=== PATIENT | male | born 1965 | race Caucasian/White ===

== ENCOUNTER → 2016-11-02 | Outpatient (CLI) | payer OTHER ==
[~2016-11-02] MED LIST: ATORVASTATIN PO; PRLSR20 PO; ZNTT/150 PO
--- NOTE | 2016-11-02 12:53 | DIAGNOSTIC IMAGING REPORT ---
(BARIUM SWALLOW) ESOPHAGUS CLINICAL HISTORY: Laryngopharyngeal reflux. History of dysphagia. COMPARISON STUDY: None. FLUOROSCOPY TIME: 1.3 minutes. FINDINGS: 15 fluoroscopic images were obtained. No esophageal mass or stricture was identified. 13 mm barium passed into the stomach. There was mild to moderate esophageal dysmotility. No reflux was elicited. No hiatal hernia was identified. IMPRESSION: 1. No esophageal mass or stricture identified. 2. Mild to moderate esophageal dysmotility. Electronically signed by: Alfredito Cruz M.D. 11/02/2016 12:51 PM Dictated Date/Time: 11/02/2016 12:50 PM
--- NOTE | 2016-11-02 13:04 | DIAGNOSTIC IMAGING REPORT ---
CT OF THE SINUSES WITHOUT CONTRAST FUSION PROTOCOL CLINICAL HISTORY: Acute sinusitis. Post treatment. Persistent postnasal drip. COMPARISON STUDY: No previous studies for comparison. TECHNIQUE: Axial images of the sinuses were obtained without IV contrast according to Fusion protocol. Coronal reformats were viewed. FINDINGS: Mastoid air cells are clear. There is no fluid within the middle ears. Ossicles are intact. Visualized portions of the intracranial contents are unremarkable on this unenhanced exam. A defect within the anterior aspect of the nasal septum measures 2.4 cm in AP extent. This may be postsurgical. There is a yong bullosa of the left middle turbinate. A 7 mm polypoid density within left maxillary sinus likely reflects a mucous retention cyst. The major drainage pathways, including the ostiomeatal complexes are patent. There is minimal mucosal thickening of the sinuses. No air-fluid levels are present. IMPRESSION: 1. Minimal mucosal thickening of the sinuses. Sinuses essentially clear. Patent major drainage pathways. No evidence for acute sinusitis. 2. Defect within the anterior aspect of the nasal septum which may be postsurgical. Electronically signed by: Alfredito Cruz M.D. 11/02/2016 1:02 PM Dictated Date/Time: 11/02/2016 12:56 PM
== END | disposition home or self-care (01) ==
LOC: C.CTS 10:24
PROVIDERS: ATTEND Physician Assistant
DX: J01.90 Acute sinusitis, unspecified (principal); K21.9 Gastro-esophageal reflux disease without esophagitis

== ENCOUNTER → 2016-12-08 | Day surgery (SDC) | payer OTHER ==
[2016-12-02 15:19] VITALS: BMI 49.0
[~2016-12-08] VITALS: Ht 198.1 cm; Wt 193.2 kg
[~2016-12-08] MED LIST changes: +SODIUM CHLORIDE 0.9% 500ML 500 ML IV ONE
[2016-12-08 13:49] VITALS: Ht 198.1 cm; Wt 193.2 kg
--- NOTE | 2016-12-08 14:11 | Endo History and Physical ---
History & Physical Date of Service: Dec 08, 2016. Chief Complaint: DYSPHAGIA Referring Physician: Dr. Luciano History of Present Illness 51 yo CM who presents for EGD secondary to dysphagia. Past Surgical History Hx Cardiac Surgery: No Hx Internal Defibrillator: No Hx Pacemaker: No Hx Abdominal Surgery: No Hx of Implantable Prosthesis: No Hx Post-Op Nausea and Vomiting: No Hx Cancer Surgery: No Hx Thoracic Surgery: No Hx Orthopedic: Yes (LT/RT KNEE SCOPE) Hx Urinary Tract Surgery: No Family History None Social History Smoking Status: Never Smoker Hx Substance Use: No Hx Alcohol Use: Yes (OCCASIONAL) Allergies Coded Allergies: No Known Allergies (Verified , 12/08/16) Current Medications Reported Home Medications Medications Dose Route/Sig Max Daily Dose Days Date Category [Atorvastatin] Unknown Strength Unknown Dose PO QAM 12/02/16 Reported Zantac (Ranitidine HCl) 150 Mg Tab 150 Mg PO BID 12/02/16 Reported Prilosec (Omeprazole) 20 Mg Capcr 20 Mg PO BIDM 12/02/16 Reported Vital Signs Weight (Kilograms): 193.18 Height (Feet): 6 Height (Inches): 6 Date Time Temp Pulse Resp B/P (MAP) Pulse Ox O2 Delivery O2 Flow Rate FiO2 12/08/16 13:58 36.8 87 20 126/77 (93) 95 Room Air Physical Exam General Appearance: WD/WN, no apparent distress Respiratory/Chest: Auscultation: breath sounds normal Cardiovascular: Heart Auscultation: RRR Abdomen: Bowel Sounds: normal Inspection & Palpation: soft, non-distended, no tenderness, guarding & rebound Assessment and Plan Assessment: 51 yo CM who presents for EGD secondary to dysphagia. Plan: Proceed with EGD.
--- NOTE | 2016-12-08 14:50 | Discharge Instructions ---
Endoscopy Patient Instructions Date / Procedure(s) Performed Dec 08, 2016. EGD Allergy Information Coded Allergies: No Known Allergies (Verified , 12/08/16) Discharge Date / Findings Dec 08, 2016. Gastritis s/p biopsies Hiatal hernia Reflux esophagitis Medication Instructions 1) Increase Omeprazole to 40mg by mouth twice daily 1/2 hour prior to breakfast and dinner. 2) OK to resume all medications today as prescribed Reported Home Medications Medications Dose Route/Sig Max Daily Dose Days Date Category [Atorvastatin] Unknown Strength Unknown Dose PO QAM 12/02/16 Reported Zantac (Ranitidine HCl) 150 Mg Tab 150 Mg PO BID 12/02/16 Reported Prilosec (Omeprazole) 20 Mg Capcr 20 Mg PO BIDM 12/02/16 Reported Provider Instructions Activity Restrictions - No exercising or heavy lifting for 24 hours. - Do not drink alcohol the day of the procedure. - Do not drive a car or operate machinery until the day after the procedure. - Do not make any important decisions or sign important papers in 24 hours after the procedure. Following Day: - Return to full activity which may include returning to work/school. Diet Start your diet with liquids and light foods (jello, soup, juice, toast). Then eat your usual diet if not nauseated. Treatment For Common After Affects For mild abdominal pain, bloating, or excessive gas: - Rest - Eat lightly - Lie on right side Follow-Up Information Follow-up with NONE as scheduled Anesthesia Information What You Should Know You have had a procedure that required some medicine to reduce anxiety and discomfort. This treatment is called moderate sedation. After receiving the treatment, you may be sleepy, but you will be able to breathe on your own. The effects of the treatment may last for several hours. Follow these instructions along with Activity/Diet recommendations noted above: * Do NOT do anything where dizziness or clumsiness would be dangerous. * Rest quietly at home today, then you can be up and about tomorrow. * Have a responsible person stay with you the rest of today. * You may have had an I.V. today. If so, you may take the dressing off later today. Recommendations Call your doctor if: * Trouble breathing * Continuous vomiting for more than 24 hours * Temperature above 101 degrees * Severe abdominal pain or bloating * Pain not relieved by pain medicine ordered * There is increased drainage or redness from any incision * A large amount of rectal bleeding greater than 2-3 tablespoons. (If you had a polyp/s removed or have hemorrhoids, a small amount of blood - from the rectum is to be expected.) * You have any unanswered questions or concerns. IN THE EVENT OF A SERIOUS EMERGENCY, GO TO THE NEAREST EMERGENCY ROOM Your discharge instructions were prepared by provider [place]. Patient Instructions Signature Page Darian Murphy Patient (or Guardian) Signature/Date: I have read and understand the instructions given to me by my caregivers. Caregiver/RN/Doctor Signature/Date: The above-named patient and/or guardian has received patient instructions on this date. + Original Patient Signature Page (only) stays with chart. Please make copy for patient.
--- NOTE | 2016-12-08 15:01 | GI REPORT ---
Procedure Date: 12/08/2016 2:27 PM Procedure: Upper GI endoscopy Indications: Dysphagia Medicines: Monitored Anesthesia Care Complications: No immediate complications. Estimated Blood Loss: Estimated blood loss: none. Procedure: Pre-Anesthesia Assessment: - Prior to the procedure, a History and Physical was performed, and patient medications and allergies were reviewed. The patient's tolerance of previous anesthesia was also reviewed. The risks and benefits of the procedure and the sedation options and risks were discussed with the patient. All questions were answered, and informed consent was obtained. Prior Anticoagulants: The patient has taken no previous anticoagulant or antiplatelet agents. ASA Grade Assessment: III - A patient with severe systemic disease. After reviewing the risks and benefits, the patient was deemed in satisfactory condition to undergo the procedure. After obtaining informed consent, the endoscope was passed under direct vision. Throughout the procedure, the patient's blood pressure, pulse, and oxygen saturations were monitored continuously. The scope was introduced through the mouth, and advanced to the second part of duodenum. The upper GI endoscopy was accomplished without difficulty. The patient tolerated the procedure well. Findings: LA Grade B (one or more mucosal breaks greater than 5 mm, not extending between the tops of two mucosal folds) esophagitis with no bleeding was found. A small hiatus hernia was present. Localized moderate inflammation characterized by erythema was found in the gastric antrum. Biopsies were taken with a cold forceps for histology. The examined duodenum was normal. Impression: - LA Grade B reflux esophagitis. - Small hiatus hernia. - Gastritis. Biopsied. - Normal examined duodenum. Recommendation: - Resume previous diet. - Use Prilosec (omeprazole) 40 mg PO BID. - Await pathology results. - Return to primary care physician as previously scheduled. [place] DO 12/08/2016 3:01:29 PM This report has been signed electronically. Note Initiated On: 12/08/2016 2:27 PM I attest to the content of the Intraoperative Record and orders documented therein, exceptions below
--- NOTE | 2016-12-08 15:13 | Anesthesiology Progress Note ---
Anesthesia Post Op Note Date & Time Dec 08, 2016 at 15:13 Vital Signs Pain Intensity: 0 Vital Signs Past 12 Hours Date Time Temp Pulse Resp B/P (MAP) Pulse Ox O2 Delivery O2 Flow Rate FiO2 12/08/16 14:59 75 20 125/84 (98) 95 Room Air 12/08/16 14:44 81 20 120/85 (97) 95 Room Air 12/08/16 13:58 36.8 87 20 126/77 (93) 95 Room Air Notes Mental Status: alert / awake / arousable, participated in evaluation Pt Amnestic to Procedure: Yes Nausea / Vomiting: adequately controlled Pain: adequately controlled Airway Patency, RR, SpO2: stable & adequate BP & HR: stable & adequate Hydration State: stable & adequate Anesthetic Complications: no major complications apparent
[2016-12-08 15:14] VITALS: BP 135/82; PULSE 77; O2SAT 95
== END | disposition home or self-care (01) ==
LOC: C.GI 13:36
PROVIDERS: ATTEND Internal Medicine
DX: R13.10 Dysphagia, unspecified (principal); K29.50 Unspecified chronic gastritis without bleeding; K44.9 Diaphragmatic hernia without obstruction or gangrene; K21.0 Gastro-esophageal reflux disease with esophagitis

== ENCOUNTER 2023-01-10 13:20 | Inpatient (IN) ==
--- NOTE | 2023-01-10 13:30 | ED Triage Note ---
Date of Service January 10, 2023 History of Present Illness This patient was briefly evaluated while in triage. An abbreviated physical exam was performed. This patient is a 57-year-old Male who presents to the ED for evaluation of right lower leg pain, weakness, lightheadedness x a couple of weeks starts in the front of the knee, down into calf and lateral ankle-no hx of DVT, has started using a cane to ambulate feels L/D, SOB and weak Physical Exam GENERAL: NAD, in a wheelchair CARDIOVASCULAR: RRR RESPIRATORY: CTA EXT: RLE without pitting edema or erythema. Varicose veins noted without tender cords. Knee without large effusion. Initial orders for labs and / or imaging were placed and patient was placed in the waiting area until a bed is available. Please see further documentation for the full ED course.
--- NOTE | 2023-01-10 13:54 | Emergency Department Note ---
Impression & Plan CHRISTAL (acute kidney injury), Pulmonary hypertension, Acute pain of right lower extremity, Byrd cyst, Acute UTI (urinary tract infection) ED Provider Note NAME: TARAS STRINGER II AGE: 57 SEX: Male INFORMANT: Patient ED PROVIDER(S): Bhavya Lyle DO CHIEF COMPLAINT: Shortness of breath, right leg pain PLAN: Disposition: additional inpatient evalation Outpatient prescription management: none Referral: MEDICAL DECISION MAKING: This is a 49-year-old male presents emergency department due to concern for shortness of breath and right lower extremity pain. Labs drawn and sent, IV established, EKG and chest ray performed bedside interpreted by me and patient monitored on telemetry. Patient sent for a Doppler of the right lower extremity additionally and was found to be negative for DVT but did have a Byrd's cyst which likely explains his pain and mild increased swelling. Patient noted to have an elevated D-dimer and so CT angiography of the chest was also performed after discussion with the patient at bedside. This did not reveal any obvious PE, pulmonary edema, or pneumonia. There was mention of pulmonary hypertension and these results were also discussed with the patient at bedside I did reach out and discuss the patient's condition and findings with his outpatient PCP. Patient was uncomfortable going home given persistent symptoms as well as increased dyspnea with any exertion. During my bedside discussion with the patient, I had noted that his urine was very dark and almost appeared to show blood. I added a CPK and UA. UA did reveal infection and patient was started on IV Rocephin additionally. Case discussed with the hospitalist for additional evaluation and management and likely echo and cardiology evaluation. Care/management discussed with: Dr. Alvarado about findings and possible outpatient cardiology follow-up Level of care consideration(s): After review of the information above and other included data, I feel the patient should be monitored as an inpatient given renal dysfunction. Triage Nursing notes: reviewed and agree them. Vital Signs: reviewed and remarkable for no significant abnormalities Additional History obtained from: none Chronic Medical/Social Conditions affecting care: none Prior /Outside records reviewed: none Differential Diagnosis: pneumonia, bronchitis, COPD/Asthma exacerbation, pneumothorax, pulmonary emb olism, congestive heart failure, acute coronary syndrome, URI, DVT, pleural effusion, as well as others were considered Diagnostics, independently interpreted by me: ECG: Sinus tachycardia at 102, normal axis, normal intervals, nonspecific ST/T wave changes Cardiac Monitoring: An order was placed for continuous cardiac monitoring. The monitor shows a rate of _98__ with _normal sinus_ rhythm. Medical decision rules: none Imaging studies: X-ray Chest: A single view study of the chest was reviewed and was negative for cardiomegaly, focal infiltrate, effusion, pulmonary edema, or wide mediastinum. HPI: 57 year old Male arrives for evaluation of shortness of breath. Patient states he has been increasingly short of breath in the last 2 weeks. He states it is worse with standing, position changes, and exertion. Patient denies any history of tobacco abuse. He denies any recent cough, or other URI symptoms. Patient denies any leg swelling. He states he has pain in the right leg which is additionally made it hard for him to walk. He denies chest pain and states he does have intermittent palpitations. He states he is a prior history of paroxysmal atrial fibrillation but is not currently anticoagulated. He denies any coming chest pain, abdominal pain, but does admit to mild dizziness. PAST MEDICAL HISTORY: See Below, PAST SURGICAL HISTORY: See Below, SOCIAL HISTORY: See Below, HOME MEDICATIONS: See Below ALLERGIES: See Below VITALS: See Below PHYSICAL EXAMINATION: GENERAL: alert, well appearing, well nourished, no distress, non-toxic, BMI 42 EYE EXAM: normal conjunctiva, PERRL and EOM's grossly intact OROPHARYNX: no exudate, no erythema, lips, buccal mucosa, and tongue normal and mucous membranes are moist NECK: supple, no nuchal rigidity, no adenopathy, non-tender LUNGS: Clear to auscultation. Normal chest wall mechanics, no w/r/r HEART: no murmurs, S1 normal and S2 normal ABDOMEN: abdomen soft, non-tender, normo-active bowel sounds, no masses, no rebound or guarding. BACK: Back is symmetrical on inspection and there is no deformity, no midline tenderness, no CVA tenderness. SKIN: no rashes and no bruising UPPER EXTREMITIES: upper extremities are grossly normal. FROM, nml pulses b/l. LOWER EXTREMITIES: No pitting edema. FROM, nml pulses b/l. Pain with palpation of the distal right lower extremity, no obvious deformity, no joint effusions, compartments soft, no palpable mass posteriorly. NEURO EXAM: Normal sensorium, cranial nerves II-XII grossly intact, normal speech, no gross weakness of arms, no gross weakness of legs. Gross sensation intact. Past Med/Surg History Medical History (Updated 01/12/23 @ 01:13 by Bhavya Lyle DO) Abdominal pain reason for upcoming procedure Anxiety No known health problems Surgical History H/O colonoscopy Colonoscopy 12/01/22, repeat 5 years in 2027 History of ankle surgery History of lateral meniscus repair of right knee History of wisdom tooth extraction Family History Father Diabetes Myocardial infarction Mother Diabetes Myocardial infarction Ovarian cancer Denies family history of Prostate cancer Breast cancer Lung cancer Colorectal cancer Stroke Social History Smoking Status: Never smoker Second Hand Exposure: No; Do You Dip or Chew Tobacco: Yes; Hx Alcohol Use: Yes Alcohol type: beer and hard liquor Alcohol Intake Frequency: 4 or More x per/Week Hx Substance Use: No Preferred Language: Niuean Communication Ability: Effective Visual Impairment: Limited Hearing Ability: Normal Side Laster Tack Required: No Beliefs That Will Affect Care: None marital status: Current Living Situation: Significant Other current occupational status: employed current occupation: [employer] How many Children do You have: 3 Feels Safe at Home: Yes Childhood Exposure to Second-Hand Smoke: Yes caffeine: No Dental Care, Regularly: Yes Physical Activity Frequency: Does not Exercise Seatbelt Use: always Sunscreen Use: No Assistive Devices: None Allergies Allergies Allergy/AdvReac Type Severity Reaction Status Date / Time No Known Allergies Allergy Mild Verified 12/29/22 09:35 Home Meds Home Medications Medication Instructions Recorded Confirmed acetaminophen 500 mg tablet 500 mg PO QID PRN pain 11/23/22 01/10/23 (Tylenol Extra Strength) Previous Rx's Medication Instructions Recorded folic acid 1 mg tablet 1 mg PO DAILY #30 tabs 11/23/22 hydroxyzine HCl 10 mg tablet 10 mg PO TID PRN anxiety #30 tabs 11/23/22 pantoprazole 40 mg tablet,delayed 40 mg PO BID #60 tabs 12/01/22 release metoprolol tartrate 25 mg tablet 25 mg PO DAILY PRN heart 12/29/22 fluttering #30 tabs rosuvastatin 5 mg tablet 5 mg PO DAILY #30 tabs 12/29/22 Results & Data (ED) Vital Signs Vital Signs - 24 hr 01/10/23 13:29 01/10/23 13:45 01/10/23 13:58 Temperature 36.0 C L Temperature Source Temporal Artery Scan Pulse Rate 95 H 84 Respiratory Rate 18 Blood Pressure 129/87 Blood Pressure Mean 101 Pulse Oximetry 97 96 Oxygen Delivery Method Room Air Room Air Sepsis Recent Fever Within 48 Hours No Sepsis New/Unexplained Change in Mental Status N/A Sepsis Action Taken by Nursing No Action Required 01/10/23 14:00 01/10/23 18:02 01/10/23 15:06 Temperature Temperature Source Pulse Rate 82 85 81 Respiratory Rate 13 11 L Blood Pressure 113/85 119/79 Blood Pressure Mean 94 92 Pulse Oximetry 98 98 Oxygen Delivery Method Room Air Room Air Sepsis Recent Fever Within 48 Hours Sepsis New/Unexplained Change in Mental Status Sepsis Action Taken by Nursing 01/10/23 16:30 01/10/23 16:50 01/10/23 17:00 Temperature Temperature Source Pulse Rate 77 79 79 Respiratory Rate 17 16 16 Blood Pressure 133/77 119/83 111/81 Blood Pressure Mean 95 95 91 Pulse Oximetry 99 95 95 Oxygen Delivery Method Room Air Room Air Sepsis Recent Fever Within 48 Hours Sepsis New/Unexplained Change in Mental Status Sepsis Action Taken by Nursing 01/10/23 17:31 01/10/23 18:01 Temperature Temperature Source Pulse Rate 86 86 Respiratory Rate 18 19 Blood Pressure 106/84 123/77 Blood Pressure Mean 91 92 Pulse Oximetry 96 96 Oxygen Delivery Method Room Air Room Air Sepsis Recent Fever Within 48 Hours Sepsis New/Unexplained Change in Mental Status Sepsis Action Taken by Nursing Laboratory Data 01/10/23 14:00 01/10/23 14:00 Lab Results 01/10/23 01/10/23 01/10/23 Range/Units 14:00 14:00 14:00 WBC 8.56 (4.8-10.8) K/ul RBC 3.91 L (4.70-6.10) M/uL Hgb 13.7 L (14.0-18.0) g/dl Hct 40.1 L (42.0-52.0) % MCV 102.6 H (80.0-100.0) fL MCH 35.0 H (25.0-34.0) pg MCHC 34.2 (32.0-36.0) g/dL RDW Std Deviation 50.4 H (36.4-46.3) fL RDW Coeff of Santos 13.2 (11.5-14.5) % Plt Count 254 (130-400) K/uL MPV 9.2 L (9.4-12.4) fL Immature Gran % (Auto) 0.9 % Neut % (Auto) 69.8 % Lymph % (Auto) 15.4 % [place] % (Auto) 12.4 % Eos % (Auto) 0.9 % Baso % (Auto) 0.6 % Neut # (Auto) 5.97 (1.40-6.50) K/uL Lymph # (Auto) 1.32 (1.20-3.40) K/uL [place] # (Auto) 1.06 H (0.11-0.59) K/uL Eos # (Auto) 0.08 (0.00-0.50) K/uL Baso # (Auto) 0.05 (0.00-0.20) K/uL Immature Gran # (Auto) 0.08 (0.01-0.20) K/uL PT 11.6 (9.0-12.0) Seconds INR 1.1 (0.9-1.1) APTT 29.3 (21.0-31.0) Seconds PTT Ratio 1.0 D-Dimer 1410 H* (0-500) ug/L FEU Sodium 134 L (136-145) mmol/L Potassium 3.3 L (3.5-5.1) mmol/L Chloride 96 L (98-107) mmol/L Carbon Dioxide 27 (21-32) mmol/L Anion Gap 11 (3-11) BUN 20 (6-23) mg/dl Creatinine 1.89 H (0.6-1.4) mg/dl Est Cr Clr Drug Dosing 73.6 ml/min Est GFR ( Amer) 44.3 ml/min Est GFR (Non-Af Amer) 38.3 ml/min BUN/Creatinine Ratio 10.6 (10-20) Glucose 117 H (70-99(Fasting)) mg/dl Calcium 10.1 (8.6-10.3) mg/dl Magnesium 1.4 L (1.7-2.4) mg/dl Total Bilirubin 1.5 H (0.2-1.0) mg/dl AST 26 (13-39) U/L ALT 14 (7-52) U/L Alkaline Phosphatase 94 (34-104) U/L Total Creatine Kinase 42 (30-223) U/L Troponin I High Sens 7.1 (0-20) pg/ml Total Protein 8.4 H (6.0-8.3) gm/dl Albumin 3.9 (3.4-5.0) gm/dl Globulin 4.5 H (2.5-4.0) gm/dl Albumin/Globulin Ratio 0.9 (0.9-2) TSH 2.257 (0.300-4.500) uIu/ml Urine Color Urine Appearance (Clear) Urine pH (4.5-7.5) Ur Specific [place] (1.000-1.030) Urine Protein (Negative) Urine Glucose (UA) (Negative) Urine Ketones (Negative) Urine Blood (Negative) Urine Nitrite (Negative) Urine Bilirubin (Negative) Urine Urobilinogen (Negative) Ur Leukocyte Esterase (Negative) Urine WBC (Auto) (0-5) /hpf Urine RBC (Auto) (0-4) /hpf U Hyaline Cast (Auto) (0-5) /lpf U Epithel Cells (Auto) (0-5) /lpf Urine Bacteria (Auto) (Negative) Urine Yeast (None Prsent) 01/10/23 Range/Units 19:15 WBC (4.8-10.8) K/ul RBC (4.70-6.10) M/uL Hgb (14.0-18.0) g/dl Hct (42.0-52.0) % MCV (80.0-100.0) fL MCH (25.0-34.0) pg MCHC (32.0-36.0) g/dL RDW Std Deviation (36.4-46.3) fL RDW Coeff of Santos (11.5-14.5) % Plt Count (130-400) K/uL MPV (9.4-12.4) fL Immature Gran % (Auto) % Neut % (Auto) % Lymph % (Auto) % [place] % (Auto) % Eos % (Auto) % Baso % (Auto) % Neut # (Auto) (1.40-6.50) K/uL Lymph # (Auto) (1.20-3.40) K/uL [place] # (Auto) (0.11-0.59) K/uL Eos # (Auto) (0.00-0.50) K/uL Baso # (Auto) (0.00-0.20) K/uL Immature Gran # (Auto) (0.01-0.20) K/uL PT (9.0-12.0) Seconds INR (0.9-1.1) APTT (21.0-31.0) Seconds PTT Ratio D-Dimer (0-500) ug/L FEU Sodium (136-145) mmol/L Potassium (3.5-5.1) mmol/L Chloride (98-107) mmol/L Carbon Dioxide (21-32) mmol/L Anion Gap (3-11) BUN (6-23) mg/dl Creatinine (0.6-1.4) mg/dl Est Cr Clr Drug Dosing ml/min Est GFR ( Amer) ml/min Est GFR (Non-Af Amer) ml/min BUN/Creatinine Ratio (10-20) Glucose (70-99(Fasting)) mg/dl Calcium (8.6-10.3) mg/dl Magnesium (1.7-2.4) mg/dl Total Bilirubin (0.2-1.0) mg/dl AST (13-39) U/L ALT (7-52) U/L Alkaline Phosphatase (34-104) U/L Total Creatine Kinase (30-223) U/L Troponin I High Sens (0-20) pg/ml Total Protein (6.0-8.3) gm/dl Albumin (3.4-5.0) gm/dl Globulin (2.5-4.0) gm/dl Albumin/Globulin Ratio (0.9-2) TSH (0.300-4.500) uIu/ml Urine Color [place] Urine Appearance Turbid A (Clear) Urine pH 5.0 (4.5-7.5) Ur Specific [place] > 1.045 H (1.000-1.030) Urine Protein 2+ H (Negative) Urine Glucose (UA) Negative (Negative) Urine Ketones Negative (Negative) Urine Blood 3+ H (Negative) Urine Nitrite Positive A (Negative) Urine Bilirubin 1+ H (Negative) Urine Urobilinogen Negative (Negative) Ur Leukocyte Esterase 2+ H (Negative) Urine WBC (Auto) >30 H (0-5) /hpf Urine RBC (Auto) 10-30 H (0-4) /hpf U Hyaline Cast (Auto) 1-5 (0-5) /lpf U Epithel Cells (Auto) 5-10 H (0-5) /lpf Urine Bacteria (Auto) 1+ H (Negative) Urine Yeast Budding A (None Prsent) Administered Medications Acetaminophen (Acetaminophen 500 Mg Tab) 500 mg PO QID PRN PRN Reason: pain Stop: 02/09/23 23:20 Last Admin: 01/11/23 06:45 Dose: 500 mg Documented By: STEFFI Folic Acid (Folic Acid 1 Mg Tab) 1 mg PO DAILY REPLACED BY [facility] Stop: 02/10/23 08:59 Last Admin: 01/11/23 08:09 Dose: 1 mg Documented By: WAYNE Heparin Sodium (Porcine) (Heparin Sod 5,000 Unit/0.5 Ml Vial) 5,000 units SQ Q8 LISANDRO Stop: 02/09/23 23:20 Last Admin: 01/11/23 20:44 Dose: 5,000 units Documented By: Admin: 01/11/23 16:08 Dose: 5,000 units Documented By: Admin: 01/11/23 06:18 Dose: 5,000 units Documented By: Admin: 01/11/23 00:48 Dose: 5,000 units Documented By: STEFFI Hydroxyzine HCl (Hydroxyzine Hcl 10 Mg Tab) 10 mg PO TID PRN PRN Reason: anxiety Stop: 02/09/23 23:20 Last Admin: 01/11/23 18:22 Dose: 10 mg Documented By: Admin: 01/11/23 08:11 Dose: 10 mg Documented By: WAYNE Sodium Chloride (Nss) 1,000 mls @ 80 mls/hr IV .[id number] REPLACED BY [facility] Stop: 02/09/23 15:14 Last Infusion: 01/11/23 16:22 Dose: 80 mls/hr Documented By: Admin: 01/11/23 16:21 Dose: 125 mls/hr Documented By: Infusion: 01/11/23 14:18 Dose: 80 mls/hr Documented By: Admin: 01/11/23 06:18 Dose: 125 mls/hr Documented By: Infusion: 01/11/23 06:18 Dose: 125 mls/hr Documented By: Admin: 01/10/23 22:28 Dose: 125 mls/hr Documented By: Infusion: 01/10/23 22:28 Dose: 125 mls/hr Documented By: Admin: 01/10/23 15:10 Dose: 125 mls/hr Documented By: TAWANA Ceftriaxone Sodium 2,000 mg/ (Dextrose) 50 mls @ 100 mls/hr IV Q24H LISANDRO; Protocol Stop: 01/21/23 20:59 Last Infusion: 01/11/23 21:16 Dose: 0 mls/hr Documented By: Admin: 01/11/23 20:44 Dose: 100 mls/hr Documented By: MANE Methylprednisolone 60 mg/ (Syringe) 0.96 mls @ 1.5 mls/min IV Q6H LISANDRO Stop: 02/10/23 15:29 Last Admin: 01/11/23 20:44 Dose: 1.5 mls/min Documented By: Admin: 01/11/23 16:45 Dose: 1.5 mls/min Documented By: MAURICOI Metoprolol Tartrate (Metoprolol Tartrate 25 Mg Tab) 12.5 mg PO BID LISANDRO Stop: 02/09/23 20:59 Last Admin: 01/11/23 20:43 Dose: 12.5 mg Documented By: Admin: 01/11/23 08:08 Dose: 12.5 mg Documented By: Admin: 01/10/23 21:52 Dose: 12.5 mg Documented By: STEFFI Morphine Sulfate (Morphine Sulfate 4 Mg/Ml 1 Ml Carp\Vial) 4 mg IV Q3H PRN PRN Reason: Pain (6,7,8,9,10) Stop: 01/24/23 22:14 Last Admin: 01/11/23 19:48 Dose: 4 mg Documented By: Admin: 01/11/23 11:48 Dose: 4 mg Documented By: Admin: 01/11/23 06:45 Dose: 4 mg Documented By: Admin: 01/10/23 22:27 Dose: 4 mg Documented By: STEFFI Morphine Sulfate (Morphine Sulfate 2 Mg/Ml Carp) 2 mg IV Q3H PRN PRN Reason: Pain (1,2,3,4,5) & Pre PT Stop: 01/24/23 22:14 Last Admin: 01/11/23 16:21 Dose: 2 mg Documented By: MAURICIO Pantoprazole Sodium (Pantoprazole 40 Mg Tab) 40 mg PO BID LISANDRO Stop: 02/09/23 23:20 Last Admin: 01/11/23 20:44 Dose: 40 mg Documented By: Admin: 01/11/23 08:10 Dose: 40 mg Documented By: Admin: 01/11/23 00:48 Dose: 40 mg Documented By: STEFFI Rosuvastatin Calcium (Rosuvastatin Calcium 5 Mg Tab) 5 mg PO DAILY LISANDRO Stop: 02/10/23 08:59 Last Admin: 01/11/23 08:10 Dose: 5 mg Documented By: WAYNE Discontinued Medications Diclofenac Sodium (Diclofenac Sod 1% Gel 100 Gm Tube) 1 gm EXT NOW STA; Protocol Stop: 01/10/23 16:13 Last Admin: 01/10/23 16:29 Dose: 1 gm Documented By: TAWANA Acetaminophen (Ofirmev) 1,000 mg in 100 mls @ 400 mls/hr IV NOW STA Stop: 01/10/23 16:26 Last Infusion: 01/10/23 17:00 Dose: 0 mls/hr Documented By: Admin: 01/10/23 16:29 Dose: 400 mls/hr Documented By: TAWANA Ceftriaxone Sodium (Rocephin) 2,000 mg in 50 mls @ 100 mls/hr IV NOW STA Stop: 01/10/23 21:00 Last Infusion: 01/10/23 22:27 Dose: 0 mls/hr Documented By: Admin: 01/10/23 21:56 Dose: 100 mls/hr Documented By: STEFFI Thiamine HCl 100 mg/ Syringe 10 mls @ 2 mls/min IV NOW STA Stop: 01/10/23 20:48 Last Admin: 01/10/23 21:54 Dose: 2 mls/min Documented By: STEFFI Folic Acid 1 mg/ Syringe 10 mls @ 5 mls/min IV NOW STA Stop: 01/10/23 20:45 Last Admin: 01/10/23 21:54 Dose: 5 mls/min Documented By: STEFFI Magnesium Sulfate/Dextrose (Magnesium Sulfate / D5w) 1 gm in 100 mls @ 100 mls/hr IV Q1H LISANDRO Stop: 01/10/23 23:08 Last Infusion: 01/11/23 01:49 Dose: 0 mls/hr Documented By: Admin: 01/11/23 00:48 Dose: 100 mls/hr Documented By: Infusion: 01/11/23 00:13 Dose: 0 mls/hr Documented By: Admin: 01/10/23 23:10 Dose: 100 mls/hr Documented By: STEFFI Ioversol (Optiray 320 500ml) 109 ml IV ONCE ONE Stop: 01/10/23 15:38 Last Admin: 01/10/23 15:37 Dose: 109 ml Documented By: CATARINO Potassium Chloride (Potassium Chloride Crtab 20 Meq Tabcr) 40 meq PO NOW STA Stop: 01/10/23 21:12 Last Admin: 01/10/23 21:53 Dose: 40 meq Documented By: STEFFI Potassium Chloride (Potassium Chloride Crtab 20 Meq Tabcr) 20 meq PO NOW STA Stop: 01/10/23 23:22 Last Admin: 01/11/23 00:36 Dose: Not Given Documented By: STEFFI Potassium Chloride (Potassium Chloride Crtab 20 Meq Tabcr) 40 meq PO NOW STA Stop: 01/11/23 08:13 Last Admin: 01/11/23 09:54 Dose: 40 meq Documented By: BLW Imaging Data Radiologist's Impression: Chest X-Ray 01/10/23 13:30 XR chest 2V PA/lateral CLINICAL HISTORY: SOB TECHNIQUE: 2 views of the chest were obtained. Comparison: None available at the time of this dictation. FINDINGS: No lines and tubes are seen. The cardiomediastinal silhouette is normal. The lungs are clear. No evidence of pleural effusion or pneumothorax. IMPRESSION: No acute abnormalities and in particular no radiographic evidence of pneumonia. ACT 112: Negative or not required by law. Electronically signed by: Nilesh Herrmann M.D. 01/10/2023 2:38 PM Venous Doppler Study 01/10/23 13:30 US venous doppler LE RT CLINICAL HISTORY: RIGHT LEG PAIN TECHNIQUE: Right lower extremity real-time compression venous ultrasound with Color Doppler imaging. Utilizing real-time ultrasonic imaging multiple real time high-resolution ultrasonic images with compression and noncompression maneuvers of the deep venous system in addition to color doppler imaging were performed from the common femoral vein through the proximal calf veins. COMPARISON: None available at the time of this dictation. FINDINGS/IMPRESSION: Currently there is normal compressibility of the deep venous system from the common femoral vein through the proximal calf veins. Fluid collection in the popliteal fossa measures 7.7 x 3.0 x 5.6 cm, likely representing popliteal cyst. ACT 112: Negative or not required by law. Electronically signed by: Nilesh Herrmann M.D. 01/10/2023 4:17 PM Chest CTA 01/10/23 15:05 CT angio chest PE protocol CLINICAL HISTORY: PE TECHNIQUE: Multidetector row helical CT of the chest was performed with angiographic protocol. Coronal and sagittal reformations were obtained. Coronal and sagittal MIPS were obtained from the axial data set and were submitted for review. Automated dose lowering techniques and/or adjustment according to patient size were utilized for this exam. CT DOSE: 932.78 mGy.cm Comparison: None available at the time of this dictation. FINDINGS: Lungs and pleura: Normal. Heart and pericardium: Heart size is normal. No pericardial effusion. Vessels: No evidence of pulmonary embolism. Pulmonary trunk measures 36 mm in diameter. Mediastinum and nilsa: Unremarkable. Chest wall and lower neck: Unremarkable. Abdomen: Hepatic steatosis is noted. Calcification of the bilateral adrenal glands noted. Bones: Degenerative changes in the thoracic spine. IMPRESSION: 1. No acute abnormality and in particular no evidence of pulmonary embolus. 2. Pulmonary hypertension. ACT 112: Negative or not required by law. Electronically signed by: Nilesh Herrmann M.D. 01/10/2023 4:01 PM Discharge Plan Visit Data Chief Complaint: Shortness of Breath/Dyspnea Stated Complaint: SOB, WEAK, LIGHTHEADED ED Provider: Bhavya Lyle Discharge Problem: CHRISTAL (acute kidney injury), Pulmonary hypertension, Acute pain of right lower extremity, Byrd cyst, Acute UTI (urinary tract infection) Patient Disposition: Admitted As Inpatient Discharge Instructions Interventions: ED Discharge Assessment Last Done: 01/11/23 00:16
[2023-01-10 14:25] LABS: Basophils # (auto) 0.05 K/uL (0.00-0.20); Basophils % (auto) 0.6 %; Eosinophils # (auto) 0.08 K/uL (0.00-0.50); Eosinophils % (auto) 0.9 %; Hematocrit (blood only) 40.1 % (42.0-52.0); Hemoglobin 13.7 g/dl (14.0-18.0); Immature Granulocytes # (auto) 0.08 K/uL (0.01-0.20); Immature Granulocytes % (auto) 0.9 %; Lymphocytes # (auto) 1.32 K/uL (1.20-3.40); Lymphocytes % (auto) 15.4 %; Mean Corpuscular Hgb Conc 34.2 g/dL (32.0-36.0); Mean Corpuscular Volume 102.6 fL (80.0-100.0); Mean Platelet Volume 9.2 fL (9.4-12.4); Monocytes # (auto) 1.06 K/uL (0.11-0.59); Monocytes % (auto) 12.4 %; Neutrophils # (auto) 5.97 K/uL (1.40-6.50); Neutrophils % (auto) 69.8 %; Platelet Count 254 K/uL (130-400); RDW Coefficient of Variation 13.2 % (11.5-14.5); RDW Standard Deviation 50.4 fL (36.4-46.3); Red Blood Count 3.91 M/uL (4.70-6.10); White Blood Count 8.56 K/ul (4.8-10.8)
[2023-01-10 14:35] LABS: Albumin Globulin Ratio 0.9 (0.9-2); Albumin Level 3.9 gm/dl (3.4-5.0); BUN Creatinine Ratio 10.6 (10-20); Bilirubin,Total 1.5 mg/dl (0.2-1.0); Calcium 10.1 mg/dl (8.6-10.3); Creatinine Clr Calc Pharmacy 73.6 ml/min; Est GFR (African American) 44.3 ml/min; Est GFR (Non-African American) 38.3 ml/min; Globulin 4.5 gm/dl (2.5-4.0); Potassium 3.3 mmol/L (3.5-5.1); Total Protein 8.4 gm/dl (6.0-8.3)
--- NOTE | 2023-01-10 14:39 | XRay Report ---
XR chest 2V PA/lateral CLINICAL HISTORY: SOB TECHNIQUE: 2 views of the chest were obtained. Comparison: None available at the time of this dictation. FINDINGS: No lines and tubes are seen. The cardiomediastinal silhouette is normal. The lungs are clear. No evid ence of pleural effusion or pneumothorax. IMPRESSION: No acute abnormalities and in particular no radiographic evidence of pneumonia. ACT 112: Negative or not required by law. Electronically signed by: Nilesh Herrmann M.D. 01/10/2023 2:38 PM
[2023-01-10 14:40] LABS: Troponin I High Sensitivity 7.1 pg/ml (0-20)
[2023-01-10 14:45] LABS: INR 1.1 (0.9-1.1); Partial Thromboplastin Time 29.3 Seconds (21.0-31.0); Prothrombin Time 11.6 Seconds (9.0-12.0)
[2023-01-10 14:48] LABS: D Dimer 1410 ug/L FEU (0-500)
[2023-01-10] MEDS: SODIUM CHLORIDE 0.9% 1,000 ML IV SCH ×2 (15:10→22:28)
[2023-01-10] MEDS ORDERED: OPTIRAY 320 500ml IV ONE (15:37)
--- NOTE | 2023-01-10 16:02 | CT Scan Report ---
CT angio chest PE protocol CLINICAL HISTORY: PE TECHNIQUE: Multidetector row helical CT of the chest was performed with angiographic protocol. Fitzpatrick l and sagittal reformations were obtained. Coronal and sagittal MIPS were obtained from the axial luis antonio a set and were submitted for review. Automated dose lowering techniques and/or adjustment according to patient size were utilized for this exam. CT DOSE: 932.78 mGy.cm Comparison: None available at the time of this dictation. FINDINGS: Lungs and pleura: Normal. Heart and pericardium: Heart size is normal. No pericardial effusion. Vessels: No evidence of pulmonary embolism. Pulmonary trunk measures 36 mm in diameter. Mediastinum and nilsa: Unremarkable. Chest wall and lower neck: Unremarkable. Abdomen: Hepatic steatosis is noted. Calcification of the bilateral adrenal glands noted. Bones: Degenerative changes in the thoracic spine. IMPRESSION: 1. No acute abnormality and in particular no evidence of pulmonary embolus. 2. Pulmonary hypertension. ACT 112: Negative or not required by law. Electronically signed by: Nilesh Herrmann M.D. 01/10/2023 4:01 PM
[2023-01-10] MEDS ORDERED: ACETAMINOPHEN 1,000 MG/100 ML VIAL IV STA (16:12)
[2023-01-10] MEDS ORDERED: DICLOFENAC SOD 1% GEL 100 GM TUBE EXT STA (16:12)
--- NOTE | 2023-01-10 16:18 | Ultrasound Report ---
US venous doppler LE RT CLINICAL HISTORY: RIGHT LEG PAIN TECHNIQUE: Right lower extremity real-time compression venous ultrasound with Color Doppler imaging. Utilizing real-time ultrasonic imaging multiple real time high-resolution ultrasonic images with comp ression and noncompression maneuvers of the deep venous system in addition to color doppler imaging w ere performed from the common femoral vein through the proximal calf veins. COMPARISON: None available at the time of this dictation. FINDINGS/IMPRESSION: Currently there is normal compressibility of the deep venous system from the common femoral vein thro ugh the proximal calf veins. Fluid collection in the popliteal fossa measures 7.7 x 3.0 x 5.6 cm, li hilaria representing popliteal cyst. ACT 112: Negative or not required by law. Electronically signed by: Nilesh Herrmann M.D. 01/10/2023 4:17 PM
--- NOTE | 2023-01-10 18:14 | History & Physical Report ---
Date of Service January 10, 2023 History of Present Illness Primary Care Provider: Morro Alvarado DO Allergies Allergy/AdvReac Type Severity Reaction Status Date / Time No Known Allergies Allergy Mild Verified 12/29/22 09:35 Home Medications Medication Instructions Recorded Confirmed Type acetaminophen 500 mg tablet 500 mg PO QID PRN pain 11/23/22 01/10/23 History (Tylenol Extra Strength) folic acid 1 mg tablet 1 mg PO DAILY #30 tabs 11/23/22 01/10/23 Rx hydroxyzine HCl 10 mg tablet 10 mg PO TID PRN anxiety #30 tabs 11/23/22 01/10/23 Rx pantoprazole 40 mg tablet,delayed 40 mg PO BID #60 tabs 12/01/22 01/10/23 Rx release metoprolol tartrate 25 mg tablet 25 mg PO DAILY PRN heart 12/29/22 01/10/23 Rx fluttering #30 tabs rosuvastatin 5 mg tablet 5 mg PO DAILY #30 tabs 12/29/22 01/10/23 Rx Past Med/Surg History Medical History Abdominal pain reason for upcoming procedure No known health problems Surgical History H/O colonoscopy Colonoscopy 12/01/22, repeat 5 years in 2027 History of ankle surgery History of lateral meniscus repair of right knee History of wisdom tooth extraction Family History Father Diabetes Myocardial infarction Mother Diabetes Myocardial infarction Ovarian cancer Denies family history of Prostate cancer Breast cancer Lung cancer Colorectal cancer Stroke Social History Smoking Status: Never smoker Second Hand Exposure: No; Do You Dip or Chew Tobacco: Yes (advised); Hx Alcohol Use: Yes Alcohol type: beer, wine and hard liquor Alcohol Intake Frequency: 4 or More x per/Week Hx Substance Use: No Preferred Language: Slovenian Communication Ability: Effective Visual Impairment: Limited Hearing Ability: Normal Visual Basic Programmer Required: No Beliefs That Will Affect Care: None marital status: Current Living Situation: Significant Other current occupational status: employed current occupation: [employer] How many Children do You have: 3 Feels Safe at Home: Yes Childhood Exposure to Second-Hand Smoke: Yes caffeine: No Dental Care, Regularly: Yes Physical Activity Frequency: Does not Exercise Seatbelt Use: always Sunscreen Use: No Assistive Devices: None Results & Data Results & Data Vital Signs (Past 12 Hours) Vital Signs Temp Pulse Resp BP Pulse Ox O2 Del Method 01/10/23 18:02 85 01/10/23 14:00 82 13 113/85 98 Room Air 01/10/23 13:58 84 01/10/23 13:45 96 Room Air 01/10/23 13:29 36.0 C L 95 H 18 129/87 97 Room Air PG Care Time/CCT Total # of Minutes Spent Total Time Spent with Patient: Total time spent is greater than 50% in coordination of care (as documented) at patient's floor/unit and/or counseling patient: Coding Diagnoses
--- NOTE | 2023-01-10 19:00 | History & Physical Report ---
Date of Service January 10, 2023 Assessment & Plan (1) CHRISTAL (acute kidney injury): Plan: On admission, BUN 20 and creatinine 1.89 (baseline 1.11); eGFR down to 38.3 with most recent being 72.8 Clinically, patient is asymptomatic, but dark urine on UA Recent NSAID use for right knee pain; patient reports 2 tabs Advil daily CK WNL at 42 Avoid nephrotoxic agents Strict I&O monitoring Continue fluid resus with NSS A.m. CBC, BMP (2) Pulmonary hypertension: Plan: Clinically, patient endorses SOB both with exertion and at rest; non-positional Elevated D-dimer at 1410 on admission CTA chest showed no acute abnormalities or evidence of PE CXR does not show evidence of PNA Echo ordered Recommend nocturnal pulse ox once patient is out of the ED Recommend full sleep study outpatient upon discharge (3) Paroxysmal atrial fibrillation: Plan: In the setting of significant alcohol use and family history of A-fib Clinically, patient endorses intermittent chest palpitations and SOB at rest Troponin WNL Patient deferred anticoag on 12/29 in PCP office; should be discussed on discharge Per patient, he was started on metoprolol tartrate 25 mg daily PRN for chest palpitations in his PCP office on 12/29; has only taken 3 tabs since Start on metoprolol 12.5 mg twice daily while inpatient Continuous telemetry monitoring TSH ordered (4) Acute pain of right lower extremity: Plan: Clinically, patient endorses 01/04 "burning, stabbing" pain at the right inferior knee; radiates to the back of the knee and down the right leg into the foot Venous Doppler revealed popliteal cyst, which is likely the cause of his pain Acetaminophen as needed for pain management; caution NSAID use in the setting of gastritis and CHRISTAL (5) UTI (urinary tract infection): Plan: Clinically, patient does not complain of dysuria or burning on urination UA positive Rocephin 2g daily (6) Alcohol use disorder: Plan: Patient reports that he previously drank 1 handle every 4 days; prior PCP note on 12/29 reported he was down to 3 drinks daily Patient reports that he cut his alcohol intake in half recently, and has not had hard alcohol in the past 10 days; last drink: one beer on Monday 01/08 Last vit B12 at 1011 on 11/23/2022 Last folate at 3.04 on 11/23/2022 Mild macrocytic anemia on CBC today Peripheral blood smear ordered Thiamine and folic acid given in the ED AWSS protocols in place Continue to monitor electrolytes; keep K>4, Mag>2 A.m. folate, vitamin B12, and LFTs (7) Hyperlipidemia: Plan: CK okay at 42 Continue rosuvastatin (8) Abnormal weight loss: Plan: Per pt, he has unintentionally lost 80 pounds in the last 9 months May be secondary to poor caloric intake / excessive alcohol use Recent EGD and colonoscopy on 12/01/2022 negative for CA (9) Hypomagnesemia: Plan: Mag 1.4 on arrival Patient received 2 bags mag sulfate in the ED Recheck a.m. mag level (10) Hypokalemia: Plan: Mild hypokalemia at 3.3 on arrival Patient received potassium chloride 40 mEq p.o. in the ED Recheck with morning BMP (11) Anxiety: Plan: Continue hydroxyzine as needed Plan [facility] PPx: Heparin 5000 units every 8 hours Heart healthy diet Full code History of Present Illness Chief Complaint: Weakness, R knee pain, worsening SOB x 2 weeks Primary Care Provider: DO Darian Mares is a 57-year-old male with PMH of HLD, anxiety, and paroxysmal A-fib. He presents for worsening SOB at rest, weakness, lightheadedness, and right leg pain x2 weeks. Pain is located at the inferior right knee and radiates down to his right foot. He describes the pain as "sharp, stabbing" pain that is constant; rated 10/10. At home, he has been taking Tylenol 2 tabs in the morning and Advil 2 tabs at night with minimal relief. Pain is exacerbated with bending. He denies numbness/tingling, history of DVT, or recent trauma to the leg. He endorses minimal sensation in feet b/l (no hx of diabetes, but family hx). Additionally, the patient endorses SOB at rest and with exertion x2 weeks. He describes it as intermittent and non-positional. No known triggers or similar prior experiences. He does endorse intermittent chest palpitations, for which he has been taking metoprolol 25 mg prn prescribed by his PCP on 12/29. Recently diagnosed with paroxysmal A-fib, but deferred anticoag per PCP note on 12/29. Patient with history of alcohol abuse; reports that he used to drink 1 handle every 4 days, but has been cutting back; per patient, last hard alcohol was 10 days ago; he had 1 beer on Monday 01/08. He denies smoking, tobacco use, and recreational drug use. Patient endorses unintentional weight loss of 80 pounds over 9 months, which he attributes to loss of appetite and gastritis (as seen on endoscopy on 12/01/22). Patient further endorses chills, dizziness, abdominal cramping, nausea, vomiting (last vomited this morning), intermittent diarrhea (alternates between loose and hard stool), and dark urine. Patient denies recent fever, sweating, changes in vision/taste/smell/hearing, cough, back pain, dysuria, or burning with urination. ED Course: Rocephin 2g IV, NSS 1000mL IV, acetaminophen 1000mg IV, and Voltaren 1% topical gel to right knee Please refer to Dr. Milton's attestation for adjustments in treatment plan. Allergies Allergy/AdvReac Type Severity Reaction Status Date / Time No Known Allergies Allergy Mild Verified 12/29/22 09:35 Home Medications Medication Instructions Recorded Confirmed Type acetaminophen 500 mg tablet 500 mg PO QID PRN pain 11/23/22 01/10/23 History (Tylenol Extra Strength) folic acid 1 mg tablet 1 mg PO DAILY #30 tabs 11/23/22 01/10/23 Rx hydroxyzine HCl 10 mg tablet 10 mg PO TID PRN anxiety #30 tabs 11/23/22 01/10/23 Rx pantoprazole 40 mg tablet,delayed 40 mg PO BID #60 tabs 12/01/22 01/10/23 Rx release metoprolol tartrate 25 mg tablet 25 mg PO DAILY PRN heart 12/29/22 01/10/23 Rx fluttering #30 tabs rosuvastatin 5 mg tablet 5 mg PO DAILY #30 tabs 12/29/22 01/10/23 Rx Past Med/Surg History Medical History (Updated 01/10/23 @ 21:28 by Yovani Saenz PA-C) Abdominal pain reason for upcoming procedure Anxiety No known health problems Surgical History H/O colonoscopy Colonoscopy 12/01/22, repeat 5 years in 2027 History of ankle surgery History of lateral meniscus repair of right knee History of wisdom tooth extraction Family History Father Diabetes Myocardial infarction Mother Diabetes Myocardial infarction Ovarian cancer Denies family history of Prostate cancer Breast cancer Lung cancer Colorectal cancer Stroke Social History Smoking Status: Never smoker Second Hand Exposure: No; Do You Dip or Chew Tobacco: Yes (advised); Hx Alcohol Use: Yes Alcohol type: beer, wine and hard liquor Alcohol Intake Frequency: 4 or More x per/Week Hx Substance Use: No Preferred Language: Maltese Communication Ability: Effective Visual Impairment: Limited Hearing Ability: Normal Behavioral Health Worker Required: No Beliefs That Will Affect Care: None marital status: Current Living Situation: Significant Other current occupational status: employed current occupation: [employer] How many Children do You have: 3 Feels Safe at Home: Yes Childhood Exposure to Second-Hand Smoke: Yes caffeine: No Dental Care, Regularly: Yes Physical Activity Frequency: Does not Exercise Seatbelt Use: always Sunscreen Use: No Assistive Devices: None Review of Systems Review of Systems: See HPI above Physical Exam Physical Exam: General: patient appears in no acute distress; appears stated age; well- nourished; cooperative HEENT: normocephalic, atraumatic; no scleral icterus; PERRLA w/ EOMs intact; moist mucus membrane; trachea midline; vision and hearing grossly intact Skin: warm, dry without signs of tenting; no cyanosis; no rashes or lesions noted Cardiac: RRR; no new murmurs noted Pulm: no acute respiratory distress; symmetrical chest expansion; clear breath sounds across all lung l[place] without adventitious sounds Abdominal: Soft, nontender to palpation; BS present; no ascites; no distention MSK: no tics or fasciculations; no LE edema b/l; pulses intact and symmetrical at radial, DP, and PT Right knee: Mild swelling along the medial knee; non-erythematous; tender to palpation; patient is able to fully bend and extend, but this causes pain Neuro: A&Ox3; no tremors; no focal defects Results & Data Results & Data Vital Signs (Past 12 Hours) Vital Signs Temp Pulse Resp BP Pulse Ox O2 Del Method O2 Flow Rate 01/10/23 18:01 86 19 123/77 96 Room Air 01/10/23 17:31 86 18 106/84 96 Room Air 01/10/23 17:00 79 16 111/81 95 01/10/23 16:50 79 16 119/83 95 Room Air 01/10/23 16:30 77 17 133/77 99 Room Air 01/10/23 15:06 81 11 L 119/79 98 Room Air 01/10/23 18:40 98 Room Air 0 01/10/23 18:02 85 01/10/23 14:00 82 13 113/85 98 Room Air 01/10/23 13:58 84 01/10/23 13:45 96 Room Air 01/10/23 13:29 36.0 C L 95 H 18 129/87 97 Room Air Laboratory Results Abnormal lab results 01/10/23 01/10/23 01/10/23 Range/Units 14:00 14:00 14:00 RBC 3.91 L (4.70-6.10) M/uL Hgb 13.7 L (14.0-18.0) g/dl Hct 40.1 L (42.0-52.0) % MCV 102.6 H (80.0-100.0) fL MCH 35.0 H (25.0-34.0) pg RDW Std Deviation 50.4 H (36.4-46.3) fL MPV 9.2 L (9.4-12.4) fL [place] # (Auto) 1.06 H (0.11-0.59) K/uL D-Dimer 1410 H* (0-500) ug/L FEU Sodium 134 L (136-145) mmol/L Potassium 3.3 L (3.5-5.1) mmol/L Chloride 96 L (98-107) mmol/L Creatinine 1.89 H (0.6-1.4) mg/dl Glucose 117 H (70-99(Fasting)) mg/dl Magnesium 1.4 L (1.7-2.4) mg/dl Total Bilirubin 1.5 H (0.2-1.0) mg/dl Total Protein 8.4 H (6.0-8.3) gm/dl Globulin 4.5 H (2.5-4.0) gm/dl Urine Appearance (Clear) Ur Specific [place] (1.000-1.030) Urine Protein (Negative) Urine Blood (Negative) Urine Nitrite (Negative) Urine Bilirubin (Negative) Ur Leukocyte Esterase (Negative) Urine WBC (Auto) (0-5) /hpf Urine RBC (Auto) (0-4) /hpf U Epithel Cells (Auto) (0-5) /lpf Urine Bacteria (Auto) (Negative) Urine Yeast (None Prsent) 01/10/23 Range/Units 19:15 RBC (4.70-6.10) M/uL Hgb (14.0-18.0) g/dl Hct (42.0-52.0) % MCV (80.0-100.0) fL MCH (25.0-34.0) pg RDW Std Deviation (36.4-46.3) fL MPV (9.4-12.4) fL [place] # (Auto) (0.11-0.59) K/uL D-Dimer (0-500) ug/L FEU Sodium (136-145) mmol/L Potassium (3.5-5.1) mmol/L Chloride (98-107) mmol/L Creatinine (0.6-1.4) mg/dl Glucose (70-99(Fasting)) mg/dl Magnesium (1.7-2.4) mg/dl Total Bilirubin (0.2-1.0) mg/dl Total Protein (6.0-8.3) gm/dl Globulin (2.5-4.0) gm/dl Urine Appearance Turbid A (Clear) Ur Specific [place] > 1.045 H (1.000-1.030) Urine Protein 2+ H (Negative) Urine Blood 3+ H (Negative) Urine Nitrite Positive A (Negative) Urine Bilirubin 1+ H (Negative) Ur Leukocyte Esterase 2+ H (Negative) Urine WBC (Auto) >30 H (0-5) /hpf Urine RBC (Auto) 10-30 H (0-4) /hpf U Epithel Cells (Auto) 5-10 H (0-5) /lpf Urine Bacteria (Auto) 1+ H (Negative) Urine Yeast Budding A (None Prsent) Diagnostic Findings Chest X-Ray 01/10/23 13:30 XR chest 2V PA/lateral CLINICAL HISTORY: SOB TECHNIQUE: 2 views of the chest were obtained. Comparison: None available at the time of this dictation. FINDINGS: No lines and tubes are seen. The cardiomediastinal silhouette is normal. The lungs are clear. No evidence of pleural effusion or pneumothorax. IMPRESSION: No acute abnormalities and in particular no radiographic evidence of pneumonia. ACT 112: Negative or not required by law. Electronically signed by: Nilesh Herrmann M.D. 01/10/2023 2:38 PM Venous Doppler Study 01/10/23 13:30 US venous doppler LE RT CLINICAL HISTORY: RIGHT LEG PAIN TECHNIQUE: Right lower extremity real-time compression venous ultrasound with Color Doppler imaging. Utilizing real-time ultrasonic imaging multiple real time high-resolution ultrasonic images with compression and noncompression maneuvers of the deep venous system in addition to color doppler imaging were performed from the common femoral vein through the proximal calf veins. COMPARISON: None available at the time of this dictation. FINDINGS/IMPRESSION: Currently there is normal compressibility of the deep venous system from the common femoral vein through the proximal calf veins. Fluid collection in the popliteal fossa measures 7.7 x 3.0 x 5.6 cm, likely representing popliteal cyst. ACT 112: Negative or not required by law. Electronically signed by: Nilesh Herrmann M.D. 01/10/2023 4:17 PM Chest CTA 01/10/23 15:05 CT angio chest PE protocol CLINICAL HISTORY: PE TECHNIQUE: Multidetector row helical CT of the chest was performed with angiographic protocol. Coronal and sagittal reformations were obtained. Coronal and sagittal MIPS were obtained from the axial data set and were submitted for review. Automated dose lowering techniques and/or adjustment according to patient size were utilized for this exam. CT DOSE: 932.78 mGy.cm Comparison: None available at the time of this dictation. FINDINGS: Lungs and pleura: Normal. Heart and pericardium: Heart size is normal. No pericardial effusion. Vessels: No evidence of pulmonary embolism. Pulmonary trunk measures 36 mm in diameter. Mediastinum and nilsa: Unremarkable. Chest wall and lower neck: Unremarkable. Abdomen: Hepatic steatosis is noted. Calcification of the bilateral adrenal glands noted. Bones: Degenerative changes in the thoracic spine. IMPRESSION: 1. No acute abnormality and in particular no evidence of pulmonary embolus. 2. Pulmonary hypertension. ACT 112: Negative or not required by law. Electronically signed by: Nilesh Herrmann M.D. 01/10/2023 4:01 PM Code Status & VTE Plan Code Status Full code VTE Prophylaxis Plan VTE Prophylaxis will be ordered: Yes PG Care Time/CCT Total # of Minutes Spent Total Time Spent with Patient: Total time spent is greater than 50% in coordination of care (as documented) at patient's floor/unit and/or counseling patient: Coding [place] [address] INT INP/OBS CARE 3/75MIN Patient Type Established Medical Decision Making High Complexity Diagnoses CHRISTAL (acute kidney injury) N17.9 Pulmonary hypertension I27.20 Paroxysmal atrial fibrillation I48.0 Acute pain of right lower extremity M79.604 UTI (urinary tract infection) N39.0 Alcohol use disorder F10.90 Hyperlipidemia E78.5 Abnormal weight loss R63.4 Hypomagnesemia E83.42 Hypokalemia E87.6 Anxiety F41.9
[2023-01-10 19:45] LABS: Appearance Urine Turbid (Clear); Blood Urine 3+ (Negative); Color Urine Orange; Glucose Urine UA Negative (Negative); Ketones Urine Negative (Negative); Leukocyte Esterase Urine 2+ (Negative); Nitrite Urine Positive (Negative); Protein Urine 2+ (Negative); Specific Gravity Urine > 1.045 (1.000-1.030); Urobilinogen Urine Negative (Negative); WBC Urine Automated >30 /hpf (0-5)
[2023-01-10 19:48] LABS: Bilirubin Urine 1+ (Negative)
[2023-01-10 19:58] LABS: Bacteria Urine Automated 1+ (Negative)
[2023-01-10] MEDS ORDERED: cefTRIAXone SODIUM 2,000 MG/50 ML BAG IV STA ×2 (20:31→23:21)
[2023-01-10] MEDS ORDERED: LORazepam 2 MG/1 ML VIAL IV PRN (20:36)
[2023-01-10] MEDS ORDERED: THIAMINE HCL 100 MG in SYRINGE 9 ML IV STA (20:44)
[2023-01-10] MEDS ORDERED: FOLIC ACID 1 MG in SYRINGE 9.8 ML IV STA (20:44)
[2023-01-10 21:05] LABS: Magnesium 1.4 mg/dl (1.7-2.4)
[2023-01-10] MEDS ORDERED: POTASSIUM CHLORIDE CRTAB 20 MEQ TABCR PO STA ×2 (21:11→23:21)
[2023-01-10 21:31] LABS: Thyroid Stimulating Hormone 2.257 uIu/ml (0.300-4.500)
[2023-01-10] MEDS: METOPROLOL TARTRATE 25 MG TAB PO SCH (21:52)
[2023-01-10] MEDS ORDERED: MoRPHine SULFATE 2 MG/ML CARP IV PRN ×2 (22:15→23:21)
[2023-01-10] MEDS: MoRPHine SULFATE 4 MG/ML 1 ML CARP\\VIAL IV PRN (22:27)
[2023-01-10] MEDS: MAGNESIUM SULFATE / D5W 1 GM/100 ML BAG IV SCH (23:10)
[2023-01-10] MEDS ORDERED: ACETAMINOPHEN 500 MG TAB PO PRN (23:21)
[2023-01-10] MEDS ORDERED: MoRPHine SULFATE 4 MG/ML 1 ML CARP\\VIAL IV PRN (23:21)
[2023-01-11] MEDS: PANTOprazole 40 MG TAB PO SCH ×3 (00:48→20:44)
[2023-01-11] MEDS: HEPARIN SOD 5,000 UNIT/0.5 ML VIAL SQ SCH ×4 (00:48→20:44)
[2023-01-11] MEDS: MAGNESIUM SULFATE / D5W 1 GM/100 ML BAG IV SCH (00:48)
[2023-01-11 05:09] LABS: Hematocrit (blood only) 34.3 % (42.0-52.0); Hemoglobin 11.7 g/dl (14.0-18.0); Mean Corpuscular Hgb Conc 34.1 g/dL (32.0-36.0); Mean Corpuscular Volume 102.7 fL (80.0-100.0); Mean Platelet Volume 9.1 fL (9.4-12.4); Platelet Count 216 K/uL (130-400); RDW Coefficient of Variation 13.2 % (11.5-14.5); RDW Standard Deviation 49.7 fL (36.4-46.3); Red Blood Count 3.34 M/uL (4.70-6.10); White Blood Count 8.67 K/ul (4.8-10.8)
[2023-01-11 05:21] LABS: Albumin Level 3.2 gm/dl (3.4-5.0); BUN Creatinine Ratio 11.5 (10-20); Bilirubin Direct 0.8 mg/dl (0-0.2); Bilirubin,Total 1.3 mg/dl (0.2-1.0); Calcium 8.8 mg/dl (8.6-10.3); Creatinine Clr Calc Pharmacy 84.3 ml/min; Est GFR (African American) 52.3 ml/min; Est GFR (Non-African American) 45.1 ml/min; Magnesium 1.7 mg/dl (1.7-2.4); Potassium 3.4 mmol/L (3.5-5.1); Total Protein 6.9 gm/dl (6.0-8.3)
[2023-01-11] MEDS: SODIUM CHLORIDE 0.9% 1,000 ML IV SCH ×2 (06:18→16:21)
[2023-01-11] MEDS: MoRPHine SULFATE 4 MG/ML 1 ML CARP\\VIAL IV PRN ×3 (06:45→19:48)
--- NOTE | 2023-01-11 07:36 | Electrocardiogram Report ---
Test Reason : Blood Pressure : / mmHG Vent. Rate : 102 BPM Atrial Rate : 102 BPM P-R Int : 152 ms QRS Dur : 074 ms QT Int : 362 ms P-R-T Axes : 010 000 048 degrees QTc Int : 471 ms Poor data quality, interpretation may be adversely affected Sinus tachycardia Otherwise normal ECG When compared with ECG of 17-MAY-1997 16:35, Vent. rate has increased BY [address] no longer elevated in Lateral leads Nonspecific T wave abnormality now evident in Lateral leads Confirmed by Joe Chairez ([id number]) on 01/11/2023 7:36:28 AM Referred By: Confirmed By:Joe Chairez
[2023-01-11] MEDS: METOPROLOL TARTRATE 25 MG TAB PO SCH ×2 (08:08→20:43)
[2023-01-11] MEDS: FOLIC ACID 1 MG TAB PO SCH (08:09)
[2023-01-11] MEDS: ROSUVASTATIN CALCIUM 5 MG TAB PO SCH (08:10)
[2023-01-11] MEDS: hydrOXYzine HCl 10 MG TAB PO PRN ×2 (08:11→18:22)
[2023-01-11] MEDS ORDERED: POTASSIUM CHLORIDE CRTAB 20 MEQ TABCR PO STA (08:12)
[2023-01-11 08:23] LABS: Estimated Average Glucose 94 mg/dl; Hemoglobin A1C 4.9 % (4.5-5.6)
--- NOTE | 2023-01-11 10:18 | XCELERA ---
[id number]
--- NOTE | 2023-01-11 15:33 | Hospitalist Progress Note ---
Date of Service January 11, 2023 Assessment & Plan (1) CHRISTAL (acute kidney injury): Plan: Improving with IV fluids. Monitor intake and output. Serial labs (2) Pulmonary hypertension: Plan: By history. No intervention necessary at this time (3) Paroxysmal atrial fibrillation: Plan: Currently normal sinus rhythm. He does not take systemic anticoagulation (4) Acute pain of right lower extremity: Plan: Right knee x-ray pending. Parenteral steroids ordered. Orthopedic consultation pending (5) UTI (urinary tract infection): Plan: Continue Rocephin, day 2. Urine culture results are pending (6) Alcohol use disorder: Plan: By history. No evidence of withdrawal or DTs (7) Hyperlipidemia: Plan: Stable. Continue current medical manage (8) Hypomagnesemia: Plan: Mild on admission. Corrected to 1.7 (9) Hypokalemia: Plan: Mild. Continue oral replacement therapy. Serial lab (10) Anxiety: Plan: Stable. Continue current medical management Plan Hopeful discharge to home soon. Possibly tomorrow, January 12 Admission and Anticipated Discharge Date Admission Date: January 10, 2023 Subjective Alert and oriented. Complaining of right knee pain which is slightly swollen and tender to touch. I doubt if the right knee pain is due to a popliteal cyst. No previous history of gout. X-ray ordered. Orthopedic consultation ordered. We will start parenteral steroid therapy. Creatinine has improved to 1.6 with IV fluids. We will continue IV fluids at a lower rate and monitor intake and output. Serial labs. Chest CTA negative for PE. He complained of shortness of breath at rest but oxygen saturation is acceptable. Urine cultures pending. He remains on Rocephin, day 2. Mild hypomagnesemia has been corrected to 1.7. Cardiac echo was normal Review of Systems Review of Systems: Constitutional-no fever or chills ENT-no blurred vision, no double vision, no epistaxis, no sore throat Respiratory-no cough, no wheezing. Shortness of breath has resolved Cardiac-no palpitations, no chest pain, no syncope GI-no nausea, vomiting, diarrhea, melena, hematochezia -no urinary retention, no urinary incontinence, no dysuria, no hematuria Musculoskeletal-right knee discomfort/tenderness/swelling, no muscle tenderness Skin-no bruising, no rashes, no pruritus Neuro-no isolated weakness, no paresthesia, no weakness Psych-no depression, no anxiety Physical Exam Physical Exam: General-alert and oriented x3, no fevers, no chills HEENT-head atraumatic and normocephalic, pupils equal and reactive to light, extraocular muscles intact Neck-no lymphadenopathy or thyromegaly, trachea midline Chest-clear to auscultation percussion. No rales wheezing or rhonchi Cardiac-regular rate and rhythm, normal S1 and S2 Abdomen-normal bowel sounds, nontender, no hepatosplenomegaly Extremities-right knee is slightly swollen and tender to touch. Limited range of motion right knee as a result. Neuro-cranial nerves II through XII intact, motor and sensory function within normal limits, strength symmetrical , no focal deficits Psych-normal affect, normal mood Results & Data Results & Data Vital Signs (Past 12 Hours) Vital Signs Temp Pulse Pulse Resp BP BP Pulse Ox 01/11/23 11:41 71 19 150/93 H 95 01/11/23 12:18 36.9 C 01/11/23 09:56 81 18 123/62 96 01/11/23 08:10 88 18 118/83 93 01/11/23 04:50 37.4 C 89 16 117/80 95 O2 Del Method 01/11/23 11:41 Room Air 01/11/23 12:18 01/11/23 09:56 Room Air 01/11/23 08:10 Room Air 01/11/23 04:50 Room Air Laboratory Results 01/11/23 04:32 01/11/23 04:32 PG Care Time/CCT Total # of Minutes Spent Total Time Spent with Patient: Total time spent is greater than 50% in coordination of care (as documented) at patient's floor/unit and/or counseling patient: Coding Level of Care Code 86661 SUB INP/OBS CARE 3/50MIN Diagnoses CHRISTAL (acute kidney injury) N17.9 Pulmonary hypertension I27.20 Paroxysmal atrial fibrillation I48.0 Acute pain of right lower extremity M79.604 UTI (urinary tract infection) N39.0 Alcohol use disorder F10.90 Hyperlipidemia E78.5 Hypomagnesemia E83.42 Hypokalemia E87.6 Anxiety F41.9
--- NOTE | 2023-01-11 16:28 | XRay Report ---
XR knee RT 3V CLINICAL HISTORY: Right knee pain. COMPARISON: None FINDINGS: There is a large right knee joint effusion without lipohemarthrosis. No acute fracture is identified. There are no osseous lesions. Moderate to severe tricompartmental right knee osteoarthrit is is most advanced within the medial and patellofemoral compartments. IMPRESSION: 1. No acute fractures within the right knee. 2. Large right knee joint effusion. 3. Moderate to severe tricompartmental osteoarthritis of the right knee. ACT 112: Negative or not required by law. Electronically signed by: Alfredito Cruz M.D. 01/11/2023 4:27 PM
[2023-01-11] MEDS: methylPREDNISolone 60 MG in SYRINGE 0 ML IV SCH ×2 (16:45→20:44)
[2023-01-11] MEDS ORDERED: cefTRIAXone SODIUM 2,000 MG in DEXTROSE 5 % MINI-B 50 ML IV SCH (21:00)
[2023-01-12] MEDS: methylPREDNISolone 60 MG in SYRINGE 0 ML IV SCH ×2 (03:18→09:10)
[2023-01-12] MEDS: SODIUM CHLORIDE 0.9% 1,000 ML IV SCH (05:22)
[2023-01-12] MEDS: HEPARIN SOD 5,000 UNIT/0.5 ML VIAL SQ SCH (05:37)
[2023-01-12] MEDS: hydrOXYzine HCl 10 MG TAB PO PRN (05:39)
[2023-01-12] MEDS: MoRPHine SULFATE 4 MG/ML 1 ML CARP\\VIAL IV PRN (09:08)
[2023-01-12] MEDS: PANTOprazole 40 MG TAB PO SCH (09:09)
[2023-01-12] MEDS: FOLIC ACID 1 MG TAB PO SCH (09:09)
[2023-01-12] MEDS: ROSUVASTATIN CALCIUM 5 MG TAB PO SCH (09:09)
--- NOTE | 2023-01-12 11:33 | Orthopedic Consultation ---
Date of Service January 12, 2023 Assessment & Plan (1) Effusion, right knee: He does have fairly advanced knee DJD. Differential for this large knee effusion included gout/pseudogout, infection or lyme disease. I recommended aspirating his knee today and he agreed to proceed. He is being discharged home today and can follow up as an outpatient. We will notify him with his lab results. Right knee aspirated today for 85ml of cloudy yellow inflammatory appearing fluid. Sent for stat gram stain, cultures, lyme dna pcr, cell count with diff, and crystal analysis. Patient able to do a straight leg raise better after the aspiration. Procedure note: Right knee was sterilely prepped with alcohol. Using aseptic technique I aspirated 85ml of cloudy inflammatory appearing yellow synovial fluid. He tolerated the procedure well. No complications. Fluid sent for the above labs. History of Present Illness Reason for Consultation: .Right knee pain Requesting Physician: . Attending Physician: Norman Heck MD .Darian, is a 57 year old patient with right knee pain. He has a history of multiple knee operation including meniscal surgery and ACL reconstruction. He has some chronic knee pain that he usually manages with ibuprofen or tylenol. However, over the past 2 weeks he has increased knee pain and swelling. He was admitted yesterday to the hospitalist service. Denies fever, tick bites, or h/o gout/pseudogout. No recent injury to the knee. Allergies Allergy/AdvReac Type Severity Reaction Status Date / Time No Known Allergies Allergy Mild Verified 12/29/22 09:35 Home Medications Medication Instructions Recorded Confirmed Type acetaminophen 500 mg tablet 500 mg PO QID PRN pain 11/23/22 01/10/23 History (Tylenol Extra Strength) folic acid 1 mg tablet 1 mg PO DAILY #30 tabs 11/23/22 01/10/23 Rx hydroxyzine HCl 10 mg tablet 10 mg PO TID PRN anxiety #30 tabs 11/23/22 01/10/23 Rx pantoprazole 40 mg tablet,delayed 40 mg PO BID #60 tabs 12/01/22 01/10/23 Rx release metoprolol tartrate 25 mg tablet 25 mg PO DAILY PRN heart 12/29/22 01/10/23 Rx fluttering #30 tabs rosuvastatin 5 mg tablet 5 mg PO DAILY #30 tabs 12/29/22 01/10/23 Rx prednisone 10 mg tablet See Rx Instructions .Route 01/12/23 Rx .COMPLEX #12 tabs Past Med/Surg History Medical History Abdominal pain reason for upcoming procedure Anxiety No known health problems Surgical History H/O colonoscopy Colonoscopy 12/01/22, repeat 5 years in 2027 History of ankle surgery History of lateral meniscus repair of right knee History of wisdom tooth extraction Family History Father Diabetes Myocardial infarction Mother Diabetes Myocardial infarction Ovarian cancer Denies family history of Prostate cancer Breast cancer Lung cancer Colorectal cancer Stroke Social History Smoking Status: Never smoker Second Hand Exposure: No; Do You Dip or Chew Tobacco: Yes; Hx Alcohol Use: Yes Alcohol type: beer and hard liquor Alcohol Intake Freq uency: 4 or More x per/Week Hx Substance Use: No Preferred Language: Portuguese Communication Ability: Effective Visual Impairment: Limited Hearing Ability: Normal Metal Buffer Required: No Beliefs That Will Affect Care: None marital status: Current Living Situation: Significant Other current occupational status: employed current occupation: [employer] How many Children do You have: 3 Feels Safe at Home: Yes Childhood Exposure to Second-Hand Smoke: Yes caffeine: No Dental Care, Regularly: Yes Physical Activity Frequency: Does not Exercise Seatbelt Use: always Sunscreen Use: No Assistive Devices: None Review of Systems All systems reviewed & are unremarkable except as noted in HPI & below. Physical Exam .alert and oriented. NAD Right knee: large knee effusion. No redness. Skin intact. He can do a straight leg raise but it was painful/difficult for him. After aspiration of the knee he could do a good straight leg raise. Extensor mechanism intact. Varus alignment to his knee. Results & Data Results & Data Laboratory Results . Diagnostic Findings . xrays of the right knee show moderate to advanced DJD, large knee effusion PG Care Time/CCT Total # of Minutes Spent Total Time Spent with Patient: Total time spent is greater than 50% in coordination of care (as documented) at patient's floor/unit and/or counseling patient: Coding Level of Care Code 34196 IN/OBS CONSULT LVL 4,60M (25 - SIGNIFICANT, SEPARATELY IDENTIFIABLE ) Diagnoses Effusion, right knee M25.461
[2023-01-12] MEDS: METOPROLOL TARTRATE 25 MG TAB PO SCH (11:36)
[2023-01-12 11:53] LABS: BUN Creatinine Ratio 13.3 (10-20); Creatinine Clr Calc Pharmacy 83.2 ml/min; Est GFR (African American) 52.3 ml/min; Est GFR (Non-African American) 45.1 ml/min; Potassium 4.2 mmol/L (3.5-5.1)
[2023-01-12 12:36] LABS: Appearance Synovial Fluid Turbid; Color Synovial Fluid Yellow; Mononuclear WBC Synovial 3.3 %; Polynuclear WBC Synovial 96.7 %; RBC Synovial Fluid Auto 100000 /uL; Source Synovial Fluid Right Knee; WBC Synovial Fluid Auto 39500 /ul (0-200)
--- NOTE | 2023-01-12 12:48 | Discharge Summary ---
Date of Service January 12, 2023 Principal Diagnosis Volume depletion with acute kidney injury, right knee effusion, hypomagnesemia, hypokalemia Discharge Exam General-alert and oriented x3, no fevers, no chills HEENT-head atraumatic and normocephalic, pupils equal and reactive to light, extraocular muscles intact Neck-no lymphadenopathy or thyromegaly, trachea midline Chest-clear to auscultation percussion. No rales wheezing or rhonchi Cardiac-regular rate and rhythm, normal S1 and S2 Abdomen-normal bowel sounds, nontender, no hepatosplenomegaly Extremities-right knee swelling has lessened since aspiration completed earlier this morning. Limited range of motion right knee Neuro-cranial nerves II through XII intact, motor and sensory function within normal limits, strength symmetrical , no focal deficits Psych-normal affect, normal mood Discharge Data Allergies Allergy/AdvReac Type Severity Reaction Status Date / Time No Known Allergies Allergy Mild Verified 12/29/22 09:35 Consultations 01/10/23 18:43 ED Decision to Admit Stat 01/11/23 13:21 Consult Orthopedic Surgery Routine Ordered Studies 01/10/23 13:30 US venous doppler LE RT Stat 01/10/23 15:05 CT angio chest PE protocol Stat Hospital Course (1) CHRISTAL (acute kidney injury): Improved with IV fluids. Monitor intake and output. Serial labs. Should eventually return to baseline (2) Pulmonary hypertension: By history. No intervention necessary at this time (3) Paroxysmal atrial fibrillation: Currently normal sinus rhythm. He does not take systemic anticoagulation (4) Acute pain of right lower extremity: Right knee x-ray negative for fracture. Symptoms have improved with IV steroids. We will continue prednisone oral taper at discharge. Orthopedic consultation appreciated. He has a right knee aspirated today, January 12.. Fluid studies are pending at the time of this dictation. (5) UTI (urinary tract infection): Ruled out. Urine culture negative. Rocephin discontinued (6) Alcohol use disorder: By history. No evidence of withdrawal or DTs. Cessation recommended (7) Hyperlipidemia: Stable. Continue current medical manage (8) Hypomagnesemia: Mild on admission. Corrected to 1.7 (9) Hypokalemia: Corrected to 4.2. Serial lab (10) Anxiety: Stable. Continue current medical management Plan Home todayJanuary 12, on a prednisone tapering dose. Total Time Total Time Spent Total Time Spent (In Minutes): 45-minute Discharge Plan Discharge Items Patient Disposition: Home - Self-Care Reason For Visit: SOB, WEAKNESS, AND RLE PAIN X 2 WEEKS Discharge Diagnosis: Right knee effusion and pain, hypomagnesemia, hypokalemia, acute kidney injury Activity: Resume your previous activity Non-emergency contact: Primary Care Provider Call non-emergency contact if: your symptoms worsen Follow-up/Referrals: Morro Alvarado DO [Primary Care Provider] - Diet: Regular and Heart Healthy Addtl Attending Provider Instructions: Take prednisone in a tapering dose fashion as directed Pending Studies at Discharge: Yes Studies:: Right knee fluid studies Stand-Alone Forms: MobileWebsites, Smoking Cessation Medications and DC Order Prescriptions: New prednisone 10 mg tablet See Rx Instructions .ROUTE .COMPLEX Qty: 12 0RF Rx Instructions: 10 mg orally 3 times a day for 2 days, then 10 mg twice a day for 2 days, then 10 mg daily for 2 days, then stop Continued folic acid 1 mg tablet 1 mg PO DAILY Qty: 30 2RF hydroxyzine HCl 10 mg tablet 10 mg PO TID PRN (Reason: anxiety) Qty: 30 3RF rosuvastatin 5 mg tablet 5 mg PO DAILY Qty: 30 2RF metoprolol tartrate 25 mg tablet 25 mg PO DAILY PRN (Reason: heart fluttering) Qty: 30 2RF acetaminophen [Tylenol Extra Strength] 500 mg tablet 500 mg PO QID PRN (Reason: pain) pantoprazole 40 mg tablet,delayed release (DR/EC) 40 mg PO BID Qty: 60 5RF Discharge Orders: Discharge Order (Routine); Ordered 01/12/23 Ordered By: Norman Heck Admission Data Admit Date/Time: 01/10/23 20:17 Attending Provider: Norman Heck Admit Provider: Mary Milton Primary Care Provider: Morro Alvarado Other Providers: Jackson Lewis ; Rashaun Andino ; Susannah Goldman ; Cheryl Dominguez ; Dorian Mahmood ; Paola Neely ; Dillon Milton ; Maranda Baird ; Rizwan Rhodes ; Norris Mccray ; Mary López ; Norris Torres ; Adair Norris. Coding Level of Care Code 66023 INP/OBS DISCH >30 MIN Diagnoses CHRISTAL (acute kidney injury) N17.9 Pulmonary hypertension I27.20 Paroxysmal atrial fibrillation I48.0 Acute pain of right lower extremity M79.604 UTI (urinary tract infection) N39.0 Alcohol use disorder F10.90 Hyperlipidemia E78.5 Hypomagnesemia E83.42 Hypokalemia E87.6 Anxiety F41.9
== END 2023-01-12 14:10 | disposition home or self-care (01) | DRG 683 ==
LOC: ED 13:20 → SUATTDRO 20:17 → EDINP 20:17 → 2N 01-11 00:16
DX: F10.20 Alcohol dependence, uncomplicated; N39.0 Urinary tract infection, site not specified; I27.20 Pulmonary hypertension, unspecified; E86.9 Volume depletion, unspecified; Z68.41 Body mass index [BMI] 40.0-44.9, adult; M71.21 Synovial cyst of popliteal space [Baker], right knee; N17.9 Acute kidney failure, unspecified; E78.5 Hyperlipidemia, unspecified; F41.9 Anxiety disorder, unspecified; M25.461 Effusion, right knee; I48.0 Paroxysmal atrial fibrillation; E83.42 Hypomagnesemia; E87.6 Hypokalemia; Z83.3 Family history of diabetes mellitus

== ENCOUNTER 2023-09-01 13:39 | Inpatient (IN) ==
[2023-09-01] MEDS: KETOROLAC TROMETHAMINE 15 MG/ML VIAL IV STA (14:07)
[2023-09-01] MEDS: SODIUM CHLORIDE 0.9% 500 ML IV STA (14:08)
--- NOTE | 2023-09-01 14:13 | Emergency Department Note ---
Impression & Plan Acute renal failure (ARF), Gout, Acute UTI (urinary tract infection), Hematuria, Effusion, right knee ED Provider Note NAME: TARAS STRINGER AGE: 58 SEX: M : 1965 ARRIVES VIA: Walk-In INFORMANT: Patient, ED PROVIDER(S): Manny Luciano DO CHIEF COMPLAINT: Flank pain HPI: The patient is a 58-year-old male who presented to the emergency department for an evaluation of flank pain. The patient describes right-sided flank pain which began approximate 5 days ago. The patient denies having any injury. He noticed some hematuria as well as dysuria. He denies having any fever nausea or vomiting. He denies having any shortness of breath. The patient also notices right knee and his right ankle became swollen over the course the last few days. The patient has not been seen by his family doctor for the symptoms. He states that he has a history of gout. The patient denies having any redness or trauma to his legs. ROS: See above HPI for pertinent positives & negatives. A total of 10 systems reviewed and were otherwise negative. PAST MEDICAL HISTORY: See Below PAST SURGICAL HISTORY: See Below FAMILY HISTORY: See Below SOCIAL HISTORY: See Below HOME MEDICATIONS: See Below ALLERGIES: See Below VITALS: See Below PHYSICAL EXAMINATION: GENERAL: Patient is awake alert in no acute distress patient is resting comfortably and showing no signs of anxiety EYES: The conjunctivae are clear. The pupils are round and reactive. EARS, NOSE, MOUTH AND THROAT: The nose is without any evidence of any deformity. Mucous membranes are moist. Tongue is midline. NECK: The neck is nontender and supple. RESPIRATORY: Normal respiratory effort is noted there is no evidence of wheezing rhonchi or rales CARDIOVASCULAR: Regular rate and rhythm noted there no murmurs rubs or gallops normal S1 normal S2. GASTROINTESTINAL: The abdomen is soft. Abdomen is nontender. BACK: No midline tenderness was noted. Right CVA tenderness was noted to percussion. MUSCULOSKELETAL/EXTREMITIES: There is no evidence of gross deformity full range of motion is noted in the hips and shoulders. No erythema or warmth to the right knee but there was a palpable effusion. Range of motion appears limited secondary to pain but intact. SKIN: There is no obvious evidence of any rash. There are no petechiae, pallor or cyanosis noted. NEUROLOGIC: Patient is awake alert and oriented x3 strength is symmetric patellar reflexes are 2+ bilaterally MEDICAL DECISION MAKING: The patient is a 58-year-old male who presented to the emergency department for an evaluation of lower extremity swelling. The patient had right knee effusion and right ankle pain. The patient thought he may have gout. The patient was treated with pain medication in the emergency department. He was also treated with IV fluids. The patient was reevaluated times. I discussed the patient's laboratory and radiographic studies with him. He was found to have signs of renal failure with a significantly elevated creatinine compared to baseline. The patient did not have any signs of obstruction. He did have hematuria which could be related to urine infection. He was also treated with IV antibiotics. I discussed the patient's condition with the on-call [facility] hospitalist. They have agreed to evaluate the patient in the emergency department for further management and disposition. Triage Nursing notes reviewed. Prior medical records reviewed Vital Signs: reviewed and remarkable for no significant abnormalities Differential diagnosis: Renal colic, UTI, appendicitis, diverticulitis, mesenteric ischemia, aortic pathology, infections, inflammatory bowel disease, PUD, biliary pathology, as well as other pathologies. ER treatment provided: See below Diagnostics interpreted by me: ECG: EKG was obtained in the emergency department. My interpretation is normal sinus rhythm at 100 bpm. There is no ectopy. There is no acute ST segment abnormalities noted. This was compared to a tracing from January 10, 2023. No changes were noted. Cardiac Monitoring: An order was placed for continuous cardiac monitoring. The monitor shows a rate of 86 bpm with sinus rhythm. Laboratory studies: As stated above and show below. Imaging studies: See below. Radiographic imaging was reviewed by myself Consultation(s): I discussed this case with [facility] Past Med/Surg History Problem List (Updated 09/01/23 @ 19:02 by Manny Luciano DO) Sepsis Hematuria (Acute) Acute UTI (urinary tract infection) (Acute) Gout (Acute) Acute renal failure (ARF) (Acute) Hyperlipidemia Paroxysmal atrial fibrillation Alcohol use disorder in remission Gout ROBERT (obstructive sleep apnea) Effusion, right knee (Acute) Hypokalemia Hypomagnesemia Acute pain of right lower extremity (Acute) Medical History CHRISTAL (acute kidney injury) Anxiety Pulmonary hypertension No known health problems Abdominal pain reason for upcoming procedure Alcohol use disorder Surgical History H/O colonoscopy Colonoscopy 12/01/22, repeat 5 years in 2027 History of lateral meniscus repair of right knee History of wisdom tooth extraction History of ankle surgery Family History Father Diabetes Myocardial infarction Mother Diabetes Myocardial infarction Ovarian cancer Denies family history of Prostate cancer Breast cancer Lung cancer Colorectal cancer Stroke Social History Smoking Status: Never smoker Second Hand Exposure: No; Do You Dip or Chew Tobacco: No; Tobacco Cessation Education Requested by Patient: No Hx Alcohol Use: Yes Alcohol type: beer and hard liquor Alcohol Intake Frequency: 4 or More x per/Week Hx Substance Use: No Preferred Language: Cantonese Tanzanian Communication Ability: Effective Visual Impairment: Limited Hearing Ability: Normal Independent Sales Representative Required: No Beliefs That Will Affect Care: None marital status: Current Living Situation: Spouse current occupational status: employed current occupation: [employer] How many Children do You have: 3 Other Information That Helps Us Care for You: No Feels Safe at Home: Yes Safety Concerns: Feels Safe At This Time Childhood Exposure to Second-Hand Smoke: Yes caffeine: No Dental Care, Regularly: Yes Physical Activity Frequency: Does not Exercise Seatbelt Use: always Sunscreen Use: No Assistive Devices: None Assistive Devices Comment: cane Allergies Allergies Allergy/AdvReac Type Severity Reaction Status Date / Time No Known Allergies Allergy Mild Verified 09/01/23 16:41 Home Meds Home Medications Medication Instructions Recorded Confirmed acetaminophen 500 mg tablet 1,000 mg PO QID PRN pain 11/23/22 09/01/23 (Tylenol Extra Strength) metoprolol succinate 25 mg 12.5 mg PO DAILY 03/31/23 09/01/23 tablet,extended release 24 hr rosuvastatin 5 mg tablet 5 mg PO DAILY 09/01/23 09/01/23 Previous Rx's Medication Instructions Recorded hydroxyzine HCl 10 mg tablet 10 mg PO TID PRN anxiety #30 tabs 03/31/23 folic acid 1 mg tablet 1 mg PO DAILY #30 tabs 05/17/23 pantoprazole 40 mg tablet,delayed 40 mg PO BID #180 tabs 05/17/23 release Results & Data (ED) Vital Signs Vital Signs - 24 hr 09/01/23 13:42 09/01/23 13:56 09/01/23 14:12 Temperature 35.9 C L Temperature Source Temporal Artery Scan Pulse Rate 101 H 95 H Respiratory Rate 20 12 Respiratory Effort / Characteristics Non-Labored Spontaneous Respiratory Depth Normal Blood Pressure 145/92 H Blood Pressure Mean 109 Pulse Oximetry 96 96 Oxygen Delivery Method Room Air Room Air Sepsis Recent Fever Within 48 Hours No Sepsis New/Unexplained Change in Mental Status N/A Sepsis Action Taken by Nursing No Action Required 09/01/23 14:24 09/01/23 14:32 Temperature Temperature Source Pulse Rate 91 H 96 H Respiratory Rate 20 Respiratory Effort / Characteristics Respiratory Depth Blood Pressure 131/88 Blood Pressure Mean 102 Pulse Oximetry 94 Oxygen Delivery Method Sepsis Recent Fever Within 48 Hours Sepsis New/Unexplained Change in Mental Status Sepsis Action Taken by [facility] Medications Current Medication List: was personally reviewed by me Laboratory Data Attestation: I reviewed the patient's lab results. 09/01/23 14:00 09/01/23 14:00 Lab Results 09/01/23 Range/Units 14:00 WBC 12.08 H (4.8-10.8) K/ul RBC 3.51 L (4.70-6.10) M/uL Hgb 12.2 L (14.0-18.0) g/dl Hct 35.4 L (42.0-52.0) % MCV 100.9 H (80.0-100.0) fL MCH 34.8 H (25.0-34.0) pg MCHC 34.5 (32.0-36.0) g/dL RDW Std Deviation 47.8 H (36.4-46.3) fL RDW Coeff of Santos 12.8 (11.5-14.5) % Plt Count 236 (130-400) K/uL MPV 9.3 L (9.4-12.4) fL Immature Gran % (Auto) 0.5 % Neut % (Auto) 81.1 % Lymph % (Auto) 7.7 % [place] % (Auto) 10.1 % Eos % (Auto) 0.4 % Baso % (Auto) 0.2 % Neut # (Auto) 9.79 H (1.40-6.50) K/uL Lymph # (Auto) 0.93 L (1.20-3.40) K/uL [place] # (Auto) 1.22 H (0.11-0.59) K/uL Eos # (Auto) 0.05 (0.00-0.50) K/uL Baso # (Auto) 0.03 (0.00-0.20) K/uL Immature Gran # (Auto) 0.06 (0.01-0.20) K/uL Sodium 132 L (136-145) mmol/L Potassium 4.5 (3.5-5.1) mmol/L Chloride 96 L (98-107) mmol/L Carbon Dioxide 21 (21-32) mmol/L Anion Gap 15 H (3-11) BUN 62 H (6-23) mg/dl Creatinine 5.82 H* (0.6-1.4) mg/dl Est Cr Clr Drug Dosing 22.7 ml/min Est GFR ( Amer) 11.3 ml/min Est GFR (Non-Af Amer) 9.8 ml/min BUN/Creatinine Ratio 10.7 (10-20) Glucose 97 (70-99(Fasting)) mg/dl Uric Acid 12.8 H (2.6-7.2) mg/dl Calcium 8.8 (8.6-10.3) mg/dl Magnesium 1.4 L (1.7-2.4) mg/dl Total Bilirubin 1.8 H (0.2-1.0) mg/dl AST 27 (13-39) U/L ALT 16 (7-52) U/L Alkaline Phosphatase 143 H (34-104) U/L Total Creatine Kinase 39 (30-223) U/L Troponin I High Sens 7.8 (0-20) pg/ml C-Reactive Protein 32.82 H (0-0.5) mg/dl Total Protein 7.4 (6.0-8.3) gm/dl Albumin 3.2 L (3.4-5.0) gm/dl Globulin 4.2 H (2.5-4.0) gm/dl Albumin/Globulin Ratio 0.8 L (0.9-2) Lipase 7 L (11-82) U/L Procalcitonin 4.65 H (0-0.5) ng/ml Lyme Disease Screen Negative (Negative) Administered Medications Discontinued Medications Sodium Chloride (Nss) 500 mls @ 999 mls/hr IV .Q31M STA Stop: 09/01/23 14:26 Last Infusion: 09/01/23 15:31 Dose: Infused Documented By: Admin: 09/01/23 14:08 Dose: 999 mls/hr Documented By: EFREN Sodium Chloride (Nss) 1,000 mls @ 999 mls/hr IV .Q1H1M ONE Stop: 09/01/23 16:26 Last Infusion: 09/01/23 16:29 Dose: Infused Documented By: Admin: 09/01/23 15:31 Dose: 999 mls/hr Documented By: IRAIS Sodium Chloride (Nss) 1,000 mls @ 999 mls/hr IV .Q1H1M ONE Stop: 09/01/23 16:44 Last Infusion: 09/01/23 17:56 Dose: Infused Documented By: Admin: 09/01/23 16:15 Dose: 999 mls/hr Documented By: IRAIS Ceftriaxone Sodium (Rocephin) 2,000 mg in 50 mls @ 100 mls/hr IV NOW STA Stop: 09/01/23 16:14 Last Infusion: 09/01/23 16:15 Dose: Infused Documented By: Admin: 09/01/23 15:52 Dose: 100 mls/hr Documented By: IRAIS Parenteral Electrolytes (Plasma-Lyte A Ph 7.4) 1,000 mls @ 999 mls/hr IV .Q1H1M ONE Stop: 09/01/23 18:21 Last Admin: 09/01/23 18:48 Dose: 999 mls/hr Documented By: PHUONG Ketorolac Tromethamine (Ketorolac Tromethamine 15 Mg/Ml Vial) 10 mg IV NOW STA Stop: 09/01/23 13:57 Last Admin: 09/01/23 14:07 Dose: 10 mg Documented By: EFREN Lidocaine HCl (Lidocaine 1% Local 20 Ml Vial) 20 ml INFIL NOW ONE Stop: 09/01/23 15:51 Last Admin: 09/01/23 16:16 Dose: 20 ml Documented By: IRAIS Morphine Sulfate (Morphine Sulfate 4 Mg/Ml 1 Ml Carp\Vial) 4 mg IV NOW STA Stop: 09/01/23 17:10 Last Admin: 09/01/23 17:14 Dose: 4 mg Documented By: IRAIS Ondansetron HCl (Ondansetron Inj 2 Mg/Ml 2 Ml Vial) 4 mg IV NOW STA Stop: 09/01/23 17:10 Last Admin: 09/01/23 17:14 Dose: 4 mg Documented By: IRAIS Prednisone (Prednisone 20 Mg Tab) 20 mg PO NOW STA Stop: 09/01/23 17:21 Last Admin: 09/01/23 17:57 Dose: 20 mg Documented By: IRAIS Imaging Data Attestation: I personally reviewed and interpreted this imaging study as follows: My Impression: CT of the abdomen and pelvis was obtained in the emergency department. My interpretation is no free air or signs of bowel obstruction, final report below. 1 view chest x-ray was obtained in the emergency department. My interpretation is no free air or signs of infiltrate, final report below. Radiologist's Impression: Abdomen/Pelvis CT 09/01/23 13:[address] WITHOUT CONTRAST CT DOSE: 1990.97 mGy.cm HISTORY: right flank pain TECHNIQUE: Multiaxial CT images of the abdomen and pelvis were performed without contrast. A dose lowering technique was utilized adhering to the principles of ALARA. COMPARISON STUDY: None. FINDINGS: The lung bases are clear. No pneumoperitoneum. No pneumatosis. Old, healed bilateral anterior rib fractures. No acute fractures identified. Bilateral L5 spondylolysis with associated grade 1 anterolisthesis. Degenerative changes within the lumbar spine. Small fat-containing bilateral inguinal hernias are noted. The unenhanced liver, gallbladder, pancreas, and spleen are unremarkable. Linear calcification seen within the adrenal glands. There is a 15 mm fat-containing right adrenal gland nodule consistent with a benign myelolipoma. Mild bilateral perinephric edema which is likely chronic. There is mild bilateral cortical renal scarring. No renal or ureteral stones. No hydronephrosis. Normal caliber abdominal aorta. No retroperitoneal or pelvic lymphadenopathy. No pelvic free fluid. The bladder is unremarkable. Suboptimal evaluation for bowel pathology due to the lack of intravenous and oral contrast. However, there is no definite bowel wall thickening or obstruction. Colonic diverticulosis. No evidence for acute diverticulitis. Normal appendix. IMPRESSION: 1. No renal or ureteral stones. No hydronephrosis. 2. No bowel wall thickening or obstruction. 3. Normal appendix. 4. Colonic diverticulosis. No evidence for acute diverticulitis. 5. Additional findings as described above. ACT 112: Negative or not required by law. Electronically signed by: Yovani Soria M.D. 09/01/2023 3:04 PM Chest X-Ray 09/01/23 13:56 XR chest 1V portable HISTORY: 58 years-old Male chest pain COMPARISON: 01/10/2023 TECHNIQUE: AP view of the chest FINDINGS: Cardiomediastinal and hilar silhouettes are within normal limits. No pneumothorax, pleural effusion, airspace consolidation or pulmonary edema. Spondylotic spurring of the spine. Bones appear grossly intact. IMPRESSION: No acute process. ACT 112: Negative or not required by law. The above report was generated using voice recognition software. It may contain grammatical, syntax or spelling errors. Electronically signed by: Adair Frey M.D. 09/01/2023 3:24 PM Knee X-Ray 09/01/23 13:57 RIGHT KNEE 2 VIEWS CLINICAL HISTORY: Right knee swelling. FINDINGS: AP and crosstable lateral views of the right knee are compared to study dated 01/11/2023. The skeletal structures are osteopenic. No fracture is seen. There is advanced tricompartmental degenerative joint space narrowing. There are patellar enthesophytes, marginal osteophytes, and bony overgrowth along the distal femur and proximal tibia. There is a moderate to large joint effusion. Mild soft tissue swelling is seen around the knee. There is advanced atherosclerotic calcification of the popliteal artery. IMPRESSION: 1. Soft tissue swelling and joint effusion with no acute bony abnormality identified. 2. Osteopenia and arthritic change as above. Electronically signed by: Asher Nowak M.D. 09/01/2023 2:30 PM Discharge Plan Visit Data Chief Complaint: Illness Stated Complaint: CHEST PAINS, BACK PAINS, LEG SWELLING ED Provider: Manny Luciano Discharge Problem: Acute renal failure (ARF), Gout, Acute UTI (urinary tract infection), Hematuria, Effusion, right knee Patient Disposition: Admitted As Inpatient Discharge Instructions Interventions: ED Discharge Assessment Last Done: 09/01/23 17:58 Discharge Problem: Acute renal failure (ARF) Qualifiers: Acute renal failure type: unspecified Qualified Code(s): N17.9 - Acute kidney failure, unspecified Gout Qualifiers: Gout site: knee Gout etiology: due to renal impairment Chronicity: acute L aterality: right Qualified Code(s): M10.361 - Gout due to renal impairment, right knee Hematuria Qualifiers: Hematuria type: gross Qualified Code(s): R31.0 - Gross hematuria
[2023-09-01 14:20] LABS: Basophils # (auto) 0.03 K/uL (0.00-0.20); Basophils % (auto) 0.2 %; Eosinophils # (auto) 0.05 K/uL (0.00-0.50); Eosinophils % (auto) 0.4 %; Hematocrit (blood only) 35.4 % (42.0-52.0); Hemoglobin 12.2 g/dl (14.0-18.0); Immature Granulocytes # (auto) 0.06 K/uL (0.01-0.20); Immature Granulocytes % (auto) 0.5 %; Lymphocytes # (auto) 0.93 K/uL (1.20-3.40); Lymphocytes % (auto) 7.7 %; Mean Corpuscular Hemoglobin 34.8 pg (25.0-34.0); Mean Corpuscular Hgb Conc 34.5 g/dL (32.0-36.0); Mean Corpuscular Volume 100.9 fL (80.0-100.0); Mean Platelet Volume 9.3 fL (9.4-12.4); Monocytes # (auto) 1.22 K/uL (0.11-0.59); Monocytes % (auto) 10.1 %; Neutrophils # (auto) 9.79 K/uL (1.40-6.50); Neutrophils % (auto) 81.1 %; Platelet Count 236 K/uL (130-400); RDW Coefficient of Variation 12.8 % (11.5-14.5); RDW Standard Deviation 47.8 fL (36.4-46.3); Red Blood Count 3.51 M/uL (4.70-6.10); White Blood Count 12.08 K/ul (4.8-10.8)
--- NOTE | 2023-09-01 14:31 | XRay Report ---
RIGHT KNEE 2 VIEWS CLINICAL HISTORY: Right knee swelling. FINDINGS: AP and crosstable lateral views of the right knee are compared to study dated 01/11/2023. T he skeletal structures are osteopenic. No fracture is seen. There is advanced tricompartmental degene rative joint space narrowing. There are patellar enthesophytes, marginal osteophytes, and bony overgr owth along the distal femur and proximal tibia. There is a moderate to large joint effusion. Mild sof t tissue swelling is seen around the knee. There is advanced atherosclerotic calcification of the pop liteal artery. IMPRESSION: 1. Soft tissue swelling and joint effusion with no acute bony abnormality identified. 2. Osteopenia and arthritic change as above. Electronically signed by: Asher Nowak M.D. 09/01/2023 2:30 PM
--- NOTE | 2023-09-01 15:06 | CT Scan Report ---
ABDOMEN AND PELVIS CT WITHOUT CONTRAST CT DOSE: 1990.97 mGy.cm HISTORY: right flank pain TECHNIQUE: Multiaxial CT images of the abdomen and pelvis were performed without contrast. A dose lo wering technique was utilized adhering to the principles of ALARA. COMPARISON STUDY: None. FINDINGS: The lung bases are clear. No pneumoperitoneum. No pneumatosis. Old, healed bilateral anteri or rib fractures. No acute fractures identified. Bilateral L5 spondylolysis with associated grade 1 a nterolisthesis. Degenerative changes within the lumbar spine. Small fat-containing bilateral inguinal hernias are noted. The unenhanced liver, gallbladder, pancreas, and spleen are unremarkable. Linear calcification seen within the adrenal glands. There is a 15 mm fat-containing right adrenal gland nod ule consistent with a benign myelolipoma. Mild bilateral perinephric edema which is likely chronic. T here is mild bilateral cortical renal scarring. No renal or ureteral stones. No hydronephrosis. Angelia l caliber abdominal aorta. No retroperitoneal or pelvic lymphadenopathy. No pelvic free fluid. The bl adder is unremarkable. Suboptimal evaluation for bowel pathology due to the lack of intravenous and o ral contrast. However, there is no definite bowel wall thickening or obstruction. Colonic diverticulo sis. No evidence for acute diverticulitis. Normal appendix. IMPRESSION: 1. No renal or ureteral stones. No hydronephrosis. 2. No bowel wall thickening or obstruction. 3. Normal appendix. 4. Colonic diverticulosis. No evidence for acute diverticulitis. 5. Additional findings as described above. ACT 112: Negative or not required by law. Electronically signed by: Yovani Soria M.D. 09/01/2023 3:04 PM
--- NOTE | 2023-09-01 15:25 | XRay Report ---
XR chest 1V portable HISTORY: 58 years-old Male chest pain COMPARISON: 01/10/2023 TECHNIQUE: AP view of the chest FINDINGS: Cardiomediastinal and hilar silhouettes are within normal limits. No pneumothorax, pleural effusion, airspace consolidation or pulmonary edema. Spondylotic spurring of the spine. Bones appear grossly in tact. IMPRESSION: No acute process. ACT 112: Negative or not required by law. The above report was generated using voice recognition software. It may contain grammatical, syntax o r spelling errors. Electronically signed by: Adair Frey M.D. 09/01/2023 3:24 PM
[2023-09-01 15:27] LABS: Albumin Globulin Ratio 0.8 (0.9-2); Albumin Level 3.2 gm/dl (3.4-5.0); BUN Creatinine Ratio 10.7 (10-20); Bilirubin,Total 1.8 mg/dl (0.2-1.0); C Reactive Protein 32.82 mg/dl (0-0.5); Calcium 8.8 mg/dl (8.6-10.3); Creatinine Clr Calc Pharmacy 22.7 ml/min; Est GFR (African American) 11.3 ml/min; Est GFR (Non-African American) 9.8 ml/min; Globulin 4.2 gm/dl (2.5-4.0); Potassium 4.5 mmol/L (3.5-5.1); Total Protein 7.4 gm/dl (6.0-8.3); Troponin I High Sensitivity 7.8 pg/ml (0-20); Uric Acid 12.8 mg/dl (2.6-7.2)
[2023-09-01] MEDS: SODIUM CHLORIDE 0.9% 1,000 ML IV ONE ×2 (15:31→16:15)
[2023-09-01] MEDS: cefTRIAXone SODIUM 2,000 MG/50 ML BAG IV STA (15:52)
[2023-09-01] MEDS: LIDOCAINE 1% LOCAL 20 ML VIAL INFIL ONE (16:16)
--- NOTE | 2023-09-01 16:23 | History & Physical Report ---
Date of Service September 01, 2023 Assessment & Plan (1) Acute UTI (urinary tract infection): Plan: Patient initially presented for bilateral knee pain and right flank pain x 7 days Dark/black urine began on 08/30 UA positive on arrival Rocephin 2000 mg IV q24h Follow UCx A.m. CBC, BMP, mag, CRP (2) Acute renal failure (ARF): Plan: ARF w/ concern for ATN BUN 62, creatinine 5.82 (baseline 1.5), EGFR 9.8 Avoid nephrotoxic agents Trend BMP q4h x 3 Appreciate nephrology consult Suspect multifactorial: Ibuprofen use for gout/knee pain (intrinsic), volume contracted/poor fluid intake (prerenal), UTI, and alcohol use (3) Sepsis: Plan: Patient may exhibit urosepsis; urinary source + tachycardia + leukocytosis at 12.08 IVF bolus of NSS 2500mL given in the ED; will add an additional 1000mL plasma- lyte bolus to cover ideal weight 30cc/kg Lactate WNL Procalcitonin ordered, pending Blood cultures ordered, pending (4) Gout: Plan: Bilateral knee pain x 7 days ED attempted arthrocentesis Suspect pain is secondary to gout Uric acid elevated at 12.8 Elevated CRP Hold NSAIDs in the setting of ARF Prednisone 40 mg daily until flare resolves May consider rasburicase given CHRISTAL with concurrent gout flare Discussed with Nephrology; G6PD level ordered and will reassess (5) Alcohol use disorder in remission: Plan: Last alcoholic drink 7 days ago Patient reports he was previously drinking a handle of vodka every 4 days or so He denies symptoms of alcohol withdrawal/seizures; low risk for withdrawal at this time Continue daily folate supplementation Added on daily thiamine supplementation (6) Hypomagnesemia: Plan: Mag 1.4 on arrival Magnesium sulfate 1g x 1 (will caution overcorrection given CHRISTAL) Recheck am mag (7) Paroxysmal atrial fibrillation: Plan: In the setting of significant alcohol use and family history of A-fib NSR at present; not on anticoagulation (prior [id number] of 0; will defer for now) Continue metoprolol (8) ROBERT (obstructive sleep apnea): Plan: CPAP HS (9) Hyperlipidemia: Plan Disposition: Admit to PCU telemetry Full code Regular diet VTE PPx: SCDs (will hold chemical DVT PPx for now given patient is unsure of gross hematuria) History of Present Illness Chief Complaint: Dark urine, right flank pain, b/l knee pain Primary Care Provider: Morro Alvarado DO Darian is a 58-year-old gentleman with PMH of alcohol use, ROBERT, gout, paroxysmal atrial fibrillation, and hyperlipidemia. He presented for worsening right-sided rib cage pain and bilateral knee swelling/pain x 6-7 days. He denies any falls, muscle strains, or injuries to his chest wall or knees. On arrival he endorses right lower rib and flank pain that comes on intermittently, but has been constant for the past 3 to 4 days. He describes it as a sharp, stabbing pain in his side. No radiation across the chest wall to the left side or to the shoulders. He does note radiation down his back and his legs. He has been taking ibuprofen at home without relief; 600 mg twice daily. Movements such as standing and sitting exacerbate the pain. He rates the pain 10/10 at worst, 5/10 at present in the ED. He also endorses bilateral knee pain which he rates 10/10; he had a similar episode back in December. This began the same time as his right flank pain. No history of kidney stones. He does have a history of gout, but is not currently on any medications for this. Of note, the patient was previously drinking alcohol daily; 1 handle got cut every 4 days or so. He stopped drinking alcohol 7 days ago; he denies alcohol withdrawal symptoms, or alcohol withdrawal seizures. He noticed that his urine became dark (black) yesterday, and he believes there was some blood in his urine. He also endorses burning with urination. He did have a bowel movement yesterday. Patient took all of his regular morning medications. Patient did not take anything for his gout. Patient's sister (Rubina) is present at the bedside and provides additional history; she reports that he has been not eating or drinking properly at home. Patient also reports he has had blood in his urine; not currently on blood thinners. He denies smoking, tobacco use, and recreational drug use; formerly chewed snuff. Patient's vitals are stable at time of admission. ED course: Rocephin 2000 mg IV Toradol 10 mg IV NSS 2500 mL IV ROS: Patient endorses cold intolerance, dizziness/lightheadedness with walking, right flank pain, suprapubic pain, dark urine, burning with urination, blood in urine, and pain in the knees. Patient denies fever, night-sweats, WILKES, changes in vision, rashes, tick bites, chest pain, chest palpitations, left shoulder pain or pressure, SOB, cough, abdominal pain, or numbness/tingling in arm/legs. Allergies Allergy/AdvReac Type Severity Reaction Status Date / Time No Known Allergies Allergy Mild Verified 09/01/23 16:41 Home Medications Medication Instructions Recorded Confirmed Type acetaminophen 500 mg tablet 1,000 mg PO QID PRN pain 11/23/22 09/01/23 History (Tylenol Extra Strength) hydroxyzine HCl 10 mg tablet 10 mg PO TID PRN anxiety #30 tabs 03/31/23 09/01/23 Rx metoprolol succinate 25 mg 12.5 mg PO DAILY 03/31/23 09/01/23 History tablet,extended release 24 hr folic acid 1 mg tablet 1 mg PO DAILY #30 tabs 05/17/23 09/01/23 Rx pantoprazole 40 mg tablet,delayed 40 mg PO BID #180 tabs 05/17/23 09/01/23 Rx release rosuvastatin 5 mg tablet 5 mg PO DAILY 09/01/23 09/01/23 History Past Med/Surg History Problem List (Updated 09/01/23 @ 19:02 by Manny Luciano DO) Sepsis Hematuria (Acute) Acute UTI (urinary tract infection) (Acute) Gout (Acute) Acute renal failure (ARF) (Acute) Hyperlipidemia Paroxysmal atrial fibrillation Alcohol use disorder in remission Gout ROBERT (obstructive sleep apnea) Effusion, right knee (Acute) Hypokalemia Hypomagnesemia Acute pain of right lower extremity (Acute) Medical History CHRISTAL (acute kidney injury) Anxiety Pulmonary hypertension No known health problems Abdominal pain reason for upcoming procedure Alcohol use disorder Surgical History H/O colonoscopy Colonoscopy 12/01/22, repeat 5 years in 2027 History of lateral meniscus repair of right knee History of wisdom tooth extraction History of ankle surgery Family History Father Diabetes Myocardial infarction Mother Diabetes Myocardial infarction Ovarian cancer Denies family history of Prostate cancer Breast cancer Lung cancer Colorectal cancer Stroke Social History Smoking Status: Never smoker Second Hand Exposure: No; Do You Dip or Chew Tobacco: No; Tobacco Cessation Education Requested by Patient: No Hx Alcohol Use: Yes Alcohol type: beer and hard liquor Alcohol Intake Frequency: 4 or More x per/Week Hx Substance Use: No Preferred Language: Cantonese Lithuanian Communication Ability: Effective Visual Impairment: Limited Hearing Ability: Normal Hand Launderer Required: No Beliefs That Will Affect Care: None marital status: Current Living Situation: Spouse current occupational status: employed current occupation: [employer] How many Children do You have: 3 Other Information That Helps Us Care for You: No Feels Safe at Home: Yes Safety Concerns: Feels Safe At This Time Childhood Exposure to Second-Hand Smoke: Yes caffeine: No Dental Care, Regularly: Yes Physical Activity Frequency: Does not Exercise Seatbelt Use: always Sunscreen Use: No Assistive Devices: None Assistive Devices Comment: chantale Review of Systems Review of Systems: See HPI above Physical Exam Physical Exam: General: no acute distress; pleasant affect; non-toxic appearing; well- nourished; cooperative; SpO2 94% on RA HEENT: normocephalic, atraumatic; no scleral icterus; PERRLA; moist mucus membrane; vision and hearing grossly intact Neck: supple; no lymphadenopathy; trachea midline Skin: warm, dry without signs of tenting; no cyanosis; no rashes, bruising, lesions, or erythema noted CV: chest wall NTP; RRR; S1/S2 normal; no murmurs/rubs/gallops; pulses intact and symmetric at radial, DP, and PT Lungs: no acute respiratory distress; symmetrical chest wall expansion; clear breath sounds across all lung linton w/o adventitious sounds; no wheezing Right flank: NTP ABD: Soft, NTP; BS present; no rebound/guarding; moderate distention secondary to body habitus; no bruising or rashes on the flanks or abdomen MSK: no tics or fasciculations; nonpitting edema noted in the LEs b/l, nonerythematous; knees are not erythematous or warm to touch Neuro: A&Ox3; normal mood and affect; fluent speech; no focal deficits; sensation grossly intact in the LEs b/l Results & Data Results & Data Vital Signs (Past 12 Hours) Vital Signs Temp Pulse Resp BP Pulse Ox O2 Del Method 09/01/23 14:32 96 H 09/01/23 14:24 91 H 20 131/88 94 09/01/23 14:12 95 H 12 96 09/01/23 13:56 Room Air 09/01/23 13:42 35.9 C L 101 H 20 145/92 H 96 Room Air Laboratory Results Abnormal lab results 09/01/23 Range/Units 14:00 WBC 12.08 H (4.8-10.8) K/ul RBC 3.51 L (4.70-6.10) M/uL Hgb 12.2 L (14.0-18.0) g/dl Hct 35.4 L (42.0-52.0) % MCV 100.9 H (80.0-100.0) fL MCH 34.8 H (25.0-34.0) pg RDW Std Deviation 47.8 H (36.4-46.3) fL MPV 9.3 L (9.4-12.4) fL Neut # (Auto) 9.79 H (1.40-6.50) K/uL Lymph # (Auto) 0.93 L (1.20-3.40) K/uL Gibson # (Auto) 1.22 H (0.11-0.59) K/uL Sodium 132 L (136-145) mmol/L Chloride 96 L (98-107) mmol/L Anion Gap 15 H (3-11) BUN 62 H (6-23) mg/dl Creatinine 5.82 H* (0.6-1.4) mg/dl Uric Acid 12.8 H (2.6-7.2) mg/dl Total Bilirubin 1.8 H (0.2-1.0) mg/dl Alkaline Phosphatase 143 H (34-104) U/L C-Reactive Protein 32.82 H (0-0.5) mg/dl Albumin 3.2 L (3.4-5.0) gm/dl Globulin 4.2 H (2.5-4.0) gm/dl Albumin/Globulin Ratio 0.8 L (0.9-2) Lipase 7 L (11-82) U/L Diagnostic Findings Abdomen/Pelvis CT 09/01/23 13:[address] WITHOUT CONTRAST CT DOSE: 1990.97 mGy.cm HISTORY: right flank pain TECHNIQUE: Multiaxial CT images of the abdomen and pelvis were performed without contrast. A dose lowering technique was utilized adhering to the principles of ALARA. COMPARISON STUDY: None. FINDINGS: The lung bases are clear. No pneumoperitoneum. No pneumatosis. Old, healed bilateral anterior rib fractures. No acute fractures identified. Bilateral L5 spondylolysis with associated grade 1 anterolisthesis. Degenerative changes within the lumbar spine. Small fat-containing bilateral inguinal hernias are noted. The unenhanced liver, gallbladder, pancreas, and spleen are unremarkable. Linear calcification seen within the adrenal glands. There is a 15 mm fat-containing right adrenal gland nodule consistent with a benign myelolipo ma. Mild bilateral perinephric edema which is likely chronic. There is mild bilateral cortical renal scarring. No renal or ureteral stones. No hydronephrosis. Normal caliber abdominal aorta. No retroperitoneal or pelvic lymphadenopathy. No pelvic free fluid. The bladder is unremarkable. Suboptimal evaluation for bowel pathology due to the lack of intravenous and oral contrast. However, there is no definite bowel wall thickening or obstruction. Colonic diverticulosis. No evidence for acute diverticulitis. Normal appendix. IMPRESSION: 1. No renal or ureteral stones. No hydronephrosis. 2. No bowel wall thickening or obstruction. 3. Normal appendix. 4. Colonic diverticulosis. No evidence for acute diverticulitis. 5. Additional findings as described above. ACT 112: Negative or not required by law. Electronically signed by: Yovani Soria M.D. 09/01/2023 3:04 PM Chest X-Ray 09/01/23 13:56 XR chest 1V portable HISTORY: 58 years-old Male chest pain COMPARISON: 01/10/2023 TECHNIQUE: AP view of the chest FINDINGS: Cardiomediastinal and hilar silhouettes are within normal limits. No pneumothorax, pleural effusion, airspace consolidation or pulmonary edema. Spondylotic spurring of the spine. Bones appear grossly intact. IMPRESSION: No acute process. ACT 112: Negative or not required by law. The above report was generated using voice recognition software. It may contain grammatical, syntax or spelling errors. Electronically signed by: Adair Frey M.D. 09/01/2023 3:24 PM Knee X-Ray 09/01/23 13:57 RIGHT KNEE 2 VIEWS CLINICAL HISTORY: Right knee swelling. FINDINGS: AP and crosstable lateral views of the right knee are compared to study dated 01/11/2023. The skeletal structures are osteopenic. No fracture is seen. There is advanced tricompartmental degenerative joint space narrowing. There are patellar enthesophytes, marginal osteophytes, and bony overgrowth along the distal femur and proximal tibia. There is a moderate to large joint effusion. Mild soft tissue swelling is seen around the knee. There is advanced atherosclerotic calcification of the popliteal artery. IMPRESSION: 1. Soft tissue swelling and joint effusion with no acute bony abnormality identified. 2. Osteopenia and arthritic change as above. Electronically signed by: Asher Nowak M.D. 09/01/2023 2:30 PM ECG Additional Comments: ECG revealed NSR at 100 bpm; QTc 469 Code Status & VTE Plan Code Status Full code No POA; however, in the event of emergency where he cannot make medical decision, patient would like Luna Pérez [phone] to be his decision- maker. VTE Prophylaxis Plan VTE Prophylaxis will be ordered: Yes Supervising Physician Co-Signing Physician Notes Patient seen and examined, chart reviewed, case discussed with Yovani Saenz PA-C and I agree with the assessment and plan as above except as otherwise noted Labs and images reviewed Presented with right flank discomfort. Has had burning with urination and dark urine. Creatinine is acutely increased to 5.82, baseline around 1.51.65. Has had symptoms for approximately 7 days with gradually decreasing urinary output and almost no p.o. intake. Urine crystal analysis is pending History of alcohol and ibuprofen use, no history of alcohol use last week.He is not hypotensive. CRP is elevated at 32. Suspect CRP is elevated due to gout flare consistent with knee pain, however with his leukocytosis and UTI urosepsis is not excluded. He is normotensive although tachypneic and with a white count of 12. Agree with Rocephin, follow UC/BC. Has received crystalloid resuscitation in the ER. Anion gap 15, bicarb is not suppressed. Lactic acid is pending. He is not an uric. Hold nephrotoxins, trend creatinine. DDx includes hypotension/prerenal, and intrinsic with superimposed NSAID use. Additionally his uric acid is elevated at 12.8? Whether he is having uric acid crystals and associated urate nephropathy. Given acute renal failure will discuss with nephrology to evaluate for rasburicase. Patient has been volume expanded with 2.5 L, with additional 1 L pending. Agree with above. PG Care Time/CCT Total # of Minutes Spent Total Time Spent with Patient: Total time spent is greater than 50% in coordination of care (as documented) at patient's floor/unit and/or counseling patient: [place] [address] INT INP/OBS CARE 375MIN Patient Type Established History Comprehensive Exam Comprehensive Medical Decision Making High Complexity Diagnoses Acute UTI (urinary tract infection) N39.0 Acute renal failure (ARF) N17.9 Acute renal failure type: unspecified Sepsis A41.9 Gout M10.9 Alcohol use disorder in remission F10.91 Hypomagnesemia E83.42 Paroxysmal atrial fibrillation I48.0 ROBERT (obstructive sleep apnea) G47.33 Hyperlipidemia E78.5 (2) Acute renal failure (ARF) Acute renal failure type: unspecified Qualified Code(s): N17.9 - Acute kidney failure, unspecified
[2023-09-01 16:24] LABS: Appearance Urine Turbid (Clear); Bacteria Urine Automated 4+ (None Seen); Bilirubin Urine 1+ (Negative); Blood Urine 3+ (Negative); Cast Urine Automated 0-2 /lpf (0-2); Color Urine Orange; Epithelial Cell Urine Auto 0-2 /hpf (0-2); Glucose Urine UA Negative (Negative); Ketones Urine Negative (Negative); Leukocyte Esterase Urine 3+ (Negative); Nitrite Urine Positive (Negative); Protein Urine 3+ (Negative); RBC Urine Automated >20 /hpf (0-2); Specific Gravity Urine 1.013 (1.000-1.030); Urobilinogen Urine Negative (Negative); WBC Urine Automated >50 /hpf (0-5); pH Urine 5.5 (4.5-7.5)
--- NOTE | 2023-09-01 16:27 | Emergency Department Note ---
ED Visit Note I was asked by Dr. Luciano, ED physician, to perform a diagnostic arthrocentesis of this 58-year-old male who presents with right knee pain, and currently diagnosed with sepsis. The patient is currently awaiting admission. There is concern for possible gout of the right knee. Please see Dr. Luciano's dictation for further treatment and final disposition. PROCEDURE NOTE: Examination of the knee does show notable joint effusion. Patient does not have any over any erythema or warmth to palpation. Pedal pulses are intact. Patient provided verbal consent for aspiration under local anesthesia. I personally set up the tray and maintain strict sterile technique. Landmarks were identified to perform a medial patellofemoral approach. The area was painted with iodine x 3 and allowed to dry. Sterile field was created. Using a new bottle of lidocaine 1% without epinephrine, a good local wheal was created, with injection through the patellofemoral joint. There was no resistance with injection any of a small amount of the lidocaine into the joint. Additional injection was performed upon withdrawal. Using an 18-gauge needle, the same pa thway was used with good entry into the joint space. Several attempts at aspiration were unsuccessful, including fanning out in different directions. The needle was then withdrawn, and pressure dressing was applied. The patient tolerated the procedure well without any acute bleeding or hematoma formation. .
[2023-09-01] MEDS: MoRPHine SULFATE 4 MG/ML 1 ML CARP\\VIAL IV STA (17:14)
[2023-09-01] MEDS: ONDANSETRON INJ 2 MG/ML 2 ML VIAL IV STA (17:14)
[2023-09-01 17:33] LABS: Magnesium 1.4 mg/dl (1.7-2.4)
[2023-09-01] MEDS: predniSONE 20 MG TAB PO STA (17:57)
[2023-09-01] MEDS ORDERED: hydrOXYzine HCl 10 MG TAB PO PRN (18:26)
[2023-09-01] MEDS: PLASMA-LYTE A 1,000 ML IV ONE (18:48)
[2023-09-01 19:01] LABS: Calcium 8.6 mg/dl (8.6-10.3); Creatinine Clr Calc Pharmacy 22.7 ml/min; Est GFR (African American) 11.3 ml/min; Est GFR (Non-African American) 9.8 ml/min
[2023-09-01] MEDS: PANTOprazole 40 MG TAB PO SCH (20:44)
[2023-09-01] MEDS: MAGNESIUM SULFATE / D5W 1 GM/100 ML BAG IV ONE (20:44)
[2023-09-01 23:13] LABS: Calcium 8.5 mg/dl (8.6-10.3); Creatinine Clr Calc Pharmacy 22.1 ml/min; Est GFR (African American) 10.9 ml/min; Est GFR (Non-African American) 9.4 ml/min; Potassium 4.6 mmol/L (3.5-5.1)
[2023-09-02 02:43] LABS: Basophils # (auto) 0.02 K/uL (0.00-0.20); Basophils % (auto) 0.2 %; Eosinophils # (auto) 0.01 K/uL (0.00-0.50); Eosinophils % (auto) 0.1 %; Hematocrit (blood only) 33.6 % (42.0-52.0); Hemoglobin 11.4 g/dl (14.0-18.0); Immature Granulocytes # (auto) 0.05 K/uL (0.01-0.20); Immature Granulocytes % (auto) 0.5 %; Lymphocytes # (auto) 0.64 K/uL (1.20-3.40); Lymphocytes % (auto) 6.7 %; Mean Corpuscular Hemoglobin 34.1 pg (25.0-34.0); Mean Corpuscular Hgb Conc 33.9 g/dL (32.0-36.0); Mean Corpuscular Volume 100.6 fL (80.0-100.0); Mean Platelet Volume 9.1 fL (9.4-12.4); Monocytes # (auto) 0.57 K/uL (0.11-0.59); Neutrophils # (auto) 8.22 K/uL (1.40-6.50); Neutrophils % (auto) 86.5 %; Platelet Count 226 K/uL (130-400); RDW Coefficient of Variation 12.7 % (11.5-14.5); RDW Standard Deviation 46.8 fL (36.4-46.3); Red Blood Count 3.34 M/uL (4.70-6.10); White Blood Count 9.51 K/ul (4.8-10.8)
[2023-09-02 03:01] LABS: BUN Creatinine Ratio 11.5 (10-20); C Reactive Protein 26.07 mg/dl (0-0.5); Calcium 8.5 mg/dl (8.6-10.3); Creatinine Clr Calc Pharmacy 21.5 ml/min; Est GFR (African American) 10.6 ml/min; Est GFR (Non-African American) 9.1 ml/min; Magnesium 1.7 mg/dl (1.7-2.4); Potassium 4.9 mmol/L (3.5-5.1)
[2023-09-02] MEDS ORDERED: STAT IV/IM STA (08:38)
[2023-09-02] MEDS: FOLIC ACID 1 MG TAB PO SCH (08:51)
[2023-09-02] MEDS: predniSONE 20 MG TAB PO SCH (08:51)
[2023-09-02] MEDS: ROSUVASTATIN CALCIUM 5 MG TAB PO SCH (08:51)
[2023-09-02] MEDS: METOPROLOL SUCC 25MG EXT REL TAB PO SCH (08:51)
[2023-09-02] MEDS: THIAMINE HCL 100 MG TAB PO SCH (08:51)
[2023-09-02] MEDS: ACETAMINOPHEN 325 MG TAB PO PRN (08:55)
[2023-09-02] MEDS: SODIUM BICARBONATE 8.4% 75 MEQ in SODIUM CHLORIDE 0.45 % 1,000 ML IV SCH (09:45)
--- NOTE | 2023-09-02 10:16 | Nephrology Consultation ---
Date of Consultation September 02, 2023 Assessment & Plan (1) CHRISTAL (acute kidney injury): * CHRISTAL/CKD likely due to intravascular volume contraction in the setting of NSAID therapy * Clinically doubt oxalate nephropathy. Although serum uric acid is 12.8, urine microscopy is negative for uric acid crystals, noncontrast abdominal CT was negative for kidney stones. Hold Rasburicase. Discussed w/ pharmacy. Rasburicase currently only FDA approved for hyperuricemia in the setting of TLS * Volume status and electrolyte balance are acceptable. No acute indication for HD at this time * Avoid NSAIDS and known nephrotoxic agents * Will provide gentle hydration w/ Plasmalyte at 80 cc/hr x 1 L * Monitor UO, BMP (2) Chronic kidney disease: * CKD stage G3a (moderate impairment). Baseline creatinine has been 1.6-1.8 w/ EGFR 45 cc/min dating back to 01/17. 09/[address] did reveal mild co rtical thinning. Renal impairment is likely on the basis of microvascular disease (3) Gout: * Serum uric acid 12.8 on admission * Patient has bilateral knee pain/swelling. X-ray revealed arthritic change and effusion. Patient reports R knee arthrocentesis was attempted but unsuccessful * Primary service has started Prednisone * Will provide Allopurinol 50 mg po x 1 this am. Given CHRISTAL, recommend dosing only 50 mg po weekly * Will need xanthine oxidase inhibitor as outpatient w/ target serum uric acid < 6.0. If this cannot be obtained w/ Allopurinol or Uloric, then consider consultation w/ Rheumatology to consider Krystexxa therapy * If knee pain persists, consider consultation w/ Orthopedics for joint aspiration (4) Acute UTI (urinary tract infection): * Await urine culture results * On Ceftriaxone History of Present Illness Reason for Consultation: CHRISTAL Attending Physician: Zoey Santo MD History of Present Illness Mr. Murphy is a 58 year old white male who is seen at the request of the [facility] hospitalist service for evaluation of CHRISTAL. Information for the HPI is obtained from direct patient interview and review of the EMR. HPI is summarized as foll ows: Mr. Murphy has CKD stage G3a (moderate impairment). Baseline creatinine has been 1.6-1.8 w/ EGFR 45 cc/min dating back to 01/17. His renal impairment is likely on the basis of microvascular disease. He has not undergone Nephrology evaluation in the past. His medical history is significant for obesity, ROBERT, pulmonary hypertension, atrial fibrillation, gout and alcohol use disorder. Mr. Murphy presented to [facility] EMD 09/01/23 with c/o R flank discomfort, gross hematuria and bilateral knee pain for the last 7 days. He required IV Toradol for pain management. Mr. Murphy reports poor oral intake, occasional diarrhea and had been self medicating w/ ibuprofen 600 mg BID at home. Admission labs revealed Cr 5.82, uric acid 12.8. Urinalysis was + for LE/nitrates, 3+ blood, 3+ protein. Urine microscopy was negative for cellular casts or crystals. Noncontrast CT was negative for kidney or ureteral stones. No hydronephrosis was reported. CXR was clear, no infiltrate or congestive change. Knee x-ray revealed arthritic changes w/ joint effusion. Patient reports that aspiration of R knee was attempted but no fluid sample obtained. Allergies Allergy/AdvReac Type Severity Reaction Status Date / Time No Known Allergies Allergy Mild Verified 09/01/23 16:41 Home Medications Medication Instructions Recorded Confirmed Type acetaminophen 500 mg tablet 1,000 mg PO QID PRN pain 11/23/22 09/01/23 History (Tylenol Extra Strength) hydroxyzine HCl 10 mg tablet 10 mg PO TID PRN anxiety #30 tabs 03/31/23 09/01/23 Rx metoprolol succinate 25 mg 12.5 mg PO DAILY 03/31/23 09/01/23 History tablet,extended release 24 hr folic acid 1 mg tablet 1 mg PO DAILY #30 tabs 05/17/23 09/01/23 Rx pantoprazole 40 mg tablet,delayed 40 mg PO BID #180 tabs 05/17/23 09/01/23 Rx release rosuvastatin 5 mg tablet 5 mg PO DAILY 09/01/23 09/01/23 History Patient History Medical History CHRISTAL (acute kidney injury) Anxiety Pulmonary hypertension No known health problems Abdominal pain reason for upcoming procedure Alcohol use disorder Surgical History H/O colonoscopy Colonoscopy 12/01/22, repeat 5 years in 2027 History of lateral meniscus repair of right knee History of wisdom tooth extraction History of ankle surgery Family History Father Diabetes Myocardial infarction Mother Diabetes Myocardial infarction Ovarian cancer Denies family history of Prostate cancer Breast cancer Lung cancer Colorectal cancer Stroke Social History Smoking Status: Never smoker Second Hand Exposure: No; Do You Dip or Chew Tobacco: No; Tobacco Cessation Education Requested by Patient: No Hx Alcohol Use: Yes Alcohol type: beer and hard liquor Alcohol Intake Frequency: 4 or More x per/Week Hx Substance Use: No Preferred Language: Cantonese Kyrgyz Communication Ability: Effective Visual Impairment: Limited Hearing Ability: Normal Operations Recruiter Required: No Beliefs That Will Affect Care: None marital status: Current Living Situation: Spouse current occupational status: employed current occupation: [employer] How many Children do You have: 3 Other Information That Helps Us Care for You: No Feels Safe at Home: Yes Safety Concerns: Feels Safe At This Time Childhood Exposure to Second-Hand Smoke: Yes caffeine: No Dental Care, Regularly: Yes Physical Activity Frequency: Does not Exercise Seatbelt Use: always Sunscreen Use: No Assistive Devices: None Assistive Devices Comment: cane Review of Systems Constitutional: no fever Eyes: no problem reported Ear, Nose, Mouth, Throat: no problem reported Respiratory: no cough and no dyspnea Cardiovascular: no chest pain Gastrointestinal: + nausea and + vomiting; no diarrhea/loo se stools Genitourinary: + dysuria, + hematuria and + flank pain; no urinary hesitancy Integumentary: no rash Neurologic: no problem reported Physical Exam Constitutional: not in distress Eyes: PERRL, conjunctivae normal, anicteric sclerae ENMT: external ear and nose normal, oropharynx normal Neck: trachea midline, no thyromegaly Respiratory: normal respiratory effort, lungs clear to auscultation Cardiovascular: Rate/Rhythm: regular rate and regular rhythm Extremities: + edema (trace pretibial edema) Gastrointestinal (Abdomen): normal bowel sounds, soft, nontender, no hepatosplenomegaly Skin: no rashes, warm and dry Neurologic: Speech / Cognition: normal speech and normal cognition Results & Data Vital Signs (Past 12 Hours) Vital Signs Temp Pulse Pulse Resp BP Pulse Ox O2 Del Method 09/02/23 08:00 37.1 C 75 18 117/93 97 Room Air 09/02/23 04:19 19 09/02/23 03:08 36.8 C 78 16 124/78 97 Room Air 09/02/23 00:00 75 09/01/23 23:14 85 22 95 09/01/23 23:11 37.0 C 74 24 131/82 95 Room Air FiO2 09/02/23 08:00 09/02/23 04:19 21 09/02/23 03:08 09/02/23 00:00 09/01/23 23:14 21 09/01/23 23:11 Laboratory Results Laboratory Results WBC 9.51 K/ul (4.8-10.8) 09/02/23 02:13 RBC 3.34 M/uL (4.70-6.10) L 09/02/23 02:13 Hgb 11.4 g/dl (14.0-18.0) L 09/02/23 02:13 Hct 33.6 % (42.0-52.0) L 09/02/23 02:13 MCV 100.6 fL (80.0-100.0) H 09/02/23 02:13 MCH 34.1 pg (25.0-34.0) H 09/02/23 02:13 MCHC 33.9 g/dL (32.0-36.0) 09/02/23 02:13 RDW Std Deviation 46.8 fL (36.4-46.3) H 09/02/23 02:13 RDW Coeff of Santos 12.7 % (11.5-14.5) 09/02/23 02:13 Plt Count 226 K/uL (130-400) 09/02/23 02:13 MPV 9.1 fL (9.4-12.4) L 09/02/23 02:13 Immature Gran % (Auto) 0.5 % 09/02/23 02:13 Neut % (Auto) 86.5 % 09/02/23 02:13 Lymph % (Auto) 6.7 % 09/02/23 02:13 Webb % (Auto) 6.0 % 09/02/23 02:13 Eos % (Auto) 0.1 % 09/02/23 02:13 Baso % (Auto) 0.2 % 09/02/23 02:13 Neut # (Auto) 8.22 K/uL (1.40-6.50) H 09/02/23 02:13 Lymph # (Auto) 0.64 K/uL (1.20-3.40) L 09/02/23 02:13 Webb # (Auto) 0.57 K/uL (0.11-0.59) 09/02/23 02:13 Eos # (Auto) 0.01 K/uL (0.00-0.50) 09/02/23 02:13 Baso # (Auto) 0.02 K/uL (0.00-0.20) 09/02/23 02:13 Immature Gran # (Auto) 0.05 K/uL (0.01-0.20) 09/02/23 02:13 Sodium 131 mmol/L (136-145) L 09/02/23 02:13 Potassium 4.9 mmol/L (3.5-5.1) 09/02/23 02:13 Chloride 99 mmol/L (98-107) 09/02/23 02:13 Carbon Dioxide 17 mmol/L (21-32) L 09/02/23 02:13 Anion Gap 15 (3-11) H 09/02/23 02:13 BUN 71 mg/dl (6-23) H 09/02/23 02:13 Creatinine 6.15 mg/dl (0.6-1.4) H* 09/02/23 02:13 Est Cr Clr Drug Dosing 21.5 ml/min 09/02/23 02:13 Est GFR ( Amer) 10.6 ml/min 09/02/23 02:13 Est GFR (Non-Af Amer) 9.1 ml/min 09/02/23 02:13 BUN/Creatinine Ratio 11.5 (10-20) 09/02/23 02:13 Glucose 124 mg/dl (70-99(Fasting)) H 09/02/23 02:13 Lactate 1.4 mmol/L (0.4-2.0) 09/01/23 17:21 Uric Acid 12.8 mg/dl (2.6-7.2) H 09/01/23 14:00 Calcium 8.5 mg/dl (8.6-10.3) L 09/02/23 02:13 Magnesium 1.7 mg/dl (1.7-2.4) 09/02/23 02:13 Total Bilirubin 1.8 mg/dl (0.2-1.0) H 09/01/23 14:00 AST 27 U/L (13-39) 09/01/23 14:00 ALT 16 U/L (7-52) 09/01/23 14:00 Alkaline Phosphatase 143 U/L (34-104) H 09/01/23 14:00 Total Creatine Kinase 39 U/L (30-223) 09/01/23 14:00 Troponin I High Sens 7.8 pg/ml (0-20) 09/01/23 14:00 C-Reactive Protein 26.07 mg/dl (0-0.5) H 09/02/23 02:13 Total Protein 7.4 gm/dl (6.0-8.3) 09/01/23 14:00 Albumin 3.2 gm/dl (3.4-5.0) L 09/01/23 14:00 Globulin 4.2 gm/dl (2.5-4.0) H 09/01/23 14:00 Albumin/Globulin Ratio 0.8 (0.9-2) L 09/01/23 14:00 Lipase 7 U/L (11-82) L 09/01/23 14:00 Procalcitonin 4.65 ng/ml (0-0.5) H 09/01/23 14:00 Urine Color [place] 09/01/23 Unknown Urine Appearance Turbid (Clear) A 09/01/23 Unknown Urine pH 5.5 (4.5-7.5) 09/01/23 Unknown Ur Specific [place] 1.013 (1.000-1.030) 09/01/23 Unknown Urine Protein 3+ (Negative) H 09/01/23 Unknown Urine Glucose (UA) Negative (Negative) 09/01/23 Unknown Urine Ketones Negative (Negative) 09/01/23 Unknown Urine Blood 3+ (Negative) H 09/01/23 Unknown Urine Nitrite Positive (Negative) A 09/01/23 Unknown Urine Bilirubin 1+ (Negative) H 09/01/23 Unknown Urine Urobilinogen Negative (Negative) 09/01/23 Unknown Ur Leukocyte Esterase 3+ (Negative) H 09/01/23 Unknown Urine WBC (Auto) >50 /hpf (0-5) H 09/01/23 Unknown Urine RBC (Auto) >20 /hpf (0-2) H 09/01/23 Unknown U Hyaline Cast (Auto) 0-2 /lpf (0-2) 09/01/23 Unknown U Epithel Cells (Auto) 0-2 /hpf (0-2) 09/01/23 Unknown Urine Bacteria (Auto) 4+ (None Seen) H 09/01/23 Unknown Lyme Disease Screen Negative (Negative) 09/01/23 14:00 Impressions Abdomen/Pelvis CT 09/01/23 13:[address] WITHOUT CONTRAST CT DOSE: 1990.97 mGy.cm HISTORY: right flank pain TECHNIQUE: Multiaxial CT images of the abdomen and pelvis were performed without contrast. A dose lowering technique was utilized adhering to the principles of ALARA. COMPARISON STUDY: None. FINDINGS: The lung bases are clear. No pneumoperitoneum. No pneumatosis. Old, healed bilateral anterior rib fractures. No acute fractures identified. Bi lateral L5 spondylolysis with associated grade 1 anterolisthesis. Degenerative changes within the lumbar spine. Small fat-containing bilateral inguinal hernias are noted. The unenhanced liver, gallbladder, pancreas, and spleen are unremarkable. Linear calcification seen within the adrenal glands. There is a 15 mm fat-containing right adrenal gland nodule consistent with a benign myelolipoma. Mild bilateral perinephric edema which is likely chronic. There is mild bilateral cortical renal scarring. No renal or ureteral stones. No hydronephrosis. Normal caliber abdominal aorta. No retroperitoneal or pelvic lymphadenopathy. No pelvic free fluid. The bladder is unremarkable. Suboptimal evaluation for bowel pathology due to the lack of intravenous and oral contrast. However, there is no definite bowel wall thickening or obstruction. Colonic diverticulosis. No evidence for acute diverticulitis. Normal appendix. IMPRESSION: 1. No renal or ureteral stones. No hydronephrosis. 2. No bowel wall thickening or obstruction. 3. Normal appendix. 4. Colonic diverticulosis. No evidence for acute diverticulitis. 5. Additional findings as described above. ACT 112: Negative or not required by law. Electronically signed by: Yovani Soria M.D. 09/01/2023 3:04 PM Chest X-Ray 09/01/23 13:56 XR chest 1V portable HISTORY: 58 years-old Male chest pain COMPARISON: 01/10/2023 TECHNIQUE: AP view of the chest FINDINGS: Cardiomediastinal and hilar silhouettes are within normal limits. No pneumothorax, pleural effusion, airspace consolidation or pulmonary edema. Spondylotic spurring of the spine. Bones appear grossly intact. IMPRESSION: No acute process. ACT 112: Negative or not required by law. The above report was generated using voice recognition software. It may contain grammatical, syntax or spelling errors. Electronically signed by: Adair Frey M.D. 09/01/2023 3:24 PM Knee X-Ray 09/01/23 13:57 RIGHT KNEE 2 VIEWS CLINICAL HISTORY: Right knee swelling. FINDINGS: AP and crosstable lateral views of the right knee are compared to study dated 01/11/2023. The skeletal structures are osteopenic. No fracture is seen. There is advanced tricompartmental degenerative joint space narrowing. There are patellar enthesophytes, marginal osteophytes, and bony overgrowth along the distal femur and proximal tibia. There is a moderate to large joint effusion. Mild soft tissue swelling is seen around the knee. There is advanced atherosclerotic calcification of the popliteal artery. IMPRESSION: 1. Soft tissue swelling and joint effusion with no acute bony abnormality identified. 2. Osteopenia and arthritic change as above. Electronically signed by: Asher Nowak M.D. 09/01/2023 2:30 PM PG Care Time/CCT Total # of Minutes Spent Total Time Spent with Patient: Total time spent is greater than 50% in coordination of care (as documented) at patient's floor/unit and/or counseling patient: Coding Level of Care Code 12593 IN/OBS CONSULT LVL 5,80M Diagnoses CHRISTAL (acute kidney injury) N17.9 Chronic kidney disease N18.9 Gout M10.361 Chronicity: acute Gout etiology: due to renal impairment Gout site: knee Laterality: right Acute UTI (urinary tract infection) N39.0 (3) Gout Chronicity: acute Gout etiology: due to renal impairment Gout site: knee Laterality: right Qualified Code(s): M10.361 - Gout due to renal impairment, right knee
[2023-09-02] MEDS ORDERED: Ativan PO Alcohol Withdrawal--Active Protocol PO PRN (10:27)
[2023-09-02] MEDS ORDERED: LORazepam 1 MG TAB PO PRN ×4 (10:27)
[2023-09-02] MEDS: PLASMA-LYTE A 1,000 ML IV SCH (11:18)
[2023-09-02] MEDS: allopurinoL 100 MG TAB PO ONE (11:18)
--- NOTE | 2023-09-02 13:51 | Hospitalist Progress Note ---
Date of Service September 02, 2023 Assessment & Plan (1) Acute renal failure (ARF): Plan: Patient presented with a creatinine of 5.8. Today, 6.15. Nephrology involved Most likely acute kidney injury on CKD stage III due to dehydration and NSAID therapy. Continue IV fluids Monitor BMP Avoid nephrotoxic medications Hopeful for renal recovery. No indication for dialysis at this time (2) Acute UTI (urinary tract infection): Plan: Right flank pain is most likely related to UTI Urinalysis suggestive On ceftriaxone Follow urine culture results Leukocytosis resolved from 12,000 (3) Sepsis: Plan: Patient met sepsis criteria with tachycardia, leukocytosis and urinary source Received IV fluids Blood pressure stable Procalcitonin level 4.6 No lactic acidosis Follow urine and blood culture results (4) Gout: Plan: Bilateral knee pain x 7 days ED attempted arthrocentesis Suspect pain is secondary to gout Uric acid elevated at 12.8 Elevated CRP Hold NSAIDs in the setting of ARF Prednisone 40 mg daily until flare resolves (5) Alcohol use disorder in remission: Plan: Patient states that his last alcoholic drink was 7 days ago Started him on symptom triggered alcohol withdrawal protocol Continue daily folate and thiamine Patient does not seem to be withdrawing at this point. (6) Hypomagnesemia: Plan: Treated (7) Paroxysmal atrial fibrillation: Plan: In the setting of significant alcohol use and family history of A-fib NSR at present; not on anticoagulation (prior [id number] of 0; will defer for now) Continue metoprolol (8) ROBERT (obstructive sleep apnea): Plan: CPAP HS (9) Hyperlipidemia: Plan Full code VTE PPx: SCDs (will hold chemical DVT PPx for now given patient is unsure of gross hematuria) Admission and Anticipated Discharge Date Admission Date: September 01, 2023 Subjective Patient feels a little bit better today. He says that his right knee pain is slightly better. His flank pain is also slightly better. He tells me that he quit drinking 7 days ago. In the first few days after he quit, he did feel a little shaky but that phase has passed. Review of Systems Review of Systems: All systems reviewed & are unremarkable except as noted in Subjective Physical Exam Physical Exam: General: Was sleeping when I walked into the room. Easily arousable. Morbidly obese. Heart: S1, S2/regular rate and rhythm, no murmur rubs or gallops Lungs: Clear to auscultation bilaterally. Normal effort Abdomen: Soft/nontender/nondistended. No hepatosplenomegaly Extremities: No clubbing/cyanosis. No edema. Right knee swelling noted. Limited range of motion because of pain on the right knee. Behavior: Appropriate, cooperative Results & Data Results & Data Vital Signs (Past 12 Hours) Vital Signs Temp Pulse Pulse Resp BP Pulse Ox O2 Del Method 09/02/23 11:40 36.8 C 66 17 127/79 96 Room Air 09/02/23 09:00 69 09/02/23 08:00 37.1 C 75 18 117/93 97 Room Air 09/02/23 04:19 19 09/02/23 03:08 36.8 C 78 16 124/78 97 Room Air FiO2 09/02/23 11:40 09/02/23 09:00 09/02/23 08:00 09/02/23 04:19 21 09/02/23 03:08 Laboratory Results Abnormal lab results 09/01/23 09/01/23 09/01/23 Range/Units 14:00 18:04 22:31 WBC 12.08 H (4.8-10.8) K/ul RBC 3.51 L (4.70-6.10) M/uL Hgb 12.2 L (14.0-18.0) g/dl Hct 35.4 L (42.0-52.0) % MCV 100.9 H (80.0-100.0) fL MCH 34.8 H (25.0-34.0) pg RDW Std Deviation 47.8 H (36.4-46.3) fL MPV 9.3 L (9.4-12.4) fL Neut # (Auto) 9.79 H (1.40-6.50) K/uL Lymph # (Auto) 0.93 L (1.20-3.40) K/uL [place] # (Auto) 1.22 H (0.11-0.59) K/uL Sodium 132 L 132 L 130 L (136-145) mmol/L Chloride 96 L (98-107) mmol/L Carbon Dioxide 20 L 20 L (21-32) mmol/L Anion Gap 15 H 14 H 12 H (3-11) BUN 62 H 64 H 66 H (6-23) mg/dl Creatinine 5.82 H* 5.82 H* 5.99 H* (0.6-1.4) mg/dl Glucose 137 H (70-99(Fasting)) mg/dl Uric Acid 12.8 H (2.6-7.2) mg/dl Calcium 8.5 L (8.6-10.3) mg/dl Magnesium 1.4 L (1.7-2.4) mg/dl Total Bilirubin 1.8 H (0.2-1.0) mg/dl Alkaline Phosphatase 143 H (34-104) U/L C-Reactive Protein 32.82 H (0-0.5) mg/dl Albumin 3.2 L (3.4-5.0) gm/dl Globulin 4.2 H (2.5-4.0) gm/dl Albumin/Globulin Ratio 0.8 L (0.9-2) Lipase 7 L (11-82) U/L Procalcitonin 4.65 H (0-0.5) ng/ml Urine Appearance (Clear) Urine Protein (Negative) Urine Blood (Negative) Urine Nitrite (Negative) Urine Bilirubin (Negative) Ur Leukocyte Esterase (Negative) Urine WBC (Auto) (0-5) /hpf Urine RBC (Auto) (0-2) /hpf Urine Bacteria (Auto) (None Seen) 09/01/23 09/02/23 Range/Units Unknown 02:13 WBC (4.8-10.8) K/ul RBC 3.34 L (4.70-6.10) M/uL Hgb 11.4 L (14.0-18.0) g/dl Hct 33.6 L (42.0-52.0) % MCV 100.6 H (80.0-100.0) fL MCH 34.1 H (25.0-34.0) pg RDW Std Deviation 46.8 H (36.4-46.3) fL MPV 9.1 L (9.4-12.4) fL Neut # (Auto) 8.22 H (1.40-6.50) K/uL Lymph # (Auto) 0.64 L (1.20-3.40) K/uL [place] # (Auto) (0.11-0.59) K/uL Sodium 131 L (136-145) mmol/L Chloride (98-107) mmol/L Carbon Dioxide 17 L (21-32) mmol/L Anion Gap 15 H (3-11) BUN 71 H (6-23) mg/dl Creatinine 6.15 H* (0.6-1.4) mg/dl Glucose 124 H (70-99(Fasting)) mg/dl Uric Acid (2.6-7.2) mg/dl Calcium 8.5 L (8.6-10.3) mg/dl Magnesium (1.7-2.4) mg/dl Total Bilirubin (0.2-1.0) mg/dl Alkaline Phosphatase (34-104) U/L C-Reactive Protein 26.07 H (0-0.5) mg/dl Albumin (3.4-5.0) gm/dl Globulin (2.5-4.0) gm/dl Albumin/Globulin Ratio (0.9-2) Lipase (11-82) U/L Procalcitonin (0-0.5) ng/ml Urine Appearance Turbid A (Clear) Urine Protein 3+ H (Negative) Urine Blood 3+ H (Negative) Urine Nitrite Positive A (Negative) Urine Bilirubin 1+ H (Negative) Ur Leukocyte Esterase 3+ H (Negative) Urine WBC (Auto) >50 H (0-5) /hpf Urine RBC (Auto) >20 H (0-2) /hpf Urine Bacteria (Auto) 4+ H (None Seen) Diagnostic Findings Abdomen/Pelvis CT 09/01/23 13:[address] WITHOUT CONTRAST CT DOSE: 1990.97 mGy.cm HISTORY: right flank pain TECHNIQUE: Multiaxial CT images of the abdomen and pelvis were performed without contrast. A dose lowering technique was utilized adhering to the principles of ALARA. COMPARISON STUDY: None. FINDINGS: The lung bases are clear. No pneumoperitoneum. No pneumatosis. Old, healed bilateral anterior rib fractures. No acute fractures identified. Bilateral L5 spondylolysis with associated grade 1 anterolisthesis. Degenerative changes within the lumbar spine. Small fat-containing bilateral inguinal hernias are noted. The unenhanced liver, gallbladder, pancreas, and spleen are unremarkable. Linear calcification seen within the adrenal glands. There is a 15 mm fat-containing right adrenal gland nodule consistent with a benign myelolipoma. Mild bilateral perinephric edema which is likely chronic. There is mild bilateral cortical renal scarring. No renal or ureteral stones. No hydronephrosis. Normal caliber abdominal aorta. No retroperitoneal or pelvic lymphadenopathy. No pelvic free fluid. The bladder is unremarkable. Suboptimal evaluation for bowel pathology due to the lack of intravenous and oral contrast. However, there is no definite bowel wall thickening or obstruction. Colonic diverticulosis. No evidence for acute diverticulitis. Normal appendix. IMPRESSION: 1. No renal or ureteral stones. No hydronephrosis. 2. No bowel wall thickening or obstruction. 3. Normal appendix. 4. Colonic diverticulosis. No evidence for acute diverticulitis. 5. Additional findings as described above. ACT 112: Negative or not required by law. Electronically signed by: Yovani Soria M.D. 09/01/2023 3:04 PM Chest X-Ray 09/01/23 13:56 XR chest 1V portable HISTORY: 58 years-old Male chest pain COMPARISON: 01/10/2023 TECHNIQUE: AP view of the chest FINDINGS: Cardiomediastinal and hilar silhouettes are within normal limits. No pneumothorax, pleural effusion, airspace consolidation or pulmonary edema. Spondylotic spurring of the spine. Bones appear grossly intact. IMPRESSION: No acute process. ACT 112: Negative or not required by law. The above report was generated using voice recognition software. It may contain grammatical, syntax or spelling errors. Electronically signed by: Adair Frey M.D. 09/01/2023 3:24 PM Knee X-Ray 09/01/23 13:57 RIGHT KNEE 2 VIEWS CLINICAL HISTORY: Right knee swelling. FINDINGS: AP and crosstable lateral views of the right knee are compared to study dated 01/11/2023. The skeletal structures are osteopenic. No fracture is seen. There is advanced tricompartmental degenerative joint space narrowing. There are patellar enthesophytes, marginal osteophytes, and bony overgrowth along the distal femur and proximal tibia. There is a moderate to large joint effusion. Mild soft tissue swelling is seen around the knee. There is advanced atherosclerotic calcification of the popliteal artery. IMPRESSION: 1. Soft tissue swelling and joint effusion with no acute bony abnormality identified. 2. Osteopenia and arthritic change as above. Electronically signed by: Asher Nowak M.D. 09/01/2023 2:30 PM PG Care Time/CCT Total # of Minutes Spent Total Time Spent with Patient: Total time spent is greater than 50% in coordination of care (as documented) at patient's floor/unit and/or counseling patient: Coding Level of Care Code 02833 SUB INP/OBS CARE 2/35MIN Diagnoses Acute renal failure (ARF) N17.9 Acute renal failure type: unspecified Acute UTI (urinary tract infection) N39.0 Sepsis A41.9 Gout M10.9 Alcohol use disorder in remission F10.91 Hypomagnesemia E83.42 Paroxysmal atrial fibrillation I48.0 ROBERT (obstructive sleep apnea) G47.33 Hyperlipidemia E78.5 (1) Acute renal failure (ARF) Acute renal failure type: unspecified Qualified Code(s): N17.9 - Acute kidney failure, unspecified
[2023-09-02] MEDS: cefTRIAXone SODIUM 2,000 MG/50 ML BAG IV SCH (16:22)
--- NOTE | 2023-09-02 21:53 | Electrocardiogram Report ---
Test Reason : Blood Pressure : / mmHG Vent. Rate : 100 BPM Atrial Rate : 100 BPM P-R Int : 166 ms QRS Dur : 084 ms QT Int : 364 ms P-R-T Axes : 054 013 060 degrees QTc Int : 469 ms Normal sinus rhythm Low voltage QRS Borderline ECG When compared with ECG of 10-JAN-2023 13:44, No significant change was found Confirmed by Anthony Brooks ([id number]) on 09/02/2023 9:53:23 PM Referred By: Confirmed By:Anthony Brooks
[2023-09-03 07:24] LABS: Basophils # (auto) 0.03 K/uL (0.00-0.20); Basophils % (auto) 0.3 %; Eosinophils # (auto) 0.01 K/uL (0.00-0.50); Eosinophils % (auto) 0.1 %; Hematocrit (blood only) 34.9 % (42.0-52.0); Hemoglobin 11.5 g/dl (14.0-18.0); Immature Granulocytes # (auto) 0.08 K/uL (0.01-0.20); Immature Granulocytes % (auto) 0.8 %; Lymphocytes # (auto) 1.17 K/uL (1.20-3.40); Lymphocytes % (auto) 11.8 %; Mean Corpuscular Volume 103.3 fL (80.0-100.0); Mean Platelet Volume 9.1 fL (9.4-12.4); Monocytes % (auto) 8.1 %; Neutrophils # (auto) 7.84 K/uL (1.40-6.50); Neutrophils % (auto) 78.9 %; Platelet Count 303 K/uL (130-400); RDW Coefficient of Variation 12.8 % (11.5-14.5); RDW Standard Deviation 48.9 fL (36.4-46.3); Red Blood Count 3.38 M/uL (4.70-6.10); White Blood Count 9.93 K/ul (4.8-10.8)
[2023-09-03 07:46] LABS: BUN Creatinine Ratio 12.7 (10-20); C Reactive Protein 13.35 mg/dl (0-0.5); Creatinine Clr Calc Pharmacy 19.8 ml/min; Est GFR (Non-African American) 7.8 ml/min; Potassium 4.3 mmol/L (3.5-5.1)
[2023-09-03 10:52] LABS: Uric Acid 13.2 mg/dl (2.6-7.2)
--- NOTE | 2023-09-03 12:07 | Nephrology Progress Note ---
Date of Service September 03, 2023 Assessment & Plan (1) CHRISTAL (acute kidney injury): (2) Hyperuricemia: Plan 58 year gentleman with history of stage IIIa CKD, b/l cr 1.6-1.8 mg/dl, obesity, ROBERT, pulmonary hypertension, atrial fibrillation, gout and alcohol use disorder admitted on 09/01/23 with 1 week history of c/o R flank discomfort, gross hematuria, decreased p.o. intake, decreased urine output and bilateral knee pain. Has been taking ibuprofen twice a day at home. On admission Cr was 5.82, uric acid 12.8. Urinalysis was + for LE/nitrates, 3+ blood, 3+ protein, negative for cellular casts or crystals. Noncontrast CT was negative for kidney or ureteral stones. No hydronephrosis was reported. Knee x-ray revealed arthritic changes w/ joint effusion, aspiration of R knee was attempted but no fluid sample obtained. Urine culture grew E. coli, has been on ceftriaxone but sensitivity showed resistance to ceftriaxone. He was also given Plasma-Lyte which was stopped. Kidney function continues to worsen rapidly, creatinine now up to 7.0, BUN 84 but potassium normal, metabolic acidosis slightly improved. He was given 1 dose of allopurinol 50 mg considering significantly low EGFR. Rasburicase FDA approved only for hyperuricemia due to tumor lysis syndrome. Acute kidney injury certainly could be due to ATN with 1 week history of poor p.o. intake in the setting of UTI with sepsis, NSAID use. Hyperuricemia induced acute kidney injury remains a possibility as well although no urate crystal or kidney stone. Other possibilities such as acute glomerulonephritis also in the differential. -- Repeat uric acid level today, repeat urinalysis. If urinalysis shows pe rsistent microscopic hematuria and proteinuria without bacteriuria, it would be reasonable to consider serological workup -- Consider switching antibiotic to Augmentin as culture and sensitivity showing resistance to ceftriaxone -- Continue to monitor intake and output, volume status and electrolyte -- Started on IV normal saline at 75 MLS per hour mainly for hyperuricemia, if any concern for volume overload, okay to use loop diuretics. -- If kidney function continues to worsen and no improvement in hyperuricemia, hemodialysis can be considered but do not see any pressing indication at this ti me. Admission and Anticipated Discharge Date Admission Date: September 01, 2023 Subjective Mr. Murphy was seen and evaluated this morning. He reports overall feeling better, denies shortness of breath or chest pain. No fever or chills. Urine output improved, making around 1 L of urine, less concentrated. Blood pressure stable. Continued rise in creatinine up to 7.0 and BUN 84. Review of Systems Review of Systems: Detailed review of system was done and pertinent positives and negatives mentioned above. Physical Exam Constitutional: WD/WN, vitals as above + obese; no acute distress Eyes: + anicteric sclerae Neck: normal visual inspection Respiratory: Auscultation: lungs clear to auscultation bilaterally Cardiovascular: RRR, no murmur, no edema Musculoskeletal: Extremities: extremities normal to inspection Skin: no rashes, warm and dry Neurologic: no focal motor deficits Psychiatric: Orientation: alert and oriented x 3 Results & Data Vital Signs (Past 12 Hours) Vital Signs Temp Pulse Pulse Resp BP Pulse Ox O2 Del Method 09/03/23 09:23 Room Air 09/03/23 07:13 36.7 C 54 L 21 130/77 99 Room Air 09/03/23 07:08 58 L 09/03/23 03:46 52 L 20 97 09/03/23 03:43 36.4 C L 54 L 19 133/79 99 CPAP 09/03/23 00:00 63 09/02/23 23:56 36.5 C 55 L 19 111/69 97 CPAP FiO2 09/03/23 09:23 09/03/23 07:13 09/03/23 07:08 09/03/23 03:46 21 09/03/23 03:43 09/03/23 00:00 09/02/23 23:56 PG Care Time/CCT Total # of Minutes Spent Total Time Spent with Patient: Total time spent is greater than 50% in coordination of care (as documented) at patient's floor/unit and/or counseling patient: Coding Level of Care Code 16076 SUB INP/OBS CARE 3/50MIN Diagnoses CHRISTAL (acute kidney injury) N17.9 Hyperuricemia E79.0
[2023-09-03 12:44] LABS: Appearance Urine Cloudy (Clear); Bilirubin Urine Negative (Negative); Blood Urine 3+ (Negative); Cast Urine Automated 0-2 /lpf (0-2); Color Urine Yellow; Epithelial Cell Urine Auto 0-2 /hpf (0-2); Glucose Urine UA Negative (Negative); Ketones Urine Negative (Negative); Leukocyte Esterase Urine 3+ (Negative); Nitrite Urine Positive (Negative); Protein Urine 2+ (Negative); RBC Urine Automated >20 /hpf (0-2); Specific Gravity Urine 1.014 (1.000-1.030); Urobilinogen Urine Negative (Negative); WBC Urine Automated >50 /hpf (0-5); pH Urine 5.5 (4.5-7.5)
--- NOTE | 2023-09-03 12:45 | Hospitalist Progress Note ---
Date of Service September 03, 2023 Assessment & Plan (1) Acute renal failure (ARF): Plan: Patient presented with a creatinine of 5.8. Today, 6.15. Nephrology involved Most likely acute kidney injury on CKD stage III due to dehydration and NSAID therapy. Clay Puddler considering other etiologies. Continue IV fluids ordered by sales planning coordinator. Monitor BMP Avoid nephrotoxic medications Hopeful for renal recovery. No indication for dialysis at this time: No fluid overload, not encephalopathic, electrolytes acceptable. Dialysis may be considered if no improvement in renal function or if hyperuricemia gets worse in near future. (2) Acute UTI (urinary tract infection): Plan: Right flank pain is most likely related to UTI Urine culture grew ESBL E. coli, resistant to ceftriaxone Switch from ceftriaxone to Zosyn. May switch to Augmentin in near future. Leukocytosis resolved (3) Sepsis: Plan: Patient met sepsis criteria with tachycardia, leukocytosis and urinary source Received IV fluids Blood pressure stable Procalcitonin level 4.6 No lactic acidosis Follow blood culture results (4) Gout: Plan: Bilateral knee pain x 7 days ED attempted arthrocentesis Suspect pain is secondary to gout Uric acid elevated at 12.8, now 13.2 Elevated CRP Hold NSAIDs in the setting of ARF Patient is complaining of severe pain Will discontinue prednisone and start IV Solu-Medrol 30 mg twice daily (5) Alcohol use disorder in remission: Plan: Patient states that his last alcoholic drink was 7 days prior to admission Started him on symptom triggered alcohol withdrawal protocol Continue daily folate and thiamine Patient does not seem to be withdrawing at this point. (6) Hypomagnesemia: Plan: Treated (7) Paroxysmal atrial fibrillation: Plan: In the setting of significant alcohol use and family history of A-fib NSR at present; not on anticoagulation (prior [id number] of 0; will defer for now) Continue metoprolol (8) ROBERT (obstructive sleep apnea): Plan: CPAP HS (9) Hyperlipidemia: Plan Full code VTE PPx: SCDs (will hold chemical DVT PPx for now given patient is unsure of gross hematuria) Spoke to patient's sister, Luna Pérez, on the phone on 09/01 and 09/02 to update her about the plan. Admission and Anticipated Discharge Date Admission Date: September 01, 2023 Subjective Patient says that he is feeling better overall. His back pain/flank pain has improved. However he still has right knee pain and swelling. He has not had gout in the past and this feels like a gout attack. He denies chest pain, shortness of breath. He is having some difficulty focusing. For example, it takes him longer to find contacts on his phone. He does not feel like he is withdrawing. Review of Systems Review of Systems: All systems reviewed & are unremarkable except as noted in Subjective Physical Exam Physical Exam: General: Awake, conversant. Morbidly obese Heart: S1, S2/regular rate and rhythm, no murmur rubs or gallops Lungs: Clear to auscultation bilaterally. Normal effort Abdomen: Soft/nontender/nondistended. No hepatosplenomegaly Extremities: No clubbing/cyanosis. No edema. Right knee swelling noted. Limited range of motion because of pain on the right knee. No asterixis Behavior: Appropriate, cooperative Results & Data Results & Data Vital Signs (Past 12 Hours) Vital Signs Temp Pulse Pulse Resp BP Pulse Ox O2 Del Method 09/03/23 11:59 36.4 C L 57 L 18 123/73 99 Room Air 09/03/23 09:23 Room Air 09/03/23 07:13 36.7 C 54 L 21 130/77 99 Room Air 09/03/23 07:08 58 L 09/03/23 03:46 52 L 20 97 09/03/23 03:43 36.4 C L 54 L 19 133/79 99 CPAP FiO2 09/03/23 11:59 09/03/23 09:23 09/03/23 07:13 09/03/23 07:08 09/03/23 03:46 21 09/03/23 03:43 Laboratory Results Abnormal lab results 09/03/23 09/03/23 Range/Units 06:58 12:06 RBC 3.38 L (4.70-6.10) M/uL Hgb 11.5 L (14.0-18.0) g/dl Hct 34.9 L (42.0-52.0) % MCV 103.3 H (80.0-100.0) fL RDW Std Deviation 48.9 H (36.4-46.3) fL MPV 9.1 L (9.4-12.4) fL Neut # (Auto) 7.84 H (1.40-6.50) K/uL Lymph # (Auto) 1.17 L (1.20-3.40) K/uL [place] # (Auto) 0.80 H (0.11-0.59) K/uL Sodium 132 L (136-145) mmol/L Chloride 97 L (98-107) mmol/L Carbon Dioxide 20 L (21-32) mmol/L Anion Gap 15 H (3-11) BUN 89 H (6-23) mg/dl Creatinine 7.01 H* D (0.6-1.4) mg/dl Glucose 105 H (70-99(Fasting)) mg/dl Uric Acid 13.2 H (2.6-7.2) mg/dl C-Reactive Protein 13.35 H (0-0.5) mg/dl Urine Appearance Cloudy A (Clear) Urine Protein 2+ H (Negative) Urine Blood 3+ H (Negative) Urine Nitrite Positive A (Negative) Ur Leukocyte Esterase 3+ H (Negative) PG Care Time/CCT Total # of Minutes Spent Total Time Spent with Patient: Total time spent is greater than 50% in coordination of care (as documented) at patient's floor/unit and/or counseling patient: Coding Level of Care Code 92351 SUB INP/OBS CARE 235MIN Diagnoses Acute renal failure (ARF) N17.9 Acute renal failure type: unspecified Acute UTI (urinary tract infection) N39.0 Sepsis A41.9 Gout M10.9 Alcohol use disorder in remission F10.91 Hypomagnesemia E83.42 Paroxysmal atrial fibrillation I48.0 ROBERT (obstructive sleep apnea) G47.33 Hyperlipidemia E78.5 (1) Acute renal failure (ARF) Acute renal failure type: unspecified Qualified Code(s): N17.9 - Acute kidney failure, unspecified
[2023-09-03 12:54] LABS: Bacteria Urine Automated 1+ (None Seen)
[2023-09-03] MEDS: methylPREDNISolone 30 MG in SYRINGE 0 ML IV SCH (13:01)
[2023-09-03] MEDS: PIPERACILLIN/TAZOBACTAM 4.5 GM in DEXTROSE 5% MINI-B 100 ML IV ONE (13:07)
[2023-09-03] MEDS: PIPERACILLIN/TAZOBACTAM 4.5 GM in DEXTROSE 5% MINI-B 100 ML IV SCH (22:06)
[2023-09-04 08:22] LABS: Basophils # (auto) 0.01 K/uL (0.00-0.20); Basophils % (auto) 0.1 %; Hematocrit (blood only) 37.1 % (42.0-52.0); Hemoglobin 12.3 g/dl (14.0-18.0); Immature Granulocytes # (auto) 0.06 K/uL (0.01-0.20); Immature Granulocytes % (auto) 0.8 %; Lymphocytes # (auto) 0.86 K/uL (1.20-3.40); Lymphocytes % (auto) 10.9 %; Mean Corpuscular Hgb Conc 33.2 g/dL (32.0-36.0); Mean Corpuscular Volume 102.5 fL (80.0-100.0); Mean Platelet Volume 8.9 fL (9.4-12.4); Monocytes # (auto) 0.34 K/uL (0.11-0.59); Monocytes % (auto) 4.3 %; Neutrophils # (auto) 6.61 K/uL (1.40-6.50); Neutrophils % (auto) 83.9 %; Platelet Count 291 K/uL (130-400); RDW Coefficient of Variation 12.5 % (11.5-14.5); RDW Standard Deviation 47.2 fL (36.4-46.3); Red Blood Count 3.62 M/uL (4.70-6.10); White Blood Count 7.88 K/ul (4.8-10.8)
[2023-09-04 08:42] LABS: BUN Creatinine Ratio 14.9 (10-20); Calcium 9.4 mg/dl (8.6-10.3); Creatinine Clr Calc Pharmacy 18.6 ml/min; Est GFR (African American) 8.4 ml/min; Est GFR (Non-African American) 7.2 ml/min; Potassium 5.5 mmol/L (3.5-5.1)
[2023-09-04 08:44] LABS: C Reactive Protein 7.34 mg/dl (0-0.5); Uric Acid 13.9 mg/dl (2.6-7.2)
[2023-09-04] MEDS ORDERED: STAT IV/IM STA (09:44)
[2023-09-04] MEDS: SODIUM BICARBONATE 8.4% 150 MEQ in DEXTROSE 5% 1,000 ML IV SCH (10:25)
--- NOTE | 2023-09-04 10:49 | Nephrology Progress Note ---
Date of Service September 04, 2023 Assessment & Plan (1) CHRISTAL (acute kidney injury): (2) Hyperuricemia: Plan 58 year gentleman with history of stage IIIa CKD, b/l cr 1.6-1.8 mg/dl, obesity, ROBERT, pulmonary hypertension, atrial fibrillation, gout and alcohol use disorder admitted on 09/01/23 with 1 week history of c/o R flank discomfort, gross hematuria, decreased p.o. intake, decreased urine output and bilateral knee pain. Has been taking ibuprofen twice a day at home. On admission Cr was 5.82, uric acid 12.8. Urinalysis was + for LE/nitrates, 3+ blood, 3+ protein, negative for cellular casts or crystals. Noncontrast CT was negative for kidney or ureteral stones. No hydronephrosis was reported. Knee x-ray revealed arthritic changes w/ joint effusion, aspiration of R knee was attempted but no fluid sample obtained. Urine culture grew E. coli, has been on ceftriaxone but sensitivity showed resistance to ceftriaxone. He was also given Plasma-Lyte which was stopped. Kidney function continues to worsen rapidly, creatinine now up to 7.0, BUN 84 but potassium normal, metabolic acidosis slightly improved. He was given 1 dose of allopurinol 50 mg considering significantly low EGFR. Rasburicase FDA approved only for hyperuricemia due to tumor lysis syndrome. Acute kidney injury certainly could be due to ATN with 1 week history of poor p.o. intake in the setting of UTI with sepsis, NSAID use. Hyperuricemia induced acute kidney injury remains a possibility as well although no urate crystal or kidney stone. Other possibilities such as acute glomerulonephritis also in the differential. Progressive decline in kidney function with multiple electrolyte abnormality and progressive worsening of hyperuricemia. Volume status and respiratory status remain acceptable. No clear uremic symptoms although reports some confusion. --Try to start on febuxostat as allopurinol needs to be in extremely low dose because of low eGFR but it is a non formulary medication and pharmacy does not have it. --Continue on sodium bicarbonate drip, change diet to low potassium diet and will give 1 dose of Lokelma 10 g now. --With rapid progressive worsening of kidney function and significant hyperuricemia, recommended starting on dialysis for urea clearance as well as improvement in electrolyte and azotemia. He is agreeable to start on dialysis but hoping to wait until tomorrow morning. There is no pressing indication at this time for emergency dialysis. Will tentatively plan for temporary dialysis catheter tomorrow morning and first dialysis tomorrow. --Order serologic for complete evaluation. --Dose medications for EGFR less than 10, avoid significant volume depletion, monitor intake and output Admission and Anticipated Discharge Date Admission Date: September 01, 2023 Gisela Farmer was seen and evaluated this morning. He reports overall feeling well except occasional feeling of some confusion. He denies shortness of breath or chest pain. No fever or chills. Urine output improving, making around >1 L of urine, less concentrated. Blood pressure stable. Continued rise in creatinine up to 7.6 and BUN 111. K 5.5, HCO3 18. Review of Systems Review of Systems: Detailed review of system was done and pertinent positives and negatives mentioned above. Physical Exam Constitutional: WD/WN, vitals as above + obese; no acute distress Eyes: + anicteric sclerae Neck: normal visual inspection Respiratory: Auscultation: lungs clear to auscultation bilaterally Cardiovascular: RRR, no murmur, no edema Musculoskeletal: Extremities: extremities normal to inspection Skin: no rashes, warm and dry Neurologic: no focal motor deficits Psychiatric: Orientation: alert and oriented x 3 Results & Data Vital Signs (Past 12 Hours) Vital Signs Temp Pulse Pulse Pulse Resp BP BP 09/04/23 08:35 48 L 09/04/23 07:11 36.6 C 46 L 18 139/77 09/04/23 04:27 49 L 16 09/04/23 02:46 36.7 C 54 L 22 160/91 H Pulse Ox O2 Del Method FiO2 09/04/23 08:35 09/04/23 07:11 95 Room Air 09/04/23 04:27 98 21 09/04/23 02:46 98 Room Air PG Care Time/CCT Total # of Minutes Spent Total Time Spent with Patient: Total time spent is greater than 50% in coordination of care (as documented) at patient's floor/unit and/or counseling patient: Coding Level of Care Code 09746 SUB INP/OBS CARE 3/50MIN Diagnoses CHRISTAL (acute kidney injury) N17.9 Hyperuricemia E79.0
--- NOTE | 2023-09-04 11:24 | Hospitalist Progress Note ---
Date of Service September 04, 2023 Assessment & Plan (1) Acute renal failure (ARF): Plan: Patient presented with a creatinine of 5.8. Today, 7.46. Nephrology involved Most likely acute kidney injury on CKD stage III due to dehydration and NSAID therapy. Log Operations Coordinator considering other etiologies like hyperuricemia induced nephropathy versus glomerulonephritis., Considering serologic studies to complete evaluation. Renal function getting worse and patient is likely heading towards needing dialysis. No urgent indication for dialysis at this time and the patient would like to give it another day. Will continue bicarb drip Log Operations Coordinator will order Lokelma to treat hyperkalemia Spoke to patient's sister, Luna Pérez, on phone #[phone] to update her (2) Acute UTI (urinary tract infection): Plan: Right flank pain is most likely related to UTI Urine culture grew ESBL E. coli, resistant to ceftriaxone Switch from ceftriaxone to Zosyn. May switch to Augmentin in near future. Leukocytosis resolved (3) Sepsis: Plan: Patient met sepsis criteria with tachycardia, leukocytosis and urinary source Received IV fluids Blood pressure stable Procalcitonin level 4.6 No lactic acidosis Blood cultures negative (4) Gout: Plan: Bilateral knee pain x 7 days ED attempted arthrocentesis Suspect pain is secondary to gout Uric acid elevated at 12.8, now 13.9 Hyperuricemia induced renal failure is a possibility. Consider Febuxostat Hold NSAIDs in the setting of ARF Pain has improved with Solu-Medrol to 30 mg twice daily. Will continue for now (5) Alcohol use disorder in remission: Plan: Patient states that his last alcoholic drink was 7 days prior to admission Started him on symptom triggered alcohol withdrawal protocol Continue daily folate and thiamine Patient does not seem to be withdrawing at this point. (6) Hypomagnesemia: Plan: Treated (7) Paroxysmal atrial fibrillation: Plan: In the setting of significant alcohol use and family history of A-fib NSR at present; not on anticoagulation (prior [id number] of 0; will defer for now) Continue metoprolol (8) ROBERT (obstructive sleep apnea): Plan: CPAP HS (9) Hyperlipidemia: Plan Full code VTE PPx: SCDs (will hold chemical DVT PPx for now given patient is unsure of gross hematuria) Spoke to patient's sister, Luna Pérez, on the phone on 09/01, 09/02 and 09/03 to update her about the plan. She is not listed as the primary contact in the chart. However the patient wants her to be informed. Her phone number is [phone] Admission and Anticipated Discharge Date Admission Date: September 01, 2023 Subjective Patient says that his right knee is not as painful. The swelling is down as well. But he is having some difficulty focusing. He tells me that his mind feels fuzzy. Review of Systems Review of Systems: All systems reviewed & are unremarkable except as noted in Subjective Physical Exam Physical Exam: General: Awake, conversant. Morbidly obese Heart: S1, S2/regular rate and rhythm, no murmur rubs or gallops Lungs: Clear to auscultation bilaterally. Normal effort Abdomen: Soft/nontender/nondistended. No hepatosplenomegaly Extremities: No clubbing/cyanosis. No edema. Right knee swelling improved. No asterixis Behavior: Appropriate, cooperative Results & Data Results & Data Vital Signs (Past 12 Hours) Vital Signs Temp Pulse Pulse Pulse Resp BP BP 09/04/23 10:49 36.7 C 56 L 18 122/66 09/04/23 08:35 48 L 09/04/23 07:11 36.6 C 46 L 18 139/77 09/04/23 04:27 49 L 16 09/04/23 02:46 36.7 C 54 L 22 160/91 H Pulse Ox O2 Del Method FiO2 09/04/23 10:49 Room Air 09/04/23 08:35 09/04/23 07:11 95 Room Air 09/04/23 04:27 98 21 09/04/23 02:46 98 Room Air Laboratory Results Abnormal lab results 09/03/23 09/04/23 Range/Units 12:06 07:42 RBC 3.62 L (4.70-6.10) M/uL Hgb 12.3 L (14.0-18.0) g/dl Hct 37.1 L (42.0-52.0) % MCV 102.5 H (80.0-100.0) fL RDW Std Deviation 47.2 H (36.4-46.3) fL MPV 8.9 L (9.4-12.4) fL Neut # (Auto) 6.61 H (1.40-6.50) K/uL Lymph # (Auto) 0.86 L (1.20-3.40) K/uL Sodium 131 L (136-145) mmol/L Potassium 5.5 H D (3.5-5.1) mmol/L Carbon Dioxide 18 L (21-32) mmol/L Anion Gap 15 H (3-11) BUN 111 H D (6-23) mg/dl Creatinine 7.46 H* D (0.6-1.4) mg/dl Glucose 120 H (70-99(Fasting)) mg/dl Uric Acid 13.9 H (2.6-7.2) mg/dl C-Reactive Protein 7.34 H (0-0.5) mg/dl Urine Appearance Cloudy A (Clear) Urine Protein 2+ H (Negative) Urine Blood 3+ H (Negative) Urine Nitrite Positive A (Negative) Ur Leukocyte Esterase 3+ H (Negative) Urine WBC (Auto) >50 H (0-5) /hpf Urine RBC (Auto) >20 H (0-2) /hpf Urine Bacteria (Auto) 1+ H (None Seen) Diagnostic Findings Abnormal lab results 09/03/23 09/04/23 Range/Units 12:06 07:42 RBC 3.62 L (4.70-6.10) M/uL Hgb 12.3 L (14.0-18.0) g/dl Hct 37.1 L (42.0-52.0) % MCV 102.5 H (80.0-100.0) fL RDW Std Deviation 47.2 H (36.4-46.3) fL MPV 8.9 L (9.4-12.4) fL Neut # (Auto) 6.61 H (1.40-6.50) K/uL Lymph # (Auto) 0.86 L (1.20-3.40) K/uL Sodium 131 L (136-145) mmol/L Potassium 5.5 H D (3.5-5.1) mmol/L Carbon Dioxide 18 L (21-32) mmol/L Anion Gap 15 H (3-11) BUN 111 H D (6-23) mg/dl Creatinine 7.46 H* D (0.6-1.4) mg/dl Glucose 120 H (70-99(Fasting)) mg/dl Uric Acid 13.9 H (2.6-7.2) mg/dl C-Reactive Protein 7.34 H (0-0.5) mg/dl Urine Appearance Cloudy A (Clear) Urine Protein 2+ H (Negative) Urine Blood 3+ H (Negative) Urine Nitrite Positive A (Negative) Ur Leukocyte Esterase 3+ H (Negative) Urine WBC (Auto) >50 H (0-5) /hpf Urine RBC (Auto) >20 H (0-2) /hpf Urine Bacteria (Auto) 1+ H (None Seen) PG Care Time/CCT Total # of Minutes Spent Total Time Spent with Patient: Total time spent is greater than 50% in coordination of care (as documented) at patient's floor/unit and/or counseling patient: Coding Level of Care Code 44718 SUB INP/OBS CARE 2/35MIN Diagnoses Acute renal failure (ARF) N17.9 Acute renal failure type: unspecified Acute UTI (urinary tract infection) N39.0 Sepsis A41.9 Gout M10.9 Alcohol use disorder in remission F10.91 Hypomagnesemia E83.42 Paroxysmal atrial fibrillation I48.0 ROBERT (obstructive sleep apnea) G47.33 Hyperlipidemia E78.5 (1) Acute renal failure (ARF) Acute renal failure type: unspecified Qualified Code(s): N17.9 - Acute kidney failure, unspecified
[2023-09-04] MEDS: SODIUM ZIRCONIUM CYCLOSILICATE 10 GM PACKET PO SCH (11:45)
[2023-09-04] MEDS: methylPREDNISolone 125 MG/2 ML VIAL ONE (13:27)
[2023-09-05 06:23] LABS: Hematocrit (blood only) 34.3 % (42.0-52.0); Hemoglobin 11.7 g/dl (14.0-18.0); Mean Corpuscular Hemoglobin 34.2 pg (25.0-34.0); Mean Corpuscular Hgb Conc 34.1 g/dL (32.0-36.0); Mean Corpuscular Volume 100.3 fL (80.0-100.0); Platelet Count 282 K/uL (130-400); RDW Coefficient of Variation 12.4 % (11.5-14.5); RDW Standard Deviation 46.5 fL (36.4-46.3); Red Blood Count 3.42 M/uL (4.70-6.10); White Blood Count 8.84 K/ul (4.8-10.8)
[2023-09-05 06:40] LABS: Albumin Level 2.9 gm/dl (3.4-5.0); BUN Creatinine Ratio 15.6 (10-20); Calcium 8.6 mg/dl (8.6-10.3); Creatinine Clr Calc Pharmacy 18.8 ml/min; Est GFR (African American) 8.4 ml/min; Est GFR (Non-African American) 7.3 ml/min; Phosphorus 7.3 mg/dl (2.5-4.9); Uric Acid 13.3 mg/dl (2.6-7.2)
[2023-09-05] MEDS: ERTAPENEM SODIUM 500 MG in SYRINGE 0 ML IV SCH (08:13)
--- NOTE | 2023-09-05 09:35 | Nephrology Progress Note ---
Date of Service September 05, 2023 Assessment & Plan (1) CHRISTAL (acute kidney injury): (2) Hyperuricemia: Plan 58 year gentleman with history of stage IIIa CKD, b/l cr 1.6-1.8 mg/dl, obesity, ROBERT, pulmonary hypertension, atrial fibrillation, gout and alcohol use disorder admitted on 09/01/23 with 1 week history of c/o R flank discomfort, gross hematuria, decreased p.o. intake, decreased urine output and bilateral knee pain. Has been taking ibuprofen twice a day at home. On admission Cr was 5.82, uric acid 12.8. Urinalysis was + for LE/nitrates, 3+ blood, 3+ protein, negative for cellular casts or crystals. Noncontrast CT was negative for kidney or ureteral stones. No hydronephrosis was reported. Knee x-ray revealed arthritic changes w/ joint effusion, aspiration of R knee was attempted but no fluid sample obtained. Urine culture grew E. coli, has been on ceftriaxone but sensitivity showed resistance to ceftriaxone. He was also given Plasma-Lyte which was stopped. Kidney function continues to worsen rapidly, creatinine now up to 7.0, BUN 84 but potassium normal, metabolic acidosis slightly improved. He was given 1 dose of allopurinol 50 mg considering significantly low EGFR. Rasburicase FDA approved only for hyperuricemia due to tumor lysis syndrome. Acute kidney injury certainly could be due to ATN with 1 week history of poor p.o. intake in the setting of UTI with sepsis, NSAID use. Hyperuricemia induced acute kidney injury remains a possibility as well although no urate crystal or kidney stone. Other possibilities such as acute glomerulonephritis also in the differential. Creatinine staying relatively stable today, potassium normalized other marisa ctrolyte staying stable. Uric acid slightly improved. Decent urine output, no sign of volume overload. No clear uremic symptoms. Stable lab today could be an indication that creatinine peaked and now plateaued or just some dilutional effect. --Continue on sodium bicarbonate drip, low potassium diet. --With creatinine staying stable , volume status acceptable, no pressing indication for dialysis at this time, continue to monitor with daily lab for any need for dialysis. --Dose medications for EGFR less than 10, avoid significant volume depletion, monitor intake and output Admission and Anticipated Discharge Date Admission Date: September 01, 2023 Gisela Farmer was seen and evaluated this morning. He reports overall feeling well except still having occasional feeling of some confusion. No shortness of breath or chest pain. No fever or chills. Urine output improving, making around >1 L of urine, less concentrated. Blood pressure stable. Creatinine staying stable at 7.4 and BUN 116. K 5.0, HCO3 18. Uric acid 13.3 <-- 13.8 Review of Systems Review of Systems: Detailed review of system was done and pertinent positives and negatives mentioned above. Physical Exam Constitutional: WD/WN, vitals as above + obese; no acute distress Eyes: + anicteric sclerae Neck: normal visual inspection Respiratory: Auscultation: lungs clear to auscultation bilaterally Cardiovascular: RRR, no murmur, no edema Musculoskeletal: Extremities: extremities normal to inspection Skin: no rashes, warm and dry Neurologic: no focal motor deficits Psychiatric: Orientation: alert and oriented x 3 Results & Data Vital Signs (Past 12 Hours) Vital Signs Temp Pulse Pulse Pulse Resp BP Pulse Ox 09/05/23 07:34 36.5 C 51 L 19 153/92 H 97 09/05/23 07:00 49 L 09/05/23 03:24 36.4 C L 56 L 18 128/81 98 09/05/23 00:37 53 L 09/04/23 22:58 36.6 C 57 L 18 124/79 97 O2 Del Method 09/05/23 07:34 Room Air 09/05/23 07:00 09/05/23 03:24 CPAP 09/05/23 00:37 09/04/23 22:58 CPAP PG Care Time/CCT Total # of Minutes Spent Total Time Spent with Patient: Total time spent is greater than 50% in coordination of care (as documented) at patient's floor/unit and/or counseling patient: Coding Level of Care Code 20869 SUB INP/OBS CARE 3/50MIN Diagnoses CHRISTAL (acute kidney injury) N17.9 Hyperuricemia E79.0
--- NOTE | 2023-09-05 19:31 | Hospitalist Progress Note ---
Date of Service September 05, 2023 Assessment & Plan (1) Acute renal failure (ARF): Plan: Patient presented with a creatinine of 5.8. Baseline Cr 1.5-1.6 Today's Cr 7.42 Urine output in the last 24 hours has been robust (2000+ml/24 hours) The increased UOP is encouraging and the creatinine seems to be peaking He does have some mild confusion/feeling foggy c/w uremic symptoms but otherwise his volume status is stable, K level is wnl, and his acid-base status - although not perfect - is also acceptable Exact cause of ARF/CHRISTAL is uncertain NSAID induced? pre-renal from dehydration? acute GN? uric-acid induced? other? acute GN work-up dispatched today [facility] hospital day #1 was normal Continue bicarbonate infusion [facility] qacassandra (2) Acute UTI (urinary tract infection): Plan: 2nd ESBL E. coli Was on rocephin, then zosyn Change to once daily, renally-dosed Ertapenem today flank pain at admission - element of pyelonephritis?? (3) Sepsis: Plan: 2nd to ESBL E.coli UTI sepsis resolved blood cx's negative (4) Gout: Plan: prior h/o gout attacks reported bilateral knee pain x 7 days prior to admission with difficulty walking due to such ED attempted arthrocentesis right knee w/o success x-rays with advanced OA of right knee with effusion Uric acid was elevated at 12.8, now 13.9 Had been taking NSAIDs prior to admission for the knees Now on Solu-Medrol 30 mg twice daily with improved synovitis of b/l knees Wean to prednisone 30mg daily starting tomorrow am then continue to wean steroids down ~10mg/day When out of the acute attack I agree with nephrology that a preventive agent should be started (5) Alcohol use disorder in remission: Plan: Patient stated that his last alcoholic drink was 7 days prior to admission Remains on symptom triggered ativan prn per alcohol withdrawal protocol Continue daily folate and thiamine - increase latter to 200mg BID no evidence of withdrawal today clinically (6) Hypomagnesemia: Plan: presenting level 1.4 replaced then normalized (7) Paroxysmal atrial fibrillation: Plan: remains in NSR he is not on chronic anticoagulation Continue metoprolol succ (8) ROBERT (obstructive sleep apnea): Plan: cont CPAP HS (9) Hyperlipidemia: Plan: was on crestor 5mg daily at home - cont such while here recent LFTs & CPK wnl (10) Morbid obesity: Plan: BMI 44.5 (11) Osteoarthritis of knees, bilateral: Plan: right knee x-rays with advanced OA with superimposed clinical gout left knee also likely with advanced OA steroids are for presumed gout of b/l knees Plan DVT proph - add heparin 5000 BID Macrocytosis - 2nd to alcohol abuse?? Is on folate supplementation thus defer on checking level. Vitamin B12 level in 03/2023 was 884 - defer recheck. TSH fall of [address] Liver on [address] a/p this admission was w/o cirrhotic features. updated patient's sister, Luna Pérez, this evening by phone ([phone]) Admission and Anticipated Discharge Date Admission Date: September 01, 2023 Subjective tele stable overnight patient reports feeling somewhat confused and his vision is off he feels overall unwell appetite fair-good c/o b/l knee pain R>L but much improved from admission at admission he could not walk or weight bear now able to walk in hallway albeit with some discomfort Review of Systems Review of Systems: gen - no fevers cv - no chest pain pulm - no dyspnea or MILLS GI - no N/V Physical Exam Physical Exam: gen - morbidly obese, NAD, pleasant mouth - MMM neck - no JVD heart - RRR, s1 s2, no murmur lungs - CTA b/l, no rales abd - soft NT ND BS+; no flank tenderness b/l ext - no edema, pulses 2+ b/l musculo - right knee modestly warm, left knee temperature wnl; right knee with severe crepitus with passive ROM; mild effusion R knee; patient can perform active ROM pretty well; left knee w/o effusion; no other joints with synovitis skin - no rash Results & Data Results & Data Vital Signs (Past 12 Hours) Vital Signs Temp Pulse Pulse Resp BP Pulse Ox O2 Del Method 09/05/23 15:23 36.6 C 61 24 146/92 H 95 Room Air 09/05/23 10:59 36.5 C 60 20 144/87 H 95 Room Air 09/05/23 07:34 36.5 C 51 L 19 153/92 H 97 Room Air Laboratory Results Laboratory Results - last 24 hr 09/05/23 05:38 WBC 8.84 RBC 3.42 L Hgb 11.7 L Hct 34.3 L MCV 100.3 H MCH 34.2 H MCHC 34.1 RDW Std Deviation 46.5 H RDW Coeff of Santos 12.4 Plt Count 282 MPV 9.0 L Sodium 133 L Potassium 5.0 Chloride 99 Carbon Dioxide 18 L Anion Gap 16 H BUN 116 H Creatinine 7.42 H* Est Cr Clr Drug Dosing 18.8 Est GFR ( Amer) 8.4 Est GFR (Non-Af Amer) 7.3 BUN/Creatinine Ratio 15.6 Glucose 137 H Uric Acid 13.3 H Calcium 8.6 Phosphorus 7.3 H Albumin 2.9 L PG Care Time/CCT Total # of Minutes Spent Total Time Spent with Patient: Total time spent is greater than 50% in coordination of care (as documented) at patient's floor/unit and/or counseling patient: Coding Level of Care Code 12787 SUB INP/OBS CARE 3/50MIN Diagnoses Acute renal failure (ARF) N17.9 Acute renal failure type: unspecified Acute UTI (urinary tract infection) N39.0 Sepsis A41.9 Gout M10.9 Alcohol use disorder in remission F10.91 Hypomagnesemia E83.42 Paroxysmal atrial fibrillation I48.0 ROBERT (obstructive sleep apnea) G47.33 Hyperlipidemia E78.5 Morbid obesity E66.01 Osteoarthritis of knees, bilateral M17.0 (1) Acute renal failure (ARF) Acute renal failure type: unspecified Qualified Code(s): N17.9 - Acute kidney failure, unspecified
[2023-09-05] MEDS: THIAMINE HCL 100 MG TAB PO SCH (20:33)
[2023-09-06 06:30] LABS: Hematocrit (blood only) 36.3 % (42.0-52.0); Hemoglobin 12.3 g/dl (14.0-18.0); Mean Corpuscular Hemoglobin 34.1 pg (25.0-34.0); Mean Corpuscular Hgb Conc 33.9 g/dL (32.0-36.0); Mean Corpuscular Volume 100.6 fL (80.0-100.0); Platelet Count 286 K/uL (130-400); RDW Coefficient of Variation 12.4 % (11.5-14.5); RDW Standard Deviation 46.5 fL (36.4-46.3); Red Blood Count 3.61 M/uL (4.70-6.10); White Blood Count 8.71 K/ul (4.8-10.8)
[2023-09-06 06:52] LABS: BUN Creatinine Ratio 16.9 (10-20); Calcium 8.7 mg/dl (8.6-10.3); Creatinine Clr Calc Pharmacy 19.8 ml/min; Est GFR (African American) 8.9 ml/min; Est GFR (Non-African American) 7.7 ml/min; Phosphorus 7.4 mg/dl (2.5-4.9); Potassium 4.9 mmol/L (3.5-5.1)
[2023-09-06 07:32] LABS: Estimated Average Glucose 97 mg/dl
[2023-09-06] MEDS: predniSONE 10 MG TABLET PO SCH (08:50)
[2023-09-06] MEDS: HEPARIN SOD 5,000 UNIT/0.5 ML VIAL SQ SCH (08:51)
--- NOTE | 2023-09-06 09:03 | Nephrology Progress Note ---
Date of Service September 06, 2023 Assessment & Plan (1) CHRISTAL (acute kidney injury): (2) Hyperuricemia: Plan 58 year gentleman with history of stage III A CKD, b/l cr 1.6-1.8 mg/dl, obesity, ROBERT, pulmonary hypertension, atrial fibrillation, gout and alcohol use disorder admitted on 09/01/23 with 1 week history of c/o R flank discomfort, gross hematuria, decreased p.o. intake, decreased urine output and bilateral knee pain. Has been taking ibuprofen twice a day at home. On admission Cr was 5.82, uric acid 12.8. Urinalysis was + for LE/nitrates, 3+ blood, 3+ protein, negative for cellular casts or crystals. Noncontrast CT was negative for kidney or ureteral stones. No hydronephrosis was reported. Knee x-ray revealed arthritic changes w/ joint effusion, aspiration of R knee was attempted but no fluid sample obtained. Urine culture grew E. coli, has been on ceftriaxone but sensitivity showed resistance to ceftriaxone. He was also given Plasma-Lyte which was stopped. Kidney function continues to worsen rapidly, creatinine now up to 7.0, BUN 84 but potassium normal, metabolic acidosis slightly improved. He was given 1 dose of allopurinol 50 mg considering significantly low EGFR. Rasburicase FDA approved only for hyperuricemia due to tumor lysis syndrome. Acute kidney injury certainly could be due to ATN with 1 week history of poor p.o. intake in the setting of UTI with sepsis, NSAID use. Hyperuricemia induced acute kidney injury remains a possibility as well although no urate crystal or kidney stone. Other possibilities such as acute glomerulonephritis also in the differential. Creatinine continues to improve slowly, down to 7.2, uric acid slightly improved to 13. Other electrolyte acceptable. Decent urine output, no sign of volume overload. No clear uremic symptoms. Stable lab today could be an indication that creatinine peaked and plateaued and now started to improve. --Discontinue bicarbonate drip, start on normal saline at 75 ml/h, encouraged to increase p.o. intake, aim for net even or slightly positive --With creatinine slowly improving, acceptable electrolyte, volume status acceptable, no indication for dialysis at this time, continue to monitor with daily lab for any need for dialysis. --Allopurinol 50 mg today and then continue twice a week, next dose on Tuesday and then adjust dose based on eGFR. --Dose medications for eGFR less than 10, avoid significant volume depletion, monitor intake and output --Continue to taper down steroid Admission and Anticipated Discharge Date Admission Date: September 01, 2023 Gisela Farmer was seen and evaluated this morning. He reports overall feeling well and feeling of some confusion and mental fogginess has been slowly improving. Yesterday got out of the bed and walked around. No shortness of breath or chest pain. No fever or chills. Urine output improving, making around 2.5 to 3 L of urine and overall net even. Blood pressure slightly elevated. Creatinine slowly started to improve but BUN elevated may be some effect from steroid. Potassium and bicarbonate improved. Slight improvement in uric acid, 13 <--13.3 <-- 13.8. Review of Systems Review of Systems: Detailed review of system was done and pertinent positives and negatives mentioned above. Physical Exam Constitutional: WD/WN, vitals as above + obese; no acute distress Eyes: + anicteric sclerae Neck: normal visual inspection Respiratory: Auscultation: lungs clear to auscultation bilaterally Cardiovascular: RRR, no murmur, no edema Musculoskeletal: Extremities: extremities normal to inspection Skin: no rashes, warm and dry Neurologic: no focal motor deficits Psychiatric: Orientation: alert and oriented x 3 Results & Data Vital Signs (Past 12 Hours) Vital Signs Temp Pulse Pulse Resp BP Pulse Ox O2 Del Method 09/06/23 07:46 36.7 C 58 L 23 161/89 H 96 Room Air 09/06/23 03:00 52 L 18 97 09/06/23 02:23 54 L 18 154/90 H 98 BiPAP 09/05/23 23:14 56 L 09/05/23 23:07 36.6 C 56 L 20 161/102 H 98 BiPAP 09/05/23 22:40 54 L 16 98 PG Care Time/CCT Total # of Minutes Spent Total Time Spent with Patient: Total time spent is greater than 50% in coordination of care (as documented) at patient's floor/unit and/or counseling patient: Coding Level of Care Code 04787 SUB INP/OBS CARE 2/35MIN Diagnoses CHRISTAL (acute kidney injury) N17.9 Hyperuricemia E79.0
[2023-09-06] MEDS ORDERED: allopurinoL 300 MG TAB PO SCH (09:30)
[2023-09-06] MEDS: SODIUM CHLORIDE 0.9% 1,000 ML IV SCH (09:39)
[2023-09-06 12:05] LABS: Magnesium 1.8 mg/dl (1.7-2.4)
--- NOTE | 2023-09-06 16:05 | Hospitalist Progress Note ---
Date of Service September 06, 2023 Assessment & Plan (1) Acute renal failure (ARF): Plan: 58 y/o admitted with severe CHRISTAL, presented with a creatinine of 5.8. Likely ATN caused by infection, poor po intake, nsaid use. Hyperuricemic and having acute gout flare R knee. Hyperuricemia or glomerulonephritis are also possible. Baseline Cr 1.5-1.6 Director Game consulted Cr has peaked improved to 7.1 and UOP remains good, metabolic acidosis improved. Hyponatremia improved - Na 134 Bicarb drip stopped, changed to NS at 75 -TD, ANCA, GBM Ab, C3/4 etc pending -AM BMP (2) Acute UTI (urinary tract infection): Plan: 2nd ESBL E. coli, possibly acute pyelonephritis because had R flank pain on admission Was on rocephin, then zosyn Ertapenem started 09/04 (3) Sepsis: Plan: 2nd to ESBL E.coli UTI sepsis resolved blood cx's negative (4) Gout: Plan: prior h/o gout attacks reported bilateral knee pain x 7 days prior to admission with difficulty walking due to such ED attempted arthrocentesis right knee w/o success x-rays with advanced OA of right knee with effusion Uric acid was elevated at 12.8, now 13.9 Had been taking NSAIDs prior to admission for the knees Some improvement on steroids, R knee still painful but ambulating with walker. Decrease prednisone to 20 mg tomorrow Currently on low dose allopurinol 2x a week (5) Alcohol use disorder in remission: Plan: Patient stated that his last alcoholic drink was 7 days prior to admission No evidence of alcohol withdrawal this admission Continue daily folate and thiamine - increase latter to 200mg BID (6) Hypomagnesemia: Plan: presenting level 1.4 replaced then normalized (7) Paroxysmal atrial fibrillation: Plan: remains in NSR he is not on chronic anticoagulation Continue metoprolol succ (8) ROBERT (obstructive sleep apnea): Plan: cont CPAP HS (9) Hyperlipidemia: Plan: was on crestor 5mg daily at home - cont such while here recent LFTs & CPK wnl (10) Morbid obesity: Plan: BMI 44.5 (11) Osteoarthritis of knees, bilateral: Plan: right knee x-rays with advanced OA with superimposed clinical gout left knee also likely with advanced OA steroids are for presumed gout of b/l knees Plan DVT proph - heparin 5000 BID Macrocytosis - 2nd to alcohol abuse?? Is on folate supplementation thus defer on checking level. Vitamin B12 level in 03/2023 was 884 - defer recheck. TSH fall of [address] was [address] Liver on [address] a/p this admission was w/o cirrhotic features. updated patient's sister, Luna Pérez, 09/04 ([phone]) Admission and Anticipated Discharge Date Admission Date: September 01, 2023 Subjective Doing well. No withdrawal symptoms such as tremors or sweats. No shortness of breath or cough. Did have right flank pain at beginning of hospital stay but this has resolved. No dysuria or SP pain. Physical Exam 2 Physical Exam: PHYSICAL EXAMINATION Last 24h vital signs reviewed, see documentation in flowsheet General: comfortable appearing, no distress HEENT: Normocephalic, atraumatic, pupils round and equal, sclerae anicteric, no conjunctival injection, moist mucus membranes Lungs: Normal respiratory effort. Clear to auscultation bilaterally. No RRW Heart: Regular rate and rhythm, no murmurs. No JVD Abdomen: Soft, nontender, nondistended. Bowel sounds present. Extremities: Warm, dry, well-perfused. No extremity edema. Skin: warm/dry, no rash Neuro: Alert and oriented x 4, face symmetric, moves 4 extremities well, no tremor Psych: Normal affect and behavior Results & Data Results & Data Vital Signs (Past 12 Hours) Vital Signs Temp Pulse Pulse Pulse Resp BP Pulse Ox 09/06/23 15:35 36.7 C 54 L 19 150/86 H 97 09/06/23 11:01 36.5 C 58 L 17 133/96 98 09/06/23 07:46 36.7 C 58 L 23 161/89 H 96 09/06/23 07:00 53 L O2 Del Method 09/06/23 15:35 Room Air 09/06/23 11:01 Room Air 09/06/23 07:46 Room Air 09/06/23 07:00 Laboratory Results 09/06/23 05:46 09/06/23 05:46 PG Care Time/CCT Total # of Minutes Spent Total Time Spent with Patient: Total time spent is greater than 50% in coordination of care (as documented) at patient's floor/unit and/or counseling patient: Coding Level of Care Code 40803 SUB INP/OBS CARE MIN Diagnoses Acute renal failure (ARF) N17.9 Acute renal failure type: unspecified Acute UTI (urinary tract infection) N39.0 Sepsis A41.9 Gout M10.9 Alcohol use disorder in remission F10.91 Hypomagnesemia E83.42 Paroxysmal atrial fibrillation I48.0 ROBERT (obstructive sleep apnea) G47.33 Hyperlipidemia E78.5 Morbid obesity E66.01 Osteoarthritis of knees, bilateral M17.0 (1) Acute renal failure (ARF) Acute renal failure type: unspecified Qualified Code(s): N17.9 - Acute kidney failure, unspecified
[2023-09-07 06:30] LABS: Hematocrit (blood only) 34.7 % (42.0-52.0); Hemoglobin 11.7 g/dl (14.0-18.0); Mean Corpuscular Hemoglobin 33.2 pg (25.0-34.0); Mean Corpuscular Hgb Conc 33.7 g/dL (32.0-36.0); Mean Corpuscular Volume 98.6 fL (80.0-100.0); Mean Platelet Volume 8.9 fL (9.4-12.4); Platelet Count 267 K/uL (130-400); RDW Coefficient of Variation 12.6 % (11.5-14.5); RDW Standard Deviation 45.2 fL (36.4-46.3); Red Blood Count 3.52 M/uL (4.70-6.10); White Blood Count 9.54 K/ul (4.8-10.8)
[2023-09-07 06:32] LABS: Albumin Level 2.9 gm/dl (3.4-5.0); BUN Creatinine Ratio 20.1 (10-20); Calcium 8.5 mg/dl (8.6-10.3); Creatinine Clr Calc Pharmacy 23.5 ml/min; Est GFR (Non-African American) 9.5 ml/min; Phosphorus 6.8 mg/dl (2.5-4.9); Potassium 4.2 mmol/L (3.5-5.1); Uric Acid 12.4 mg/dl (2.6-7.2)
--- NOTE | 2023-09-07 07:54 | Hospitalist Progress Note ---
Date of Service September 07, 2023 Assessment & Plan (1) Acute renal failure (ARF): Plan: 58 y/o admitted with severe CHRISTAL, presented with a creatinine of 5.8. Likely ATN caused by infection, poor po intake, nsaid use. Hyperuricemic and having acute gout flare R knee. Hyperuricemia or glomerulonephritis are also possible. Baseline Cr 1.5-1.6 [employer] Lieutenant consulted Cr has peaked improved to 5.96 and UOP remains good at 1700 last 24 hours, metabolic acidosis resolved. Hyponatremia resolved -09/06 stopped IVF, oral hydration -TD, ANCA, GBM Ab, C3/4 etc pending -AM BMP (2) Acute UTI (urinary tract infection): Plan: 2nd ESBL E. coli, possibly acute pyelonephritis because had R flank pain on admission Was on rocephin, then zosyn Ertapenem started 09/04 - plan for 7 days IV (or at minimum 5) not a good candidate for fosfomycin because of possible mild pyelo (3) Sepsis: Plan: 2nd to ESBL E.coli UTI sepsis resolved blood cx's negative (4) Gout: Plan: prior h/o gout attacks reported bilateral knee pain x 7 days prior to admission with difficulty walking due to such ED attempted arthrocentesis right knee w/o success x-rays with advanced OA of right knee with effusion Uric acid was elevated at 13.9 --> 12.4 Had been taking NSAIDs prior to admission for the knees Some improvement on steroids, R knee still painful but ambulating with walker. Decrease prednisone to 20 mg today Currently on low dose allopurinol 2x a week (5) Alcohol use disorder in remission: Plan: Patient stated that his last alcoholic drink was 7 days prior to admission No evidence of alcohol withdrawal this admission Continue daily folate and thiamine 200mg BID (6) Hypomagnesemia: Plan: presenting level 1.4 replaced then normalized (7) Paroxysmal atrial fibrillation: Plan: remains in NSR he is not on chronic anticoagulation Continue metoprolol succ (8) ROBERT (obstructive sleep apnea): Plan: cont CPAP HS (9) Hyperlipidemia: Plan: was on crestor 5mg daily at home - cont such while here recent LFTs & CPK wnl (10) Morbid obesity: Plan: BMI 44.5 (11) Osteoarthritis of knees, bilateral: Plan: right knee x-rays with advanced OA with superimposed clinical gout left knee also likely with advanced OA steroids are for presumed gout of b/l knees, however, I do not see any significant improvement. especially the R knee is acutely painful and hampering his ambulation (needing a walker). Arthocentesis attempt in ED failed and xray negative for fracture but effusion present. suspect a mechanical issue rather than gout at this time. will obtain R knee MRI Plan DVT proph - heparin 5000 BID Macrocytosis - probably related to alcohol Is on folate supplementation thus defer on checking level. Vitamin B12 level in 03/2023 was 884 - defer recheck. TSH fall of [address] was [address] Liver on [address] a/p this admission was w/o cirrhotic features. updated patient's daughter in room today Admission and Anticipated Discharge Date Admission Date: September 01, 2023 Subjective doing ok. really his main problem now is R knee pain. For last 2 weeks much worse than usual. Can't recall injuring but family reports frequent falls. Debra and kneecap seems to slide around. UOP has been good and attempting oral hydration today. No alcohol withdrawal symptoms Physical Exam 2 Physical Exam: PHYSICAL EXAMINATION Last 24h vital signs reviewed, see documentation in flowsheet General: comfortable appearing, no distress HEENT: Normocephalic, atraumatic, pupils round and equal, sclerae anicteric, no conjunctival injection, moist mucus membranes Lungs: Normal respiratory effort. Clear to auscultation bilaterally. No RRW Heart: Regular rate and rhythm, no murmurs. No JVD Abdomen: Soft, nontender, nondistended. Bowel sounds present. Extremities: Warm, dry, well-perfused. No extremity edema. R knee with old linear scar. No warmth or tenderness but effusion present. Clicking and lateral patellar motion on PROM Skin: warm/dry, no rash Neuro: Alert and oriented x 4, face symmetric, moves 4 extremities well, no tremor Psych: Normal affect and behavior Results & Data Results & Data Vital Signs (Past 12 Hours) Vital Signs Temp Pulse Pulse Resp BP Pulse Ox O2 Del Method 09/07/23 03:11 36.7 C 59 L 20 120/67 98 CPAP 09/07/23 03:05 50 L 16 97 09/06/23 22:50 36.8 C 49 L 18 127/70 98 CPAP 09/06/23 22:30 51 L 16 98 Laboratory Results 09/07/23 05:37 09/07/23 05:37 PG Care Time/CCT Total # of Minutes Spent Total Time Spent with Patient: Total time spent is greater than 50% in coordination of care (as documented) at patient's floor/unit and/or counseling patient: Coding Level of Care Code 20384 SUB INP/OBS CARE 2/35MIN Diagnoses Acute renal failure (ARF) N17.9 Acute renal failure type: unspecified Acute UTI (urinary tract infection) N39.0 Sepsis A41.9 Gout M10.9 Alcohol use disorder in remission F10.91 Hypomagnesemia E83.42 Paroxysmal atrial fibrillation I48.0 ROBERT (obstructive sleep apnea) G47.33 Hyperlipidemia E78.5 Morbid obesity E66.01 Osteoarthritis of knees, bilateral M17.0 (1) Acute renal failure (ARF) Acute renal failure type: unspecified Qualified Code(s): N17.9 - Acute kidney failure, unspecified
[2023-09-07] MEDS: allopurinoL 100 MG TAB PO SCH (08:24)
[2023-09-07] MEDS: predniSONE 20 MG TAB PO SCH (08:26)
--- NOTE | 2023-09-07 11:10 | Nephrology Progress Note ---
Date of Service September 07, 2023 Assessment & Plan (1) CHRISTAL (acute kidney injury): (2) Hyperuricemia: Plan 58 year gentleman with history of stage III A CKD, b/l cr 1.6-1.8 mg/dl, obesity, ROBERT, pulmonary hypertension, atrial fibrillation, gout and alcohol use disorder admitted on 09/01/23 with 1 week history of c/o R flank discomfort, gross hematuria, decreased p.o. intake, decreased urine output and bilateral knee pain. Has been taking ibuprofen twice a day at home. On admission Cr was 5.82, uric acid 12.8. Urinalysis was + for LE/nitrates, 3+ blood, 3+ protein, negative for cellular casts or crystals. Noncontrast CT was negative for kidney or ureteral stones. No hydronephrosis was reported. Knee x-ray revealed arthritic changes w/ joint effusion, aspiration of R knee was attempted but no fluid sample obtained. Urine culture grew E. coli, has been on ceftriaxone but sensitivity showed resistance to ceftriaxone. He was also given Plasma-Lyte which was stopped. Kidney function continues to worsen rapidly, creatinine now up to 7.0, BUN 84 but potassium normal, metabolic acidosis slightly improved. He was given 1 dose of allopurinol 50 mg considering significantly low EGFR. Rasburicase FDA approved only for hyperuricemia due to tumor lysis syndrome. Acute kidney injury certainly could be due to ATN with 1 week history of poor p.o. intake in the setting of UTI with sepsis, NSAID use. Hyperuricemia induced acute kidney injury remains a possibility as well although no urate crystal or kidney stone. Other possibilities such as acute glomerulonephritis also in the differential. Creatinine continues to improve slowly, down to 6.0 uric acid slightly improved to 12.4. Other electrolyte acceptable. Decent urine output, no sign of volume overload. No clear uremic symptoms. --Discontinue IV fluid, encouraged to increase p.o. intake, aim for net even or slightly positive --Continue on allopurinol 50 mg twice a week, next dose on Tuesday and then adjust dose based on eGFR. --Dose medications for eGFR less than 10, avoid significant volume depletion, monitor intake and output --Continue to taper down steroid Admission and Anticipated Discharge Date Admission Date: September 01, 2023 Gisela Farmer was seen and evaluated this morning. He reports overall feeling well and denied any symptoms. Reports decent appetite and p.o. intake. No shortness of breath or chest pain. No fever or chills. Urine output improving, making around 2.5 to 3 L of urine. Blood pressure improved. Creatinine continues to improve slowly but BUN elevated may be some effect from steroid. Potassium and bicarbonate normal. Slight improvement in uric acid 12.4 <-- 13 <--13.3 <-- 13.8. Received another dose of allopurinol 50 mg yesterday. Review of Systems Review of Systems: Detailed review of system was done and pertinent positives and negatives mentioned above. Physical Exam Constitutional: WD/WN, vitals as above + obese; no acute distress Eyes: + anicteric sclerae Neck: normal visual inspection Respiratory: Auscultation: lungs clear to auscultation bilaterally Cardiovascular: RRR, no murmur, no edema Musculoskeletal: Extremities: extremities normal to inspection Skin: no rashes, warm and dry Neurologic: no focal motor deficits Psychiatric: Orientation: alert and oriented x 3 Results & Data Vital Signs (Past 12 Hours) Vital Signs Temp Pulse Pulse Pulse Resp BP Pulse Ox 09/07/23 10:12 36.3 C L 63 18 138/85 97 09/07/23 08:04 36.7 C 50 L 19 153/89 H 98 09/07/23 08:00 09/07/23 03:11 36.7 C 59 L 20 120/67 98 09/07/23 03:05 50 L 16 97 O2 Del Method 09/07/23 10:12 Room Air 09/07/23 08:04 Room Air 09/07/23 08:00 Room Air 09/07/23 03:11 CPAP 09/07/23 03:05 PG Care Time/CCT Total # of Minutes Spent Total Time Spent with Patient: Total time spent is greater than 50% in coordination of care (as documented) at patient's floor/unit and/or counseling patient: Coding Level of Care Code 44594 SUB INP/OBS CARE 2/35MIN Diagnoses CHRISTAL (acute kidney injury) N17.9 Hyperuricemia E79.0
--- NOTE | 2023-09-08 00:31 | Magnetic Resonance Report ---
Exam(s): MRI RIGHT KNEE Without Contrast EXAM: MR Right Lower Extremity Without Intravenous Contrast, Knee CLINICAL HISTORY: Reason for exam: R knee pain and effusion, buckling, frequent falls. TECHNIQUE: Multiplanar magnetic resonance images of the right knee without intravenous contrast. COMPARISON: Radiograph 09/01/2023 FINDINGS: The images are degraded by motion artifact. The ACL and PCL are both torn. Macerated posterior horn of the medial meniscus. Medial meniscal extrusion. Horizontal tear within the posterior horn of the lateral meniscus. Medial and lateral collateral ligaments appear intact. Extensor mechanism is intact. Diffuse full-thickness cartilage loss within the medial compartment. Diffuse partial-thickness cartilage loss within the lateral and patellofemoral compartments. Tricompartmental osteophytes. No fracture. Trace joint effusion. Byrd's cyst measuring 0.6 x 2.3 x 4.9 cm containing a loose body measuring 1 cm. Diffuse subcutaneous soft tissue edema. No abscess. Ganglion within Hoffa's fat along lateral aspect of the patellar tendon measuring 3.1 x 2.3 x 4.0 cm. Additional ganglion posterior to the medial gastroc insertion measuring 1.8 cm. IMPRESSION: 1. Full-thickness tears of the ACL and PCL. 2. Macerated posterior horn of the medial meniscus with medial meniscal extrusion. 3. Horizontal tear within the posterior horn of the lateral meniscus. 4. Severe cartilage loss most pronounced within the medial compartment where there is diffuse full-thickness cartilage loss. 5. Tiny joint effusion. 6. Byrd's cyst containing a loose body. 7. Ganglion cyst within Hoffa's fat measuring 4 cm. Electronically signed by: Luis Dunne MD 09/08/23 00:30 AM
[2023-09-08 06:27] LABS: Hematocrit (blood only) 34.2 % (42.0-52.0); Hemoglobin 11.5 g/dl (14.0-18.0); Mean Corpuscular Hgb Conc 33.6 g/dL (32.0-36.0); Mean Corpuscular Volume 101.2 fL (80.0-100.0); Mean Platelet Volume 9.2 fL (9.4-12.4); Platelet Count 245 K/uL (130-400); RDW Coefficient of Variation 12.7 % (11.5-14.5); RDW Standard Deviation 47.5 fL (36.4-46.3); Red Blood Count 3.38 M/uL (4.70-6.10); White Blood Count 8.22 K/ul (4.8-10.8)
[2023-09-08 06:41] LABS: Albumin Level 2.9 gm/dl (3.4-5.0); Calcium 8.4 mg/dl (8.6-10.3); Creatinine Clr Calc Pharmacy 27.9 ml/min; Est GFR (African American) 13.5 ml/min; Est GFR (Non-African American) 11.7 ml/min; Phosphorus 6.2 mg/dl (2.5-4.9); Potassium 4.3 mmol/L (3.5-5.1); Uric Acid 11.7 mg/dl (2.6-7.2)
--- NOTE | 2023-09-08 11:57 | Nephrology Progress Note ---
Date of Service September 08, 2023 Assessment & Plan (1) CHRISTAL (acute kidney injury): (2) Hyperuricemia: Plan 58 year gentleman with history of stage III A CKD, b/l cr 1.6-1.8 mg/dl, obesity, ROBERT, pulmonary hypertension, atrial fibrillation, gout and alcohol use disorder admitted on 09/01/23 with 1 week history of c/o R flank discomfort, gross hematuria, decreased p.o. intake, decreased urine output and bilateral knee pain. Has been taking ibuprofen twice a day at home. On admission Cr was 5.82, uric acid 12.8. Urinalysis was + for LE/nitrates, 3+ blood, 3+ protein, negative for cellular casts or crystals. Noncontrast CT was negative for kidney or ureteral stones. No hydronephrosis was reported. Knee x-ray revealed arthritic changes w/ joint effusion, aspiration of R knee was attempted but no fluid sample obtained. Urine culture grew E. coli, has been on ceftriaxone but sensitivity showed resistance to ceftriaxone. He was also given Plasma-Lyte which was stopped. Kidney function continues to worsen rapidly, creatinine now up to 7.0, BUN 84 but potassium normal, metabolic acidosis slightly improved. He was given 1 dose of allopurinol 50 mg considering significantly low EGFR. Rasburicase FDA approved only for hyperuricemia due to tumor lysis syndrome. Acute kidney injury certainly could be due to ATN with 1 week history of poor p.o. intake in the setting of UTI with sepsis, NSAID use. Hyperuricemia induced acute kidney injury remains a possibility as well although no urate crystal or kidney stone. Other possibilities such as acute glomerulonephritis also in the differential. Creatinine continues to improve slowly, down to 5.0 uric acid 11.7. Other electrolyte acceptable. Decent urine output, no sign of volume overload. No clear uremic symptoms. --encouraged to increase p.o. intake, aim for net even or slightly positive --Continue on allopurinol 50 mg twice a week, next dose on Tuesday and then adjust dose based on eGFR. --Dose medications for eGFR less than 10, avoid significant volume depletion, monitor intake and output --Continue to taper down steroid Admission and Anticipated Discharge Date Admission Date: September 01, 2023 Gisela Darian was seen and evaluated this morning. Overall feeling well and denied any symptoms. Reports decent appetite and p.o. intake. No shortness of breath or chest pain. No fever or chills. Decent UO making around 2.5 to 3 L of urine. Blood pressure improved. Creatinine continues to improve slowly down to 5.0, BUN 110. Potassium and bicarbonate normal. Off of IV fluid. Slight improvement in uric acid 11.7<--12.4 <-- 13 <--13.3 <-- 13.8. Review of Systems Review of Systems: Detailed review of system was done and pertinent positives and negatives mentioned above. Physical Exam Constitutional: WD/WN, vitals as above + obese; no acute distress Respiratory: Auscultation: lungs clear to auscultation bilaterally Cardiovascular: RRR, no murmur, no edema Skin: no rashes, warm and dry Neurologic: no focal motor deficits Psychiatric: Orientation: alert and oriented x 3 Results & Data Vital Signs (Past 12 Hours) Vital Signs Temp Pulse Pulse Resp BP Pulse Ox O2 Del Method 09/08/23 07:15 36.4 C L 52 L 16 139/84 97 Room Air 09/08/23 04:00 58 L 16 96 PG Care Time/CCT Total # of Minutes Spent Total Time Spent with Patient: Total time spent is greater than 50% in coordination of care (as documented) at patient's floor/unit and/or counseling patient: Coding Level of Care Code 04222 SUB INP/OBS CARE 2/35MIN Diagnoses CHRISTAL (acute kidney injury) N17.9 Hyperuricemia E79.0
--- NOTE | 2023-09-08 12:30 | Orthopedic Consultation ---
Date of Consultation September 08, 2023 Assessment & Plan (1) Gout of right knee due to renal impairment: (2) Arthritis of right knee: (3) Hyperuricemia: (4) Morbid obesity: (5) CHIRSTAL (acute kidney injury): (6) Sepsis: (7) Acute UTI (urinary tract infection): (8) Alcohol use disorder in remission: (9) Gout: Plan X-rays demonstrate advanced tricompartmental degenerative change. The medial compartment demonstrates severe cartilage loss, and likely end-stage degenerative change. The ACL and PCL tears seen on the MRI are likely chronic, and the patient has compensated over the years with his musculature. The knee does not seem to be unstable on exam today. Likely, the patient is experiencing pain in the right knee due to a gout flare, as well as underlying meniscus pathology, which was also seen on the MRI. There really is not much of any effusion seen on the MRI, nor is there one appreciated on exam. Rather, there are multiple areas of multiloculated cystic change, to include a Byrd's cyst and ganglion cyst within Hoffa's fat pad. 1. Currently, the patient is not a surgical candidate due to multiple other medical comorbidities, including, but not limited to, acute on chronic gout flare, recent sepsis, hyperuricemia, and acute UTI. 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 He likely is looking at a total knee arthroplasty at some point in the future, but he needs to be medically optimized first. * Recommend weight loss interventions and formal physical therapy. 2. May consider right knee steroid injection as an outpatient at the [facility] orthopedics clinic. Thank you for this consultation. Orthopedics will sign off at this time. History of Present Illness Reason for Consultation: right knee pain Requesting Physician: Mena Navarro MD Attending Physician: Mena Navarro MD History of Present Illness Patient is a 58-year-old male who presented to the emergency department on 09/01/2023 for an evaluation of flank pain. The patient described right-sided flank pain that was present for about 5 days and not due to any injury. He did admit to some some hematuria and dysuria. He denied having any fever, nausea or vomiting. He denied having any shortness of breath. The patient also had noticed that his right knee and right ankle became swollen over the course of a few days prior to him coming to the ED. He stated a history of gout, and he was not taking a maintenance medication for this. Today, the patient notes that he has had chronic right knee pain for years, but this instance of pain to the right knee started about 1-2 weeks ago. He was mainly having difficulty with ambulation due to the pain. At rest, the patient is really not having significant pain to the right knee. He did have an aspiration of the knee last December that demonstrated presence of monosodium urate gout crystals. Patient has undergone a right knee x-ray and MRI during his stay here thus far. Allergies Allergy/AdvReac Type Severity Reaction Status Date / Time No Known Allergies Allergy Mild Verified 09/01/23 16:41 Home Medications Medication Instructions Recorded Confirmed Type acetaminophen 500 mg tablet 1,000 mg PO QID PRN pain 11/23/22 09/01/23 History (Tylenol Extra Strength) hydroxyzine HCl 10 mg tablet 10 mg PO TID PRN anxiety #30 tabs 03/31/23 09/01/23 Rx metoprolol succinate 25 mg 12.5 mg PO DAILY 03/31/23 09/01/23 History tablet,extended release 24 hr folic acid 1 mg tablet 1 mg PO DAILY #30 tabs 05/17/23 09/01/23 Rx pantoprazole 40 mg tablet,delayed 40 mg PO BID #180 tabs 05/17/23 09/01/23 Rx release rosuvastatin 5 mg tablet 5 mg PO DAILY 09/01/23 09/01/23 History Patient History Medical History CHRISTAL (acute kidney injury) Anxiety Pulmonary hypertension No known health problems Abdominal pain reason for upcoming procedure Alcohol use disorder Surgical History H/O colonoscopy Colonoscopy 12/01/22, repeat 5 years in 2027 History of lateral meniscus repair of right knee History of wisdom tooth extraction History of ankle surgery Family History Father Diabetes Myocardial infarction Mother Diabetes Myocardial infarction Ovarian cancer Denies family history of Prostate cancer Breast cancer Lung cancer Colorectal cancer Stroke Social History Smoking Status: Never smoker Second Hand Exposure: No; Do You Dip or Chew Tobacco: No; Tobacco Cessation Education Requested by Patient: No Hx Alcohol Use: Yes Alcohol type: beer and hard liquor Alcohol Intake Frequency: 4 or More x per/Week Hx Substance Use: No Preferred Language: Cantonese Cymraes Communication Ability: Effective Visual Impairment: Limited Hearing Ability: Normal Irrigation District Manager Required: No Beliefs That Will Affect Care: None marital status: Current Living Situation: Spouse current occupational status: employed current occupation: [employer] How many Children do You have: 3 Other Information That Helps Us Care for You: No Feels Safe at Home: Yes Safety Concerns: Feels Safe At This Time Childhood Exposure to Second-Hand Smoke: Yes caffeine: No Dental Care, Regularly: Yes Physical Activity Frequency: Does not Exercise Seatbelt Use: always Sunscreen Use: No Assistive Devices: Cane and Walker Assistive Devices Comment: cane Physical Exam Physical Exam: GENERAL: AA&Ox3, NAD. Pleasant, affect is calm. Laying in bed sleeping, easily aroused; appears comfortable. RESPIRATORY: Normal respiratory effort with no signs of distress. CHEST/AXILLA: Chest movement symmetrical. No deformities noted. SKIN: [address], warm and dry. MS/EXTREMITY: + RIGHT ankle dorsi/plantarflexion. NVI distally. Calf soft/NT. PT/DP intact. Musculoskeletal: Knee: + limited ROM of knee (ext 10; flex 90), + joint line tenderness, + anterior drawer test positive, + posterior drawer test positive, + Meera's sign positive and + Zully's sign positive; no effusion, no skin erythema, no ecchymosis, no valgus laxity, no varus laxity and varus stress test negative + Byrd's cyst Results & Data Vital Signs (Past 12 Hours) Vital Signs Temp Pulse Pulse Resp BP Pulse Ox O2 Del Method 09/08/23 07:15 36.4 C L 52 L 16 139/84 97 Room Air 09/08/23 04:00 58 L 16 96 Diagnostic Findings RIGHT KNEE 2 VIEWS CLINICAL HISTORY: Right knee swelling. FINDINGS: AP and crosstable lateral views of the right knee are compared to study dated 01/11/2023. The skeletal structures are osteopenic. No fracture is seen. There is advanced tricompartmental degenerative joint space narrowing. There are patellar enthesophytes, marginal osteophytes, and bony overgrowth along the distal femur and proximal tibia. There is a moderate to large joint effusion. Mild soft tissue swelling is seen around the knee. There is advanced atherosclerotic calcification of the popliteal artery. IMPRESSION: 1. Soft tissue swelling and joint effusion with no acute bony abnormality identified. 2. Osteopenia and arthritic change as above. Electronically signed by: Asher Nowak M.D. 09/01/2023 2:30 PM Dictated: 09/01/23 1428 Transcribed: 09/01/23 1428 Exam(s): MRI RIGHT KNEE Without Contrast EXAM: MR Right Lower Extremity Without Intravenous Contrast, Knee CLINICAL HISTORY: Reason for exam: R knee pain and effusion, buckling, frequent falls. TECHNIQUE: Multiplanar magnetic resonance images of the right knee without intravenous contrast. COMPARISON: Radiograph 09/01/2023 FINDINGS: The images are degraded by motion artifact. The ACL and PCL are both torn. Macerated posterior horn of the medial meniscus. Medial meniscal extrusion. Horizontal tear within the posterior horn of the lateral meniscus. Medial and lateral collateral ligaments appear intact. Extensor mechanism is intact. Diffuse full-thickness cartilage loss within the medial compartment. Diffuse partial-thickness cartilage loss within the lateral and patellofemoral compartments. Tricompartmental osteophytes. No fracture. Trace joint effusion. Byrd's cyst measuring 0.6 x 2.3 x 4.9 cm containing a loose body measuring 1 cm. Diffuse subcutaneous soft tissue edema. No abscess. Ganglion within Hoffa's fat along lateral aspect of the patellar tendon measuring 3.1 x 2.3 x 4.0 cm. Additional ganglion posterior to the medial gastroc insertion measuring 1.8 cm. IMPRESSION: 1. Full-thickness tears of the ACL and PCL. 2. Macerated posterior horn of the medial meniscus with medial meniscal extrusion. 3. Horizontal tear within the posterior horn of the lateral meniscus. 4. Severe cartilage loss most pronounced within the medial compartment where there is diffuse full-thickness cartilage loss. 5. Tiny joint effusion. 6. Byrd's cyst containing a loose body. 7. Ganglion cyst within Hoffa's fat measuring 4 cm. Electronically signed by: Luis Dunne MD 09/08/23 00:30 AM Dictated: 09/08/2329 Transcribed: 09/08/2329 (9) Gout Chronicity: acute Gout etiology: due to renal impairment Gout site: knee Laterality: right Qualified Code(s): M10.361 - Gout due to renal impairment, right knee
--- NOTE | 2023-09-08 18:32 | Hospitalist Progress Note ---
Date of Service September 08, 2023 Assessment & Plan (1) Acute renal failure (ARF): Plan: 58 y/o admitted with severe CHRISTAL, presented with a creatinine of 5.8. Likely ATN caused by infection, poor po intake, nsaid use. Hyperuricemic and having acute gout flare R knee. Hyperuricemia or glomerulonephritis are also possible. Baseline Cr 1.5-1.6 Jewel Gauger consulted - reviewed recs and note 09/07 Cr peaked at 7.5, improved to 5 and UOP remains good. metabolic acidosis & hyponatremia resolved -09/06 stopped IVF, oral hydration -TD, ANCA, GBM Ab, C3/4 etc pending -AM BMP (2) Acute UTI (urinary tract infection): Plan: 2nd ESBL E. coli, possibly acute pyelonephritis because had R flank pain on admission Was on rocephin, then zosyn Ertapenem started 09/04 - plan for 7 days IV not a good candidate for fosfomycin because of possible mild pyelo (3) Sepsis: Plan: 2nd to ESBL E.coli UTI sepsis resolved blood cx's negative (4) Gout: Plan: prior h/o gout attacks. crystal proven on arthrocentesis fall 2022 reported bilateral knee pain x 7 days prior to admission with difficulty walking due to such ED attempted arthrocentesis right knee w/o success x-rays with advanced OA of right knee with effusion Uric acid was elevated at 13.9 --> 11.7 Had been taking NSAIDs prior to admission for the knees Some improvement on steroids, R knee still painful but ambulating with walker. Decrease prednisone to 10 mg tomorrow Currently on low dose allopurinol 2x a week (5) Alcohol use disorder in remission: Plan: Patient stated that his last alcoholic drink was 7 days prior to admission No evidence of alcohol withdrawal this admission Continue daily folate and thiamine 200mg BID (6) Hypomagnesemia: Plan: presenting level 1.4 replaced then normalized (7) Paroxysmal atrial fibrillation: Plan: remains in NSR he is not on chronic anticoagulation Continue metoprolol succ (8) ROBERT (obstructive sleep apnea): Plan: cont CPAP HS (9) Hyperlipidemia: Plan: was on crestor 5mg daily at home - cont such while here recent LFTs & CPK wnl (10) Morbid obesity: Plan: BMI 44.5 (11) Osteoarthritis of knees, bilateral: Plan: right knee x-rays with advanced OA with superimposed clinical gout left knee also likely with advanced OA especially the R knee is acutely painful and hampering his ambulation (needing a walker). Arthocentesis attempt in ED failed and xray negative for fracture but effusion present. suspected a mechanical issue - R knee MRI 09/07 with ACL and PCL tears as well as meniscus tear consulted orthopedics, appreciate evaluation not a surgical candidate at this time but eventually will need TKA, discussed with orthopedics PA will try to obtain a hinged knee brace or at least a sleeve, fitting it may be difficult consulted orthotics Plan DVT proph - heparin 5000 BID Macrocytosis - probably related to alcohol Is on folate supplementation thus defer on checking level. Vitamin B12 level in 03/2023 was 884 - defer recheck. TSH fall of [address] Liver on CT a/p this admission was w/o cirrhotic features. Admission and Anticipated Discharge Date Admission Date: September 01, 2023 Subjective doing well and feels fine except that right knee pain not improved no shortness of breath, urinating with a good amount, good oral fluids intake Physical Exam 2 Physical Exam: PHYSICAL EXAMINATION Last 24h vital signs reviewed, see documentation in flowsheet General: comfortable appearing, no distress, reclining in bed awake HEENT: Normocephalic, atraumatic, pupils round and equal, sclerae anicteric, no conjunctival injection, moist mucus membranes Lungs: Normal respiratory effort. Clear to auscultation bilaterally. No RRW Heart: Regular rate and rhythm, no murmurs. No JVD Abdomen: Soft, nontender, nondistended. Bowel sounds present. Extremities: Warm, dry, well-perfused. No extremity edema. R knee with old linear scar. No warmth or tenderness. Skin: warm/dry, no rash Neuro: Alert and oriented x 4, face symmetric, moves 4 extremities well, no tremor or diaphoresis Psych: Normal affect and behavior Results & Data Results & Data Vital Signs (Past 12 Hours) Vital Signs Temp Pulse Resp BP Pulse Ox O2 Del Method 09/08/23 07:15 36.4 C L 52 L 16 139/84 97 Room Air Laboratory Results 09/08/23 05:40 09/08/23 05:40 PG Care Time/CCT Total # of Minutes Spent Total Time Spent with Patient: Total time spent is greater than 50% in coordination of care (as documented) at patient's floor/unit and/or counseling patient: Coding Level of Care Code 34375 SUB INP/OBS CARE MIN Diagnoses Acute renal failure (ARF) N17.9 Acute renal failure type: unspecified Acute UTI (urinary tract infection) N39.0 Sepsis A41.9 Gout M10.9 Alcohol use disorder in remission F10.91 Hypomagnesemia E83.42 Paroxysmal atrial fibrillation I48.0 ROBERT (obstructive sleep apnea) G47.33 Hyperlipidemia E78.5 Morbid obesity E66.01 Osteoarthritis of knees, bilateral M17.0 (1) Acute renal failure (ARF) Acute renal failure type: unspecified Qualified Code(s): N17.9 - Acute kidney failure, unspecified
[2023-09-08] MEDS: KETOROLAC TROMETHAMINE 15 MG/ML VIAL IV ONE (20:33)
[2023-09-08] MEDS: ACETAMINOPHEN 500 MG TAB PO SCH (20:33)
[2023-09-09 06:50] LABS: Hematocrit (blood only) 34.1 % (42.0-52.0); Hemoglobin 11.2 g/dl (14.0-18.0); Mean Corpuscular Hemoglobin 33.7 pg (25.0-34.0); Mean Corpuscular Hgb Conc 32.8 g/dL (32.0-36.0); Mean Corpuscular Volume 102.7 fL (80.0-100.0); Mean Platelet Volume 9.3 fL (9.4-12.4); Platelet Count 244 K/uL (130-400); RDW Coefficient of Variation 12.7 % (11.5-14.5); RDW Standard Deviation 47.8 fL (36.4-46.3); Red Blood Count 3.32 M/uL (4.70-6.10)
[2023-09-09 07:12] LABS: Albumin Level 2.9 gm/dl (3.4-5.0); BUN Creatinine Ratio 21.8 (10-20); Calcium 8.4 mg/dl (8.6-10.3); Creatinine Clr Calc Pharmacy 29.4 ml/min; Est GFR (African American) 14.4 ml/min; Est GFR (Non-African American) 12.4 ml/min; Phosphorus 6.1 mg/dl (2.5-4.9); Potassium 4.7 mmol/L (3.5-5.1); Uric Acid 11.5 mg/dl (2.6-7.2)
[2023-09-09] MEDS: predniSONE 10 MG TABLET PO SCH (08:32)
--- NOTE | 2023-09-09 10:34 | Nephrology Progress Note ---
Date of Service September 09, 2023 Assessment & Plan (1) CHRISTAL (acute kidney injury): (2) Hyperuricemia: Plan 58 year gentleman with history of stage III A CKD, b/l cr 1.6-1.8 mg/dl, obesity, ROBERT, pulmonary hypertension, atrial fibrillation, gout and alcohol use disorder admitted on 09/01/23 with 1 week history of c/o R flank discomfort, gross hematuria, decreased p.o. intake, decreased urine output and bilateral knee pain. Has been taking ibuprofen twice a day at home. On admission Cr was 5.82, uric acid 12.8. Urinalysis was + for LE/nitrates, 3+ blood, 3+ protein, negative for cellular casts or crystals. Noncontrast CT was negative for kidney or ureteral stones. No hydronephrosis was reported. Knee x-ray revealed arthritic changes w/ joint effusion, aspiration of R knee was attempted but no fluid sample obtained. Urine culture grew E. coli, on Invanz plan to continue until 09/11/2023. Kidney function continued to worsen rapidly, creatinine peaked to 7.8 and then started to improve. Now on allopurinol 50 mg twice a week. Uloric was non formulary, rasburicase FDA approved only for hyperuricemia due to tumor lysis syndrome. Acute kidney injury most likely secondary to ATN with 1 week history of poor p.o. intake in the setting of UTI with sepsis, NSAID use. Hyperuricemia induced acute kidney injury remains a possibility as well although no urate crystal or kidney stone. Creatinine continues to improve slowly, down to 4.8, BUN 104, uric acid 11.4. Other electrolyte acceptable. Decent urine output, no sign of volume overload. No clear uremic symptoms. --encouraged to increase p.o. intake, aim for net even or slightly positive --Discontinue potassium binder --Continue on allopurinol 50 mg twice a week, 1 dose today and then adjust dose based on eGFR. --Dose medications for eGFR less than 30, avoid significant volume depletion, monitor intake and output --Continue to taper down steroid -- Possible discharge over the weekend and then follow-up with Dr. Pelayo within few weeks. Outpatient lab early next week Admission and Anticipated Discharge Date Admission Date: September 01, 2023 Gisela Farmer was seen and evaluated this morning. Overall feeling well and denied any symptoms except ongoing right knee pain. Decent UO making around 2.5 to 3 L of urine, net negative more than 1 L.. Blood pressure improved. Creatinine continues to improve slowly down to 4.8, BUN 104. Potassium and bicarbonate normal. Off of IV fluid. Slight improvement in uric acid 11.5<--11.7<--12.4 <-- 13 <--13.3 <-- 13.8. Review of Systems Review of Systems: Detailed review of system was done and pertinent positives and negatives mentioned above. Physical Exam Constitutional: WD/WN, vitals as above + obese; no acute distress Respiratory: Auscultation: lungs clear to auscultation bilaterally Cardiovascular: RRR, no murmur, no edema Skin: no rashes, warm and dry Neurologic: no focal motor deficits Psychiatric: Orientation: alert and oriented x 3 Results & Data Vital Signs (Past 12 Hours) Vital Signs Temp Pulse Pulse Resp BP Pulse Ox O2 Del Method 09/09/23 09:48 Room Air 09/09/23 07:04 36.6 C 54 L 18 130/77 97 Room Air 09/09/23 03:01 61 16 96 09/08/23 23:15 18 110/72 96 Room Air, CPAP 09/08/23 22:30 59 L 23 97 PG Care Time/CCT Total # of Minutes Spent Total Time Spent with Patient: Total time spent is greater than 50% in coordination of care (as documented) at patient's floor/unit and/or counseling patient: Coding Level of Care Code 62922 SUB INP/OBS CARE 2/35MIN Diagnoses CHRISTAL (acute kidney injury) N17.9 Hyperuricemia E79.0
--- NOTE | 2023-09-09 13:48 | Hospitalist Progress Note ---
Date of Service September 09, 2023 Assessment & Plan (1) Acute renal failure (ARF): Plan: 58 y/o admitted with severe CHRISTAL, presented with a creatinine of 5.8. Likely ATN caused by infection, poor po intake, nsaid use. Hyperuricemic and having acute gout flare R knee. Hyperuricemia or glomerulonephritis are also possible. Baseline Cr 1.5-1.6 Feller Buncher Operator consulted - reviewed recs and note 09/07 Cr peaked at 7.5, improved to 100/4.75 and UOP remains good. metabolic acidosis & hyponatremia resolved -09/06 stopped IVF, oral hydration -TD, ANCA, GBM Ab, C3/4 etc pending -AM BMP -discussed with Dr. Marquez - would still like to watch labs into the weekend, Tuesday discharge should be fine with midweek labs per nephrology, will follow up with Dr. Barragan (2) Acute UTI (urinary tract infection): Plan: 2nd ESBL E. coli, possibly acute pyelonephritis because had R flank pain on admission Was on rocephin, then zosyn Ertapenem started 09/04 - plan for 7 days IV (discharge home Tuesday after dose) not a good candidate for fosfomycin because of possible mild pyelo (3) Sepsis: Plan: 2nd to ESBL E.coli UTI sepsis resolved blood cx's negative (4) Osteoarthritis of knees, bilateral: Plan: right knee x-rays with advanced OA with superimposed clinical gout left knee also likely with advanced OA especially the R knee is acutely painful and hampering his ambulation (needing a walker). Arthocentesis attempt in ED failed and xray negative for fracture but effusion present. suspected a mechanical issue - R knee MRI 09/07 with ACL and PCL tears as well as meniscus tear consulted orthopedics, appreciate evaluation not a surgical candidate at this time but eventually will need TKA, discussed with orthopedics PA will try to obtain a hinged knee brace or at least a sleeve, fitting it may be difficult consulted orthotics (5) Gout: Plan: prior h/o gout attacks. crystal proven on arthrocentesis fall 2022 reported bilateral knee pain x 7 days prior to admission with difficulty walking due to such ED attempted arthrocentesis right knee w/o success x-rays with advanced OA of right knee with effusion Uric acid was elevated at 13.9 --> 11.7 Had been taking NSAIDs prior to admission for the knees Some improvement on steroids, R knee still painful but ambulating with walker. Decreased prednisone to 10 mg, stop on discharge Currently on low dose allopurinol 2x a week (6) Alcohol use disorder in remission: Plan: Patient stated that his last alcoholic drink was 7 days prior to admission No evidence of alcohol withdrawal this admission Continue daily folate and thiamine 200mg BID (7) Hypomagnesemia: Plan: presenting level 1.4 replaced then normalized (8) Paroxysmal atrial fibrillation: Plan: remains in NSR he is not on chronic anticoagulation Continue metoprolol succ (9) ROBERT (obstructive sleep apnea): Plan: cont CPAP HS (10) Hyperlipidemia: Plan: was on crestor 5mg daily at home - cont such while here recent LFTs & CPK wnl (11) Morbid obesity: Plan: BMI 44.5 Plan DVT proph - heparin 5000 BID Macrocytosis - probably related to alcohol Is on folate supplementation thus defer on checking level. Vitamin B12 level in 03/2023 was 884 - defer recheck. TSH fall of [address] was [address] Liver on CT a/p this admission was w/o cirrhotic features. Admission and Anticipated Discharge Date Admission Date: September 01, 2023 Subjective L knee a little more painful today, R knee pain unchanged Urinating well Physical Exam 2 Physical Exam: PHYSICAL EXAMINATION Last 24h vital signs reviewed, see documentation in flowsheet General: comfortable appearing, no distress, awake alert in bed HEENT: Normocephalic, atraumatic, pupils round and equal, sclerae anicteric, no conjunctival injection, moist mucus membranes Lungs: Normal respiratory effort. Clear to auscultation bilaterally. No RRW Heart: Regular rate and rhythm, no murmurs. No JVD Abdomen: Soft, nontender, nondistended. Bowel sounds present. Extremities: Warm, dry, well-perfused. No extremity edema. R knee with old linear scar. No warmth or tenderness. L knee without redness or tenderness Skin: warm/dry, no rash Neuro: Alert and oriented x 4, face symmetric, moves 4 extremities well Psych: Normal affect and behavior Results & Data Results & Data Vital Signs (Past 12 Hours) Vital Signs Temp Pulse Pulse Resp BP Pulse Ox O2 Del Method 09/09/23 09:48 Room Air 09/09/23 07:04 36.6 C 54 L 18 130/77 97 Room Air 09/09/23 03:01 61 16 96 Laboratory Results 09/09/23 05:36 09/09/23 05:36 PG Care Time/CCT Total # of Minutes Spent Total Time Spent with Patient: Total time spent is greater than 50% in coordination of care (as documented) at patient's floor/unit and/or counseling patient: Coding Level of Care Code 37552 SUB INP/OBS CARE 2/35MIN Diagnoses Acute renal failure (ARF) N17.9 Acute renal failure type: unspecified Acute UTI (urinary tract infection) N39.0 Sepsis A41.9 Osteoarthritis of knees, bilateral M17.0 Gout M10.9 Alcohol use disorder in remission F10.91 Hypomagnesemia E83.42 Paroxysmal atrial fibrillation I48.0 ROBERT (obstructive sleep apnea) G47.33 Hyperlipidemia E78.5 Morbid obesity E66.01 (1) Acute renal failure (ARF) Acute renal failure type: unspecified Qualified Code(s): N17.9 - Acute kidney failure, unspecified
[2023-09-09] MEDS: oxyCODONE HCL IR 5 MG TAB (IMMEDIATE RELEASE) PO ONE (21:54)
[2023-09-10 06:15] LABS: Hematocrit (blood only) 34.5 % (42.0-52.0); Hemoglobin 11.3 g/dl (14.0-18.0); Mean Corpuscular Hemoglobin 33.8 pg (25.0-34.0); Mean Corpuscular Hgb Conc 32.8 g/dL (32.0-36.0); Mean Corpuscular Volume 103.3 fL (80.0-100.0); Mean Platelet Volume 9.4 fL (9.4-12.4); Platelet Count 244 K/uL (130-400); RDW Coefficient of Variation 12.9 % (11.5-14.5); RDW Standard Deviation 48.6 fL (36.4-46.3); Red Blood Count 3.34 M/uL (4.70-6.10); White Blood Count 9.84 K/ul (4.8-10.8)
[2023-09-10 06:31] LABS: Albumin Level 3.1 gm/dl (3.4-5.0); BUN Creatinine Ratio 22.2 (10-20); Calcium 8.6 mg/dl (8.6-10.3); Creatinine Clr Calc Pharmacy 34.5 ml/min; Est GFR (African American) 17.5 ml/min; Est GFR (Non-African American) 15.1 ml/min; Phosphorus 5.6 mg/dl (2.5-4.9); Potassium 4.3 mmol/L (3.5-5.1); Uric Acid 10.9 mg/dl (2.6-7.2)
--- NOTE | 2023-09-10 12:10 | Nephrology Progress Note ---
Date of Service September 10, 2023 Assessment & Plan (1) CHRISTAL (acute kidney injury): Plan: Admitted August 31 with serum creatinine 5.86 mg/dL --> peaked at 7.8 mg/dL. Creatinine is trending down. Clinical presentation consistent with ATN attributed to NSAIDS, UTI and possible recently passed kidney stone. Hyperuricemia noted. Volume status acceptable. Non-oliguric. Electrolytes acceptable. No indication for PUBLIC AREA ATTENDANT. UA + for LE/nitrates, 3+ blood, 3+ protein, negative for cellular casts or crystals. Noncontrast CT negative for kidney or ureteral stones. No hydronephrosis. Serologic evaluation for possible GN pending but presentation atypical. Document I/O's while inpatient. Follow up labs within 3 days of discharge. Follow up with Dr. Barragan later this month as scheduled. (2) Hyperuricemia: Plan: Knee x-ray revealed arthritic changes w/ joint effusion. Aspiration of R knee attempted but no fluid sample obtained. Remains on prednisone taper. Renally adjusted allopurinol. (3) Chronic kidney disease: Plan: CKD III with baseline creatinine ~1.6-1.8 mg/dL. Medications appropriately for kidney function. Follow up with Dr. Barragan within 2 weeks of hospital discharge. (4) Pulmonary hypertension: Plan: Volume status acceptable. (5) Acute UTI (urinary tract infection): Plan: Culture + ESBL E. coli. Rx Invanz until 09/11/2023. Admission and Anticipated Discharge Date Admission Date: September 01, 2023 Subjective No acute events overnight. No complaints this AM. Darian feels well. He is expecting to be discharged home tomorrow. Review of Systems Review of Systems: All systems reviewed & are unremarkable except as noted in HPI & below Physical Exam Constitutional: well developed and + morbidly obese; no acute distress Eyes: + anicteric sclerae; no corneal abnormal ity ENMT: Mouth: no oral mucosal abnormality and oral mucous membranes not dry Neck: normal visual inspection and trachea midline Respiratory: normal respiratory effort Auscultation: lungs clear to auscultation bilaterally Cardiovascular: Rate/Rhythm: regular rate Heart Sounds: normal S1 and normal S2 Extremities: + edema Musculoskeletal: Extremities: no cyanosis and no clubbing Skin: normal turgor; no lesions Neurologic: Motor/Sensory: no tremor and no asterixis Psychiatric: Orientation: alert and oriented x 3 Results & Data Vital Signs (Past 12 Hours) Vital Signs Temp Pulse Pulse Resp BP Pulse Ox O2 Del Method 09/10/23 07:20 36.6 C 59 L 16 138/85 99 Room Air 09/10/23 02:42 70 19 96 Laboratory Results Laboratory Results - last 24 hr 09/10/23 05:35 WBC 9.84 RBC 3.34 L Hgb 11.3 L Hct 34.5 L MCV 103.3 H MCH 33.8 MCHC 32.8 RDW Std Deviation 48.6 H RDW Coeff of Santos 12.9 Plt Count 244 MPV 9.4 Sodium 138 Potassium 4.3 Chloride 104 Carbon Dioxide 25 Anion Gap 9 BUN 90 H Creatinine 4.05 H D Est Cr Clr Drug Dosing 34.5 Est GFR ( Amer) 17.5 Est GFR (Non-Af Amer) 15.1 BUN/Creatinine Ratio 22.2 H Glucose 94 Uric Acid 10.9 H Calcium 8.6 Phosphorus 5.6 H Albumin 3.1 L PG Care Time/CCT Total # of Minutes Spent Total Time Spent with Patient: Total time spent is greater than 50% in coordination of care (as documented) at patient's floor/unit and/or counseling patient: Coding Level of Care Code 03324 SUB INP/OBS CARE 3/50MIN Diagnoses CHRISTAL (acute kidney injury) N17.9 Hyperuricemia E79.0 Chronic kidney disease N18.9 Pulmonary hypertension I27.20 Acute UTI (urinary tract infection) N39.0
--- NOTE | 2023-09-10 16:48 | Hospitalist Progress Note ---
Date of Service September 10, 2023 Assessment & Plan (1) Acute renal failure (ARF): Plan: 58 y/o admitted with severe CHRISTAL, presented with a creatinine of 5.8. Likely ATN caused by infection, poor po intake, nsaid use. Hyperuricemic and having acute gout flare R knee. Hyperuricemia or glomerulonephritis are also possible. Baseline Cr 1.5-1.6 Poiser consulted - reviewed recs and note 09/07 Cr peaked at 7.5, improved to 90/4 and UOP remains good. metabolic acidosis & hyponatremia resolved -09/06 stopped IVF, oral hydration -TD, ANCA, GBM Ab, C3/4 etc pending -AM BMP -discussed with Dr. Isbell, Tuesday discharge with midweek labs per nephrology, will follow up with Dr. Barragan (2) Acute UTI (urinary tract infection): Plan: 2nd ESBL E. coli, possibly acute pyelonephritis because had R flank pain on admission Was on rocephin, then zosyn Ertapenem -discharge home Tuesday after dose not a good candidate for fosfomycin because of possible mild pyelo (3) Sepsis: Plan: 2nd to ESBL E.coli UTI sepsis resolved blood cx's negative (4) Osteoarthritis of knees, bilateral: Plan: right knee x-rays with advanced OA with superimposed clinical gout left knee also likely with advanced OA especially the R knee is acutely painful and hampering his ambulation (needing a walker). Arthocentesis attempt in ED failed and xray negative for fracture but effusion present. suspected a mechanical issue - R knee MRI 09/07 with ACL and PCL tears as well as meniscus tear consulted orthopedics, appreciate evaluation not a surgical candidate at this time but eventually will need TKA, discussed with orthopedics PA will try to obtain a hinged knee brace or at least a sleeve, fitting it may be difficult consulted orthotics - hinged knee brace was delivered (5) Gout: Plan: prior h/o gout attacks. crystal proven on arthrocentesis fall 2022 reported bilateral knee pain x 7 days prior to admission with difficulty walking due to such ED attempted arthrocentesis right knee w/o success x-rays with advanced OA of right knee with effusion Uric acid was elevated at 13.9 --> 11 Had been taking NSAIDs prior to admission for the knees Some improvement on steroids, R knee still painful but ambulating with walker. Decreased prednisone to 10 mg, stop on discharge Currently on low dose allopurinol 2x a week (6) Alcohol use disorder in remission: Plan: Patient stated that his last alcoholic drink was 7 days prior to admission No evidence of alcohol withdrawal this admission Continue daily folate and thiamine 200mg BID counseled alcohol cessation and a rehab program, he reports that he plans to start an online rehab program. we discussed the option of MAT as well (7) Hypomagnesemia: Plan: presenting level 1.4 replaced then normalized (8) Paroxysmal atrial fibrillation: Plan: remains in NSR he is not on chronic anticoagulation Continue metoprolol succ (9) ROBERT (obstructive sleep apnea): Plan: cont CPAP HS (10) Hyperlipidemia: Plan: was on crestor 5mg daily at home - cont such while here recent LFTs & CPK wnl (11) Morbid obesity: Plan: BMI 44.5 Plan DVT proph - heparin 5000 BID Macrocytosis - probably related to alcohol Is on folate supplementation thus defer on checking level. Vitamin B12 level in 03/2023 was 884 - defer recheck. TSH fall of 2022 was wnl[address] Liver on CT a/p this admission was w/o cirrhotic features. Admission and Anticipated Discharge Date Admission Date: September 01, 2023 Subjective Darian is feeling very well, his left knee is no longer having increased pain as it was yesterday, right knee pain remains at baseline Physical Exam 2 Physical Exam: PHYSICAL EXAMINATION Last 24h vital signs reviewed, see documentation in flowsheet General: comfortable appearing, no distress, awake alert in bed no change in exam 09/09 HEENT: Normocephalic, atraumatic, pupils round and equal, sclerae anicteric, no conjunctival injection, moist mucus membranes Lungs: Normal respiratory effort. Clear to auscultation bilaterally. No RRW Heart: Regular rate and rhythm, no murmurs. No JVD Abdomen: Soft, nontender, nondistended. Bowel sounds present. Extremities: Warm, dry, well-perfused. No extremity edema. R knee with old linear scar. No warmth or tenderness. L knee without redness or tenderness Skin: warm/dry, no rash Neuro: Alert and oriented x 4, face symmetric, moves 4 extremities well Psych: Normal affect and behavior Results & Data Results & Data Vital Signs (Past 12 Hours) Vital Signs Temp Pulse Pulse Resp BP Pulse Ox O2 Del Method 09/10/23 15:07 36.5 C 66 16 147/86 H 97 Room Air 09/10/23 07:20 36.6 C 59 L 16 138/85 99 Room Air Laboratory Results 09/10/23 05:35 09/10/23 05:35 PG Care Time/CCT Total # of Minutes Spent Total Time Spent with Patient: Total time spent is greater than 50% in coordination of care (as documented) at patient's floor/unit and/or counseling patient: Coding Level of Care Code 40336 SUB INP/OBS CARE 2/35MIN Diagnoses Acute renal failure (ARF) N17.9 Acute renal failure type: unspecified Acute UTI (urinary tract infection) N39.0 Sepsis A41.9 Osteoarthritis of knees, bilateral M17.0 Gout M10.9 Alcohol use disorder in remission F10.91 Hypomagnesemia E83.42 Paroxysmal atrial fibrillation I48.0 ROBERT (obstructive sleep apnea) G47.33 Hyperlipidemia E78.5 Morbid obesity E66.01 (1) Acute renal failure (ARF) Acute renal failure type: unspecified Qualified Code(s): N17.9 - Acute kidney failure, unspecified
[2023-09-10] MEDS: oxyCODONE HCL IR 5 MG TAB (IMMEDIATE RELEASE) PO STA (22:20)
[2023-09-11 08:54] LABS: BUN Creatinine Ratio 20.4 (10-20); Calcium 9.1 mg/dl (8.6-10.3); Creatinine Clr Calc Pharmacy 39.2 ml/min; Est GFR (African American) 20.4 ml/min; Est GFR (Non-African American) 17.6 ml/min; Potassium 4.3 mmol/L (3.5-5.1)
[2023-09-11] MEDS: ERTAPENEM SODIUM 1,000 MG in SYRINGE 0 ML IV SCH (09:52)
--- NOTE | 2023-09-11 17:55 | Discharge Summary ---
Discharge Summary Date of Service September 11, 2023 Principal Dx & Hospital Course #1 = Principal Diagnosis (1) Acute renal failure (ARF): 58 y/o admitted with severe CHRISTAL, presented with a creatinine of 5.8. Likely ATN caused by infection, poor po intake, nsaid use. Hyperuricemic and having acute gout flare R knee. Hyperuricemia or glomerulonephritis are also possible. Baseline Cr 1.5-1.6 [place] Toe Former consulted Cr peaked at 7.5, improved to 90/4 and UOP remains good. metabolic acidosis & hyponatremia resolved -09/06 stopped IVF, oral hydration -TD, ANCA, GBM Ab, C3/4, anti-proteinase 3, anti-mpo pending -Cr 3.6 on discharge steadily improving -will have outpatient BMP Tuesday and has appt with Dr. Barragan in about 10 days 09/10/23 05:35 09/11/23 08:16 (2) Acute UTI (urinary tract infection): 2nd ESBL E. coli, possibly acute pyelonephritis because had R flank pain on admission Completed 7d ertapenem and symptoms resolved (3) Sepsis: 2nd to ESBL E.coli UTI sepsis resolved blood cx's negative (4) Osteoarthritis of knees, bilateral: right knee x-rays with advanced OA with superimposed clinical gout left knee also likely with advanced OA especially the R knee is acutely painful and hampering his ambulation (needing a walker). Arthocentesis attempt in ED failed and xray negative for fracture but effusion present. suspected a mechanical issue - R knee MRI 09/07 with ACL and PCL tears as well as meniscus tear consulted orthopedics, appreciate evaluation not a surgical candidate at this time but eventually will need TKA consulted orthotics - hinged knee brace was delivered (5) Gout: prior h/o gout attacks. crystal proven on arthrocentesis fall 2022 reported bilateral knee pain x 7 days prior to admission with difficulty walking due to such ED attempted arthrocentesis right knee w/o success x-rays with advanced OA of right knee with effusion Uric acid was elevated at 13.9 --> 11 Had been taking NSAIDs prior to admission for the knees Had course of oral prednisone in hospital for gout with modest improvement in R knee pain Currently on low dose allopurinol 2x a week (6) Alcohol use disorder in remission: Patient stated that his last alcoholic drink was 7 days prior to admission No evidence of alcohol withdrawal this admission Continue daily folate and thiamine 200mg BID counseled alcohol cessation and a rehab program, he reports that he plans to start an online rehab program. we discussed the option of MAT as well (7) Hypomagnesemia: presenting level 1.4 replaced then normalized (8) Paroxysmal atrial fibrillation: remains in NSR he is not on chronic anticoagulation Continue metoprolol succ (9) ROBERT (obstructive sleep apnea): cont CPAP HS (10) Hyperlipidemia: crestor 5mg daily recent LFTs & CPK wnl (11) Morbid obesity: BMI 44.5 Plan Macrocytosis - probably related to alcohol Is on folate supplementation thus defer on checking level. Vitamin B12 level in 03/2023 was 884 - defer recheck. Continue thiamine supplement. TSH fall of [address] was [address] Liver on [address] a/p this admission was w/o cirrhotic features. Notes For Next Care Provider BMP ordered for 09/13 then continue to monitor Adjust allopurinol Medication Changes From Visit NSAIDS stopped allopurinol started Admission HPI Per Admitting Provider Darian is a 58-year-old gentleman with PMH of alcohol use, ROBERT, gout, paroxysmal atrial fibrillation, and hyperlipidemia. He presented for worsening right-sided rib cage pain and bilateral knee swelling/pain x 6-7 days. He denies any falls, muscle strains, or injuries to his chest wall or knees. On arrival he endorses right lower rib and flank pain that comes on intermittently, but has been constant for the past 3 to 4 days. He describes it as a sharp, stabbing pain in his side. No radiation across the chest wall to the left side or to the shoulders. He does note radiation down his back and his legs. He has been taking ibuprofen at home without relief; 600 mg twice daily. Movements such as standing and sitting exacerbate the pain. He rates the pain 10/10 at worst, 5/10 at present in the ED. He also endorses bilateral knee pain which he rates 10/10; he had a similar episode back in December. This began the same time as his right flank pain. No history of kidney stones. He does have a history of gout, but is not currently on any medications for this. Of note, the patient was previously drinking alcohol daily; 1 handle got cut every 4 days or so. He stopped drinking alcohol 7 days ago; he denies alcohol withdrawal symptoms, or alcohol withdrawal seizures. He noticed that his urine became dark (black) yesterday, and he believes there was some blood in his urine. He also endorses burning with urination. He did have a bowel movement yesterday. Patient took all of his regular morning medications. Patient did not take anything for his gout. Patient's sister (Rubina) is present at the bedside and provides additional history; she reports that he has been not eating or drinking properly at home. Patient also reports he has had blood in his urine; not currently on blood thinners. He denies smoking, tobacco use, and recreational drug use; formerly chewed snuff. Patient's vitals are stable at time of admission. ED course: Rocephin 2000 mg IV Toradol 10 mg IV NSS 2500 mL IV ROS: Patient endorses cold intolerance, dizziness/lightheadedness with walking, right flank pain, suprapubic pain, dark urine, burning with urination, blood in urine, and pain in the knees. Patient denies fever, night-sweats, WILKES, changes in vision, rashes, tick bites, chest pain, chest palpitations, left shoulder pain or pressure, SOB, cough, abdominal pain, or numbness/tingling in arm/legs. Discharge Exam PHYSICAL EXAMINATION Last 24h vital signs reviewed, see documentation in flowsheet General: comfortable appearing, no distress, awake alert in bed HEENT: Normocephalic, atraumatic, pupils round and equal, sclerae anicteric, no conjunctival injection, moist mucus membranes Lungs: Normal respiratory effort. Heart: Abdomen: Soft, nondistended. Extremities: Warm, dry, well-perfused. No extremity edema. R knee with old linear scar. No warmth or tenderness. L knee without redness or tenderness Skin: warm/dry, no rash Neuro: Alert and oriented x 4, face symmetric, moves 4 extremities well Psych: Normal affect and behavior Updated Medication List Medication Instructions Recorded Confirmed Type hydroxyzine HCl 10 mg tablet 10 mg PO TID PRN anxiety #30 tabs 03/31/23 09/01/23 Rx metoprolol succinate 25 mg 12.5 mg PO DAILY 03/31/23 09/01/23 History tablet,extended release 24 hr folic acid 1 mg tablet 1 mg PO DAILY #30 tabs 05/17/23 09/01/23 Rx pantoprazole 40 mg tablet,delayed 40 mg PO BID #180 tabs 05/17/23 09/01/23 Rx release rosuvastatin 5 mg tablet 5 mg PO DAILY 09/01/23 09/01/23 History acetaminophen 500 mg tablet 1,000 mg (2 x 500 mg) PO QID PRN 09/11/23 09/01/23 Rx (Tylenol Extra Strength) pain #0 tabs allopurinol 100 mg tablet 50 mg (1/2 x 100 mg) PO TuFr@0900 09/11/23 Rx #8 tabs thiamine HCl (vitamin B1) 100 mg 100 mg PO DAILY #30 tabs 09/11/23 Rx tablet Hospital Stay Data Consultations 09/01/23 15:44 ED Decision to Admit Stat 09/01/23 18:26 Consult Nephrology Routine 09/08/23 09:21 Consult Orthopedic Surgery Routine Diagnostic Imagining Performed 09/01/23 13:56 CT abd pelvis wo con Stat 09/07/23 16:33 MR knee RT wo con Routine Abdomen/Pelvis CT 09/01/23 13:[address] WITHOUT CONTRAST CT DOSE: 1990.97 mGy.cm HISTORY: right flank pain TECHNIQUE: Multiaxial CT images of the abdomen and pelvis were performed without contrast. A dose lowering technique was utilized adhering to the principles of ALARA. COMPARISON STUDY: None. FINDINGS: The lung bases are clear. No pneumoperitoneum. No pneumatosis. Old, healed bilateral anterior rib fractures. No acute fractures identified. Bilateral L5 spondylolysis with associated grade 1 anterolisthesis. Degenerative changes within the lumbar spine. Small fat-containing bilateral inguinal hernias are noted. The unenhanced liver, gallbladder, pancreas, and spleen are unremarkable. Linear calcification seen within the adrenal glands. There is a 15 mm fat-containing right adrenal gland nodule consistent with a benign myelolipoma. Mild bilateral perinephric edema which is likely chronic. There is mild bilateral cortical renal scarring. No renal or ureteral stones. No hydronephrosis. Normal caliber abdominal aorta. No retroperitoneal or pelvic lymphadenopathy. No pelvic free fluid. The bladder is unremarkable. Suboptimal evaluation for bowel pathology due to the lack of intravenous and oral contrast. However, there is no definite bowel wall thickening or obstruction. Colonic diverticulosis. No evidence for acute diverticulitis. Normal appendix. IMPRESSION: 1. No renal or ureteral stones. No hydronephrosis. 2. No bowel wall thickening or obstruction. 3. Normal appendix. 4. Colonic diverticulosis. No evidence for acute diverticulitis. 5. Additional findings as described above. ACT 112: Negative or not required by law. Electronically signed by: Yovani Soria M.D. 09/01/2023 3:04 PM Chest X-Ray 09/01/23 13:56 XR chest 1V portable HISTORY: 58 years-old Male chest pain COMPARISON: 01/10/2023 TECHNIQUE: AP view of the chest FINDINGS: Cardiomediastinal and hilar silhouettes are within normal limits. No pneumothorax, pleural effusion, airspace consolidation or pulmonary edema. Spondylotic spurring of the spine. Bones appear grossly intact. IMPRESSION: No acute process. ACT 112: Negative or not required by law. The above report was generated using voice recognition software. It may contain grammatical, syntax or spelling errors. Electronically signed by: Adair Frey M.D. 09/01/2023 3:24 PM Knee X-Ray 09/01/23 13:57 RIGHT KNEE 2 VIEWS CLINICAL HISTORY: Right knee swelling. FINDINGS: AP and crosstable lateral views of the right knee are compared to study dated 01/11/2023. The skeletal structures are osteopenic. No fracture is seen. There is advanced tricompartmental degenerative joint space narrowing. There are patellar enthesophytes, marginal osteophytes, and bony overgrowth along the distal femur and proximal tibia. There is a moderate to large joint effusion. Mild soft tissue swelling is seen around the knee. There is advanced atherosclerotic calcification of the popliteal artery. IMPRESSION: 1. Soft tissue swelling and joint effusion with no acute bony abnormality identified. 2. Osteopenia and arthritic change as above. Electronically signed by: Asher Nowak M.D. 09/01/2023 2:30 PM Knee MRI 09/07/23 16:33 Exam(s): MRI RIGHT KNEE Without Contrast EXAM: MR Right Lower Extremity Without Intravenous Contrast, Knee CLINICAL HISTORY: Reason for exam: R knee pain and effusion, buckling, frequent falls. TECHNIQUE: Multiplanar magnetic resonance images of the right knee without intravenous contrast. COMPARISON: Radiograph 09/01/2023 FINDINGS: The images are degraded by motion artifact. The ACL and PCL are both torn. Macerated posterior horn of the medial meniscus. Medial meniscal extrusion. Horizontal tear within the posterior horn of the lateral meniscus. Medial and lateral collateral ligaments appear intact. Extensor mechanism is intact. Diffuse full-thickness cartilage loss within the medial compartment. Diffuse partial-thickness cartilage loss within the lateral and patellofemoral compartments. Tricompartmental osteophytes. No fracture. Trace joint effusion. Byrd's cyst measuring 0.6 x 2.3 x 4.9 cm containing a loose body measuring 1 cm. Diffuse subcutaneous soft tissue edema. No abscess. Ganglion within Hoffa's fat along lateral aspect of the patellar tendon measuring 3.1 x 2.3 x 4.0 cm. Additional ganglion posterior to the medial gastroc insertion measuring 1.8 cm. IMPRESSION: 1. Full-thickness tears of the ACL and PCL. 2. Macerated posterior horn of the medial meniscus with medial meniscal extrusion. 3. Horizontal tear within the posterior horn of the lateral meniscus. 4. Severe cartilage loss most pronounced within the medial compartment where there is diffuse full-thickness cartilage loss. 5. Tiny joint effusion. 6. Byrd's cyst containing a loose body. 7. Ganglion cyst within Hoffa's fat measuring 4 cm. Electronically signed by: Luis Dunne MD 09/08/23 00:30 AM Pending Results Patient Have Any Pending Studies at Discharge: No Discharge Instructions Given to Patient (Per Discharging Provider) You were treated for acute kidney injury and urinary tract infection -maintain good hydration -have outpatient labs done Tuesday to check kidney function -NO NSAIDS - aka ibuprofen/motrin/advil or naproxen/aleve. Acetaminophen/tylenol is ok to take, maximum 3000 mg per 24 hours -allopurinol to reduce uric acid, which helps prevent gout and protect the kidneys -follow up with Dr. Barragan -wear right knee brace for comfort -you can take it off in bed, in the car, bathroom etc -use your walker -follow up with orthopedics when your health is improved, kidney injury resolved -good job stopping alcohol, fortunately your liver is still working well at this point -I strongly advise some kind of formal rehab program - online or in person -take 100 mg of thiamine (vitamin B1) daily - to prevent a common alcohol related deficiency that can cause neurological problems, even dementia, and many other symptoms Total Time Total Time Spent Total Time Spent (In Minutes): <30 minutes Coding Level of Care Code 80936 IN/OBS DISCH 30 MIN/LESS Diagnoses Acute renal failure (ARF) N17.9 Acute renal failure type: unspecified Acute UTI (urinary tract infection) N39.0 Sepsis A41.9 Osteoarthritis of knees, bilateral M17.0 Gout M10.9 Alcohol use disorder in remission F10.91 Hypomagnesemia E83.42 Paroxysmal atrial fibrillation I48.0 ROBERT (obstructive sleep apnea) G47.33 Hyperlipidemia E78.5 Morbid obesity E66.01
== END 2023-09-11 11:40 | disposition home or self-care (01) | DRG 871 ==
LOC: ED 13:39 → 2E 17:00 → SUATTDRO 17:00 → 2E 17:58 → 3E 09-07 09:53

== ENCOUNTER 2023-09-13 18:12 | Inpatient (IN) ==
[2023-09-13] MEDS: HYDROmorphone INJ 1 MG/ML SYRINGE IV STA (19:02)
[2023-09-13] MEDS: SODIUM CHLORIDE 0.9% 1,000 ML IV SCH (19:06)
[2023-09-13 19:23] LABS: Basophils # (auto) 0.05 K/uL (0.00-0.20); Basophils % (auto) 0.3 %; Eosinophils # (auto) 0.14 K/uL (0.00-0.50); Eosinophils % (auto) 0.8 %; Hematocrit (blood only) 36.1 % (42.0-52.0); Immature Granulocytes # (auto) 0.14 K/uL (0.01-0.20); Immature Granulocytes % (auto) 0.8 %; Lymphocytes # (auto) 1.31 K/uL (1.20-3.40); Lymphocytes % (auto) 7.3 %; Mean Corpuscular Hemoglobin 33.7 pg (25.0-34.0); Mean Corpuscular Hgb Conc 33.2 g/dL (32.0-36.0); Mean Corpuscular Volume 101.4 fL (80.0-100.0); Mean Platelet Volume 9.9 fL (9.4-12.4); Monocytes # (auto) 2.16 K/uL (0.11-0.59); Monocytes % (auto) 12.1 %; Neutrophils # (auto) 14.12 K/uL (1.40-6.50); Neutrophils % (auto) 78.7 %; Platelet Count 265 K/uL (130-400); RDW Coefficient of Variation 13.4 % (11.5-14.5); RDW Standard Deviation 50.3 fL (36.4-46.3); Red Blood Count 3.56 M/uL (4.70-6.10); White Blood Count 17.92 K/ul (4.8-10.8)
[2023-09-13 19:57] LABS: INR 1.1 (0.9-1.1); Partial Thromboplastin Ratio 1.1; Partial Thromboplastin Time 30 Seconds (21-31)
[2023-09-13 20:00] LABS: Albumin Level 3.6 gm/dl (3.4-5.0); Bilirubin Direct 0.6 mg/dl (0-0.2); Bilirubin,Total 1.7 mg/dl (0.2-1.0); Calcium 9.4 mg/dl (8.6-10.3); Creatinine Clr Calc Pharmacy 40.7 ml/min; Est GFR (African American) 22.4 ml/min; Est GFR (Non-African American) 19.3 ml/min; Magnesium 1.4 mg/dl (1.7-2.4); Potassium 4.4 mmol/L (3.5-5.1); Total Protein 7.2 gm/dl (6.0-8.3); Troponin I High Sensitivity 12.8 pg/ml (0-20)
[2023-09-13 20:10] LABS: HCO3 VBG 22 mmol/L; Oxygen Saturation VBG < 60.0 %; PCO2 VBG 36 mmHg (38-50); PO2 VBG 29 mmHg
[2023-09-13 20:21] LABS: Appearance Urine Slightly Cloudy (Clear)
[2023-09-13 20:22] LABS: Specific Gravity Urine 1.011 (1.000-1.030)
[2023-09-13 20:25] LABS: RBC Urine Automated >20 /hpf (0-4); WBC Urine Automated >50 /hpf (0-5)
[2023-09-13 20:26] LABS: Bacteria Urine Automated None Seen (Negative); Cast Urine Automated 0-2 /lpf (0-5)
[2023-09-13] MEDS: ACETAMINOPHEN 1,000 MG/100 ML VIAL IV STA (20:46)
--- NOTE | 2023-09-13 20:48 | Emergency Department Note ---
History of Present Illness General Chief complaint: Weakness Time Seen by Provider: 09/13/23 18:47 History of Present Illness Provider complaint: Weakness hematuria fever Onset (ago): day(s) 1 Maximum Pain Intensity: 10 58-year-old male presents emergency department for weakness hematuria and fever. Patient reports he was recently discharged from the hospital and was doing well but then today started feeling very weak and had a fever started noticing blood in his urine. He reports no dysuria. No abdominal pain. He reports nausea. No hematemesis coffee-ground emesis or bilious vomiting. No chest pain dysuria or hemoptysis. No shortness of breath. Home Medications Medication Instructions Recorded Confirmed Type hydroxyzine HCl 10 mg tablet 10 mg PO TID PRN anxiety #30 tabs 03/31/23 09/13/23 Rx metoprolol succinate 25 mg 12.5 mg PO DAILY 03/31/23 09/13/23 History tablet,extended release 24 hr folic acid 1 mg tablet 1 mg PO DAILY #30 tabs 05/17/23 09/13/23 Rx rosuvastatin 5 mg tablet 5 mg PO DAILY 09/01/23 09/13/23 History acetaminophen 500 mg tablet 1,000 mg (2 x 500 mg) PO QID PRN 09/11/23 09/13/23 Rx (Tylenol Extra Strength) pain #0 tabs allopurinol 100 mg tablet 50 mg (1/2 x 100 mg) PO TuFr@0900 09/11/23 09/13/23 Rx #8 tabs thiamine HCl (vitamin B1) 100 mg 100 mg PO DAILY #30 tabs 09/11/23 09/13/23 Rx tablet pantoprazole 40 mg tablet,delayed 40 mg PO BID PRN 09/13/23 09/13/23 History release HEARTBURN/INDIGESTION Allergies Allergy/AdvReac Type Severity Reaction Status Date / Time No Known Allergies Allergy Mild Verified 09/13/23 19:52 Past Med/Surg History Problem List (Updated 09/13/23 @ 23:02 by Logan Carroll MD) Hypomagnesemia (Acute) COVID-19 (Acute) Arthritis of right knee Gout of right knee due to renal impairment Osteoarthritis of knees, bilateral Morbid obesity Hyperuricemia Chronic kidney disease CHRISTAL (acute kidney injury) Sepsis Hematuria (Acute) Acute UTI (urinary tract infection) (Acute) Gout (Acute) Acute renal failure (ARF) (Acute) Hyperlipidemia Paroxysmal atrial fibrillation Alcohol use disorder in remission Gout ROBERT (obstructive sleep apnea) Effusion, right knee (Acute) Hypokalemia Hypomagnesemia Acute pain of right lower extremity (Acute) Medical History Anxiety Pulmonary hypertension No known health problems Abdominal pain reason for upcoming procedure Alcohol use disorder Surgical History H/O colonoscopy Colonoscopy 12/01/22, repeat 5 years in 2027 History of lateral meniscus repair of right knee History of wisdom tooth extraction History of ankle surgery Family History Father Diabetes Myocardial infarction Mother Diabetes Myocardial infarction Ovarian cancer Denies family history of Prostate cancer Breast cancer Lung cancer Colorectal cancer Stroke Social History Smoking Status: Never smoker Second Hand Exposure: No; Do You Dip or Chew Tobacco: No; Hx Alcohol Use: Yes Alcohol type: beer and hard liquor Alcohol Intake Frequency: 4 or More x per/Week Hx Substance Use: No Preferred Language: Stateless Communication Ability: Effective Visual Impairment: Limited Hearing Ability: Normal Unloader Required: No Beliefs That Will Affect Care: None marital status: Current Living Situation: Spouse current occupational status: employed 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 How many Children do You have: 3 Feels Safe at Home: Yes Childhood Exposure to Second-Hand Smoke: Yes caffeine: No Dental Care, Regularly: Yes Physical Activity Frequency: Does not Exercise Seatbelt Use: always Sunscreen Use: No Assistive Devices: Cane and Walker Physical Exam Vital Signs Vital Signs - 24 hr 09/13/23 18:17 09/13/23 18:17 09/13/23 18:27 Temperature 38.1 C H Temperature Source Oral Pulse Rate 90 88 Pulse Rate [Apical] Pulse Rate from SpO2 Sensor 90 Respiratory Rate 18 17 Respiratory Effort / Characteristics Respiratory Depth Blood Pressure 147/88 H Blood Pressure [Right Arm] Blood Pressure Mean 107 Blood Pressure Mean [Right Arm] Blood Pressure Position [Right Arm] Pulse Oximetry 98 98 97 Oxygen Delivery Method Room Air Room Air Sepsis Recent Fever Within 48 Hours No Sepsis New/Unexplained Change in Mental Status No Sepsis Action Taken by Nursing No Action Required 09/13/23 18:30 09/13/23 18:51 09/13/23 19:02 Temperature Temperature Source Pulse Rate 92 H Pulse Rate [Apical] Pulse Rate from SpO2 Sensor Respiratory Rate Respiratory Effort / Characteristics Respiratory Depth Blood Pressure 134/82 149/81 H Blood Pressure [Right Arm] Blood Pressure Mean 109 126 Blood Pressure Mean [Right Arm] Blood Pressure Position [Right Arm] Pulse Oximetry Oxygen Delivery Method Sepsis Recent Fever Within 48 Hours Sepsis New/Unexplained Change in Mental Status Sepsis Action Taken by Nursing 09/13/23 19:06 09/13/23 19:06 09/13/23 19:37 Temperature Temperature Source Pulse Rate 88 Pulse Rate [Apical] 92 H Pulse Rate from SpO2 Sensor Respiratory Rate 17 15 Respiratory Effort / Characteristics Non-Labored Spontaneous Respiratory Depth Normal Blood Pressure 147/88 H Blood Pressure [Right Arm] 149/81 H Blood Pressure Mean 106 Blood Pressure Mean [Right Arm] 103 Blood Pressure Position [Right Arm] Semi-fowlers Pulse Oximetry 98 97 Oxygen Delivery Method Room Air Room Air Sepsis Recent Fever Within 48 Hours Sepsis New/Unexplained Change in Mental Status Sepsis Action Taken by Nursing 09/13/23 19:51 09/13/23 19:53 09/13/23 20:00 Temperature Temperature Source Pulse Rate 88 Pulse Rate [Apical] 84 85 Pulse Rate from SpO2 Sensor 88 Respiratory Rate 22 18 18 Respiratory Effort / Characteristics Respiratory Depth Blood Pressure Blood Pressure [Right Arm] 147/88 H 130/71 Blood Pressure Mean Blood Pressure Mean [Right Arm] 107 90 Blood Pressure Position [Right Arm] Pulse Oximetry 98 99 95 Oxygen Delivery Method Room Air Room Air Sepsis Recent Fever Within 48 Hours Sepsis New/Unexplained Change in Mental Status Sepsis Action Taken by Nursing 09/13/23 20:00 09/13/23 20:21 09/13/23 20:42 Temperature Temperature Source Pulse Rate 89 84 87 Pulse Rate [Apical] Pulse Rate from SpO2 Sensor 88 84 87 Respiratory Rate 20 Respiratory Effort / Characteristics Respiratory Depth Blood Pressure Blood Pressure [Right Arm] Blood Pressure Mean Blood Pressure Mean [Right Arm] Blood Pressure Position [Right Arm] Pulse Oximetry 96 99 Oxygen Delivery Method Sepsis Recent Fever Within 48 Hours Sepsis New/Unexplained Change in Mental Status Sepsis Action Taken by Nursing 09/13/23 20:51 09/13/23 21:00 09/13/23 21:30 Temperature Temperature Source Pulse Rate 86 90 Pulse Rate [Apical] Pulse Rate from SpO2 Sensor 87 92 H Respiratory Rate 18 Respiratory Effort / Characteristics Respiratory Depth Blood Pressure 127/80 Blood Pressure [Right Arm] Blood Pressure Mean 96 Blood Pressure Mean [Right Arm] Blood Pressure Position [Right Arm] Pulse Oximetry 98 95 Oxygen Delivery Method Sepsis Recent Fever Within 48 Hours Sepsis New/Unexplained Change in Mental Status Sepsis Action Taken by Nursing 09/13/23 21:30 09/13/23 21:45 09/13/23 21:59 Temperature Temperature Source Pulse Rate 88 84 Pulse Rate [Apical] 85 Pulse Rate from SpO2 Sensor 88 84 Respiratory Rate 19 18 Respiratory Effort / Characteristics Respiratory Depth Blood Pressure Blood Pressure [Right Arm] 127/80 Blood Pressure Mean Blood Pressure Mean [Right Arm] 95 Blood Pressure Position [Right Arm] Pulse Oximetry 95 93 97 Oxygen Delivery Method Room Air Sepsis Recent Fever Within 48 Hours Sepsis New/Unexplained Change in Mental Status Sepsis Action Taken by Nursing 09/13/23 22:00 09/13/23 22:24 09/13/23 22:25 Temperature Temperature Source Pulse Rate 85 84 Pulse Rate [Apical] Pulse Rate from SpO2 Sensor 83 84 Respiratory Rate 22 Respiratory Effort / Characteristics Respiratory Depth Blood Pressure 107/74 Blood Pressure [Right Arm] Blood Pressure Mean 94 Blood Pressure Mean [Right Arm] Blood Pressure Position [Right Arm] Pulse Oximetry 92 97 Oxygen Delivery Method Sepsis Recent Fever Within 48 Hours Sepsis New/Unexplained Change in Mental Status Sepsis Action Taken by Nursing 09/13/23 22:33 09/13/23 22:42 09/13/23 22:55 Temperature Temperature Source Pulse Rate 77 79 78 Pulse Rate [Apical] Pulse Rate from SpO2 Sensor 77 79 Respiratory Rate 16 20 Respiratory Effort / Characteristics Respiratory Depth Blood Pressure Blood Pressure [Right Arm] Blood Pressure Mean Blood Pressure Mean [Right Arm] Blood Pressure Position [Right Arm] Pulse Oximetry 97 96 Oxygen Delivery Method Sepsis Recent Fever Within 48 Hours Sepsis New/Unexplained Change in Mental Status Sepsis Action Taken by Nursing 09/13/23 22:57 09/13/23 23:00 09/13/23 23:00 Temperature Temperature Source Pulse Rate 78 Pulse Rate [Apical] 78 Pulse Rate from SpO2 Sensor 78 Respiratory Rate 15 15 Respiratory Effort / Characteristics Non-Labored Spontaneous Respiratory Depth Normal Blood Pressure Blood Pressure [Right Arm] 133/82 Blood Pressure Mean Blood Pressure Mean [Right Arm] 99 Blood Pressure Position [Right Arm] Pulse Oximetry 95 94 Oxygen Delivery Method Sepsis Recent Fever Within 48 Hours Sepsis New/Unexplained Change in Mental Status Sepsis Action Taken by Nursing Physical Exam HENT: Exam performed. - Head: Normocephalic and atraumatic. - Right Ear: External ear normal. No mastoid erythema - Left Ear: External ear normal. No mastoid erythema - Mouth/Throat: The oropharynx is clear and moist. No trismus in the jaw. No dental abscesses or uvula swelling. No oropharyngeal exudate or tonsillar abscesses. EYES: Conjunctivae and EOM are normal. Pupils are equal, round, and reactive to light. Right eye exhibits no discharge. Left eye exhibits no discharge. No scleral icterus. NECK: Normal range of motion. Neck supple. No JVD present. No rigidity. No tracheal deviation and normal range of motion present. CV: Normal rate, regular rhythm, normal heart sounds and intact distal pulses. There is no peripheral edema. Palpable radial pulses bue. PULM/CHEST: Effort normal and breath sounds normal. No respiratory distress. No stridor. He has no wheezes. He has no rales. ABD: The abdomen is soft. There is no tenderness. There is no rebound, no guarding. MUSC/SKEL: Right knee: Swelling of the right knee but no overlying erythema or warmth. Pain on palpation of the right knee. Left knee: Within normal limits NEURO: Motor and sensation grossly intact SKIN: Skin is warm and dry. He is not diaphoretic. PSYCH: He has a normal mood and affect. Behavior is normal. Judgment and thought content normal. Course Course 184: The patient was evaluated in room B3. A complete history and physical exam was performed Cardiac monitoring: An order was placed for continuous cardiac monitoring. The monitor shows a rate of 90 with sinus rhythm interpreted by hi 2154: Vital signs stable. Labs show leukocytosis 17.92 up from a white blood cell count of 9.843 days ago. Hemoglobin of 12. Coagulation studies are within normal limits. VBG within normal limits. Creatinine 3.31, 2 days ago was 3.57 at discharge. Magnesium 4.4. Magnesium repletion to be given in the emergency department. Total bili 1.7 stable from 1.8 on August 31. Direct bilirubin 0.6. AST ALT within normal limits. Creatinine kinase within normal limits. Troponin negative. Procalcitonin 0.77. Urinalysis is negative. CT of the abdomen pelvis shows mild perinephric stranding around both kidneys which is nonspecific and unchanged. Chest x-ray negative. Patient treated empirically with Rocephin. Patient will be evaluated by Dr. Milton [facility] hospitalist team for admission. Administered Medications Discontinued Medications Hydromorphone HCl (Hydromorphone Inj 1 Mg/Ml Syringe) 1 mg IV NOW STA Stop: 09/13/23 18:58 Last Admin: 09/13/23 19:02 Dose: 1 mg Documented By: CHEYENNE Sodium Chloride (Nss) 1,000 mls @ 999 mls/hr IV .Q1H1M LISANDRO Stop: 09/13/23 20:00 Last Infusion: 09/13/23 20:36 Dose: Infused Documented By: Admin: 09/13/23 19:06 Dose: 999 mls/hr Documented By: CHEYENNE Magnesium Sulfate/Dextrose (Magnesium Sulfate / D5w) 1 gm in 100 mls @ 100 mls/hr IV Q1H LISANDRO Stop: 09/13/23 22:37 Last Admin: 09/13/23 22:24 Dose: 100 mls/hr Documented By: Infusion: 09/13/23 22:23 Dose: Infused Documented By: Admin: 09/13/23 21:22 Dose: 100 mls/hr Documented By: IRAIS Ceftriaxone Sodium (Rocephin) 2,000 mg in 50 mls @ 100 mls/hr IV NOW STA Stop: 09/13/23 21:10 Last Infusion: 09/13/23 21:30 Dose: Infused Documented By: Admin: 09/13/23 21:05 Dose: 100 mls/hr Documented By: IRAIS Acetaminophen (Ofirmev) 1,000 mg in 100 mls @ 400 mls/hr IV NOW STA Stop: 09/13/23 20:55 Last Infusion: 09/13/23 21:04 Dose: Infused Documented By: Admin: 09/13/23 20:46 Dose: 400 mls/hr Documented By: IRAIS Medical Decision Making Medical Records Attestation: I reviewed the patient's medical records. External medical records reviewed. Patient was admitted from August 31 to September 11, 2023 for acute kidney injury likely caused by ATN secondary to infection poor p.o. intake and NSAID usage. Patient was also having a right gout flare. Patient had a UTI and acute pyelonephritis and was found to be septic secondary to the ESBL E. coli UTI. Patient had an MRI done on September 07 which showed ACL and PCL as well as meniscus tears. Patient had hypomagnesemia and a gout flare also. Laboratory Data Attestation: I reviewed the patient's lab results. 09/13/23 18:40 09/13/23 18:40 Lab Results 09/13/23 09/13/23 09/13/23 Range/Units 18:40 19:54 Unknown WBC 17.92 H (4.8-10.8) K/ul RBC 3.56 L (4.70-6.10) M/uL Hgb 12.0 L (14.0-18.0) g/dl Hct 36.1 L (42.0-52.0) % MCV 101.4 H (80.0-100.0) fL MCH 33.7 (25.0-34.0) pg MCHC 33.2 (32.0-36.0) g/dL RDW Std Deviation 50.3 H (36.4-46.3) fL RDW Coeff of Santos 13.4 (11.5-14.5) % Plt Count 265 (130-400) K/uL MPV 9.9 (9.4-12.4) fL Immature Gran % (Auto) 0.8 % Neut % (Auto) 78.7 % Lymph % (Auto) 7.3 % Bradford % (Auto) 12.1 % Eos % (Auto) 0.8 % Baso % (Auto) 0.3 % Neut # (Auto) 14.12 H (1.40-6.50) K/uL Lymph # (Auto) 1.31 (1.20-3.40) K/uL Bradford # (Auto) 2.16 H (0.11-0.59) K/uL Eos # (Auto) 0.14 (0.00-0.50) K/uL Baso # (Auto) 0.05 (0.00-0.20) K/uL Immature Gran # (Auto) 0.14 (0.01-0.20) K/uL PT 12.0 (9.0-12.0) Seconds INR 1.1 (0.9-1.1) APTT 30 (21-31) Seconds PTT Ratio 1.1 VBG pH 7.40 (7.36-7.41) VBG pCO2 36 L (38-50) mmHg VBG pO2 29 mmHg VBG HCO3 22 mmol/L VBG O2 Saturation < 60.0 % VBG Base Excess -2.0 mEq/L Sodium 137 (136-145) mmol/L Potassium 4.4 (3.5-5.1) mmol/L Chloride 104 (98-107) mmol/L Carbon Dioxide 22 (21-32) mmol/L Anion Gap 11 (3-11) BUN 53 H (6-23) mg/dl Creatinine 3.31 H (0.6-1.4) mg/dl Est Cr Clr Drug Dosing 40.7 ml/min Est GFR ( Amer) 22.4 ml/min Est GFR (Non-Af Amer) 19.3 ml/min BUN/Creatinine Ratio 16.0 (10-20) Glucose 104 H (70-99(Fasting)) mg/dl Lactate 1.7 (0.4-2.0) mmol/L Calcium 9.4 (8.6-10.3) mg/dl Magnesium 1.4 L (1.7-2.4) mg/dl Total Bilirubin 1.7 H (0.2-1.0) mg/dl Direct Bilirubin 0.6 H (0-0.2) mg/dl AST 21 (13-39) U/L ALT 33 (7-52) U/L Alkaline Phosphatase 160 H (34-104) U/L Total Creatine Kinase 16 L (30-223) U/L Troponin I High Sens 12.8 (0-20) pg/ml Total Protein 7.2 (6.0-8.3) gm/dl Albumin 3.6 (3.4-5.0) gm/dl Procalcitonin 0.77 H (0-0.5) ng/ml Urine Color See Comment Urine Appearance Slightly Cloudy (Clear) Urine pH Not Reportable Ur Specific Al[place] 1.011 (1.000-1.030) Urine Protein Not Reportable Urine Glucose (UA) Not Reportable Urine Ketones Not Reportable Urine Blood Not Reportable Urine Nitrite Not Reportable Urine Bilirubin Not Reportable Urine Urobilinogen Not Reportable Ur Leukocyte Esterase Not Reportable Urine WBC (Auto) >50 (0-5) /hpf Urine RBC (Auto) >20 (0-4) /hpf U Hyaline Cast (Auto) 0-2 (0-5) /lpf U Epithel Cells (Auto) 6-10 (0-5) /lpf Urine Bacteria (Auto) None Seen (Negative) Adenovirus (PCR) Not Detected (NotDetected) B. pertussis DNA (PCR) Not Detected (NotDetected) B.parapertussis DNA PCR Not Detected (NotDetected) C. pneumoniae DNA (PCR) Not Detected (NotDetected) Coronavirus OC43 (PCR) Not Detected (NotDetected) Coronavirus HKU1 (PCR) Not Detected (NotDetected) Coronavirus 229E (PCR) Not Detected (NotDetected) SARS-CoV-2 (PCR) DETECTED A (NotDetected) Coronavirus NL63 (PCR) Not Detected (NotDetected) Human Metapneumovir PCR Not Detected (NotDetected) Influenza Type A (PCR) Not Detected (NotDetected) Influenza Type B (PCR) Not Detected (NotDetected) M. pneumoniae (PCR) Not Detected (NotDetected) Parainfluenza 1 (PCR) Not Detected (NotDetected) Parainfluenza 2 (PCR) Not Detected (NotDetected) Parainfluenza 3 (PCR) Not Detected (NotDetected) Parainfluenza 4 (PCR) Not Detected (NotDetected) RSV (PCR) Not Detected (NotDetected) Entero/Rhino (PCR) Not Detected (NotDetected) Imaging Data Attestation: I personally reviewed and interpreted this imaging study as follows: My Impression: Chest x-ray negative. Airway clear. No pneumothorax. No consolidation. No cardiomegaly or cephalization.. No free air under the diaphragm. No fractures of the skeletal structures. Radiologist's Impression: Abdomen/Pelvis CT 09/13/23 18:49 Exam(s): CT ABDOMEN + PELVIS Without Contrast EXAM: CT Abdomen and Pelvis Without Intravenous Contrast CLINICAL HISTORY: Reason for exam: hematuria. TECHNIQUE: Axial computed tomography images of the abdomen and pelvis without intravenous contrast. CTDI is 36.09 mGy and DLP is 2183.72 mGy-cm. Automated exposure control was utilized for the study. A dose lowering technique was utilized adhering to the principles of ALARA. COMPARISON: September 01, 2023 FINDINGS: Lung bases: Unremarkable. No mass. No consolidation. ABDOMEN: Liver: Unremarkable. Gallbladder and bile ducts: The gallbladder is mostly contracted but unremarkable. No calcified stones. No ductal dilation. Pancreas: Unremarkable. No ductal dilation. Spleen: Unremarkable. No splenomegaly. Adrenals: Unremarkable. No mass. Kidneys and ureters: Mild perinephric stranding around both kidneys is nonspecific and unchanged. No hydronephrosis or ureterolithiasis is seen involving either kidney. Stomach and bowel: See below. PELVIS: Appendix: The appendix is normal. Bowel loops are nondilated. There is mild diverticulosis of the sigmoid colon without evidence of acute diverticulitis. No acute inflammatory changes are seen involving the bowel. Bladder: Unremarkable. No stones. Reproductive: Unremarkable as visualized. ABDOMEN and PELVIS: Intraperitoneal space: Unremarkable. No free air. No significant fluid collection. Bones/joints: Mild to moderate multilevel degenerative changes throughout the spine. No acute fracture is seen. There is a 3 mm grade 1 anterior listhesis of L5 on S1 the anterior chronic bilateral pars defects. No dislocation. Soft tissues: Unremarkable. Vasculature: Unremarkable. No abdominal aortic aneurysm. Lymph nodes: Unremarkable. No enlarged lymph nodes. IMPRESSION: 1. Mild perinephric stranding around both kidneys is nonspecific and unchanged. No hydronephrosis or ureterolithiasis is seen involving either kidney. This can be seen in renal insufficiency. 2. The appendix is normal. Bowel loops are nondilated. There is mild diverticulosis of the sigmoid colon without evidence of acute diverticulitis. No acute inflammatory changes are seen involving the bowel. Electronically signed by: Marc Milton MD 09/13/23 21:27 PM ECG Data Attestation: I personally reviewed and interpreted this ECG as follows: Rate (beats per minute): 90 Rhythm: + normal sinus ECG Intervals/blocks: + Normal QRS, + Normal [place] and + Normal QT-c ECG ST segments: + Normal ST segments MDM Narrative 1847: The patient was evaluated in room B3. A complete history and physical exam was performed Cardiac monitoring: An order was placed for continuous cardiac monitoring. The monitor shows a rate of 90 with sinus rhythm interpreted by me 2154: Vital signs stable. Labs show leukocytosis 17.92 up from a white blood cell count of 9.843 days ago. Hemoglobin of 12. Coagulation studies are within normal limits. VBG within normal limits. Creatinine 3.31, 2 days ago was 3.57 at discharge. Magnesium 4.4. Magnesium repletion to be given in the emergency department. Total bili 1.7 stable from 1.8 on August 31. Direct bilirubin 0.6. AST ALT within normal limits. Creatinine kinase within normal limits. Troponin negative. Procalcitonin 0.77. Urinalysis is negative. CT of the abdomen pelvis shows mild perinephric stranding around both kidneys which is nonspecific and unchanged. Chest x-ray negative. Patient treated empirically with Rocephin. Patient will be evaluated by Dr. Milton [facility] hospitalist team for admission. Impression & Plan COVID-19, Hypomagnesemia Discharge Plan Visit Data Chief Complaint: Weakness ED Provider: Logan Carroll Discharge Problem: COVID-19, Hypomagnesemia Patient Disposition: Admitted As Inpatient Forms Stand Alone Forms: [facility] Prescriptions Prescriptions: No Action folic acid 1 mg tablet 1 mg PO DAILY Qty: 30 2RF Rx Instructions: PER PT'S SPOUSE "REFUSES TO TAKE THIS MEDICATION". metoprolol succinate 25 mg tablet extended release 24 hr 12.5 mg PO DAILY Rx Instructions: PER PT'S SPOUSE "REFUSES TO TAKE THIS MEDICATION". hydroxyzine HCl 10 mg tablet 10 mg PO TID PRN (Reason: anxiety) Qty: 30 3RF Rx Instructions: PER PT'S SPOUSE "REFUSES TO TAKE THIS MEDICATION". rosuvastatin 5 mg tablet 5 mg PO DAILY Rx Instructions: PER PT'S SPOUSE "REFUSES TO TAKE THIS MEDICATION". allopurinol 100 mg Tablet 50 mg PO TuFr@0900 Qty: 8 0RF thiamine HCl (vitamin B1) 100 mg tablet 100 mg PO DAILY Qty: 30 0RF Rx Instructions: PER PT'S SPOUSE "REFUSES TO TAKE THIS MEDICATION".buy over the counter acetaminophen [Tylenol Extra Strength] 500 mg tablet 1,000 mg PO QID MDD 3 GRAMS APAP/24 HOURS PRN (Reason: pain) Qty: 0 0RF pantoprazole 40 mg tablet,delayed release (DR/EC) 40 mg PO BID PRN (Reason: HEARTBURN/INDIGESTION) Rx Instructions: PER PT'S SPOUSE "ONLY USES, MAYBE ONCE A MONTH". Referrals Referrals: Morro Alvarado DO [Primary Care Provider] -
[2023-09-13] MEDS: cefTRIAXone SODIUM 2,000 MG/50 ML BAG IV STA (21:05)
[2023-09-13 21:06] LABS: Adenovirus PCR Not Detected (NotDetected); Bordetella parapertussis PCR Not Detected (NotDetected); Bordetella pertussis PCR Not Detected (NotDetected); Chlamydia pneumoniae PCR Not Detected (NotDetected); Coronavirus 229E PCR Not Detected (NotDetected); Coronavirus CoV-2 (COVID19)PCR DETECTED (NotDetected); Coronavirus HKU1 PCR Not Detected (NotDetected); Coronavirus NL63 PCR Not Detected (NotDetected); Coronavirus OC43PCR Not Detected (NotDetected); Human Metapneumovirus PCR Not Detected (NotDetected); Influenza A PCR Not Detected (NotDetected); Influenza B PCR Not Detected (NotDetected); Mycoplasma pneumoniae PCR Not Detected (NotDetected); Parainfluenza Virus 1 PCR Not Detected (NotDetected); Parainfluenza Virus 2 PCR Not Detected (NotDetected); Parainfluenza Virus 3 PCR Not Detected (NotDetected); Parainfluenza Virus 4 PCR Not Detected (NotDetected); Respiratory Syncytial VirusPCR Not Detected (NotDetected); Rhinovirus/Enterovirus PCR Not Detected (NotDetected)
[2023-09-13] MEDS: MAGNESIUM SULFATE / D5W 1 GM/100 ML BAG IV SCH (21:22)
--- NOTE | 2023-09-13 21:28 | CT Scan Report ---
Exam(s): CT ABDOMEN + PELVIS Without Contrast EXAM: CT Abdomen and Pelvis Without Intravenous Contrast CLINICAL HISTORY: Reason for exam: hematuria. TECHNIQUE: Axial computed tomography images of the abdomen and pelvis without intravenous contrast. CTDI is 36.09 mGy and DLP is 2183.72 mGy-cm. Automated exposure control was utilized for the study. A dose lowering technique was utilized adhering to the principles of ALARA. COMPARISON: September 01, 2023 FINDINGS: Lung bases: Unremarkable. No mass. No consolidation. ABDOMEN: Liver: Unremarkable. Gallbladder and bile ducts: The gallbladder is mostly contracted but unremarkable. No calcified stones. No ductal dilation. Pancreas: Unremarkable. No ductal dilation. Spleen: Unremarkable. No splenomegaly. Adrenals: Unremarkable. No mass. Kidneys and ureters: Mild perinephric stranding around both kidneys is nonspecific and unchanged. No hydronephrosis or ureterolithiasis is seen involving either kidney. Stomach and bowel: See below. PELVIS: Appendix: The appendix is normal. Bowel loops are nondilated. There is mild diverticulosis of the sigmoid colon without evidence of acute diverticulitis. No acute inflammatory changes are seen involving the bowel. Bladder: Unremarkable. No stones. Reproductive: Unremarkable as visualized. ABDOMEN and PELVIS: Intraperitoneal space: Unremarkable. No free air. No significant fluid collection. Bones/joints: Mild to moderate multilevel degenerative changes throughout the spine. No acute fracture is seen. There is a 3 mm grade 1 anterior listhesis of L5 on S1 the anterior chronic bilateral pars defects. No dislocation. Soft tissues: Unremarkable. Vasculature: Unremarkable. No abdominal aortic aneurysm. Lymph nodes: Unremarkable. No enlarged lymph nodes. IMPRESSION: 1. Mild perinephric stranding around both kidneys is nonspecific and unchanged. No hydronephrosis or ureterolithiasis is seen involving either kidney. This can be seen in renal insufficiency. 2. The appendix is normal. Bowel loops are nondilated. There is mild diverticulosis of the sigmoid colon without evidence of acute diverticulitis. No acute inflammatory changes are seen involving the bowel. Electronically signed by: Marc Milton MD 09/13/23 21:27 PM
--- NOTE | 2023-09-13 22:39 | History & Physical Report ---
Date of Service September 13, 2023 Assessment & Plan (1) COVID-19: Plan: Patient tested POSITIVE for SARS-CoV-2. Febrile on arrival. No respiratory complaints. Acceptable oxygenation at 99% on room air. -Admit to medical with telemetry -Maintain Covid-19 isolation precautions (2) Hematuria: Plan: Patient with recent ESBL E.coli UTI. He was treated with Ertapenem x 7d with resolution of symptoms. Patient reports ongoing hematuria. UA appears red with RBCs. CK is WNL. Patient reports frequent urination but no dysuria. UA with 3+ bacteria. Likely ongoing infection leading to hematuria -Check urine culture -Check urine microscopy -Ertapenem 500mg IV daily -Bladder scan with straight cath as needed (3) Diarrhea: Plan: Patient reports diarrhea chronically, possible worsening from prior. He has been on antibiotics -Check stool PCR and C.diff (4) Right knee pain: Plan: Patient reports severe right knee pain, warmth, redness and swelling. Possibly secondary to gout as patient has had this in the past involving his right knee. Has had septic arthritis in the past as well. Arthrocentesis unsuccessful during last hospitalization but patient reports multiple attempts. With leukocytosis and elevated procalcitonin some concern for septic arthritis. -Consult Orthopedics for possible arthrocentesis -Tylenol and Oxycodone PRN -Continue home Allopurinol Tu and Tue (5) Chronic kidney disease: Plan: Patient with recent admission for CHRISTAL secondary to ATN on CKD. Patient's baseline Cr 1.5-1.6 prior to his episode of ATN. Cr at discharge 3.6. 3.3 today. Uncertain if this represents his new baseline Cr -Monitor UOP, BMP in AM -Avoid nephrotoxic agents -Renal dosing where needed History of Present Illness Chief Complaint: weakness, fatigue, fever, right knee pain Primary Care Provider: Morro Alvarado DO Darian Murphy is a 58yo male with history of PAF, HLP and Gout presenting with complaint of body pain, weakness, fatigue and right knee pain. Patient was recently admitted to [facility] from 09/01/23 - 09/11/23 after presenting with severe CHRISTAL and dark colored urine. Patient with baseline Cr of 1.5 - 1.6 and presented with CHRISTAL - peak creatinine of 7.5. Thought to have ATN secondary to infection, poor oral intake and NSAID use. He was treated with IVF as well as Ertapenem x 7d for E.coli UTI. Patient was evaluated by Nephrology - TD, ANCA, GBM Ab, C3/4, anti-proteinase 3, anti-MPO sent and are still pending. Patient's Cr and metabolic panel improved and he was ultimately discharged home - Cr=3.6 on discharge. Patient had acute right knee pain during his hospitalization. Arthrocentesis was attempted but unsuccessful - he reports that the needle was placed multiple times over the course of 25 minutes but no fluid was obtained. He was treated with PO steroids for acute flare of gout. Patient returned home and feels that he never fully improved. He reports normal urination initially upon his return home but now has increased frequency of urination - he reports urinating every 5-6 minutes. He has had bright red hematuria as well ongoing since 09/11. He denies passage of clots or urinary retention. Denies dysuria or back pain/flank pain. He has had worsening fatigue and generalized weakness and nausea. He also has had frequent diarrhea - non-bloody/non-mucoid. He also complaining of severe right sided knee pain with swelling. Otherwise he denies fever, chest pain, cough, SOB, abdominal pain, vomiting. Febrile in the ER with Tm=38.1, HD stable Allergies Allergy/AdvReac Type Severity Reaction Status Date / Time No Known Allergies Allergy Mild Verified 09/13/23 19:52 Home Medications Medication Instructions Recorded Confirmed Type hydroxyzine HCl 10 mg tablet 10 mg PO TID PRN anxiety #30 tabs 03/31/23 09/13/23 Rx metoprolol succinate 25 mg 12.5 mg PO DAILY 03/31/23 09/13/23 History tablet,extended release 24 hr folic acid 1 mg tablet 1 mg PO DAILY #30 tabs 05/17/23 09/13/23 Rx rosuvastatin 5 mg tablet 5 mg PO DAILY 09/01/23 09/13/23 History acetaminophen 500 mg tablet 1,000 mg (2 x 500 mg) PO QID PRN 09/11/23 09/13/23 Rx (Tylenol Extra Strength) pain #0 tabs allopurinol 100 mg tablet 50 mg (1/2 x 100 mg) PO TuFr@0900 09/11/23 09/13/23 Rx #8 tabs thiamine HCl (vitamin B1) 100 mg 100 mg PO DAILY #30 tabs 09/11/23 09/13/23 Rx tablet pantoprazole 40 mg tablet,delayed 40 mg PO BID PRN 09/13/23 09/13/23 History release HEARTBURN/INDIGESTION Past Med/Surg History Problem List (Updated 09/14/23 @ 02:58 by Mary Milton DO) Right knee pain Diarrhea Hypomagnesemia (Acute) COVID-19 (Acute) Arthritis of right knee Gout of right knee due to renal impairment Osteoarthritis of knees, bilateral Morbid obesity Hyperuricemia Chronic kidney disease CHRISTAL (acute kidney injury) Sepsis Hematuria (Acute) Acute UTI (urinary tract infection) (Acute) Gout (Acute) Acute renal failure (ARF) (Acute) Hyperlipidemia Paroxysmal atrial fibrillation Alcohol use disorder in remission Gout ROBERT (obstructive sleep apnea) Effusion, right knee (Acute) Hypokalemia Hypomagnesemia Acute pain of right lower extremity (Acute) Medical History Anxiety Pulmonary hypertension No known health problems Abdominal pain reason for upcoming procedure Alcohol use disorder Surgical History H/O colonoscopy Colonoscopy 12/01/22, repeat 5 years in 2027 History of lateral meniscus repair of right knee History of wisdom tooth extraction History of ankle surgery Family History Father Diabetes Myocardial infarction Mother Diabetes Myocardial infarction Ovarian cancer Denies family history of Prostate cancer Breast cancer Lung cancer Colorectal cancer Stroke Social History Smoking Status: Never smoker Second Hand Exposure: No; Do You Dip or Chew Tobacco: No; Hx Alcohol Use: Yes Alcohol type: beer and hard liquor Alcohol Intake Frequency: 4 or More x per/Week Hx Substance Use: No Preferred Language: Sami Communication Ability: Effective Visual Impairment: Limited Hearing Ability: Normal Slots Manager Required: No Beliefs That Will Affect Care: None marital status: Current Living Situation: Spouse Current Living Situation Comment: Personal Home current occupational 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 do You have: 3 Other Information That Helps Us Care for You: No Feels Safe at Home: Yes Safety Concerns: Feels Safe At This Time Childhood Exposure to Second-Hand Smoke: Yes caffeine: No Dental Care, Regularly: Yes Physical Activity Frequency: Does not Exercise Seatbelt Use: always Sunscreen Use: No Assistive Devices: Brace/Splint/Immobilizer and Cane Review of Systems Review of Systems: All systems reviewed & are unremarkable except as noted in HPI & below Physical Exam Physical Exam: General: patient resting comfortably, NAD, non-toxic in appearance, AA&O x 4 Skin: warm, dry, intact, no rashes or lesions HEENT: NC/AT, PERRL, EOMI, anicteric sclera, conjunctiva without injection, external ear normal to inspection and nontender, nares patent, moist mucus membranes, dentition intact, no oropharyngeal lesions, neck supple, trachea midline, no LAD, no thyromegaly, no JVD Heart: +S1/S2, regular, no m/r/g Lungs: equal air entry bilaterally, no rales/rhonchi/wheezes Abd: +BS, soft, NT/ND, no masses/organomegaly/ascites Ext: warm, 2+ pulses in UE/LE bilaterally, no clubbing/cyanosis or edema warmth and mild swelling of the right knee, tender to palpation Neuro: nonfocal, patient AA&O x 4, speech intact, no facial droop, moving all extremities on command with equal strength 5/5 Results & Data Results & Data Vital Signs (Past 12 Hours) Vital Signs Temp Pulse Pulse Resp BP BP Pulse Ox 09/13/23 21:59 85 18 127/80 97 09/13/23 20:00 85 18 130/71 95 09/13/23 19:53 84 18 147/88 H 99 09/13/23 19:06 92 H 15 149/81 H 97 09/13/23 19:06 88 17 98 09/13/23 18:51 92 H 09/13/23 18:17 98 09/13/23 18:17 38.1 C H 90 18 147/88 H 98 O2 Del Method 09/13/23 21:59 Room Air 09/13/23 20:00 Room Air 09/13/23 19:53 Room Air 09/13/23 19:06 Room Air 09/13/23 19:06 Room Air 09/13/23 18:51 09/13/23 18:17 Room Air 09/13/23 18:17 Room Air Laboratory Results Laboratory Results WBC 17.92 K/ul (4.8-10.8) H 09/13/23 18:40 RBC 3.56 M/uL (4.70-6.10) L 09/13/23 18:40 Hgb 12.0 g/dl (14.0-18.0) L 09/13/23 18:40 Hct 36.1 % (42.0-52.0) L 09/13/23 18:40 MCV 101.4 fL (80.0-100.0) H 09/13/23 18:40 MCH 33.7 pg (25.0-34.0) 09/13/23 18:40 MCHC 33.2 g/dL (32.0-36.0) 09/13/23 18:40 RDW Std Deviation 50.3 fL (36.4-46.3) H 09/13/23 18:40 RDW Coeff of Santos 13.4 % (11.5-14.5) 09/13/23 18:40 Plt Count 265 K/uL (130-400) 09/13/23 18:40 MPV 9.9 fL (9.4-12.4) 09/13/23 18:40 Immature Gran % (Auto) 0.8 % 09/13/23 18:40 Neut % (Auto) 78.7 % 09/13/23 18:40 Lymph % (Auto) 7.3 % 09/13/23 18:40 Stoddard % (Auto) 12.1 % 09/13/23 18:40 Eos % (Auto) 0.8 % 09/13/23 18:40 Baso % (Auto) 0.3 % 09/13/23 18:40 Neut # (Auto) 14.12 K/uL (1.40-6.50) H 09/13/23 18:40 Lymph # (Auto) 1.31 K/uL (1.20-3.40) 09/13/23 18:40 Stoddard # (Auto) 2.16 K/uL (0.11-0.59) H 09/13/23 18:40 Eos # (Auto) 0.14 K/uL (0.00-0.50) 09/13/23 18:40 Baso # (Auto) 0.05 K/uL (0.00-0.20) 09/13/23 18:40 Immature Gran # (Auto) 0.14 K/uL (0.01-0.20) 09/13/23 18:40 PT 12.0 Seconds (9.0-12.0) 09/13/23 18:40 INR 1.1 (0.9-1.1) 09/13/23 18:40 APTT 30 Seconds (21-31) 09/13/23 18:40 PTT Ratio 1.1 09/13/23 18:40 VBG pH 7.40 (7.36-7.41) 09/13/23 19:54 VBG pCO2 36 mmHg (38-50) L 09/13/23 19:54 VBG pO2 29 mmHg 09/13/23 19:54 VBG HCO3 22 mmol/L 09/13/23 19:54 VBG O2 Saturation < 60.0 % 09/13/23 19:54 VBG Base Excess -2.0 mEq/L 09/13/23 19:54 Sodium 137 mmol/L (136-145) 09/13/23 18:40 Potassium 4.4 mmol/L (3.5-5.1) 09/13/23 18:40 Chloride 104 mmol/L (98-107) 09/13/23 18:40 Carbon Dioxide 22 mmol/L (21-32) 09/13/23 18:40 Anion Gap 11 (3-11) 09/13/23 18:40 BUN 53 mg/dl (6-23) H 09/13/23 18:40 Creatinine 3.31 mg/dl (0.6-1.4) H 09/13/23 18:40 Est Cr Clr Drug Dosing 40.7 ml/min 09/13/23 18:40 Est GFR ( Amer) 22.4 ml/min 09/13/23 18:40 Est GFR (Non-Af Amer) 19.3 ml/min 09/13/23 18:40 BUN/Creatinine Ratio 16.0 (10-20) 09/13/23 18:40 Glucose 104 mg/dl (70-99(Fasting)) H 09/13/23 18:40 Lactate 1.7 mmol/L (0.4-2.0) 09/13/23 18:40 Calcium 9.4 mg/dl (8.6-10.3) 09/13/23 18:40 Magnesium 1.4 mg/dl (1.7-2.4) L 09/13/23 18:40 Total Bilirubin 1.7 mg/dl (0.2-1.0) H 09/13/23 18:40 Direct Bilirubin 0.6 mg/dl (0-0.2) H 09/13/23 18:40 AST 21 U/L (13-39) 09/13/23 18:40 ALT 33 U/L (7-52) 09/13/23 18:40 Alkaline Phosphatase 160 U/L (34-104) H 09/13/23 18:40 Total Creatine Kinase 16 U/L (30-223) L 09/13/23 18:40 Troponin I High Sens 12.8 pg/ml (0-20) 09/13/23 18:40 Total Protein 7.2 gm/dl (6.0-8.3) 09/13/23 18:40 Albumin 3.6 gm/dl (3.4-5.0) 09/13/23 18:40 Procalcitonin 0.77 ng/ml (0-0.5) H 09/13/23 18:40 Urine Color See Comment 09/13/23 Unknown Urine Appearance Slightly Cloudy (Clear) 09/13/23 Unknown Urine pH Not Reportable 09/13/23 Unknown Ur Specific [place] 1.011 (1.000-1.030) 09/13/23 Unknown Urine Protein Not Reportable 09/13/23 Unknown Urine Glucose (UA) Not Reportable 09/13/23 Unknown Urine Ketones Not Reportable 09/13/23 Unknown Urine Blood Not Reportable 09/13/23 Unknown Urine Nitrite Not Reportable 09/13/23 Unknown Urine Bilirubin Not Reportable 09/13/23 Unknown Urine Urobilinogen Not Reportable 09/13/23 Unknown Ur Leukocyte Esterase Not Reportable 09/13/23 Unknown Urine WBC (Auto) >50 /hpf (0-5) 09/13/23 Unknown Urine RBC (Auto) >20 /hpf (0-4) 09/13/23 Unknown U Hyaline Cast (Auto) 0-2 /lpf (0-5) 09/13/23 Unknown U Epithel Cells (Auto) 6-10 /lpf (0-5) 09/13/23 Unknown Urine Bacteria (Auto) None Seen (Negative) 09/13/23 Unknown Adenovirus (PCR) Not Detected (NotDetected) 09/13/23 Unknown B. pertussis DNA (PCR) Not Detected (NotDetected) 09/13/23 Unknown B.parapertussis DNA PCR Not Detected (NotDetected) 09/13/23 Unknown C. pneumoniae DNA (PCR) Not Detected (NotDetected) 09/13/23 Unknown Coronavirus OC43 (PCR) Not Detected (NotDetected) 09/13/23 Unknown Coronavirus HKU1 (PCR) Not Detected (NotDetected) 09/13/23 Unknown Coronavirus 229E (PCR) Not Detected (NotDetected) 09/13/23 Unknown SARS-CoV-2 (PCR) DETECTED (NotDetected) A 09/13/23 Unknown Coronavirus NL63 (PCR) Not Detected (NotDetected) 09/13/23 Unknown Human Metapneumovir PCR Not Detected (NotDetected) 09/13/23 Unknown Influenza Type A (PCR) Not Detected (NotDetected) 09/13/23 Unknown Influenza Type B (PCR) Not Detected (NotDetected) 09/13/23 Unknown M. pneumoniae (PCR) Not Detected (NotDetected) 09/13/23 Unknown Parainfluenza 1 (PCR) Not Detected (NotDetected) 09/13/23 Unknown Parainfluenza 2 (PCR) Not Detected (NotDetected) 09/13/23 Unknown Parainfluenza 3 (PCR) Not Detected (NotDetected) 09/13/23 Unknown Parainfluenza 4 (PCR) Not Detected (NotDetected) 09/13/23 Unknown RSV (PCR) Not Detected (NotDetected) 09/13/23 Unknown Entero/Rhino (PCR) Not Detected (NotDetected) 09/13/23 Unknown Impressions Abdomen/Pelvis CT 09/13/23 18:49 Exam(s): CT ABDOMEN + PELVIS Without Contrast EXAM: CT Abdomen and Pelvis Without Intravenous Contrast CLINICAL HISTORY: Reason for exam: hematuria. TECHNIQUE: Axial computed tomography images of the abdomen and pelvis without intravenous contrast. CTDI is 36.09 mGy and DLP is 2183.72 mGy-cm. Automated exposure control was utilized for the study. A dose lowering technique was utilized adhering to the principles of ALARA. COMPARISON: September 01, 2023 FINDINGS: Lung bases: Unremarkable. No mass. No consolidation. ABDOMEN: Liver: Unremarkable. Gallbladder and bile ducts: The gallbladder is mostly contracted but unremarkable. No calcified stones. No ductal dilation. Pancreas: Unremarkable. No ductal dilation. Spleen: Unremarkable. No splenomegaly. Adrenals: Unremarkable. No mass. Kidneys and ureters: Mild perinephric stranding around both kidneys is nonspecific and unchanged. No hydronephrosis or ureterolithiasis is seen involving either kidney. Stomach and bowel: See below. PELVIS: Appendix: The appendix is normal. Bowel loops are nondilated. There is mild diverticulosis of the sigmoid colon without evidence of acute diverticulitis. No acute inflammatory changes are seen involving the bowel. Bladder: Unremarkable. No stones. Reproductive: Unremarkable as visualized. ABDOMEN and PELVIS: Intraperitoneal space: Unremarkable. No free air. No significant fluid collection. Bones/joints: Mild to moderate multilevel degenerative changes throughout the spine. No acute fracture is seen. There is a 3 mm grade 1 anterior listhesis of L5 on S1 the anterior chronic bilateral pars defects. No dislocation. Soft tissues: Unremarkable. Vasculature: Unremarkable. No abdominal aortic aneurysm. Lymph nodes: Unremarkable. No enlarged lymph nodes. IMPRESSION: 1. Mild perinephric stranding around both kidneys is nonspecific and unchanged. No hydronephrosis or ureterolithiasis is seen involving either kidney. This can be seen in renal insufficiency. 2. The appendix is normal. Bowel loops are nondilated. There is mild diverticulosis of the sigmoid colon without evidence of acute diverticulitis. No acute inflammatory changes are seen involving the bowel. Electronically signed by: Marc Milton MD 09/13/23 21:27 PM PG Care Time/CCT Total # of Minutes Spent Total Time Spent with Patient: Total time spent is greater than 50% in coordination of care (as documented) at patient's floor/unit and/or counseling patient: Coding Level of Care Code 73592 INT INP/OBS CARE 2/55MIN Diagnoses COVID-19 U07.1 Hematuria R31.0 Hematuria type: gross Diarrhea R19.7 Right knee pain M25.561 Chronic kidney disease N18.9 (2) Hematuria Hematuria type: gross Qualified Code(s): R31.0 - Gross hematuria
[2023-09-14] MEDS ORDERED: hydrOXYzine HCl 10 MG TAB PO PRN (01:55)
[2023-09-14] MEDS: HYDROmorphone INJ 1 MG/ML SYRINGE IV STA (02:28)
[2023-09-14] MEDS: LACTATED RINGER'S 1,000 ML IV SCH (02:29)
[2023-09-14 02:50] LABS: Bacteria Urine Automated 3+ (Negative); Cast Urine Automated 0-2 /lpf (0-5); Epithelial Cell Urine Auto 0-2 /lpf (0-5); RBC Urine Automated >20 /hpf (0-4); WBC Urine Automated 21-50 /hpf (0-5)
[2023-09-14] MEDS ORDERED: ERTAPENEM SODIUM 500 MG in SYRINGE 0 ML IV SCH (03:00)
[2023-09-14] MEDS: ERTAPENEM SODIUM 1,000 MG in SYRINGE 0 ML IV SCH (03:39)
--- NOTE | 2023-09-14 07:45 | XRay Report ---
XR chest 1V portable CLINICAL HISTORY: Sepsis TECHNIQUE: Single frontal radiograph of the chest was obtained. Comparison: Comparison is made to chest radiograph 09/01/2023 FINDINGS: Exam is limited by underpenetration. The cardiomediastinal silhouette is normal. The lungs are clear. No evidence of pleural effusion or pneumothorax. IMPRESSION: No acute abnormalities and in particular no radiographic evidence of pneumonia. ACT 112: Negative or not required by law. Electronically signed by: Nilesh Herrmann M.D. 09/14/2023 7:44 AM
[2023-09-14 08:07] LABS: Basophils # (auto) 0.04 K/uL (0.00-0.20); Basophils % (auto) 0.3 %; Eosinophils # (auto) 0.19 K/uL (0.00-0.50); Eosinophils % (auto) 1.2 %; Hematocrit (blood only) 30.4 % (42.0-52.0); Hemoglobin 10.2 g/dl (14.0-18.0); Immature Granulocytes # (auto) 0.15 K/uL (0.01-0.20); Immature Granulocytes % (auto) 0.9 %; Lymphocytes # (auto) 0.91 K/uL (1.20-3.40); Lymphocytes % (auto) 5.7 %; Mean Corpuscular Hemoglobin 33.9 pg (25.0-34.0); Mean Corpuscular Hgb Conc 33.6 g/dL (32.0-36.0); Mean Platelet Volume 9.7 fL (9.4-12.4); Monocytes # (auto) 1.86 K/uL (0.11-0.59); Monocytes % (auto) 11.7 %; Neutrophils # (auto) 12.71 K/uL (1.40-6.50); Neutrophils % (auto) 80.2 %; Platelet Count 215 K/uL (130-400); RDW Coefficient of Variation 13.4 % (11.5-14.5); RDW Standard Deviation 50.4 fL (36.4-46.3); Red Blood Count 3.01 M/uL (4.70-6.10); White Blood Count 15.86 K/ul (4.8-10.8)
[2023-09-14] MEDS: ACETAMINOPHEN 500 MG TAB PO PRN (08:09)
[2023-09-14] MEDS: ROSUVASTATIN CALCIUM 5 MG TAB PO SCH (08:09)
[2023-09-14] MEDS: oxyCODONE HCL IR 5 MG TAB (IMMEDIATE RELEASE) PO PRN ×2 (08:09→20:27)
[2023-09-14] MEDS: THIAMINE HCL 100 MG TAB PO SCH (08:09)
[2023-09-14] MEDS: METOPROLOL SUCC 25MG EXT REL TAB PO SCH (08:09)
[2023-09-14] MEDS: FOLIC ACID 1 MG TAB PO SCH (08:09)
[2023-09-14 08:36] LABS: Albumin Level 2.9 gm/dl (3.4-5.0); BUN Creatinine Ratio 15.6 (10-20); Bilirubin Direct 0.7 mg/dl (0-0.2); Bilirubin,Total 1.3 mg/dl (0.2-1.0); Calcium 8.9 mg/dl (8.6-10.3); Creatinine Clr Calc Pharmacy 38.6 ml/min; Est GFR (African American) 20.3 ml/min; Est GFR (Non-African American) 17.5 ml/min; Potassium 4.3 mmol/L (3.5-5.1); Total Protein 6.1 gm/dl (6.0-8.3)
--- NOTE | 2023-09-14 11:35 | Orthopedic Consultation ---
Date of Service September 14, 2023 Assessment & Plan (1) Right knee pain: Right knee aspirated today. The fluid is inflammatory appearing. Fluid sent for analysis including cultures, cell count, and crystal analysis. This is likely gout but we will await all the results. Discussed with Dr. Milton. Procedure note: right knee sterilely prepped with alcohol and using aseptic technique approximately 60ml of cloudy inflammatory looking serous fluid was aspirated from the knee. Will be sent for analysis as above. He tolerated the procedure well. No complications. (2) Arthritis of right knee: (3) Gout: History of Present Illness Reason for Consultation: . Requesting Physician: . Attending Physician: Aden Goddard MD .Darian is a 58 year old patient who was admitted last week for UTI/kidney infection. He was seen by one of our providers last week. He had xray and MRI last week which showed essentially advanced degenerative changes. He was readmitted yesterday after coming back to the hospital because he was not feeling well again. He has been diagnosed with covid. He has increased right knee pain. No injury. Knee aspiration last december showed gout. He had an attempted knee aspiration last week in the ER which was unsuccessful. Allergies Allergy/AdvReac Type Severity Reaction Status Date / Time No Known Allergies Allergy Mild Verified 09/13/23 19:52 Home Medications Medication Instructions Recorded Confirmed Type hydroxyzine HCl 10 mg tablet 10 mg PO TID PRN anxiety #30 tabs 03/31/23 09/13/23 Rx metoprolol succinate 25 mg 12.5 mg PO DAILY 03/31/23 09/13/23 History tablet,extended release 24 hr folic acid 1 mg tablet 1 mg PO DAILY #30 tabs 05/17/23 09/13/23 Rx rosuvastatin 5 mg tablet 5 mg PO DAILY 09/01/23 09/13/23 History acetaminophen 500 mg tablet 1,000 mg (2 x 500 mg) PO QID PRN 09/11/23 09/13/23 Rx (Tylenol Extra Strength) pain #0 tabs allopurinol 100 mg tablet 50 mg (1/2 x 100 mg) PO TuFr@0900 09/11/23 09/13/23 Rx #8 tabs thiamine HCl (vitamin B1) 100 mg 100 mg PO DAILY #30 tabs 09/11/23 09/13/23 Rx tablet pantoprazole 40 mg tablet,delayed 40 mg PO BID PRN 09/13/23 09/13/23 History release HEARTBURN/INDIGESTION Past Med/Surg History Problem List Right knee pain Diarrhea Hypomagnesemia (Acute) COVID-19 (Acute) Arthritis of right knee Gout of right knee due to renal impairment Osteoarthritis of knees, bilateral Morbid obesity Hyperuricemia Chronic kidney disease CHRISTAL (acute kidney injury) Sepsis Hematuria (Acute) Acute UTI (urinary tract infection) (Acute) Gout (Acute) Acute renal failure (ARF) (Acute) Hyperlipidemia Paroxysmal atrial fibrillation Alcohol use disorder in remission Gout ROBERT (obstructive sleep apnea) Effusion, right knee (Acute) Hypokalemia Hypomagnesemia Acute pain of right lower extremity (Acute) Medical History Anxiety Pulmonary hypertension No known health problems Abdominal pain reason for upcoming procedure Alcohol use disorder Surgical History H/O colonoscopy Colonoscopy 12/01/22, repeat 5 years in 2027 History of lateral meniscus repair of right knee History of wisdom tooth extraction History of ankle surgery Family History Father Diabetes Myocardial infarction Mother Diabetes Myocardial infarction Ovarian cancer Denies family history of Prostate cancer Breast cancer Lung cancer Colorectal cancer Stroke Social History Smoking Status: Never smoker Second Hand Exposure: No; Do You Dip or Chew Tobacco: No; Hx Alcohol Use: Yes Alcohol type: beer and hard liquor Alcohol Intake Frequency: 4 or More x per/Week Hx Substance Use: No Preferred Language: Malaysian Communication Ability: Effective Visual Impairment: Limited Hearing Ability: Normal Setter Helper Required: No Beliefs That Will Affect Care: None marital status: Current Living Situation: Spouse Current Living Situation Comment: Personal Home 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 Physical Exam .alert and oriented. NAD Right knee: large effusion. Skin intact. Limited motion and exam due to pain and stiffness. He has crepitation with any motion of the knee. Results & Data Results & Data Laboratory Results . Diagnostic Findings . PG Care Time/CCT Total # of Minutes Spent Total Time Spent with Patient: Total time spent is greater than 50% in coordination of care (as documented) at patient's floor/unit and/or counseling patient: Coding Level of Care Code 78241 IN/OBS CONSULT LVL 3,45M (25 - SIGNIFICANT, SEPARATELY IDENTIFIABLE ) Diagnoses Right knee pain M25.561 Arthritis of right knee M17.11 Gout M10.361 Chronicity: acute Gout etiology: due to renal impairment Gout site: knee Laterality: right (3) Gout Chronicity: acute Gout etiology: due to renal impairment Gout site: knee Laterality: right Qualified Code(s): M10.361 - Gout due to renal impairment, right knee
[2023-09-14 11:57] LABS: C Reactive Protein 23.21 mg/dl (0-0.5)
[2023-09-14 13:27] LABS: Appearance Synovial Fluid Hazy; Color Synovial Fluid Yellow; Mononuclear WBC Synovial 4.1 %; Polynuclear WBC Synovial 95.9 %; RBC Synovial Fluid Auto 5000 /uL; Source Synovial Fluid Right Knee; WBC Synovial Fluid Auto 31495 /ul (0-200)
--- NOTE | 2023-09-14 16:20 | Electrocardiogram Report ---
Test Reason : Blood Pressure : / mmHG Vent. Rate : 090 BPM Atrial Rate : 090 BPM P-R Int : 170 ms QRS Dur : 080 ms QT Int : 360 ms P-R-T Axes : 050 004 059 degrees QTc Int : 440 ms Normal sinus rhythm Low voltage QRS Borderline ECG When compared with ECG of 01-SEP-2023 13:50, No significant change was found Confirmed by Manny Alarcon ([id number]) on 09/14/2023 4:20:14 PM Referred By: Morro Alvarado Confirmed By:Manny Alarcon
[2023-09-14] MEDS: predniSONE 10 MG TABLET PO ONE (19:55)
--- NOTE | 2023-09-14 21:42 | Hospitalist Progress Note ---
Date of Service September 14, 2023 Assessment & Plan (1) COVID-19: Plan: Early in the illness, likely day #2 or 3. No evidence of lower respiratory tract disease on cxr. O2 sats wnl. LFTs stable. CPK wnl. Defer on dexamethasone at this time. Could consider Remdesivir IV - recent FDA approval for use in patients with any degree of renal impairment including those on HD. Low threshold to start such. Cont airborne isolation, supportive care, etc. (2) Right knee pain: Plan: advanced OA, multiple ligamentous tears (as seen on previous MRI), and gout arthritis s/p arthrocentesis today cell counts noted (mid-range WBC count) +crystal analysis with gout crystals culture sent see "gout" below (3) Gout: Plan: known diagnosis multiple flares last few months b/l knee pain during the previous admission presumed 2nd to gouty arthritis s/p steroid course uric acid levels have been >10 of late started on renally-dosed allopurinol 50mg twice weekly during recent hospitalization s/p arthrocentesis today of right knee by orthopedics - appreciate their assistance crystal analysis + for gout crystals cell counts noted culture pending increase oxy to 10mg prn for pain relief but he really won't have significant improvement without steroids or anti-inflammatories latter not a good option given recent ARF/CHRISTAL and ongoing elevated creatinine will give 1 dose of prednisone 10mg x 1 now to augment his pain relief as the narcotics are not helping consider 5-10mg/day thereafter for 7-10 days OR intra-articular steroid injection as long as the synovial fluid cx remains negative (4) Hematuria: Plan: Patient with recent ESBL E.coli UTI during prior hospital stay. Treated with Ertapenem x 7d with resolution of symptoms. Patient reports ongoing gross hematuria however. CT a/p findings noted. See "UTI" below. Check a psa. follow blood/urine cx's. (5) Acute UTI (urinary tract infection): Plan: Rx for ESBL e.coli during previous hospitalization u/a this admission with bacteria he cont with gross hematuria CT a/p findings noted could have ongoing UTI thus cont IV ertapenem pending cultures check a PSA and if markedly elevated would be suggestive of prostatitis (6) Diarrhea: Plan: Patient reports diarrhea chronically With recent broad spectrum abx check a c diff Some of the diarrhea could be from the COVID itself (7) Chronic kidney disease: Plan: Patient with recent admission for CHRISTAL secondary to ATN on CKD. Patient's baseline Cr was 1.5-1.6 prior to his episode of ATN. Cr at discharge 3.6 on 09/11/23. Cr 3.3 yesterday Cr 3.59 today but non-oliguric Repeat BMP am No obstruction seen on admission CT a/p (8) Morbid obesity: Plan: BMI 43 (9) ROBERT (obstructive sleep apnea): Plan: CPAP 11cm H20 Plan DVT Proph - if gross hematuria improves and H/H stay stable add chemical DVT proph - at high risk of VTE in light of poor mobility, recurrent admits, obesity, COVID + status, etc sent message to pt's sister, Luna, with brief update on her brother's status Admission and Anticipated Discharge Date Admission Date: September 13, 2023 Subjective patient lying in bed during the visit c/o severe fatigue, weakness, hot/cold chills, cough, congestion, b/l knee pain, myalgias, mild headache, lack of appetite right knee pain was improved after the knee was tapped earlier today by ortho pain now returning when he was d/c from [facility] on 09/10 he was not feeling well and was weak he got home and was unable to really do anything due to the weakness he asks if the oxycodone can be adjusted as the current dose "only lasts an hour" Review of Systems Review of Systems: gen - fevers, chills, anorexia cv - no cp, no orthopnea pulm - no dyspnea at rest GI - no abd pain - ongoing gross hematuria Physical Exam Physical Exam: gen - looks sickly and unwell but not toxic; awake, alert; obese; coughing mouth - MMM neck - no JVD heart - RRR, s1 s2, no murmur lungs - CTA b/l, no wheezes or rales abd - soft NT ND BS+ ext - right knee with effusion, warmth, and severe tenderness with passive/active ROM; left knee with minimal effusion, minimal warmth, no significant tenderness with palpation; pulses b/l feet 2+; no ankle edema b/l Results & Data Results & Data Vital Signs (Past 12 Hours) Vital Signs Temp Pulse Pulse Resp BP Pulse Ox O2 Del Method 09/14/23 19:08 36.7 C 91 H 18 115/72 96 Room Air 09/14/23 16:58 89 09/14/23 15:56 37.8 C H 94 H 18 159/90 H 96 Room Air 09/14/23 11:53 37.6 C H 84 18 135/83 96 Room Air 09/14/23 10:00 91 H Laboratory Results Laboratory Results - last 24 hr 09/14/23 09/14/23 09/14/23 02:30 07:46 Unknown WBC 15.86 H RBC 3.01 L Hgb 10.2 L Hct 30.4 L MCV 101.0 H MCH 33.9 MCHC 33.6 RDW Std Deviation 50.4 H RDW Coeff of Santos 13.4 Plt Count 215 MPV 9.7 Immature Gran % (Auto) 0.9 Neut % (Auto) 80.2 Lymph % (Auto) 5.7 [place] % (Auto) 11.7 Eos % (Auto) 1.2 Baso % (Auto) 0.3 Neut # (Auto) 12.71 H Lymph # (Auto) 0.91 L [place] # (Auto) 1.86 H Eos # (Auto) 0.19 Baso # (Auto) 0.04 Immature Gran # (Auto) 0.15 ESR 71 H Sodium 138 Potassium 4.3 Chloride 106 Carbon Dioxide 22 Anion Gap 10 BUN 56 H Creatinine 3.59 H Est Cr Clr Drug Dosing 38.6 Est GFR ( Amer) 20.3 Est GFR (Non-Af Amer) 17.5 BUN/Creatinine Ratio 15.6 Glucose 98 Calcium 8.9 Total Bilirubin 1.3 H Direct Bilirubin 0.7 H AST 18 ALT 24 Alkaline Phosphatase 133 H C-Reactive Protein 23.21 H Total Protein 6.1 Albumin 2.9 L Urine WBC (Auto) 21-50 Urine RBC (Auto) >20 U Hyaline Cast (Auto) 0-2 U Epithel Cells (Auto) 0-2 Urine Bacteria (Auto) 3+ H Fluid Comment Synovial Source Right Knee Synovial Color Yellow Synovial Appearance Hazy Synovial WBC (Auto) 88660 H Synovial RBC (Auto) 5000 Synovial Polynuclear % 95.9 Synovial Mononuclear % 4.1 Synovial Crystals Diagnostic Findings Abdomen/Pelvis CT 09/13/23 18:49 Exam(s): CT ABDOMEN + PELVIS Without Contrast EXAM: CT Abdomen and Pelvis Without Intravenous Contrast CLINICAL HISTORY: Reason for exam: hematuria. TECHNIQUE: Axial computed tomography images of the abdomen and pelvis without intravenous contrast. CTDI is 36.09 mGy and DLP is 2183.72 mGy-cm. Automated exposure control was utilized for the study. A dose lowering technique was utilized adhering to the principles of ALARA. COMPARISON: September 01, 2023 FINDINGS: Lung bases: Unremarkable. No mass. No consolidation. ABDOMEN: Liver: Unremarkable. Gallbladder and bile ducts: The gallbladder is mostly contracted but unremarkable. No calcified stones. No ductal dilation. Pancreas: Unremarkable. No ductal dilation. Spleen: Unremarkable. No splenomegaly. Adrenals: Unremarkable. No mass. Kidneys and ureters: Mild perinephric stranding around both kidneys is nonspecific and unchanged. No hydronephrosis or ureterolithiasis is seen involving either kidney. Stomach and bowel: See below. PELVIS: Appendix: The appendix is normal. Bowel loops are nondilated. There is mild diverticulosis of the sigmoid colon without evidence of acute diverticulitis. No acute inflammatory changes are seen involving the bowel. Bladder: Unremarkable. No stones. Reproductive: Unremarkable as visualized. ABDOMEN and PELVIS: Intraperitoneal space: Unremarkable. No free air. No significant fluid collection. Bones/joints: Mild to moderate multilevel degenerative changes throughout the spine. No acute fracture is seen. There is a 3 mm grade 1 anterior listhesis of L5 on S1 the anterior chronic bilateral pars defects. No dislocation. Soft tissues: Unremarkable. Vasculature: Unremarkable. No abdominal aortic aneurysm. Lymph nodes: Unremarkable. No enlarged lymph nodes. IMPRESSION: 1. Mild perinephric stranding around both kidneys is nonspecific and unchanged. No hydronephrosis or ureterolithiasis is seen involving either kidney. This can be seen in renal insufficiency. 2. The appendix is normal. Bowel loops are nondilated. There is mild diverticulosis of the sigmoid colon without evidence of acute diverticulitis. No acute inflammatory changes are seen involving the bowel. Electronically signed by: Marc Milton MD 09/13/23 21:27 PM Chest X-Ray 09/13/23 18:49 XR chest 1V portable CLINICAL HISTORY: Sepsis TECHNIQUE: Single frontal radiograph of the chest was obtained. Comparison: Comparison is made to chest radiograph 09/01/2023 FINDINGS: Exam is limited by underpenetration. The cardiomediastinal silhouette is normal. The lungs are clear. No evidence of pleural effusion or pneumothorax. IMPRESSION: No acute abnormalities and in particular no radiographic evidence of pneumonia. ACT 112: Negative or not required by law. Electronically signed by: Nilesh Herrmann M.D. 09/14/2023 7:44 AM PG Care Time/CCT Total # of Minutes Spent Total Time Spent with Patient: Total time spent is greater than 50% in coordination of care (as documented) at patient's floor/unit and/or counseling patient: Coding Level of Care Code 93258 SUB INP/OBS CARE 3/50MIN Diagnoses COVID-19 U07.1 Right knee pain M25.561 Gout M10.361 Chronicity: acute Gout etiology: due to renal impairment Gout site: knee Laterality: right Hematuria R31.0 Hematuria type: gross Acute UTI (urinary tract infection) N39.0 Diarrhea R19.7 Chronic kidney disease N18.9 Morbid obesity E66.01 ROBERT (obstructive sleep apnea) G47.33 (3) Gout Chronicity: acute Gout etiology: due to renal impairment Gout site: knee Laterality: right Qualified Code(s): M10.361 - Gout due to renal impairment, right knee (4) Hematuria Hematuria type: gross Qualified Code(s): R31.0 - Gross hematuria
[2023-09-15 07:10] LABS: Hematocrit (blood only) 29.2 % (42.0-52.0); Mean Corpuscular Hemoglobin 34.8 pg (25.0-34.0); Mean Corpuscular Hgb Conc 34.2 g/dL (32.0-36.0); Mean Corpuscular Volume 101.7 fL (80.0-100.0); Mean Platelet Volume 9.7 fL (9.4-12.4); Platelet Count 227 K/uL (130-400); RDW Coefficient of Variation 13.2 % (11.5-14.5); RDW Standard Deviation 49.8 fL (36.4-46.3); Red Blood Count 2.87 M/uL (4.70-6.10); White Blood Count 16.65 K/ul (4.8-10.8)
[2023-09-15 07:53] LABS: BUN Creatinine Ratio 12.6 (10-20); Calcium 8.9 mg/dl (8.6-10.3); Creatinine Clr Calc Pharmacy 30.6 ml/min; Est GFR (African American) 15.3 ml/min; Est GFR (Non-African American) 13.2 ml/min; Potassium 4.6 mmol/L (3.5-5.1); Thyroid Stimulating Hormone 2.874 uIu/ml (0.300-4.500)
--- NOTE | 2023-09-15 12:43 | Hospitalist Progress Note ---
Date of Service September 15, 2023 Assessment & Plan (1) CHRISTAL (acute kidney injury): Plan: Patient with recent admission for CHRISTAL secondary to ATN on CKD. Patient's baseline Cr was 1.5-1.6 prior to this recent episode of ATN. He peaked at a Cr in the 7's. Cr at hospital discharge was 3.6 on 09/11/23. Presented this admission with Cr 3.3. Then jaime slightly to Cr 3.59, then 4.5 this am, and now 4.75 this evening. Multiple factors likely at play -- pre-renal factors, COVID-19 infection, ?high uric acid levels?, etc. Urine sodium, urine Cr pending Recent TD, ANCA, C4, C3, etc all returned negative from the prior hospitalization. Patient produced little urine today He is taking very little PO Restart isotonic fluids Formal nephrology consult requested with Dr Isbell BMP am (2) COVID-19: Plan: Early in the illness, likely day #3 or 4. No evidence of lower respiratory tract disease on cxr. O2 sats wnl. LFTs stable. CPK wnl. Defer on dexamethasone at this time. Could consider Remdesivir IV - recent FDA approval for use in patients with any degree of renal impairment including those on HD. Low threshold to start such. Cont airborne isolation, supportive care, etc. (3) Right knee pain: Plan: advanced OA, multiple ligamentous tears (as seen on previous MRI), and gouty arthritis all to blame s/p arthrocentesis yesterday cell counts noted (mid-range WBC count) +crystal analysis with gout crystals culture sent -- remains negative for gouty component - and in light of the fact we cannot use NSAIDs - gave 10mg of prednisone yesterday, and will give 10mg today if culture does not grow bacteria from knee would use prednisone 5mg/day potentially for a few weeks to calm down his severe gout of the knees which has been bothering him for weeks alternatively ortho could provide intra-articular steroid injection to the right knee see "gout" below (4) Gout: Plan: known diagnosis multiple flares last few months b/l knee pain during the previous admission presumed 2nd to gouty arthritis s/p steroid course uric acid levels have been >10 of late started on renally-dosed allopurinol 50mg twice weekly during recent hospitalization s/p arthrocentesis yesterday of right knee by orthopedics - appreciate their assistance crystal analysis + for gout crystals cell counts noted culture pending but thus far negative cont oxy 10mg prn for pain relief but he really won't have significant improvement without steroids or anti-inflammatories latter not a good option given ARF/CHRISTAL give prednisone 10mg x 1 again today to augment his pain relief as the narcotics are not helping consider 5-10mg/day thereafter for 7-10 days or more OR intra-articular steroid injection as long as the synovial fluid cx remains negative (5) Hematuria: Plan: Patient with recent ESBL E.coli UTI during prior hospital stay. Treated with Ertapenem x 7d with resolution of symptoms. Patient reports ongoing gross hematuria. CT a/p findings noted. See "UTI" below. PSA wnl. blood cx's negative. urine cx with staph species, 10349 CFU - see below. (6) Acute UTI (urinary tract infection): Plan: Rx for ESBL e.coli during previous hospitalization had 2 urine cx's since admission - first is negative, 2nd is growing staph species although only 20,000 CFU he is symptomatic for UTI cont ertapenem 1 more day but if blood cx's stay negative, R knee synovial fluid culture stays negative, and if no gram negatives will stop tomorrow add daptomycin to cover the staph species PSA noted to be quite low making prostatitis unlikely (7) Diarrhea: Plan: Patient reports diarrhea chronically With recent broad spectrum abx check a c diff Some of the diarrhea could be from the COVID itself now he is reporting feeling constipated monitor (8) Chronic kidney disease: Plan: Patient with recent admission for CHRISTAL secondary to ATN on CKD. Patient's baseline Cr was 1.5-1.6 prior to his episode of ATN. Cr at discharge 3.6 on 09/11/23. Continues with CHRISTAL - see #1 above (9) Morbid obesity: Plan: BMI 43 (10) ROBERT (obstructive sleep apnea): Plan: CPAP 11cm H20 Plan DVT Proph - if gross hematuria improves and H/H stay stable add chemical DVT proph - at high risk of VTE in light of poor mobility, recurrent admits, obesity, COVID + status, etc updated pt's sister Luna by phone this evening extensive update given will need PT, OT Admission and Anticipated Discharge Date Admission Date: September 13, 2023 Subjective patient continues with fatigue, weakness, b/l knee pain much worse on right (although now he can weight bear and previously he could not do that), decreased UOP, ongoing gross hematuria, dry cough, lack of appetite tele overnight wnl Review of Systems Review of Systems: gen - no fevers overnight cv - no chest pain, no orthopnea pulm - ongoing cough; no dyspnea at rest GI - no abd pain; no vomiting; is constipated psych - still feels a little "off" mentally Physical Exam Physical Exam: gen - continues to look sick, but perhaps slightly better than yesterday; obese mouth - MM dry neck - no JVD heart - RRR, s1 s2, no murmur lungs - CTA b/l, no wheezes or rales abd - soft NT ND BS+ ext - right knee with effusion but smaller in size today; less warmth to touch on right; less tenderness with passive/active ROM; left knee with minimal effusion, no warmth, no significant tenderness with palpation; pulses b/l feet 2+; no ankle edema b/l Results & Data Results & Data Vital Signs (Past 12 Hours) Vital Signs Temp Pulse Pulse Resp BP Pulse Ox O2 Del Method 09/15/23 08:23 37.1 C 85 18 134/85 95 Room Air 09/15/23 07:50 Room Air 09/15/23 07:00 76 09/15/23 03:16 37.0 C 85 18 133/82 95 Room Air Laboratory Results Laboratory Results - last 24 hr 09/14/23 09/14/23 09/15/23 07:46 Unknown 06:53 WBC 16.65 H RBC 2.87 L Hgb 10.0 L Hct 29.2 L MCV 101.7 H MCH 34.8 H MCHC 34.2 RDW Std Deviation 49.8 H RDW Coeff of Santos 13.2 Plt Count 227 MPV 9.7 ESR 71 H Sodium 135 L Potassium 4.6 Chloride 104 Carbon Dioxide 22 Anion Gap 9 BUN 57 H Creatinine 4.52 H* D Est Cr Clr Drug Dosing 30.6 Est GFR ( Amer) 15.3 Est GFR (Non-Af Amer) 13.2 BUN/Creatinine Ratio 12.6 Glucose 104 H Calcium 8.9 Prostate Specific Ag 0.034 TSH 2.874 Synovial Source Right Knee Synovial Color Yellow Synovial Appearance Hazy Synovial WBC (Auto) 06347 H Synovial RBC (Auto) 5000 Synovial Polynuclear % 95.9 Synovial Mononuclear % 4.1 Synovial Crystals Diagnostic Findings Microbiology 09/13/23 Unknown Urine,Straight Cath Urine Culture - Preliminary Staphylococcus species 09/14/23 Unknown Knee,Right Gram Stain - Final 09/14/23 Unknown Knee,Right Aerobic and Anaerobic Culture - Preliminary No growth to date. 09/14/23 02:30 Urine,Clean Catch Urine Culture - Preliminary No growth - Less than 1,000 colonies/mL, Final report to follow. 09/13/23 19:54 Blood Aerobic Blood Culture - Preliminary No growth in Aerobic bottle after 24 hours. 09/13/23 19:54 Blood Anaerobic Blood Culture - Preliminary No growth in Anaerobic bottle after 24 hours. 09/13/23 18:40 Blood Aerobic Blood Culture - Preliminary No growth in Aerobic bottle after 24 hours. 09/13/23 18:40 Blood Anaerobic Blood Culture - Preliminary No growth in Anaerobic bottle after 24 hours. PG Care Time/CCT Total # of Minutes Spent Total Time Spent with Patient: Total time spent is greater than 50% in coordination of care (as documented) at patient's floor/unit and/or counseling patient: Coding Level of Care Code 08393 SUB INP/OBS CARE 3/50MIN Diagnoses CHRISTAL (acute kidney injury) N17.9 COVID-19 U07.1 Right knee pain M25.561 Gout M10.361 Chronicity: acute Gout etiology: due to renal impairment Gout site: knee Laterality: right Hematuria R31.0 Hematuria type: gross Acute UTI (urinary tract infection) N39.0 Diarrhea R19.7 Chronic kidney disease N18.9 Morbid obesity E66.01 ROBERT (obstructive sleep apnea) G47.33 (4) Gout Chronicity: acute Gout etiology: due to renal impairment Gout site: knee Laterality: right Qualified Code(s): M10.361 - Gout due to renal impairment, right knee (5) Hematuria Hematuria type: gross Qualified Code(s): R31.0 - Gross hematuria
[2023-09-15] MEDS: SODIUM CHLORIDE 0.9% 1,000 ML IV SCH (13:39)
[2023-09-15] MEDS: DAPTOmycin 750 MG in SYRINGE 0 ML IV SCH (13:39)
[2023-09-15 17:52] LABS: BUN Creatinine Ratio 12.4 (10-20); Calcium 9.3 mg/dl (8.6-10.3); Creatinine Clr Calc Pharmacy 29.1 ml/min; Est GFR (African American) 14.4 ml/min; Est GFR (Non-African American) 12.5 ml/min; Potassium 4.5 mmol/L (3.5-5.1)
[2023-09-15] MEDS: predniSONE 10 MG TABLET PO ONE (19:35)
[2023-09-15] MEDS: ONDANSETRON INJ 2 MG/ML 2 ML VIAL IV PRN (19:42)
[2023-09-16 06:41] LABS: Creatinine Urine Random 83.9 mg/dl
[2023-09-16 07:53] LABS: Hematocrit (blood only) 28.2 % (42.0-52.0); Hemoglobin 9.3 g/dl (14.0-18.0); Mean Corpuscular Hemoglobin 33.8 pg (25.0-34.0); Mean Corpuscular Volume 102.5 fL (80.0-100.0); Mean Platelet Volume 9.5 fL (9.4-12.4); Platelet Count 246 K/uL (130-400); RDW Coefficient of Variation 13.4 % (11.5-14.5); RDW Standard Deviation 50.8 fL (36.4-46.3); Red Blood Count 2.75 M/uL (4.70-6.10); White Blood Count 24.67 K/ul (4.8-10.8)
[2023-09-16 08:24] LABS: BUN Creatinine Ratio 12.6 (10-20); C Reactive Protein 26.47 mg/dl (0-0.5); Calcium 8.7 mg/dl (8.6-10.3); Creatinine Clr Calc Pharmacy 28.1 ml/min; Est GFR (African American) 13.8 ml/min; Est GFR (Non-African American) 11.9 ml/min; Potassium 4.7 mmol/L (3.5-5.1); Uric Acid 9.6 mg/dl (2.6-7.2)
[2023-09-16] MEDS: allopurinoL 100 MG TAB PO SCH (08:42)
[2023-09-16] MEDS: predniSONE 10 MG TABLET PO SCH (09:44)
--- NOTE | 2023-09-16 09:58 | Nephrology Consultation ---
Date of Consultation September 16, 2023 Assessment & Plan (1) CHRISTAL (acute kidney injury): Admitted August 31 with serum creatinine 5.86 mg/dL --> peaked at 7.8 mg/dL. Creatinine improved to 3.5 mg/dL with supportive care, including IVF. CHRISTAL was attributed to ATN from NSAIDS, UTI, and possible recently passed kidney stone. Hyperuricemia noted. Unfortunately, Darian returned to the hospital within 48 hours with rising creatinine (3.5 mg/dL --> 4.5 mg/dL --> 4.95 mg/dL) and gross hematuria. He is +COVID. R knee aspirated demonstrating gout. No significant fluid retention or edema. No urinary complaints. CT demonstrates the kidneys to be unobstructed. Perinephric stranding noted. Urine demonstrating gross h ematuria with WBCs and RBCs. Culture + MRSA being treated with daptomycin. Non-oliguric. Volume status acceptable. Electrolytes acceptable. No emergent indication for dialysis. UA gross hematuria + for LE/nitrates, 3+ blood, 3+ protein, negative for cellular casts or crystals. +WBCs + RBCs. Urine remains cola-colored and without clots. Noncontrast CT negative for kidney or ureteral stones. No hydronephrosis. Serologic evaluation for possible GN was negative, including ANCA, TD, and anti GBM. Complement levels normal. I discussed the recent history and the plan of care with Dr. Blanco this AM. I am concerned that Sonja has active urine sediment and progressive CHRISTAL. IVF are being provided. He is being treated with allopurinol for kidney dysfunction. ESR elevated. Mild anemia but normal platelets. I have requested a peripheral smear to help exclude TMA but I have less suspicion for this. I explained to the patient that kidney biopsy may be considered for definitive diagnosis but not in the setting of UTI. Given high risk for IgA, I have increased prednisone from 10 mg daily for gout to 60 mg daily for the next 3 days and then will evaluate dose adjustment. IVF have been changed from NSS to 1/2NS+NaHCO3. Document strict I/O's. Repeat a metabolic profile tomorrow AM. Medications are appropriate for kidney dysfunction. (2) Chronic kidney disease: CKD III with baseline creatinine ~1.6-1.8 mg/dL. Noted history of microscopic hematuria in the past - notably during admission in December 2022. Consider IgA. Followed by Dr. Barragan as an outpatient. (3) Hematuria: CT reviewed. UTI is being treated. History of gross and microscopic hematuria noted over the past couple of years. History of recurrent UTI. Non-smoker. Ultimately may benefit from urologic evaluation for non-glomerular causes. t/c kidney biopsy if kidney dysfunction continues to progress. (4) Acute UTI (urinary tract infection): Recently completed treatment with Invanz for + ESBL E. coli. Now urine + MRSA --> tx with daptomycin. CK not elevated. Statin held. (5) COVID-19: (6) Hyperuricemia: Knee x-ray revealed arthritic changes w/ joint effusion. Aspiration of R knee demonstrated gout. Remains on prednisone. Renally adjusted allopurinol. (7) Gout of right knee due to renal impairment: History of Present Illness Reason for Consultation: CHRISTAL Requesting Physician: Aden Goddard MD Attending Physician: Aden Goddard MD History of Present Illness Mr. Darian Murphy is a 58 year-old male with chronic kidney disease (baseline creatinine 1.6-1.8 mg/dL), hypertension, hyperlipidemia, and gout. He was admitted to [facility] earlier this month with acute kidney injury and gout. Evaluation was notable for significant hyperuricemia for which allopurinol was started. Kidney function improved with supportive care and hydration. Darian had a recent history of NSAID use. He was also treated for a ESBL E coli UTI with a course of Invanz during the admission. He had presented to the hospital with some gross hematuria and flank pain. Imaging did not demonstrate any obstruction of the kidneys or obvious kidney stones. Creatinine peaked at 7.8 mg/dL and improved to 3.5 mg/dL. He was discharged home but unfortunately returned to the hospital within 48 hours with gross hematuria and generalized malaise. Evaluation at this time +COVID. Unfortunately, creatinine has been trending upward despite continued supportive care. Darian continues to have gross hematuria without clots. Updated imaging did not demonstrate obstruction. Urine studies notable for staph UTI. Pain for knee was aspirated and effusion consistent with gout. Serologic evaluation for possible GN was completed during recent admission and negative, including ANCA, TD, and anti GBM. Complement levels normal. I discussed the recent history and the plan of care with Dr. Francis davis AM. Allergies Allergy/AdvReac Type Severity Reaction Status Date / Time No Known Allergies Allergy Mild Verified 09/13/23 19:52 Home Medications Medication Instructions Recorded Confirmed Type hydroxyzine HCl 10 mg tablet 10 mg PO TID PRN anxiety #30 tabs 03/31/23 09/13/23 Rx metoprolol succinate 25 mg 12.5 mg PO DAILY 03/31/23 09/13/23 History tablet,extended release 24 hr folic acid 1 mg tablet 1 mg PO DAILY #30 tabs 05/17/23 09/13/23 Rx rosuvastatin 5 mg tablet 5 mg PO DAILY 09/01/23 09/13/23 History acetaminophen 500 mg tablet 1,000 mg (2 x 500 mg) PO QID PRN 09/11/23 09/13/23 Rx (Tylenol Extra Strength) pain #0 tabs allopurinol 100 mg tablet 50 mg (1/2 x 100 mg) PO TuFr@0900 09/11/23 09/13/23 Rx #8 tabs thiamine HCl (vitamin B1) 100 mg 100 mg PO DAILY #30 tabs 09/11/23 09/13/23 Rx tablet pantoprazole 40 mg tablet,delayed 40 mg PO BID PRN 09/13/23 09/13/23 History release HEARTBURN/INDIGESTION Patient History Medical History Anxiety Pulmonary hypertension No known health problems Abdominal pain reason for upcoming procedure Alcohol use disorder Surgical History H/O colonoscopy Colonoscopy 12/01/22, repeat 5 years in 2027 History of lateral meniscus repair of right knee History of wisdom tooth extraction History of ankle surgery Family History Father Diabetes Myocardial infarction Mother Diabetes Myocardial infarction Ovarian cancer Denies family history of Prostate cancer Breast cancer Lung cancer Colorectal cancer Stroke Social History Smoking Status: Never smoker Second Hand Exposure: No; Do You Dip or Chew Tobacco: No; Hx Alcohol Use: Yes Alcohol type: beer and hard liquor Alcohol Intake Frequency: 4 or More x per/Week Hx Substance Use: No Preferred Language: Citizen Of [place] Communication Ability: Effective Visual Impairment: Limited Hearing Ability: Normal [place] Supervisor Required: No Beliefs That Will Affect Care: None marital status: Current Living Situation: Spouse Current Living Situation Comment: Personal Home current occupational status: employed current occupation: Commercial [employer] How many Children do You have: 3 Feels Safe at Home: Yes Childhood Exposure to Second-Hand Smoke: Yes caffeine: No Dental Care, Regularly: Yes Physical Activity Frequency: Does not Exercise Seatbelt Use: always Sunscreen Use: No Assistive Devices: Cane and Walker Review of Systems Review of Systems: All systems reviewed & are unremarkable except as noted in HPI & below Physical Exam Constitutional: well developed and + morbidly obese; no acute distress Eyes: + anicteric sclerae; no corneal abnormal ity ENMT: Mouth: no oral mucosal abnormality and oral mucous membranes not dry Neck: normal visual inspection and trachea midline Respiratory: normal respiratory effort Auscultation: lungs clear to auscultation bilaterally Cardiovascular: Rate/Rhythm: regular rate Heart Sounds: normal S1 and normal S2 Extremities: + edema (L>R trace R>L LE) Musculoskeletal: Extremities: no cyanosis and no clubbing R knee effusion Skin: normal turgor; no rashes and no jaundice Neurologic: Motor/Sensory: no tremor and no asterixis Psychiatric: Orientation: alert and oriented x 3 Results & Data Vital Signs (Past 12 Hours) Vital Signs Temp Pulse Pulse Resp BP Pulse Ox O2 Del Method 09/16/23 08:27 36.8 C 78 18 122/75 96 Room Air 09/16/23 07:00 80 09/16/23 03:10 36.7 C 83 18 110/68 95 Room Air 09/15/23 23:45 Room Air 09/15/23 23:10 36.5 C 96 H 18 103/66 92 Room Air 09/15/23 21:58 92 H Laboratory Results Laboratory Results - last 24 hr 09/15/23 09/16/23 09/16/23 17:03 05:56 07:37 WBC 24.67 H RBC 2.75 L Hgb 9.3 L Hct 28.2 L MCV 102.5 H MCH 33.8 MCHC 33.0 RDW Std Deviation 50.8 H RDW Coeff of Santos 13.4 Plt Count 246 MPV 9.5 Sodium 136 136 Potassium 4.5 4.7 Chloride 103 105 Carbon Dioxide 20 L 20 L Anion Gap 13 H 11 BUN 59 H 62 H Creatinine 4.75 H* 4.94 H* Est Cr Clr Drug Dosing 29.1 28.1 Est GFR ( Amer) 14.4 13.8 Est GFR (Non-Af Amer) 12.5 11.9 BUN/Creatinine Ratio 12.4 12.6 Glucose 99 91 Uric Acid 9.6 H Calcium 9.3 8.7 AST 23 ALT 20 C-Reactive Protein 26.47 H Ur Random Creatinine 83.9 Ur Random Sodium [address] Abdomen and Pelvis Without Intravenous Contrast ABDOMEN: Liver: Unremarkable. Gallbladder and bile ducts: The gallbladder is mostly contracted but unremarkable. No calcified stones. No ductal dilation. Pancreas: Unremarkable. No ductal dilation. Spleen: Unremarkable. No splenomegaly. Adrenals: Unremarkable. No mass. Kidneys and ureters: Mild perinephric stranding around both kidneys is nonspecific and unchanged. No hydronephrosis or ureterolithiasis is seen involving either kidney. Stomach and bowel: See below. PELVIS: Appendix: The appendix is normal. Bowel loops are nondilated. There is mild diverticulosis of the sigmoid colon without evidence of acute diverticulitis. No acute inflammatory changes are seen involving the bowel. Bladder: Unremarkable. No stones. Reproductive: Unremarkable as visualized. ABDOMEN and PELVIS: Intraperitoneal space: Unremarkable. No free air. No significant fluid collection. Bones/joints: Mild to moderate multilevel degenerative changes throughout the spine. No acute fracture is seen. There is a 3 mm grade 1 anterior listhesis of L5 on S1 the anterior chronic bilateral pars defects. No dislocation. Soft tissues: Unremarkable. Vasculature: Unremarkable. No abdominal aortic aneurysm. Lymph nodes: Unremarkable. No enlarged lymph nodes. IMPRESSION: 1. Mild perinephric stranding around both kidneys is nonspecific and unchanged. No hydronephrosis or ureterolithiasis is seen involving either kidney. This can be seen in renal insufficiency. 2. The appendix is normal. Bowel loops are nondilated. There is mild diverticulosis of the sigmoid colon without evidence of acute diverticulitis. No acute inflammatory changes are seen involving the bowel. XR chest 1V portable Comparison: Comparison is made to chest radiograph 09/01/2023 FINDINGS: Exam is limited by under penetration. The cardiomediastinal silhouette is normal. The lungs are clear. No evidence of pleural effusion or pneumothorax. IMPRESSION: No acute abnormalities and in particular no radiographic evidence of pneumonia. PG Care Time/CCT Total # of Minutes Spent Total Time Spent with Patient: Total time spent is greater than 50% in coordination of care (as documented) at patient's floor/unit and/or counseling patient: Coding Level of Care Code 10259 IN/OBS CONSULT LVL 5,80M Diagnoses CHRISTAL (acute kidney injury) N17.9 Chronic kidney disease N18.9 Hematuria R31.0 Hematuria type: gross Acute UTI (urinary tract infection) N39.0 COVID-19 U07.1 Hyperuricemia E79.0 Gout of right knee due to renal impairment M10.361 (3) Hematuria Hematuria type: gross Qualified Code(s): R31.0 - Gross hematuria
[2023-09-16] MEDS: predniSONE 50 MG TAB PO ONE (11:51)
[2023-09-16] MEDS: SODIUM BICARBONATE 8.4% 75 MEQ in SODIUM CHLORIDE 0.45 % 1,000 ML IV SCH (13:44)
--- NOTE | 2023-09-16 19:51 | Hospitalist Progress Note ---
Date of Service September 16, 2023 Assessment & Plan (1) CHRISTAL (acute kidney injury): Plan: Patient with recent admission for CHRISTAL secondary to ATN on CKD. Patient's baseline Cr was 1.5-1.6 prior to this recent episode of ATN. He peaked at a Cr in the 7's. Cr at hospital discharge was 3.6 on 09/11/23. Presented this admission with Cr 3.3 but creatinine has jaime steadily since then. Cr now 4.9 today. Multiple factors likely at play -- pre-renal factors, COVID-19 infection, ?high uric acid levels?, etc. Urine sodium, urine Cr noted; FeNa 2%. Recent TD, ANCA, C4, C3, etc all returned negative from the prior hospitalization. Appreciate formal nephrology consult by Dr Isbell. He is concerned about urate nephropathy vs IgA nephropathy 2nd to COVID infection vs other. He changed fluids to bicarbonate infusion & increase prednisone to 60mg/day. Daily BMP. (2) COVID-19: Plan: Day #4 or 5 of illness. No evidence of lower respiratory tract disease on cxr. O2 sats wnl. LFTs stable. CPK wnl. Stable. Defer on dexamethasone at this time. Defer on Remdesivir IV. Cont airborne isolation, supportive care, etc. (3) Right knee pain: Plan: advanced OA, multiple ligamentous tears (as seen on previous MRI), and gouty arthritis all to blame s/p arthrocentesis this admission cell counts noted (mid-range WBC count) +crystal analysis with gout crystals culture sent -- remains negative for gouty component - and in light of the fact we cannot use NSAIDs - continue prednisone would keep on steroids for a few weeks to calm down his severe gout of the knees which has been bothering him for weeks/months alternatively ortho could provide intra-articular steroid injection to the right knee see "gout" below (4) Gout: Plan: known diagnosis multiple flares last few months b/l knee pain during the previous admission presumed 2nd to gouty arthritis s/p steroid course uric acid levels have been >10 of late started on renally-dosed allopurinol 50mg twice weekly during recent hospitalization s/p arthrocentesis of right knee by orthopedics - appreciate their assistance crystal analysis + for gout crystals cell counts noted culture pending but thus far negative cont oxy 10mg prn for pain relief but he really won't have significant imp rovement without steroids or anti-inflammatories latter not a good option given ARF/CHRISTAL cont steroids (5) Hematuria: Plan: Patient with recent ESBL E.coli UTI during prior hospital stay. Treated with Ertapenem x 7d with resolution of symptoms. Patient reports ongoing gross hematuria. CT a/p findings noted. See "UTI" below. PSA wnl. blood cx's negative. urine cx with staph species, [id number] CFU - see below. (6) Acute UTI (urinary tract infection): Plan: Rx for ESBL e.coli during previous hospitalization had 2 urine cx's since admission - first is negative, 2nd grew coag neg staph stop ertapenem cont IV daptomycin - change to q48h dosing due to renal function PSA noted to be quite low making prostatitis unlikely (7) Diarrhea: Plan: Patient reports diarrhea chronically With recent broad spectrum abx check a c diff Some of the diarrhea could be from the COVID itself now he is reporting feeling constipated monitor (8) Chronic kidney disease: Plan: Patient with recent admission for CHRISTAL secondary to ATN on CKD. Patient's baseline Cr was 1.5-1.6 prior to his episode of ATN. Cr at discharge 3.6 on 09/11/23. Continues with CHRISTAL - see #1 above (9) Morbid obesity: Plan: BMI 43 (10) ROBERT (obstructive sleep apnea): Plan: CPAP 11cm H20 Plan DVT Proph - if H/H stay stable add chemical DVT proph - at high risk of VTE in light of poor mobility, recurrent admits, obesity, COVID + status, etc updated pt's sister Luna by phone yesterday evening extensive update given PT, OT ordered Admission and Anticipated Discharge Date Admission Date: September 13, 2023 Subjective patient reports feeling modestly better today no fevers or chills eating remains poor however denies dyspnea right knee still quite bothersome & painful but is weight-bearing better than at admission no new complaints discouraged by the kidney issues continues with gross hematuria tele overnight wnl Review of Systems Review of Systems: cv - no chest pain pulm - no dyspnea GI - no abd pain; still no BM Physical Exam Physical Exam: gen - looks better today; laying in bed comfortably; obese mouth - MMM neck - no JVD heart - RRR, s1 s2, no murmur lungs - CTA b/l, no wheezes or rales abd - soft NT ND BS+ ext - right knee with mild effusion but not warm to touch and minimal tenderness to palpation today; left knee with minimal effusion, no warmth, no tenderness with palpation; pulses b/l feet 2+; no ankle edema b/l psych - a/o x 3 Results & Data Results & Data Vital Signs (Past 12 Hours) Vital Signs Temp Pulse Pulse Pulse Resp BP Pulse Ox 09/16/23 19:28 36.7 C 93 H 16 110/73 96 09/16/23 15:40 36.8 C 72 18 119/75 96 09/16/23 14:00 73 09/16/23 12:22 36.9 C 84 18 112/65 91 09/16/23 08:40 09/16/23 08:27 36.8 C 78 18 122/75 96 O2 Del Method 09/16/23 19:28 Room Air 09/16/23 15:40 Room Air 09/16/23 14:00 09/16/23 12:22 Room Air 09/16/23 08:40 Room Air 09/16/23 08:27 Room Air Laboratory Results Laboratory Results - last 24 hr 09/16/23 09/16/23 09/16/23 05:56 07:37 07:37 WBC 24.67 H RBC 2.75 L Hgb 9.3 L Hct 28.2 L MCV 102.5 H MCH 33.8 MCHC 33.0 RDW Std Deviation 50.8 H RDW Coeff of Santos 13.4 Plt Count 246 MPV 9.5 Peripher Smr Path Cons Cancelled Sodium 136 Potassium 4.7 Chloride 105 Carbon Dioxide 20 L Anion Gap 11 BUN 62 H Creatinine 4.94 H* Est Cr Clr Drug Dosing 28.1 Est GFR ( Amer) 13.8 Est GFR (Non-Af Amer) 11.9 BUN/Creatinine Ratio 12.6 Glucose 91 Uric Acid 9.6 H Calcium 8.7 AST 23 ALT 20 C-Reactive Protein 26.47 H Ur Random Creatinine 83.9 Ur Random Sodium 47 Diagnostic Findings Microbiology 09/14/23 Unknown Knee,Right Gram Stain - Final 09/14/23 Unknown Knee,Right Aerobic and Anaerobic Culture - Preliminary No growth to date. 09/14/23 02:30 Urine,Clean Catch Urine Culture - Final No growth - less than 1,000 colonies/mL. 09/13/23 Unknown Urine,Straight Cath Urine Culture - Final Coag negative Staphylococcus 09/13/23 19:54 Blood Aerobic Blood Culture - Preliminary No growth in Aerobic bottle after 48 hours. 09/13/23 19:54 Blood Anaerobic Blood Culture - Preliminary No growth in Anaerobic bottle after 48 hours. 09/13/23 18:40 Blood Aerobic Blood Culture - Preliminary No growth in Aerobic bottle after 48 hours. 09/13/23 18:40 Blood Anaerobic Blood Culture - Preliminary No growth in Anaerobic bottle after 48 hours. PG Care Time/CCT Total # of Minutes Spent Total Time Spent with Patient: Total time spent is greater than 50% in coordination of care (as documented) at patient's floor/unit and/or counseling patient: Coding Level of Care Code 75603 SUB INP/OBS CARE 2MIN Diagnoses CHRISTAL (acute kidney injury) N17.9 COVID-19 U07.1 Right knee pain M25.561 Gout M10.361 Chronicity: acute Gout etiology: due to renal impairment Gout site: knee Laterality: right Hematuria R31.0 Hematuria type: gross Acute UTI (urinary tract infection) N39.0 Diarrhea R19.7 Chronic kidney disease N18.9 Morbid obesity E66.01 ROBERT (obstructive sleep apnea) G47.33 (4) Gout Chronicity: acute Gout etiology: due to renal impairment Gout site: knee Laterality: right Qualified Code(s): M10.361 - Gout due to renal impairment, right knee (5) Hematuria Hematuria type: gross Qualified Code(s): R31.0 - Gross hematuria
[2023-09-17 07:46] LABS: Hematocrit (blood only) 29.2 % (42.0-52.0); Hemoglobin 9.4 g/dl (14.0-18.0); Mean Corpuscular Hemoglobin 33.5 pg (25.0-34.0); Mean Corpuscular Hgb Conc 32.2 g/dL (32.0-36.0); Mean Corpuscular Volume 103.9 fL (80.0-100.0); Mean Platelet Volume 9.5 fL (9.4-12.4); Platelet Count 260 K/uL (130-400); RDW Coefficient of Variation 13.2 % (11.5-14.5); RDW Standard Deviation 50.4 fL (36.4-46.3); Red Blood Count 2.81 M/uL (4.70-6.10); White Blood Count 23.79 K/ul (4.8-10.8)
[2023-09-17 07:55] LABS: BUN Creatinine Ratio 13.8 (10-20); Calcium 8.9 mg/dl (8.6-10.3); Creatinine Clr Calc Pharmacy 25.9 ml/min; Est GFR (African American) 12.5 ml/min; Est GFR (Non-African American) 10.8 ml/min; Potassium 4.8 mmol/L (3.5-5.1)
[2023-09-17] MEDS: predniSONE 20 MG TAB PO SCH (08:07)
[2023-09-17] MEDS: HEPARIN SOD 5,000 UNIT/0.5 ML VIAL SQ SCH (09:52)
--- NOTE | 2023-09-17 10:06 | Nephrology Progress Note ---
Date of Service September 17, 2023 Assessment & Plan (1) CHRISTAL (acute kidney injury): Plan: Non-oliguric. Creatinine unfortunately continues to rise. Volume status is acceptable. Electrolytes normal. There is no emergent indication for dialysis. Hematuria is clearing. Admitted August 31 with serum creatinine 5.86 mg/dL --> peaked at 7.8 mg/dL. Creatinine improved to 3.5 mg/dL with supportive care, including IVF. CHRISTAL was attributed to ATN from NSAIDS, UTI, possible recently passed kidney stone, and hyperuricemia. Unfortunately, Darian returned to the hospital within 48 hours with rising creatinine (3.5 mg/dL --> 4.5 mg/dL --> 4.95 mg/dL--> 5.36 mg/dL) and gross hematuria. He is +COVID. R knee aspirated demonstrating gout. CT demonstrates the kidneys to be unobstructed. Perinephric stranding noted. Urine demonstrating gross hematuria with WBCs and RBCs. Culture + MRSA being treated with daptomycin. Serologic evaluation for possible GN was negative, including ANCA, TD, and anti GBM. Complement levels normal. Sonja has active urine sediment, notable hyperuricemia, and progressive CHRISTAL. IVF are being provided to encourage urine output. He is being treated with allopurinol dose adjusted for kidney dysfunction. Prednisone 60 mg daily for possible GN such as IgA. Continue IVF as Rx. Document strict I/O's. Continue prednisone 60 mg daily. Darian understands that kidney biopsy may be required for definitive diagnosis but not until UTI us appropriately treated. Repeat a metabolic profile tomorrow AM. Medications are appropriate for kidney dysfunction. (2) Chronic kidney disease: Plan: CKD III with baseline creatinine ~1.6-1.8 mg/dL. (3) Hematuria: Plan: History of gross and microscopic hematuria noted over the past couple of years. History of recurrent UTI. Non-smoker. Ultimately may benefit from urologic evaluation for non-glomerular causes as an outpatient. t/c kidney biopsy if kidney dysfunction continues to progress. (4) Acute UTI (urinary tract infection): Plan: Recently completed treatment with Invanz for + ESBL E. coli. Now urine + MRSA --> tx with daptomycin. CK not elevated. Statin held. (5) COVID-19: (6) Hyperuricemia: Plan: Knee x-ray revealed arthritic changes w/ joint effusion. Aspiration of R knee demonstrated gout. Remains on prednisone. Renally adjusted allopurinol. (7) Gout of right knee due to renal impairment: Admission and Anticipated Discharge Date Admission Date: September 13, 2023 Subjective No acute events overnight. Darian is resting comfortably in bed this morning. Knee pain controlled with pain medications. Urine is clearing - light tea color this AM. No clots. No other urinary complaints. No fevers or chills. Darian denies fluid retention or edema. He is breathing comfortably. Review of Systems Review of Systems: All systems reviewed & are unremarkable except as noted in HPI & below Genitourinary: + hematuria Physical Exam Constitutional: well developed; no acute distress Eyes: + anicteric sclerae; no corneal abnormal ity ENMT: Mouth: no oral mucosal abnormality and oral mucous membranes not dry Neck: normal visual inspection and trachea midline Respiratory: normal respiratory effort Auscultation: lungs clear to auscultation bilaterally Cardiovascular: Rate/Rhythm: regular rate Heart Sounds: normal S1 and normal S2 Extremities: no edema Musculoskeletal: Extremities: no cyanosis and no clubbing Skin: normal turgor; no rashes and no jaundice Neurologic: Motor/Sensory: no tremor and no asterixis Psychiatric: Orientation: alert and oriented x 3 Results & Data Vital Signs (Past 12 Hours) Vital Signs Temp Pulse Pulse Resp BP BP Pulse Ox 09/17/23 08:03 36.8 C 74 16 134/83 95 09/17/23 08:00 09/17/23 07:13 67 09/17/23 04:11 36.5 C 69 20 125/79 95 09/16/23 23:32 36.6 C 65 18 146/82 H 95 09/16/23 22:12 68 09/16/23 22:05 O2 Del Method 09/17/23 08:03 Room Air 09/17/23 08:00 Room Air 09/17/23 07:13 09/17/23 04:11 Room Air 09/16/23 23:32 Room Air 09/16/23 22:12 09/16/23 22:05 Room Air Laboratory Results Laboratory Results - last 24 hr 09/16/23 09/16/23 09/17/23 07:37 07:37 07:15 WBC 23.79 H RBC 2.81 L Hgb 9.4 L Hct 29.2 L MCV 103.9 H MCH 33.5 MCHC 32.2 RDW Std Deviation 50.4 H RDW Coeff of Santos 13.2 Plt Count 260 MPV 9.5 Peripher Smr Path Cons Cancelled Sodium 135 L Potassium 4.8 Chloride 102 Carbon Dioxide 23 Anion Gap 10 BUN 74 H Creatinine 5.36 H* D Est Cr Clr Drug Dosing 25.9 Est GFR ( Amer) 12.5 Est GFR (Non-Af Amer) 10.8 BUN/Creatinine Ratio 13.8 Glucose 142 H Calcium 8.9 PG Care Time/CCT Total # of Minutes Spent Total Time Spent with Patient: Total time spent is greater than 50% in coordination of care (as documented) at patient's floor/unit and/or counseling patient: Coding Level of Care Code 26897 SUB INP/OBS CARE 3/50MIN Diagnoses CHRISTAL (acute kidney injury) N17.9 Chronic kidney disease N18.9 Hematuria R31.0 Hematuria type: gross Acute UTI (urinary tract infection) N39.0 COVID-19 U07.1 Hyperuricemia E79.0 Gout of right knee due to renal impairment M10.361 (3) Hematuria Hematuria type: gross Qualified Code(s): R31.0 - Gross hematuria
[2023-09-17] MEDS: DAPTOmycin 750 MG in SYRINGE 0 ML IV SCH (12:58)
[2023-09-17] MEDS: PLASMA-LYTE A 1,000 ML IV SCH (13:03)
--- NOTE | 2023-09-17 20:06 | Hospitalist Progress Note ---
Date of Service September 17, 2023 Assessment & Plan (1) CHRISTAL (acute kidney injury): Plan: Patient with recent admission for CHRISTAL secondary to ATN on CKD. Patient's baseline Cr was 1.5-1.6 prior to this recent episode of ATN. He peaked at a Cr in the 7's. Cr at hospital discharge was 3.6 on 09/11/23. Presented this admission with Cr 3.3 but creatinine has jaime steadily since then. Cr now 5.3 today. Multiple factors likely at play -- pre-renal factors, COVID-19 infection, ?high uric acid levels, etc. Urine sodium, urine Cr noted; FeNa 2%. Recent TD, ANCA, C4, C3, anti-GBM ab all returned negative from the prior hospitalization. Appreciate formal nephrology consult by Dr Isbell. He is concerned about urate nephropathy vs IgA nephropathy 2nd to COVID infection vs other. Defer fluid management to Dr Isbell. Continue prednisone 60mg/day. Daily BMP. Strict UOP measurements. (2) COVID-19: Plan: Day #5 or 6 of illness. Overall improving. No evidence of lower respiratory tract disease on cxr. O2 sats wnl. LFTs stable. CPK wnl. Defer on dexamethasone and Remdesivir IV. Cont airborne isolation, supportive care, etc. (3) Right knee pain: Plan: advanced OA, multiple ligamentous tears (as seen on previous MRI), and gouty arthritis all contributing s/p arthrocentesis this admission cell counts noted (mid-range WBC count) +crystal analysis with gout crystals culture sent -- remains negative for gouty component - and in light of the fact we cannot use NSAIDs - continue prednisone would keep on steroids for a few weeks to calm down his severe gout of the knees which has been bothering him for weeks/months alternatively ortho could provide intra-articular steroid injection to the right knee see "gout" below (4) Gout: Plan: known diagnosis multiple flares last few months b/l knee pain during the previous admission presumed 2nd to gouty arthritis s/p steroid course uric acid levels have been >10 of late started on renally-dosed allopurinol 50mg twice weekly during recent hospitalization s/p arthrocentesis of right knee by orthopedics - appreciate their assistance crystal analysis + for gout crystals cell counts noted culture pending but thus far negative cont oxy but lower to 5mg prn for pain relief (lower it due to confusion) but he really won't have significant improvement without steroids or anti- inflammatories latter not a good option given ARF/CHRISTAL cont steroids (5) Hematuria: Plan: IMPROVING. Likely 2nd to UTI. Patient with recent ESBL E.coli UTI during prior hospital stay. Treated with Ertapenem x 7d with resolution of symptoms. CT a/p findings noted. See "UTI" below. PSA wnl. blood cx's negative. urine cx with coag neg staph species, 34910 CFU - see below. (6) Acute UTI (urinary tract infection): Plan: Rx for ESBL e.coli during previous hospitalization had 2 urine cx's since admission - first is negative, 2nd grew coag neg staph cont IV daptomycin q48h due to renal function PSA noted to be quite low making prostatitis unlikely (7) Diarrhea: Plan: Patient reports diarrhea chronically While here he has been constipated (8) Chronic kidney disease: Plan: Patient with recent admission for CHRISTAL secondary to ATN on CKD. Patient's baseline Cr was 1.5-1.6 prior to his episode of ATN. Cr at discharge 3.6 on 09/11/23. Continues with CHRISTAL - see #1 above (9) Morbid obesity: Plan: BMI 43 (10) ROBERT (obstructive sleep apnea): Plan: CPAP 11cm H20 (11) Acute encephalopathy: Plan: metabolic + toxic factors metabolic - COVID-19 infection, ARF/CHRISTAL, UTI, etc toxic - pain meds lower oxy dose check ammonia level check VBG increase thiamine to 200mg BID monitor carefully Plan DVT Proph - heparin 5000 BID updated pt's sister Luna by phone again this evening extensive update given PT, OT nata requested Admission and Anticipated Discharge Date Admission Date: September 13, 2023 Subjective tele stable overnight knee pain on right improved he feels "confused", seeing things in the room (people, etc) appetite remains very poor no dyspnea cough just about resolved no abd pain or N/V still has not moved bowels Review of Systems Review of Systems: gen - no fevers or chills; weak cv - no cp, no orthopnea pulm - no dyspnea GI - no diarrhea Physical Exam Physical Exam: gen - modestly confused, NAD, laying in bed comfortably; obese mouth - MMM neck - no JVD heart - RRR, s1 s2, no murmur lungs - CTA b/l, no wheezes or rales abd - soft NT ND BS+ ext - right knee with no tenderness to palpation; mild effusion on right; no warmth; left knee with no effusion, no warmth, no tenderness with palpation; pulses b/l feet 2+; no ankle edema b/l psych - awake, alert but a little confused neuro - no asterixis Results & Data Results & Data Vital Signs (Past 12 Hours) Vital Signs Temp Pulse Pulse Resp BP BP Pulse Ox 09/17/23 15:58 36.6 C 71 18 134/89 94 09/17/23 14:53 74 09/17/23 12:26 37.1 C 68 20 131/84 95 O2 Del Method 09/17/23 15:58 Room Air 09/17/23 14:53 09/17/23 12:26 Room Air Laboratory Results Laboratory Results - last 24 hr 09/17/23 07:15 WBC 23.79 H RBC 2.81 L Hgb 9.4 L Hct 29.2 L MCV 103.9 H MCH 33.5 MCHC 32.2 RDW Std Deviation 50.4 H RDW Coeff of Santos 13.2 Plt Count 260 MPV 9.5 Sodium 135 L Potassium 4.8 Chloride 102 Carbon Dioxide 23 Anion Gap 10 BUN 74 H Creatinine 5.36 H* D Est Cr Clr Drug Dosing 25.9 Est GFR ( Amer) 12.5 Est GFR (Non-Af Amer) 10.8 BUN/Creatinine Ratio 13.8 Glucose 142 H Calcium 8.9 PG Care Time/CCT Total # of Minutes Spent Total Time Spent with Patient: Total time spent is greater than 50% in coordination of care (as documented) at patient's floor/unit and/or counseling patient: Coding Level of Care Code 05191 SUB INP/OBS CARE 3/50MIN Diagnoses CHRISTAL (acute kidney injury) N17.9 COVID-19 U07.1 Right knee pain M25.561 Gout M10.361 Chronicity: acute Gout etiology: due to renal impairment Gout site: knee Laterality: right Hematuria R31.0 Hematuria type: gross Acute UTI (urinary tract infection) N39.0 Diarrhea R19.7 Chronic kidney disease N18.9 Morbid obesity E66.01 ROBERT (obstructive sleep apnea) G47.33 Acute encephalopathy G93.40 (4) Gout Chronicity: acute Gout etiology: due to renal impairment Gout site: knee Laterality: right Qualified Code(s): M10.361 - Gout due to renal impairment, right knee (5) Hematuria Hematuria type: gross Qualified Code(s): R31.0 - Gross hematuria
[2023-09-17] MEDS: ACETAMINOPHEN 500 MG TAB PO SCH (20:53)
[2023-09-17] MEDS: MELATONIN 3 MG TAB PO SCH (20:56)
[2023-09-17] MEDS: THIAMINE HCL 100 MG TAB PO SCH (20:56)
[2023-09-17] MEDS: oxyCODONE HCL IR 5 MG TAB (IMMEDIATE RELEASE) PO PRN (22:45)
[2023-09-18 07:48] LABS: Base Excess VBG -4.4 mEq/L; HCO3 VBG 22 mmol/L; Oxygen Saturation VBG < 60.0 %; PCO2 VBG 43 mmHg (38-50); PO2 VBG 25 mmHg; pH VBG 7.31 (7.36-7.41)
[2023-09-18 08:13] LABS: Albumin Level 3.1 gm/dl (3.4-5.0); BUN Creatinine Ratio 14.3 (10-20); Bilirubin Direct 0.4 mg/dl (0-0.2); Bilirubin,Total 0.9 mg/dl (0.2-1.0); Calcium 8.8 mg/dl (8.6-10.3); Creatinine Clr Calc Pharmacy 27.3 ml/min; Est GFR (African American) 12.8 ml/min; Potassium 4.6 mmol/L (3.5-5.1); Total Protein 6.4 gm/dl (6.0-8.3)
--- NOTE | 2023-09-18 11:48 | Nephrology Progress Note ---
Date of Service September 18, 2023 Assessment & Plan (1) CHRISTAL (acute kidney injury): Plan: Creatinine appears to be starting to plateau/improve. Volume status is acceptable. Electrolytes normal. I discussed the plan of care with Dr. Goddard this morning. Admitted August 31 with serum creatinine 5.86 mg/dL --> peaked at 7.8 mg/dL. Creatinine improved to 3.5 mg/dL with supportive care. CHRISTAL was attributed to NSAIDS, UTI, possible recently passed kidney stone, and hyperuricemia. Unfortunately, Darian returned to the hospital within 48 hours with rising creatinine (3.5 mg/dL --> 4.5 mg/dL --> 4.95 mg/dL--> 5.36 mg/dL) and gross hematuria. He is +COVID. R knee aspirated demonstrating gout. Creatinine slightly improved to 5.25 mg/dL this AM. The kidneys are unobstructed on CT. Perinephric stranding noted. Urine demonstrating gross hematuria with WBCs and RBCs. Culture + MRSA being treated with daptomycin. Serologic evaluation for possible GN was negative, including ANCA, TD, and anti GBM. Complement levels normal. Sonja has active urine sediment, as well as notable hyperuricemia, and progressive CHRISTAL. IVF are being provided to encourage urine output. He is being treated with allopurinol dose adjusted for kidney dysfunction. Prednisone 60 mg daily for possible GN, such as IgA. Continue IVF as Rx. Document strict I/O's. Continue prednisone 60 mg daily. Darian understands that kidney biopsy may be required for definitive diagnosis but not until UTI has been completely treated. Repeat serum metabolic profile tomorrow AM. Medications are appropriate for kidney dysfunction. (2) Chronic kidney disease: Plan: CKD III with baseline creatinine ~1.6-1.8 mg/dL. (3) Hematuria: Plan: History of gross and microscopic hematuria noted over the past couple of years. History of recurrent UTI. Non-smoker. Ultimately may benefit from urologic evaluation for non-glomerular causes as an outpatient. t/c kidney biopsy if kidney dysfunction continues to progress. (4) Acute UTI (urinary tract infection): Plan: Recently completed treatment with Invanz for + ESBL E. coli. Now urine + MRSA --> tx with daptomycin. CK not elevated. Statin held. (5) COVID-19: (6) Hyperuricemia: Plan: Knee x-ray revealed arthritic changes w/ joint effusion. Aspiration of R knee demonstrated gout. Remains on prednisone. Renally adjusted allopurinol. (7) Gout of right knee due to renal impairment: Admission and Anticipated Discharge Date Admission Date: September 13, 2023 Subjective No acute events overnight. Knee pain reasonably controlled with pain medications. No fevers or chills. Tolerating IVF well. Relieved to be able to move his bowels this morning. Denies shortness of breath. Urine remains slightly tea colored but without clots. Review of Systems Review of Systems: All systems reviewed & are unremarkable except as noted in HPI & below Physical Exam Constitutional: well developed; no acute distress Eyes: + anicteric sclerae; no corneal abnormal ity ENMT: Mouth: no oral mucosal abnormality and oral mucous membranes not dry Neck: normal visual inspection and trachea midline Respiratory: normal respiratory effort Auscultation: lungs clear to auscultation bilaterally Cardiovascular: Rate/Rhythm: regular rate Heart Sounds: normal S1 and normal S2 Extremities: no edema Musculoskeletal: Extremities: no cyanosis and no clubbing Skin: normal turgor; no rashes and no jaundice Neurologic: Motor/Sensory: no tremor and no asterixis Psychiatric: Orientation: alert and oriented x 3 Results & Data Vital Signs (Past 12 Hours) Vital Signs Temp Pulse Pulse Resp BP BP Pulse Ox 09/18/23 11:36 91 H 94 09/18/23 11:17 37.2 C 96 H 18 105/64 93 09/18/23 07:18 09/18/23 07:17 36.5 C 106 H 16 127/88 98 09/18/23 06:52 80 09/18/23 03:56 36.6 C 84 18 122/80 93 O2 Del Method 09/18/23 11:36 Room Air 09/18/23 11:17 Room Air 09/18/23 07:18 Room Air 09/18/23 07:17 Room Air 09/18/23 06:52 09/18/23 03:56 Room Air Laboratory Results Laboratory Results - last 24 hr 09/18/23 07:37 VBG pH 7.31 L VBG pCO2 43 VBG pO2 25 VBG HCO3 22 VBG O2 Saturation < 60.0 VBG Base Excess -4.4 Sodium 135 L Potassium 4.6 Chloride 100 Carbon Dioxide 23 Anion Gap 12 H BUN 75 H Creatinine 5.25 H* Est Cr Clr Drug Dosing 27.3 Est GFR ( Amer) 12.8 Est GFR (Non-Af Amer) 11.0 BUN/Creatinine Ratio 14.3 Glucose 110 H Calcium 8.8 Total Bilirubin 0.9 Direct Bilirubin 0.4 H AST 29 ALT 23 Alkaline Phosphatase 240 H Ammonia 17.0 L Total Protein 6.4 Albumin 3.1 L PG Care Time/CCT Total # of Minutes Spent Total Time Spent with Patient: Total time spent is greater than 50% in coordination of care (as documented) at patient's floor/unit and/or counseling patient: Coding Level of Care Code 56739 SUB INP/OBS CARE 3/50MIN Diagnoses CHRISTAL (acute kidney injury) N17.9 Chronic kidney disease N18.9 Hematuria R31.0 Hematuria type: gross Acute UTI (urinary tract infection) N39.0 COVID-19 U07.1 Hyperuricemia E79.0 Gout of right knee due to renal impairment M10.361 (3) Hematuria Hematuria type: gross Qualified Code(s): R31.0 - Gross hematuria
[2023-09-18] MEDS: PANTOprazole 40 MG TAB PO SCH (12:59)
--- NOTE | 2023-09-19 04:03 | Hospitalist Progress Note ---
Date of Service September 18, 2023 Assessment & Plan (1) CHRISTAL (acute kidney injury): Plan: Patient with recent admission for CHRISTAL secondary to ATN on CKD. Patient's baseline Cr was 1.5-1.6 prior to this recent episode of ATN. He peaked at a Cr in the 7's. Cr at hospital discharge was 3.6 on 09/11/23. Presented this admission with Cr 3.3 but creatinine has jaime steadily since then. Creatinine yesterday was 5.3; today 5.2; perhaps the creatinine is leveling off and there will start to be renal recover. UOP overnight was robust so hopefully CHRISTAL is beginning to improve. Multiple factors likely at play -- pre-renal factors, COVID-19 infection, ?high uric acid levels, etc. Urine sodium, urine Cr noted; FeNa 2%. Recent TD, ANCA, C4, C3, anti-GBM ab all returned negative from the prior hospitalization. Appreciate formal nephrology consult by Dr Isbell. He is concerned about urate nephropathy vs IgA nephropathy 2nd to COVID infection vs other. Defer fluid management to Dr Isbell. Continue prednisone 60mg/day. Daily BMP. Strict UOP measurements. (2) COVID-19: Plan: Day #6 or 7 of illness. Overall improving. No evidence of lower respiratory tract disease on cxr. O2 sats wnl the entire stay. LFTs stable. CPK wnl. Dexamethasone and Remdesivir both deferred during this admission. Cont airborne isolation, supportive care, etc. (3) Right knee pain: Plan: advanced OA, multiple ligamentous tears (as seen on previous MRI), and gouty arthritis all contributing s/p arthrocentesis this admission cell counts noted (mid-range WBC count) +crystal analysis with gout crystals culture sent -- remains negative for gouty component - and in light of the fact we cannot use NSAIDs - continue prednisone would keep on steroids for a few weeks to calm down his severe gout of the knees which has been bothering him for weeks/months alternatively ortho could provide intra-articular steroid injection to the right knee see "gout" below (4) Gout: Plan: known diagnosis multiple flares last few months b/l knee pain during the previous admission presumed 2nd to gouty arthritis s/p steroid course uric acid levels have been >10 of late started on renally-dosed allopurinol 50mg twice weekly during recent hospitalization s/p arthrocentesis of right knee by orthopedics - appreciate their assistance crystal analysis + for gout crystals cell counts noted culture pending but thus far negative cont oxy but lower to 5mg prn for pain relief (lower it due to confusion) but he really won't have significant improvement without steroids or anti- inflammatories latter not a good option given ARF/CHRISTAL cont steroids (5) Hematuria: Plan: IMPROVING/RESOLVING. Likely 2nd to UTI. Patient with recent ESBL E.coli UTI during prior hospital stay. Treated with Ertapenem x 7d with resolution of symptoms. CT a/p findings noted. See "UTI" below. PSA wnl. blood cx's negative. urine cx with coag neg staph species, 16648 CFU - see below. (6) Acute UTI (urinary tract infection): Plan: Rx for ESBL e.coli during previous hospitalization had 2 urine cx's since admission - first is negative, 2nd grew coag neg staph cont IV daptomycin q48h due to renal function ; today is day #4 of Rx PSA noted to be quite low making prostatitis unlikely (7) Diarrhea: Plan: Patient reports diarrhea chronically While here he has been constipated Finally moved bowels today - stools are normal now (8) Chronic kidney disease: Plan: Patient with recent admission for CHRISTAL secondary to ATN on CKD. Patient's baseline Cr was 1.5-1.6 prior to his episode of ATN. Cr at discharge 3.6 on 09/11/23. Continues with CHRISTAL - see #1 above (9) Morbid obesity: Plan: BMI 43 (10) ROBERT (obstructive sleep apnea): Plan: CPAP 11cm H20 (11) Acute encephalopathy: Plan: metabolic + toxic factors metabolic - COVID-19 infection, ARF/CHRISTAL, UTI, etc toxic - pain meds lowered oxy dose ammonia level wnl VBG without hypercapnia increased thiamine to 200mg BID monitor carefully consider MRI brain if needed Plan DVT Proph - heparin 5000 BID updated pt's sister Luna by [employer] today spoke with her yesterday by phone PT, OT when able Admission and Anticipated Discharge Date Admission Date: September 13, 2023 Subjective patient resting comfortably in bed continues with mild confusion albeit intermittent appetite still very poor made excellent urine overnight/today - over 2000ml+ right knee pain is about the same cough just about resolved fatigue improved - is able to get up and move around the room albeit with some limitation due to R knee pain Review of Systems Review of Systems: gen - no fevers or chills gu - hematuria improved gi - finally had 2 bowel movements pulm - no dyspnea CV - no chest pain or orthopnea Physical Exam Physical Exam: gen - NAD, laying in bed comfortably; obese mouth - MMM neck - no JVD heart - RRR, s1 s2, no murmur lungs - CTA b/l, no wheezes or rales abd - soft NT ND BS+ ext - right knee exam unchanged; nontender with palpation; b/l feet 2+ pulses; t race edema b/l feet psych - a/o x 3 today despite his complaints of mild confusion Results & Data Results & Data Vital Signs (Past 12 Hours) Vital Signs Temp Pulse Pulse Resp BP BP Pulse Ox 09/18/23 15:56 37.0 C 69 18 104/67 97 09/18/23 14:06 76 09/18/23 11:36 91 H 94 09/18/23 11:17 37.2 C 96 H 18 105/64 93 09/18/23 07:18 09/18/23 07:17 36.5 C 106 H 16 127/88 98 09/18/23 06:52 80 Laboratory Results Laboratory Results - last 24 hr 09/18/23 07:37 VBG pH 7.31 L VBG pCO2 43 VBG pO2 25 VBG HCO3 22 VBG O2 Saturation < 60.0 VBG Base Excess -4.4 Sodium 135 L Potassium 4.6 Chloride 100 Carbon Dioxide 23 Anion Gap 12 H BUN 75 H Creatinine 5.25 H* Est Cr Clr Drug Dosing 27.3 Est GFR ( Amer) 12.8 Est GFR (Non-Af Amer) 11.0 BUN/Creatinine Ratio 14.3 Glucose 110 H Calcium 8.8 Total Bilirubin 0.9 Direct Bilirubin 0.4 H AST 29 ALT 23 Alkaline Phosphatase 240 H Ammonia 17.0 L Total Protein 6.4 Albumin 3.1 L PG Care Time/CCT Total # of Minutes Spent Total Time Spent with Patient: Total time spent is greater than 50% in coordination of care (as documented) at patient's floor/unit and/or counseling patient: Coding Level of Care Code 35908 SUB INP/OBS CARE 2/35MIN Diagnoses CHRISTAL (acute kidney injury) N17.9 COVID-19 U07.1 Right knee pain M25.561 Gout M10.361 Chronicity: acute Gout etiology: due to renal impairment Gout site: knee Laterality: right Hematuria R31.0 Hematuria type: gross Acute UTI (urinary tract infection) N39.0 Diarrhea R19.7 Chronic kidney disease N18.9 Morbid obesity E66.01 ROBERT (obstructive sleep apnea) G47.33 Acute encephalopathy G93.40 (4) Gout Chronicity: acute Gout etiology: due to renal impairment Gout site: knee Laterality: right Qualified Code(s): M10.361 - Gout due to renal impairment, right knee (5) Hematuria Hematuria type: gross Qualified Code(s): R31.0 - Gross hematuria
[2023-09-19 07:39] LABS: Calcium 8.5 mg/dl (8.6-10.3); Potassium 5.1 mmol/L (3.5-5.1)
[2023-09-19 07:46] LABS: BUN Creatinine Ratio 15.3 (10-20); C Reactive Protein 19.15 mg/dl (0-0.5); Creatinine Clr Calc Pharmacy 27.6 ml/min; Est GFR (African American) 12.9 ml/min; Est GFR (Non-African American) 11.1 ml/min
--- NOTE | 2023-09-19 08:36 | Nephrology Progress Note ---
Date of Service September 19, 2023 Assessment & Plan (1) CHRISTAL (acute kidney injury): Plan: * Kidney function has been stable last 24 hours w/ Cr 5.2 * Patient is nonoliguric. UO 2600 cc last 24 hours * Electrolyte balance is acceptable. No acute indication for HD * FeNa 0.2%. Continue gentle hydration w/ IV Plasmalyte * 09/13/[address] - no hydronephrosis * 09/04/23 GN evaluation including ANCA, TD, C3/C4 and anti GBM were normal * On empiric Prednisone therapy (Day #3 60 mg dose). Will taper to 40 mg starting tomorrow * Monitor PRP (2) Chronic kidney disease: Plan: * CKD stage G3a (moderate impairment). Baseline creatinine has been 1.6-1.8 w/ EGFR 45 cc/min dating back to 01/17. 09/[address] did reveal mild cortical thinning. Renal impairment is likely on the basis of microvascular disease (3) Hematuria: Plan: * History of gross and microscopic hematuria noted over the last 2 years * History of recurrent UTI. Non-smoker * Ultimately may benefit from urologic evaluation for non-glomerular causes as an outpatient * Consider kidney biopsy if kidney dysfunction continues to progress (4) Acute UTI (urinary tract infection): Plan: * Recently completed treatment with Invanz for + ESBL E. coli. * Now urine + MRSA --> tx with daptomycin (5) COVID-19: (6) Hyperuricemia: Plan: * Knee x-ray revealed arthritic changes w/ joint effusion * Aspiration of R knee 09/14/23 demonstrated gout * Remains on prednisone and renally adjusted allopurinol * Will ask pharmacy to obtain Febuxostat (non-formulary) to try and reduce serum uric acid further in the setting of CHRISTAL/CKD Admission and Anticipated Discharge Date Admission Date: September 13, 2023 Subjective Mr. Murphy was evaluated in his hospital room this morning. He reports that he slept poorly. He is tolerating IV hydration and steroid therapy without complication. Review of Systems Constitutional: no fever Eyes: no problem reported Ear, Nose, Mouth, Throat: no problem reported Respiratory: no cough and no dyspnea Cardiovascular: no chest pain Gastrointestinal: no abdominal pain, no nausea, no vomiting and no diarrhea/loose stools Genitourinary: + hematuria Integumentary: no rash Neurologic: no problem reported Physical Exam Constitutional: + morbidly obese and + disheveled; not i n distress Eyes: PERRL, conjunctivae normal, anicteric sclerae ENMT: external ear and nose normal, oropharynx normal Neck: trachea midline, no thyromegaly Respiratory: Auscultation: lungs clear to auscultation bilaterally Gastrointestinal (Abdomen): normal bowel sounds, soft, nontender, no hepatosplenomegaly Skin: no rashes, warm and dry Neurologic: Speech / Cognition: normal speech and normal cognition Results & Data Vital Signs (Past 12 Hours) Vital Signs Temp Pulse Pulse Resp BP BP Pulse Ox 09/19/23 07:29 37.0 C 97 H 18 118/76 96 09/19/23 04:18 36.7 C 74 20 105/61 96 09/18/23 23:31 36.9 C 70 20 124/75 95 09/18/23 22:23 68 18 94 09/18/23 22:10 68 O2 Del Method FiO2 09/19/23 07:29 Room Air 09/19/23 04:18 CPAP 09/18/23 23:31 CPAP 09/18/23 22:23 21 09/18/23 22:10 Laboratory Results Laboratory Results - last 24 hr 09/19/23 07:09 WBC Pending RBC Pending Hgb Pending Hct Pending MCV Pending MCH Pending MCHC Pending Plt Count Pending Sodium 134 L Potassium 5.1 Chloride 101 Carbon Dioxide 22 Anion Gap 11 BUN 80 H Creatinine 5.22 H* Est Cr Clr Drug Dosing 27.6 Est GFR ( Amer) 12.9 Est GFR (Non-Af Amer) 11.1 BUN/Creatinine Ratio 15.3 Glucose 99 Calcium 8.5 L C-Reactive Protein 19.15 H PG Care Time/CCT Total # of Minutes Spent Total Time Spent with Patient: Total time spent is greater than 50% in coordination of care (as documented) at patient's floor/unit and/or counseling patient: Coding Level of Care Code 22155 SUB INP/OBS CARE 3/50MIN Diagnoses CHRISTAL (acute kidney injury) N17.9 Chronic kidney disease N18.9 Hematuria R31.0 Hematuria type: gross Acute UTI (urinary tract infection) N39.0 COVID-19 U07.1 Hyperuricemia E79.0 (3) Hematuria Hematuria type: gross Qualified Code(s): R31.0 - Gross hematuria
[2023-09-19 09:35] LABS: Hematocrit (blood only) 30.9 % (42.0-52.0); Hemoglobin 10.2 g/dl (14.0-18.0); Mean Corpuscular Hemoglobin 34.5 pg (25.0-34.0); Mean Corpuscular Volume 104.4 fL (80.0-100.0); Mean Platelet Volume 10.4 fL (9.4-12.4); Platelet Count 232 K/uL (130-400); RDW Coefficient of Variation 13.5 % (11.5-14.5); RDW Standard Deviation 51.8 fL (36.4-46.3); Red Blood Count 2.96 M/uL (4.70-6.10); White Blood Count 14.03 K/ul (4.8-10.8)
--- NOTE | 2023-09-19 18:19 | Hospitalist Progress Note ---
Date of Service September 19, 2023 Assessment & Plan (1) CHRISTAL (acute kidney injury): Plan: Patient with recent admission for CHRISTAL secondary to ATN on CKD. Patient's baseline Cr was 1.5-1.6 prior to this recent episode of ATN. He peaked at a Cr in the 7's. Cr at hospital discharge was 3.6 on 09/11/23. Presented this admission with Cr 3.3 but creatinine jaime steadily since then. Creatinine peak this admission 5.3. Today 5.2. He remains non-oliguric. Multiple factors likely at play -- pre-renal factors, COVID-19 infection, ?high uric acid levels, etc. Urine sodium, urine Cr noted; FeNa 2%. Recent DT, ANCA, C4, C3, anti-GBM ab all returned negative from the prior hospitalization. Appreciate nephrology assistance. Differential -- Urate nephropathy vs IgA nephropathy 2nd to COVID infection vs other suspected. Defer fluid management to nephrology. Continue prednisone 60mg/day; defer wean to nephrology. Daily BMP. Strict UOP measurements. There has been some discussion about obtaining a kidney bx if there is no improvement or worsening. This would need to be done either at [facility] access hospital, [facility] [place] or [facility] [place]. Defer that decision to nephrology. Of note - weight today noted at 183kg. Early August he was about 170kg. I am concerned about his fluid weight gain despite stable O2 sats. Consider stopping fluids given lack of change in creatinine with such the last 48 hours. (2) COVID-19: Plan: Day #7-8 of illness. Overall improving/resolving. No evidence of lower respiratory tract disease on cxr. O2 sats wnl the entire stay. LFTs stable. CPK wnl. Dexamethasone and Remdesivir both deferred during this admission. Cont airborne isolation, supportive care, etc. (3) Right knee pain: Plan: advanced OA, multiple ligamentous tears (as seen on previous MRI), and gouty arthritis all contributing s/p arthrocentesis this admission cell counts noted (mid-range WBC count) +crystal analysis with gout crystals culture negative (and final) for gouty component - and in light of the fact we cannot use NSAIDs - continue prednisone would keep on steroids for a few weeks to calm down his severe gout of the knees which has been bothering him for weeks/months he would only need about 5-10mg/day for such alternatively ortho could provide intra-articular steroid injection to the right knee see "gout" below (4) Gout: Plan: known diagnosis multiple flares last few months b/l knee pain during the previous admission presumed 2nd to gouty arthritis s/p steroid course uric acid levels have been >10 of late started on renally-dosed allopurinol 50mg twice weekly during recent hospitalization s/p arthrocentesis of right knee by orthopedics - appreciate their assistance crystal analysis + for gout crystals cell counts noted culture negative cont oxy 5mg prn for pain relief (lowered it due to confusion) but he really won't have significant improvement without steroids cont the steroids (being used for his CHRISTAL as well) (5) Hematuria: Plan: IMPROVING/RESOLVING. Likely 2nd to UTI. Patient with recent ESBL E.coli UTI during prior hospital stay. Treated with Ertapenem x 7d with resolution of symptoms. CT a/p findings noted. See "UTI" below. PSA wnl. blood cx's negative. urine cx with coag neg staph species, 03144 CFU - see below. (6) Acute UTI (urinary tract infection): Plan: Rx for ESBL e.coli during previous hospitalization had 2 urine cx's since admission - first is negative, 2nd grew coag neg staph cont IV daptomycin q48h due to renal function ; today is day #5 of Rx PSA noted to be quite low making prostatitis unlikely (7) Diarrhea: Plan: Patient reports diarrhea chronically While here he has been constipated Finally moved bowels yesterday - stools are normal now (8) Chronic kidney disease: Plan: Patient with recent admission for CHRISTAL secondary to ATN on CKD. Patient's baseline Cr was 1.5-1.6 prior to his episode of ATN. Cr at discharge 3.6 on 09/11/23. Continues with CHRISTAL - see #1 above (9) Morbid obesity: Plan: BMI 43 (10) ROBERT (obstructive sleep apnea): Plan: CPAP 11cm H20 (11) Acute encephalopathy: Plan: metabolic + toxic factors metabolic - COVID-19 infection, ARF/CHRISTAL, UTI, etc toxic - pain meds lowered oxy dose ammonia level wnl VBG without hypercapnia increased thiamine to 200mg BID still with c/o confusion & hallucinations --- and insomnia start zyprexa 2.5mg HS recent QTc on EKG wnl consider MRI brain if needed (12) Abdominal pain: Plan: 2nd gastritis?? he reports abd pain within 1-2 minutes of drinking/eating this would not be c/w biliary cause of pain gastric cause likely had severe gastritis on EGD in fall 2022 cont PPI add carafate 1gm QID pepcid 20mg IV x 1 re-eval tomorrow CT a/p at time of this admission without liver, gall bladder or pancreatic abnormalities Plan DVT Proph - heparin 5000 BID updated pt's sister Luna by [employer] again today spoke with her by phone this past weekend PT, OT when able Admission and Anticipated Discharge Date Admission Date: September 13, 2023 Subjective pt continues to sleep poorly may fall asleep for 1-2 hours then is up the rest of the night taking naps during the day he continues to "hallucinate" seeing people in the room having conversations with "people who aren't there" "I thought my sister was sitting in the room today" he continues with brain fog and feeling spacey he does admit that his b/l knee pain is much improved he states appetite remains poor but one of his containers that had his meal was nearly empty tele stable Review of Systems Review of Systems: gen - no fevers, no chills; weakness continues cv - no chest pain, no orthopnea pulm - no dyspnea or MILLS GI - c/o central abdominal pain; he will drink fluids and within a minute or two he will have mid-abdominal pain; does feel similar to 2022 when an EGD showed gastritis Physical Exam Physical Exam: gen - NAD, laying in bed comfortably; obese; a/o x 3 but has some confusion mouth - MMM neck - no JVD heart - RRR, s1 s2, no murmur lungs - CTA b/l, no wheezes or rales abd - soft BS+ ND; tender nicholas-umbilical area and slightly above such; no peritoneal signs ext - right knee exam improved; temperature of right knee is normal -- no further warmth; left knee normal temperature; nontender to palpation b/l knees psych - a/o x 3 but is confused at times; not responding to internal stimulus; no visual hallucinations during my visit Results & Data Results & Data Vital Signs (Past 12 Hours) Vital Signs Temp Pulse Pulse Resp BP Pulse Ox O2 Del Method 09/19/23 15:21 37.1 C 72 18 98/67 L 95 Room Air 09/19/23 14:37 85 09/19/23 11:47 37.1 C 94 H 18 93/62 L 93 Room Air 09/19/23 07:29 37.0 C 97 H 18 118/76 96 Room Air 09/19/23 07:00 85 Laboratory Results Laboratory Results 09/19/23 07:09 WBC 14.03 H RBC 2.96 L Hgb 10.2 L Hct 30.9 L MCV 104.4 H MCH 34.5 H MCHC 33.0 RDW Std Deviation 51.8 H RDW Coeff of Santos 13.5 Plt Count 232 MPV 10.4 Sodium 134 L Potassium 5.1 Chloride 101 Carbon Dioxide 22 Anion Gap 11 BUN 80 H Creatinine 5.22 H* Est Cr Clr Drug Dosing 27.6 Est GFR ( Amer) 12.9 Est GFR (Non-Af Amer) 11.1 BUN/Creatinine Ratio 15.3 Glucose 99 Calcium 8.5 L C-Reactive Protein 19.15 H Diagnostic Findings Microbiology 09/14/23 Unknown Knee,Right Gram Stain - Final 09/14/23 Unknown Knee,Right Aerobic and Anaerobic Culture - Final No growth 09/13/23 19:54 Blood Aerobic Blood Culture - Final No growth in Aerobic bottle after 5 days. 09/13/23 19:54 Blood Anaerobic Blood Culture - Final No growth in Anaerobic bottle after 5 days. 09/13/23 18:40 Blood Aerobic Blood Culture - Final No growth in Aerobic bottle after 5 days. 09/13/23 18:40 Blood Anaerobic Blood Culture - Final No growth in Anaerobic bottle after 5 days. 09/14/23 02:30 Urine,Clean Catch Urine Culture - Final No growth - less than 1,000 colonies/mL. 09/13/23 Unknown Urine,Straight Cath Urine Culture - Final Coag negative Staphylococcus PG Care Time/CCT Total # of Minutes Spent Total Time Spent with Patient: Total time spent is greater than 50% in coordination of care (as documented) at patient's floor/unit and/or counseling patient: Coding Level of Care Code 95076 SUB INP/OBS CARE 3/50MIN Diagnoses CHRISTAL (acute kidney injury) N17.9 COVID-19 U07.1 Right knee pain M25.561 Gout M10.361 Chronicity: acute Gout etiology: due to renal impairment Gout site: knee Laterality: right Hematuria R31.0 Hematuria type: gross Acute UTI (urinary tract infection) N39.0 Diarrhea R19.7 Chronic kidney disease N18.9 Morbid obesity E66.01 ROBERT (obstructive sleep apnea) G47.33 Acute encephalopathy G93.40 Abdominal pain R10.9 (4) Gout Chronicity: acute Gout etiology: due to renal impairment Gout site: knee Laterality: right Qualified Code(s): M10.361 - Gout due to renal impairment, right knee (5) Hematuria Hematuria type: gross Qualified Code(s): R31.0 - Gross hematuria
[2023-09-19] MEDS: SUCRALFATE 1 GM/10 ML UDC PO SCH (19:54)
[2023-09-19] MEDS: FAMOTIDINE 20MG IV PUSH 20 MG/5 ML SYR IV STA (19:54)
[2023-09-19] MEDS: OLANZAPINE 2.5 MG TAB PO SCH (21:24)
[2023-09-20 07:33] LABS: Hematocrit (blood only) 28.8 % (42.0-52.0); Hemoglobin 9.4 g/dl (14.0-18.0); Mean Corpuscular Hemoglobin 33.2 pg (25.0-34.0); Mean Corpuscular Hgb Conc 32.6 g/dL (32.0-36.0); Mean Corpuscular Volume 101.8 fL (80.0-100.0); Mean Platelet Volume 9.3 fL (9.4-12.4); Platelet Count 200 K/uL (130-400); RDW Coefficient of Variation 13.2 % (11.5-14.5); RDW Standard Deviation 49.8 fL (36.4-46.3); Red Blood Count 2.83 M/uL (4.70-6.10); White Blood Count 12.97 K/ul (4.8-10.8)
[2023-09-20 08:01] LABS: Albumin Level 2.7 gm/dl (3.4-5.0); Bilirubin,Total 0.8 mg/dl (0.2-1.0); Calcium 8.4 mg/dl (8.6-10.3); Creatinine Clr Calc Pharmacy 27.4 ml/min; Est GFR (African American) 12.8 ml/min; Globulin 2.8 gm/dl (2.5-4.0); Potassium 4.9 mmol/L (3.5-5.1); Total Protein 5.5 gm/dl (6.0-8.3); Uric Acid 9.4 mg/dl (2.6-7.2)
--- NOTE | 2023-09-20 08:58 | Nephrology Progress Note ---
Date of Service September 20, 2023 Assessment & Plan (1) CHRISTAL (acute kidney injury): Plan: * Kidney function remains stable w/ Cr 5.2 * Patient is nonoliguric. UO 850 cc last 24 hours * Electrolyte balance is acceptable. No acute indication for HD * Stop IVF. Encourage oral hydration * 09/13/[address] - no hydronephrosis * 09/04/23 GN evaluation including ANCA, TD, C3/C4 and anti GBM were normal * Will reduce Prednisone to 40 mg daily * Monitor PRP (2) Chronic kidney disease: Plan: * CKD stage G3a (moderate impairment). Baseline creatinine has been 1.6-1.8 w/ EGFR 45 cc/min dating back to 01/17. 09/[address] did reveal mild cortical thinning. Renal impairment is likely on the basis of microvascular disease (3) Hyperuricemia: Plan: * Knee x-ray revealed arthritic changes w/ joint effusion * Aspiration of R knee 09/14/23 demonstrated gout * Remains on prednisone therapy * Uloric 20 mg daily x1 today, then increase to 40 mg daily * Serum uric acid 9.4. Will monitor (4) Hematuria: Plan: * History of gross and microscopic hematuria noted over the last 2 years * History of recurrent UTI. Non-smoker * Ultimately may benefit from urologic evaluation for non-glomerular causes as an outpatient * Consider kidney biopsy if kidney dysfunction continues to progress (5) Acute UTI (urinary tract infection): Plan: * Recently completed treatment with Invanz for + ESBL E. coli. * Now urine + for coag neg staph --> tx with daptomycin (6) COVID-19: Admission and Anticipated Discharge Date Admission Date: September 13, 2023 Subjective Mr. Murphy was evaluated in his hospital room this morning. He denies fever, flank pain, dysuria or hematuria. He is breathing comfortably on RA Review of Systems Constitutional: no fever Eyes: no problem reported Ear, Nose, Mouth, Throat: no problem reported Respiratory: no cough and no dyspnea Cardiovascular: no chest pain Gastrointestinal: no abdominal pain, no nausea, no vomiting and no diarrhea/loose stools Integumentary: no rash Neurologic: no problem reported Physical Exam Constitutional: + morbidly obese; not in distress Eyes: PERRL, conjunctivae normal, anicteric sclerae ENMT: external ear and nose normal, oropharynx normal Neck: trachea midline, no thyromegaly Respiratory: Auscultation: lungs clear to auscultation bilaterally Gastrointestinal (Abdomen): normal bowel sounds, soft, nontender, no hepatosplenomegaly Skin: no rashes, warm and dry Neurologic: Speech / Cognition: normal speech and normal cognition Results & Data Vital Signs (Past 12 Hours) Vital Signs Temp Pulse Pulse Resp BP Pulse Ox O2 Del Method 09/20/23 07:32 37.2 C 82 18 133/86 94 Room Air 09/20/23 07:23 81 09/20/23 00:00 36.4 C L 71 18 119/81 95 CPAP 09/19/23 22:49 73 22 98 09/19/23 22:05 66 Laboratory Results Laboratory Results - last 24 hr 09/19/23 09/20/23 07:09 07:20 WBC 14.03 H 12.97 H RBC 2.96 L 2.83 L Hgb 10.2 L 9.4 L Hct 30.9 L 28.8 L MCV 104.4 H 101.8 H MCH 34.5 H 33.2 MCHC 33.0 32.6 RDW Std Deviation 51.8 H 49.8 H RDW Coeff of Santos 13.5 13.2 Plt Count 232 200 MPV 10.4 9.3 L Sodium 134 L Potassium 4.9 Chloride 100 Carbon Dioxide 22 Anion Gap 12 H BUN 84 H Creatinine 5.25 H* Est Cr Clr Drug Dosing 27.4 Est GFR ( Amer) 12.8 Est GFR (Non-Af Amer) 11.0 BUN/Creatinine Ratio 16.0 Glucose 117 H Uric Acid 9.4 H Calcium 8.4 L Total Bilirubin 0.8 AST 15 ALT 15 Alkaline Phosphatase 195 H Total Protein 5.5 L Albumin 2.7 L Globulin 2.8 Albumin/Globulin Ratio 1.0 PG Care Time/CCT Total # of Minutes Spent Total Time Spent with Patient: Total time spent is greater than 50% in coordination of care (as documented) at patient's floor/unit and/or counseling patient: Coding Level of Care Code 52963 SUB INP/OBS CARE 3/50MIN Diagnoses CHRISTAL (acute kidney injury) N17.9 Chronic kidney disease N18.9 Hyperuricemia E79.0 Hematuria R31.0 Hematuria type: gross Acute UTI (urinary tract infection) N39.0 COVID-19 U07.1 (4) Hematuria Hematuria type: gross Qualified Code(s): R31.0 - Gross hematuria
[2023-09-20] MEDS: predniSONE 20 MG TAB PO SCH (11:20)
--- NOTE | 2023-09-20 12:55 | Hospitalist Progress Note ---
Date of Service September 20, 2023 Assessment & Plan (1) CHRISTAL (acute kidney injury): Plan: - DDx includes urate nephropathy, IgA nephropothy post COVID - Presented this admission with uptrending CR creatinine peak this admission 5.36. - Equivocal/uptrended slightly 5.25 on 09/19 - Patient with recent admission for CHRISTAL secondary to ATN on CKD. Patient's baseline Cr was 1.5-1.6 prior to this recent episode of ATN. He peaked at a Cr in the 7's. Cr at hospital discharge was 3.6 on 09/11/23. - Daily UOP 1450 cc of urine at time of afternoon reassessment. No critical volume overload/hypoxia or hyperkalemia to indicate dialysis. - Multifactorial pre-renal factors, COVID-19 infection, markedly elevated uric acid - FeNa 2%.. Recent TD, ANCA, C4, C3, anti-GBM ab all returned negative from the prior hospitalization. -Appreciate nephrology assistance. - Continue prednisone; wean per nephrology. Reduced to 40 mg on 09/19. Also taking this for gout - Uric acid continuing to downtrend, peaked at 13.9. Febuoxstat increased to 40mg. - Daily BMP. - Strict UOP measurements. - If there is progression or patient may need transfer for renal biopsy. For now hopeful that renal function will improve with time, nephro continuing to follow. Appreciate recommendations. Continues to have weight gain with minimal changes in creatinine, fluids discontinued, p.o. encourage, BMP placed daily. Will add SCDs to help mobilize lower extremity edema (2) Acute encephalopathy: Plan: Acute metabolic and toxic encephalopathy With recent COVID infection, renal failure, CHRISTAL, UTI, and pain control medications. Oxy doses have been lowered Ammonia normal, no hypercapnia on VBG, thiamine supplemented. No meningeal signs. Zyprexa 2.5 mg nightly for sleep and insomnia, +melatonin for sleep Waxing and waning; did again have an episode of confusion 09/19, contacted family by phone and was very disoriented. Patient was oriented in the AM prior. Waxing and waning course. Seen and reassessed with his and he is appropriate, answers all questions and orientation questions correctly, and remembers morning events. Does acknowledge sometimes getting confused as to time of day especially when the shades are drawn for a long period, which can worsen delirium. DDx includes uremic encephalopathy with poor renal function and BUN of 84. BMP daily. No focal deficits on exam, mentating well at reassess ment MRI deferred. (3) COVID-19: Plan: - Onset 09/10. Improving/resolving. No dyspnea. - CXR clear - On room air - LFTs, CPK wnl - Remdesivir/dexamethasone not indicated - Cont airborne isolation, supportive care (4) Right knee pain: Plan: Multifactorial, advanced OA, multiple ligamentous tears (as seen on previous MRI), and gouty arthritis all contributing - s/p tap 09/13 with WBC/+gout/cx neg - gout management as otherwise noted (5) Gout: Plan: -Cannot use NSAIDs. Currently on prednisone. Recommend to keep on a slow taper for several weeks due to severe gout with many months of symptoms. Can hold at around 5-10 mg/day for this Uloric uptitrated to 40 mg - uric acid levels decreasing. - started on renally-dosed allopurinol 50mg twice weekly during recent hospitalization - s/p arthrocentesis 09/13. +WBC, +gout crystals, culture negative - cont oxy 5mg prn for pain relief (lowered it due to confusion) but he really won't have significant improvement without steroids - cont the steroids (being used for his CHRISTAL as well) (6) Acute UTI (urinary tract infection): Plan: Rx for ESBL e.coli during previous hospitalization had 2 urine cx's since admission - first is negative, 2nd grew coag neg staph cont IV daptomycin q48h due to renal function ; 7 days of treatment will be complete 09/21/2023 PSA low, prostatitis unlikely (7) Morbid obesity: Plan: BMI 43 (8) Abdominal pain: Plan: CT a/p on admit without liver, gall bladder or pancreatic abnormalities he reports abd pain within 1-2 minutes of drinking/eating had severe gastritis on EGD in fall 2022 cont PPI Carafate 1gm QID pepcid 20mg IV x 1 Improving, denied pain 09/19 Plan Improved/resolved - Hematuria: Likely due to UTI, improved after treatment for UTI - Diarrhea: Chronic. Normal bowel movements 09/16 - 09/19 Chronic/stable -ROBERT: CPAP nightly DVT Proph - heparin 5000 BID Admission and Anticipated Discharge Date Admission Date: September 13, 2023 Subjective Patient is seen at the bedside. He is well-oriented and pleasant at time of visit. Denies fever, chills, pain overnight. Continues to have aches when he does try to move around in bed including his knees muscles but is comfortable laying in bed at time of assessment. Does have swelling in his lower extremities and notes he is tall so his legs slope at the edge of the bed. Seen in the afternoon on reassessment with his present. Had had some concerns of encephalopathy and confusion intermittently. This does not appear to be present at time of reassessment and is conversing appropriately with good memory of morning events. Did have the shades drawn this morning and threw a large portion of the day, did discuss delirium precautions as patient also notes he has gotten a little bit disoriented with this drawn given his time in the hospital. Denies headache. Physical Exam Physical Exam: General: A&Ox3. NAD. Cooperative. Oriented to name, year, and place at time of visit and reassessment HEENT: Atraumatic, normocephalic. vision hearing grossly intact Pulm: Diminished but grossly without crackles or rales . symmetrical chest rise. No increased work of breathing. No respiratory distress. Cardiac: RRR, -mrg. Radial pulses intact and symmetrical. Abdominal: Obese, nontender, nondistended, soft. BS present. Extremity: Bilateral lower extremity pitting edema. No knee or ankle erythema Results & Data Results & Data Vital Signs (Past 12 Hours) Vital Signs Temp Pulse Pulse Resp BP Pulse Ox O2 Del Method 09/20/23 11:59 36.6 C 97 H 18 121/88 97 Room Air 09/20/23 07:32 37.2 C 82 18 133/86 94 Room Air 09/20/23 07:23 81 PG Care Time/CCT Total # of Minutes Spent Total Time Spent with Patient: Total time spent is greater than 50% in coordination of care (as documented) at patient's floor/unit and/or counseling patient: Coding Level of Care Code 79438 SUB INP/OBS CARE 3/50MIN Diagnoses CHRISTAL (acute kidney injury) N17.9 Acute encephalopathy G93.40 COVID-19 U07.1 Right knee pain M25.561 Gout M10.361 Chronicity: acute Gout etiology: due to renal impairment Gout site: knee Laterality: right Acute UTI (urinary tract infection) N39.0 Morbid obesity E66.01 Abdominal pain R10.9 (5) Gout Chronicity: acute Gout etiology: due to renal impairment Gout site: knee Laterality: right Qualified Code(s): M10.361 - Gout due to renal impairment, right knee
[2023-09-20] MEDS: FEBUXOSTAT 40 MG TABLET PO SCH (16:00)
[2023-09-20 21:40] LABS: Appearance Urine Cloudy (Clear); Bacteria Urine Automated None Seen (None Seen); Bilirubin Urine Negative (Negative); Blood Urine 3+ (Negative); Cast Urine Automated 0-2 /lpf (0-2); Color Urine Yellow; Epithelial Cell Urine Auto 0-2 /hpf (0-2); Glucose Urine UA Negative (Negative); Ketones Urine Negative (Negative); Leukocyte Esterase Urine 1+ (Negative); Nitrite Urine Negative (Negative); Protein Urine 2+ (Negative); RBC Urine Automated >20 /hpf (0-2); Specific Gravity Urine 1.016 (1.000-1.030); Urobilinogen Urine Negative (Negative)
[2023-09-20 22:32] LABS: Creatinine Urine Random 71.5 mg/dl; Protein Creatinine Ratio Urine 1.6 (0-0.2); Total Protein Urine Random 111.8 mg/dl (0-11.9)
[2023-09-21 08:02] LABS: Hematocrit (blood only) 33.2 % (42.0-52.0); Hemoglobin 10.9 g/dl (14.0-18.0); Mean Corpuscular Hgb Conc 32.8 g/dL (32.0-36.0); Mean Corpuscular Volume 100.6 fL (80.0-100.0); Mean Platelet Volume 9.7 fL (9.4-12.4); Platelet Count 234 K/uL (130-400); RDW Coefficient of Variation 12.9 % (11.5-14.5); RDW Standard Deviation 48.6 fL (36.4-46.3); White Blood Count 12.47 K/ul (4.8-10.8)
[2023-09-21 08:13] LABS: Albumin Globulin Ratio 0.8 (0.9-2); Albumin Level 2.8 gm/dl (3.4-5.0); BUN Creatinine Ratio 16.5 (10-20); Bilirubin,Total 0.9 mg/dl (0.2-1.0); Calcium 8.8 mg/dl (8.6-10.3); Creatinine Clr Calc Pharmacy 28.4 ml/min; Est GFR (African American) 13.3 ml/min; Est GFR (Non-African American) 11.5 ml/min; Globulin 3.3 gm/dl (2.5-4.0); Potassium 5.1 mmol/L (3.5-5.1); Total Protein 6.1 gm/dl (6.0-8.3); Uric Acid 9.8 mg/dl (2.6-7.2)
--- NOTE | 2023-09-21 08:24 | Hospitalist Progress Note ---
Date of Service September 21, 2023 Assessment & Plan (1) CHRISTAL (acute kidney injury): Plan: While patient initially presented for COVID, his continued stay secondary to CHRISTAL/acute renal failure Recent hospitalization from 08/31 - 09/10 for CHRISTAL secondary to ATN (multifactorial: UTI, alc use, poor fluid intake, ibuprofen use for gout) DDx at this time includes urate nephropathy, IgA nephropothy post COVID Cr peaked at 5.36 on 09/16 --> 5.08 on 09/20 Patient's baseline Cr was 1.5-1.6 prior to this recent episode of ATN Strict I&Os; Daily UOP No critical volume overload/hypoxia or hyperkalemia to indicate dialysis Multifactorial pre-renal factors, COVID-19 infection, markedly elevated uric acid FeNa 2%, recent TD, ANCA, C4, C3, anti-GBM ab all returned negative from the prior hospitalization Appreciate nephrology assistance Discussed the need for renal biopsy (which would require transfer); will continue to monitor for improvement over the next 48-72h Continue prednisone 40 mg daily; wean per nephrology Trend BMP (2) Acute encephalopathy: Plan: Acute metabolic and toxic encephalopathy With recent COVID infection, renal failure, CHRISTAL, UTI, and pain control medications. Oxy doses have been lowered Uric acid level slightly up trended on 09/20; 9.4-->9.8 Peak 13.9 on 09/04/23 Febuoxstat 40mg daily Ammonia normal, no hypercapnia on VBG, thiamine supplemented. No meningeal signs. Zyprexa 2.5 mg nightly for sleep and insomnia, +melatonin for sleep Waxing and waning of symptoms; patient was reportedly confused at 8 AM on 09/20, and contacted family by phone and was very disoriented as to where he was; however he is A&O x3 and mentating well when seen at 11 AM Patient believes pain medication (oxycodone) might have played a role; patient did receive oxycodone around 3 AM on 09/20 No focal deficits on exam, mentating well at reassessment; MRI deferred Trend uric acid levels (3) COVID-19: Plan: Symptoms started on 09/10, tested positive on 09/12 Significantly improved; clinically, patient denies any respiratory symptoms Non-hypoxic; CXR clear Remdesivir/dexamethasone not indicated Continue airborne isolation for now Spoke with ID/infection control; per hospital guidelines, okay to remove isolation on 09/22 if patient is asymptomatic Supportive care (4) Right knee pain: Plan: Multifactorial, advanced OA, multiple ligamentous tears (as seen on previous MRI), and gouty arthritis all contributing S/p tap 09/13 with WBC/+gout/cx neg Gout/pain management as otherwise noted (5) Gout: Plan: Cannot use NSAIDs Currently on prednisone. Recommend to keep on a slow taper for several weeks due to severe gout with many months of symptoms. Can hold at around 5-10 mg/day for this Febuxostat uptitrated to 40 mg Started on renally-dosed allopurinol 50mg twice weekly during recent hospitalization S/p arthrocentesis 09/13. +WBC, +gout crystals, culture negative Continue oxy 5mg prn for pain relief (lowered it due to confusion) but he really won't have significant improvement without steroids Continue steroids (being used for his CHRISTAL as well) (6) Acute UTI (urinary tract infection): Plan: Rx for ESBL e.coli during previous hospitalization had 2 urine cx's since admission - first is negative, 2nd grew coag neg staph cont IV daptomycin q48h due to renal function ; 7 days of treatment completed on 09/21/2023; treatment discontinued PSA low, prostatitis unlikely Hematuria likely secondary to UTI (7) Abdominal pain: Plan: Intermittent abdominal pain 1 to 2 minutes after drinking/eating CT A/P on admit without liver, gall bladder or pancreatic abnormalities Hx of severe gastritis on EGD in fall 2022 Continue PPI, Carafate (8) ROBERT (obstructive sleep apnea): Plan: CPAP HS (9) Morbid obesity: Plan: BMI 46.8 Plan Disposition: PCU status; continued stay for acute renal failure Full code Low potassium diet DVT PPx: Heparin 5000u SQ q12h; SCDs to help mobilize fluid Admission and Anticipated Discharge Date Admission Date: September 13, 2023 Supervising Physician Co-Signing Physician Notes Patient was seen and examined independently I discussed the case with CATARINO BASSETT I reviewed pertinent past medical social family history and also the plan of care and agree with the plan of care. Patient seen independently he was with persistent lower extremity edema he is understanding that we are waiting his renal function to improve he has no other new focal complaints or problems He is awake alert appropriate card exam is regular lungs were clear abdomen NABS soft extremities right extremity shows 2+ edema left extremity shows 1-2+ edema this was pitting Acute kidney injury in the background of chronic kidney disease worsened with concomitant COVID infection. Previous evaluation had had negative inflammatory workup. Initiated on steroid therapy followed by nephrology awaiting trend of creatinine to determine if need be for renal biopsy Any exceptions will be noted below Subjective Patient reports no new medical complaints this time. He endorses 10/10 right knee pain which has been ongoing; at times it improves to 5/10 with pain medication. No radiation down the leg or up towards the back. He also endorses that he has been having some intermittent confusion, which he attributes to his pain pills. He is A&O x 3 at this time. He reports he is still producing urine. He reports he has been drinking plenty of fluids, but has been eating less recently due to his current medication regimen and intermittent abdominal pain which is often exacerbated by eating. He has been having bowel movements twice daily. He reports he has been walking okay with a walker, but is a 2 assist to get out of bed. He reports no side effects with the prednisone. ROS: Patient endorses mild dizziness when standing up, constant right knee pain, and ongoing diarrhea. Patient denies fever, chills, night sweats, lightheadedness, chest pain, chest pressure, chest palpitations, SOB, pleuritic CP, cough, wheezing, abdominal pain, burning with urination, dysuria, or numbness and tingling in the lower e xtremities bilaterally. Called patient's daughter Alethea ([phone]) to provide daily update. Patient's daughter would like to continue to receive daily updates regarding renal function labs. She reports that the patient was disoriented this morning, and called his girlfriend confused about where he was; this occurred around 8 AM. Updated daughter regarding labs, and reported he was A&O x 3 when seen around 11 AM. Review of Systems Review of Systems: See HPI above Physical Exam Physical Exam: General: no acute distress; pleasant affect; non-toxic appearing; well- nourished; cooperative; SpO2 97% on RA HEENT: normocephalic, atraumatic; no scleral icterus; PERRLA; moist mucus membrane; vision and hearing grossly intact Neck: supple; no lymphadenopathy; trachea midline Skin: warm, dry without signs of tenting; no cyanosis; no rashes, bruising, lesions, or erythema noted CV: chest wall NTP; RRR; S1/S2 normal; no murmurs/rubs/gallops; pulses intact and symmetric at radial, DP, and PT Lungs: no acute respiratory distress; symmetrical chest wall expansion; clear breath sounds across all lung linton w/o adventitious sounds; no wheezing ABD: Soft, NTP; BS present; no rebound/guarding; suboptimal exam secondary to body habitus MSK: no tics or fasciculations; +2 pitting edema in the lower extremities bilaterally, nonerythematous Neuro: A&Ox3; normal mood and affect; fluent speech; no focal deficits; sensation grossly intact in the LEs b/l Results & Data Results & Data Vital Signs (Past 12 Hours) Vital Signs Temp Pulse Pulse Resp BP BP Pulse Ox 09/21/23 07:40 36.7 C 93 H 18 128/85 97 09/21/23 07:40 77 09/21/23 03:25 119/69 09/21/23 02:56 36.5 C 88 18 173/84 H 95 09/20/23 23:39 36.6 C 74 18 122/57 L 95 09/20/23 23:06 09/20/23 22:41 72 09/20/23 22:38 74 18 99 O2 Del Method 09/21/23 07:40 Room Air 09/21/23 07:40 09/21/23 03:25 09/21/23 02:56 Room Air 09/20/23 23:39 Room Air 09/20/23 23:06 CPAP 09/20/23 22:41 09/20/23 22:38 Laboratory Results Abnormal lab results 09/20/23 09/21/23 Range/Units 21:08 06:59 WBC 12.47 H (4.8-10.8) K/ul RBC 3.30 L (4.70-6.10) M/uL Hgb 10.9 L (14.0-18.0) g/dl Hct 33.2 L (42.0-52.0) % MCV 100.6 H (80.0-100.0) fL RDW Std Deviation 48.6 H (36.4-46.3) fL Sodium 135 L (136-145) mmol/L Anion Gap 12 H (3-11) BUN 84 H (6-23) mg/dl Creatinine 5.08 H* (0.6-1.4) mg/dl Uric Acid 9.8 H (2.6-7.2) mg/dl Alkaline Phosphatase 208 H (34-104) U/L Albumin 2.8 L (3.4-5.0) gm/dl Albumin/Globulin Ratio 0.8 L (0.9-2) Urine Appearance Cloudy A (Clear) Urine Protein 2+ H (Negative) Urine Blood 3+ H (Negative) Ur Leukocyte Esterase 1+ H (Negative) Urine WBC (Auto) 6-10 H (0-5) /hpf Urine RBC (Auto) >20 H (0-2) /hpf U Random Total Protein 111.8 H (0-11.9) mg/dl Protein/Creatinin Ratio 1.6 H (0-0.2) PG Care Time/CCT Total # of Minutes Spent Total Time Spent with Patient: Total time spent is greater than 50% in coordination of care (as documented) at patient's floor/unit and/or counseling patient: [place] [address] SUB INP/OBS CARE 3/50MIN Patient Type Established History Comprehensive Exam Comprehensive Medical Decision Making High Complexity Diagnoses CHRISTAL (acute kidney injury) N17.9 Acute encephalopathy G93.40 COVID-19 U07.1 Right knee pain M25.561 Gout M10.361 Chronicity: acute Gout etiology: due to renal impairment Gout site: knee Laterality: right Acute UTI (urinary tract infection) N39.0 Abdominal pain R10.9 ROBERT (obstructive sleep apnea) G47.33 Morbid obesity E66.01 (5) Gout Chronicity: acute Gout etiology: due to renal impairment Gout site: knee Laterality: right Qualified Code(s): M10.361 - Gout due to renal impairment, right knee
--- NOTE | 2023-09-21 08:41 | Nephrology Progress Note ---
Date of Service September 21, 2023 Assessment & Plan (1) CHRISTAL (acute kidney injury): Plan: * Kidney function remains stable w/ Cr 5.0 * Patient is nonoliguric. UO has improved to 1150 cc last 24 hours * Electrolyte balance is acceptable. No acute indication for HD * IVF has been stopped. Encourage oral hydration * 09/13/[address] - no hydronephrosis * 09/04/23 GN evaluation including ANCA, TD, C3/C4 and anti GBM were normal * Continue Prednisone 40 mg daily * Monitor PRP (2) Chronic kidney disease: Plan: * CKD stage G3a (moderate impairment). Baseline creatinine has been 1.6-1.8 w/ EGFR 45 cc/min dating back to 01/17. 09/[address] did reveal mild cortical thinning. Renal impairment is likely on the basis of microvascular disease (3) Hyperuricemia: Plan: * Knee x-ray revealed arthritic changes w/ joint effusion * Aspiration of R knee 09/14/23 demonstrated gout * Remains on prednisone therapy * Uloric increased to 40 mg daily today * Serum uric acid 9.8. Will monitor (4) Hematuria: Plan: * History of gross and microscopic hematuria noted over the last 2 years * History of recurrent UTI. Non-smoker * Ultimately may benefit from urologic evaluation for non-glomerular causes as an outpatient * Consider kidney biopsy if kidney dysfunction continues to progress (5) Acute UTI (urinary tract infection): Plan: * Recently completed treatment with Invanz for + ESBL E. coli. * Now urine + for coag neg staph --> tx with daptomycin (6) COVID-19: Admission and Anticipated Discharge Date Admission Date: September 13, 2023 Subjective Mr. Murphy was evaluated in his hospital room this morning. He denies fever, flank pain, dysuria or hematuria. He is breathing comfortably on RA. He reports worsening joint pain as steroid dose is reduced Review of Systems Constitutional: no fever Eyes: no problem reported Ear, Nose, Mouth, Throat: no problem reported Respiratory: no cough and no dyspnea Cardiovascular: no chest pain Gastrointestinal: no abdominal pain, no nausea, no vomiting and no diarrhea/loose stools Genitourinary: + hematuria Integumentary: no rash Neurologic: no problem reported Physical Exam Constitutional: + morbidly obese; not in distress Eyes: PERRL, conjunctivae normal, anicteric sclerae ENMT: external ear and nose normal, oropharynx normal Neck: trachea midline, no thyromegaly Respiratory: Auscultation: lungs clear to auscultation bilaterally Gastrointestinal (Abdomen): normal bowel sounds, soft, nontender, no hepatosplenomegaly Skin: no rashes, warm and dry Neurologic: Speech / Cognition: normal speech and normal cognition Results & Data Vital Signs (Past 12 Hours) Vital Signs Temp Pulse Pulse Resp BP BP Pulse Ox 09/21/23 07:40 36.7 C 93 H 18 128/85 97 09/21/23 07:40 77 09/21/23 03:25 119/69 09/21/23 02:56 36.5 C 88 18 173/84 H 95 09/20/23 23:39 36.6 C 74 18 122/57 L 95 09/20/23 23:06 09/20/23 22:41 72 09/20/23 22:38 74 18 99 O2 Del Method 09/21/23 07:40 Room Air 09/21/23 07:40 09/21/23 03:25 09/21/23 02:56 Room Air 09/20/23 23:39 Room Air 09/20/23 23:06 CPAP 09/20/23 22:41 09/20/23 22:38 Laboratory Results Laboratory Results - last 24 hr 09/20/23 09/21/23 21:08 06:59 WBC 12.47 H RBC 3.30 L Hgb 10.9 L Hct 33.2 L MCV 100.6 H MCH 33.0 MCHC 32.8 RDW Std Deviation 48.6 H RDW Coeff of Santos 12.9 Plt Count 234 MPV 9.7 Sodium 135 L Potassium 5.1 Chloride 99 Carbon Dioxide 24 Anion Gap 12 H BUN 84 H Creatinine 5.08 H* Est Cr Clr Drug Dosing 28.4 Est GFR ( Amer) 13.3 Est GFR (Non-Af Amer) 11.5 BUN/Creatinine Ratio 16.5 Glucose 98 Uric Acid 9.8 H Calcium 8.8 Magnesium 2.0 Total Bilirubin 0.9 AST 17 ALT 14 Alkaline Phosphatase 208 H Total Protein 6.1 Albumin 2.8 L Globulin 3.3 Albumin/Globulin Ratio 0.8 L Urine Color Yellow Urine Appearance Cloudy A Urine pH 5.0 Ur Specific Haiku 1.016 Urine Protein 2+ H Urine Glucose (UA) Negative Urine Ketones Negative Urine Blood 3+ H Urine Nitrite Negative Urine Bilirubin Negative Urine Urobilinogen Negative Ur Leukocyte Esterase 1+ H Urine WBC (Auto) 6-10 H Urine RBC (Auto) >20 H U Hyaline Cast (Auto) 0-2 U Epithel Cells (Auto) 0-2 Urine Bacteria (Auto) None Seen Ur Random Creatinine 71.5 U Random Total Protein 111.8 H Protein/Creatinin Ratio 1.6 H PG Care Time/CCT Total # of Minutes Spent Total Time Spent with Patient: Total time spent is greater than 50% in coordination of care (as documented) at patient's floor/unit and/or counseling patient: Coding Level of Care Code 17184 SUB INP/OBS CARE 3/50MIN Diagnoses CHRISTAL (acute kidney injury) N17.9 Chronic kidney disease N18.9 Hyperuricemia E79.0 Hematuria R31.0 Hematuria type: gross Acute UTI (urinary tract infection) N39.0 COVID-19 U07.1 (4) Hematuria Hematuria type: gross Qualified Code(s): R31.0 - Gross hematuria
[2023-09-21] MEDS: FEBUXOSTAT 40 MG TABLET PO SCH (10:23)
--- NOTE | 2023-09-21 11:13 | Orthopedic Progress Note ---
Date of Service September 21, 2023 Assessment & Plan (1) Right knee pain: (2) Arthritis of right knee: His knee has been feeling better but he is starting to have some pain. He is currently on steroids. No further orthopedic intervention at this time. Can follow up as outpatient if he needs an injection or wants to look into tka in the future. Subjective . 58 year old patient with right knee pain, s/p aspiration last week which showed gout. Cultures are negative. Knee improved after the aspiration but has been having pain again since beginning to taper steroid dosing. Review of Systems All systems reviewed & are unremarkable except as noted in HPI & below. Physical Exam .Sitting at bedside. NAD. alert and oriented. Right knee: able to do straight leg raise. Motion about 0-90 and painful with flexion. Small effusion. Results & Data Results & Data Laboratory Results . Diagnostic Findings . PG Care Time/CCT Total # of Minutes Spent Total Time Spent with Patient: Total time spent is greater than 50% in coordination of care (as documented) at patient's floor/unit and/or counseling patient: Coding Level of Care Code 82917 SUB INP/OBS CARE 04/21MIN Diagnoses Right knee pain M25.561 Arthritis of right knee M17.11
[2023-09-21 16:43] LABS: Appearance Urine Cloudy (Clear); Bacteria Urine Automated None Seen (None Seen); Bilirubin Urine Negative (Negative); Blood Urine 3+ (Negative); Cast Urine Automated 0-2 /lpf (0-2); Color Urine Yellow; Epithelial Cell Urine Auto 0-2 /hpf (0-2); Glucose Urine UA Negative (Negative); Ketones Urine Negative (Negative); Leukocyte Esterase Urine 1+ (Negative); Nitrite Urine Negative (Negative); Protein Urine 2+ (Negative); RBC Urine Automated >20 /hpf (0-2); Specific Gravity Urine 1.016 (1.000-1.030); Starch Talc Urine Present (None Prsent); Urobilinogen Urine Negative (Negative)
[2023-09-21 19:11] LABS: Total Protein Urine Random 77.6 mg/dl (0-11.9)
[2023-09-21 19:17] LABS: Creatinine Urine Random 79.4 mg/dl
[2023-09-22 07:09] LABS: Hematocrit (blood only) 31.1 % (42.0-52.0); Hemoglobin 10.3 g/dl (14.0-18.0); Mean Corpuscular Hemoglobin 33.7 pg (25.0-34.0); Mean Corpuscular Hgb Conc 33.1 g/dL (32.0-36.0); Mean Corpuscular Volume 101.6 fL (80.0-100.0); Mean Platelet Volume 9.7 fL (9.4-12.4); Platelet Count 193 K/uL (130-400); RDW Coefficient of Variation 13.4 % (11.5-14.5); RDW Standard Deviation 49.9 fL (36.4-46.3); Red Blood Count 3.06 M/uL (4.70-6.10); White Blood Count 10.21 K/ul (4.8-10.8)
[2023-09-22 07:29] LABS: Albumin Globulin Ratio 0.8 (0.9-2); Albumin Level 2.6 gm/dl (3.4-5.0); BUN Creatinine Ratio 17.7 (10-20); Bilirubin,Total 0.7 mg/dl (0.2-1.0); Calcium 8.4 mg/dl (8.6-10.3); Creatinine Clr Calc Pharmacy 28.8 ml/min; Est GFR (African American) 13.5 ml/min; Est GFR (Non-African American) 11.6 ml/min; Globulin 3.1 gm/dl (2.5-4.0); Potassium 4.9 mmol/L (3.5-5.1); Total Protein 5.7 gm/dl (6.0-8.3); Uric Acid 9.4 mg/dl (2.6-7.2)
--- NOTE | 2023-09-22 08:03 | Hospitalist Progress Note ---
Date of Service September 22, 2023 Assessment & Plan (1) CHRISTAL (acute kidney injury): Plan: While patient initially presented for COVID, his continued stay is secondary to CHRISTAL/acute renal failure Recent hospitalization from 08/31 - 09/10 for CHRISTAL secondary to ATN (multifactorial: UTI, alc use, poor fluid intake, ibuprofen use for gout) DDx at this time includes urate nephropathy, IgA nephropothy post COVID Only marginal CR improvement recently: 5.08 on 09/20 --> 5.03 on 09/21 Patient's baseline Cr was 1.5-1.6 prior to this recent episode of ATN Strict I&Os; Daily UOP No critical volume overload/hypoxia or hyperkalemia to indicate dialysis FeNa 2%, recent TD, ANCA, C4, C3, anti-GBM ab all returned negative from the prior hospitalization Appreciate nephrology assistance Discussed the need for renal biopsy (which would require transfer); will continue to monitor for improvement over the next 24-48h Discussed dialysis; will hold for now as patient is still producing urine; recommended holding diuretics Continue prednisone 20 mg daily; wean per nephrology Trend BMP (2) Acute encephalopathy: Plan: Acute metabolic and toxic encephalopathy With recent COVID infection, renal failure, CHRISTAL, UTI, and pain control medications Oxycodone has been discontinued, as patient believes his acute episode of confusion was secondary to pain medicine given overnight Uric acid level with marginal improvement on 09/21; 9.8-->9.4 Peak 13.9 on 09/04/23 Febuoxstat increased to 80 mg daily on 09/21 Ammonia normal, no hypercapnia on VBG, thiamine supplemented. No meningeal signs. MRI deferred. Zyprexa 2.5 mg nightly for sleep and insomnia, +melatonin for sleep No focal deficits on exam, mentating well; Trend uric acid levels (3) COVID-19: Plan: Symptoms started on 09/10, tested positive on 09/12 Significantly improved; clinically, patient denies any respiratory symptoms Non-hypoxic; CXR clear Remdesivir/dexamethasone not indicated Continue airborne isolation for now Spoke with ID/infection control; per hospital guidelines, okay to remove airborne isolation on 09/22 if patient is asymptomatic Supportive care (4) Lower extremity edema: Plan: +3 Pitting edma in the RLE > +1 pitting edema in the LLE on 09/21 Given renal function, will defer diuretics Daily weights; significant weight gain since 08/31 Encourage ambulation and SCDs for fluid mobilization (5) Right knee pain: Plan: Multifactorial, advanced OA, multiple ligamentous tears (as seen on previous MRI), and gouty arthritis all contributing S/p tap 09/13 with WBC/+gout/cx neg Gout/pain management as otherwise noted (6) Gout: Plan: Cannot use NSAIDs Currently on prednisone. Recommend to keep on a slow taper for several weeks due to severe gout with many months of symptoms. Can hold at around 5-10 mg/day for this Febuxostat uptitrated to 40 mg Started on renally-dosed allopurinol 50mg twice weekly during recent hospitalization S/p arthrocentesis 09/13. +WBC, +gout crystals, culture negative Continue oxy 5mg prn for pain relief (lowered it due to confusion) but he really won't have significant improvement without steroids Continue steroids (being used for his CHRISTAL as well) (7) Acute UTI (urinary tract infection): Plan: Rx for ESBL e.coli during previous hospitalization had 2 urine cx's since admission - first is negative, 2nd grew coag neg staph cont IV daptomycin q48h due to renal function ; 7 days of treatment completed on 09/21/2023; treatment discontinued PSA low, prostatitis unlikely Hematuria likely secondary to UTI (8) Abdominal pain: Plan: Intermittent abdominal pain 1 to 2 minutes after drinking/eating CT A/P on admit without liver, gall bladder or pancreatic abnormalities Hx of severe gastritis on EGD in fall 2022 Continue PPI, Carafate (9) ROBERT (obstructive sleep apnea): Plan: CPAP HS (10) Morbid obesity: Plan: BMI 46.8 Plan Disposition: PCU status; continued stay for acute renal failure Full code Low potassium diet DVT PPx: Heparin 5000u SQ q12h; SCDs to help mobilize fluid Admission and Anticipated Discharge Date Admission Date: September 13, 2023 Subjective Patient has no new medical complaints at this time. When discussing his recent bout of confusion the morning of 09/20, he is fairly certain that it was second garry to oxycodone use, and he agrees that he would rather take Tylenol for his ongoing knee pain; discussed with patient that NSAIDs are not an option at this time. He rates his right knee pain 6/10 at present; no radiation down the leg or up into the back. He also notes that his swelling on his right leg has marginally worsened. He does not endorse back pain. He reports that he has been producing urine, and is not having any new urinary symptoms. His intermittent abdominal pain is consistent with eating; only exacerbated by eating, and last about 10 minutes at a time. Despite eating less, he reports he is drinking okay, and is not having trouble with ambulation. ROS: Patient endorses intermittent abdominal pain, RLE swelling, and right knee pain. Patient denies fever, chills, night sweats, dizziness/lightheadedness, headache, chest pain, chest palpitations, chest pressure, SOB, cough, wheezing, N/V, or changes in urinary/bowel habits. Called patient's daughter Alethea ([phone]) to provide daily update. Please give her all daily updates in the future. Review of Systems Review of Systems: See HPI above Physical Exam Physical Exam: General: no acute distress; pleasant affect; non-toxic appearing; well- nourished; cooperative; SpO2 97% on RA HEENT: normocephalic, atraumatic; no scleral icterus; PERRLA; moist mucus membrane; vision and hearing grossly intact Neck: supple; no lymphadenopathy; trachea midline Skin: warm, dry without signs of tenting; no cyanosis; no rashes, bruising, lesions, or erythema noted CV: chest wall NTP; RRR; S1/S2 normal; no murmurs/rubs/gallops; pulses intact and symmetric at radial, DP, and PT Lungs: no acute respiratory distress; symmetrical chest wall expansion; clear breath sounds across all lung [place] w/o adventitious sounds; no wheezing ABD: Soft, NTP; BS present; no rebound/guarding; suboptimal exam secondary to body habitus MSK: no tics or fasciculations; +3 pitting edema in the RLE > +1 pitting edema in the LLE, nonerythematous Neuro: A&Ox3; normal mood and affect; fluent speech; no focal deficits; sensation grossly intact in the LEs b/l Results & Data Results & Data Vital Signs (Past 12 Hours) Vital Signs Temp Pulse Pulse Resp BP BP Pulse Ox 09/22/23 06:17 36.5 C 85 18 151/78 H 95 06/27/24 05:13 36.5 C 72 18 142/83 H 97 09/21/23 23:42 36.5 C 70 18 118/71 99 09/21/23 22:45 75 28 H 98 09/21/23 22:23 69 O2 Del Method FiO2 09/22/23 06:17 Room Air 09/22/23 05:13 Room Air 09/21/23 23:42 Room Air 09/21/23 22:45 21 09/21/23 22:23 Laboratory Results Abnormal lab results 09/21/23 09/21/23 09/22/23 Range/Units 06:59 Unknown 06:35 WBC 12.47 H (4.8-10.8) K/ul RBC 3.30 L 3.06 L (4.70-6.10) M/uL Hgb 10.9 L 10.3 L (14.0-18.0) g/dl Hct 33.2 L 31.1 L (42.0-52.0) % MCV 100.6 H 101.6 H (80.0-100.0) fL RDW Std Deviation 48.6 H 49.9 H (36.4-46.3) fL Sodium 135 L (136-145) mmol/L Anion Gap 12 H (3-11) BUN 84 H 89 H (6-23) mg/dl Creatinine 5.08 H* 5.03 H* (0.6-1.4) mg/dl Uric Acid 9.8 H 9.4 H (2.6-7.2) mg/dl Calcium 8.4 L (8.6-10.3) mg/dl Alkaline Phosphatase 208 H 180 H (34-104) U/L Total Protein 5.7 L (6.0-8.3) gm/dl Albumin 2.8 L 2.6 L (3.4-5.0) gm/dl Albumin/Globulin Ratio 0.8 L 0.8 L (0.9-2) Urine Appearance Cloudy A (Clear) Urine Protein 2+ H (Negative) Urine Blood 3+ H (Negative) Ur Leukocyte Esterase 1+ H (Negative) Urine WBC (Auto) 6-10 H (0-5) /hpf Urine RBC (Auto) >20 H (0-2) /hpf Talc Crystals Present H (None Prsent) U Random Total Protein 77.6 H (0-11.9) mg/dl Protein/Creatinin Ratio 1.0 H (0-0.2) PG Care Time/CCT Total # of Minutes Spent Total Time Spent with Patient: Total time spent is greater than 50% in coordination of care (as documented) at patient's floor/unit and/or counseling patient: C[place] [address] SUB INP/OBS CARE 3/50MIN Patient Type Established History Comprehensive Exam Comprehensive Medical Decision Making High Complexity Diagnoses CHRISTAL (acute kidney injury) N17.9 Acute encephalopathy G93.40 COVID-19 U07.1 Lower extremity edema R60.0 Right knee pain M25.561 Gout M10.361 Chronicity: acute Gout etiology: due to renal impairment Gout site: knee Laterality: right Acute UTI (urinary tract infection) N39.0 Abdominal pain R10.9 ROBERT (obstructive sleep apnea) G47.33 Morbid obesity E66.01 (6) Gout Chronicity: acute Gout etiology: due to renal impairment Gout site: knee Laterality: right Qualified Code(s): M10.361 - Gout due to renal impairment, right knee
--- NOTE | 2023-09-22 08:53 | Nephrology Progress Note ---
Date of Service September 22, 2023 Assessment & Plan (1) CHRISTAL (acute kidney injury): Plan: * Kidney function remains stable w/ Cr 5.0 * Patient is nonoliguric. UO 720 cc last 24 hours * Electrolyte balance is acceptable. No acute indication for HD * 09/13/[address] - no hydronephrosis * 09/04/23 GN evaluation including ANCA, TD, C3/C4 and anti GBM were normal * No significant improvement despite steroid therapy. Will reduce Prednisone to 20 mg daily starting tomorrow * Monitor PRP (2) Chronic kidney disease: Plan: * CKD stage G3a (moderate impairment). Baseline creatinine has been 1.6-1.8 w/ EGFR 45 cc/min dating back to 01/17. 09/[address] did reveal mild cortical thinning. Renal impairment is likely on the basis of microvascular disease (3) Hyperuricemia: Plan: * Knee x-ray revealed arthritic changes w/ joint effusion * Aspiration of R knee 09/14/23 demonstrated gout * Remains on prednisone therapy * Uloric increased to 80 mg daily today * Serum uric acid 9.4. Will monitor (4) Hematuria: Plan: * History of gross and microscopic hematuria noted over the last 2 years * History of recurrent UTI. Non-smoker * Ultimately may benefit from urologic evaluation for non-glomerular causes as an outpatient * Consider kidney biopsy if kidney dysfunction worsens (5) Acute UTI (urinary tract infection): Plan: * Recent h/o ESBL E. coli UTI * Coag neg staph UTI this admission. Daptomycin has been stopped (6) COVID-19: Plan: * Improved with conservative management Admission and Anticipated Discharge Date Admission Date: September 13, 2023 Subjective Mr. Murphy was evaluated in his hospital room this morning. He denies fever, flank pain, dysuria or hematuria. He is breathing comfortably on RA flat in bed. He remains nonoliguric with 720 cc UO last 24 hrs. Review of Systems Constitutional: no fever Eyes: no problem reported Ear, Nose, Mouth, Throat: no problem reported Respiratory: no cough and no dyspnea Cardiovascular: no chest pain Gastrointestinal: no abdominal pain, no nausea, no vomiting and no diarrhea/loose stools Genitourinary: + hematuria Integumentary: no rash Neurologic: no problem reported Physical Exam Constitutional: + morbidly obese; not in distress Eyes: PERRL, conjunctivae normal, anicteric sclerae ENMT: external ear and nose normal, oropharynx normal Neck: trachea midline, no thyromegaly Respiratory: Auscultation: lungs clear to auscultation bilaterally Gastrointestinal (Abdomen): normal bowel sounds, soft, nontender, no hepatosplenomegaly Skin: no rashes, warm and dry Neurologic: Speech / Cognition: normal speech and normal cognition Results & Data Vital Signs (Past 12 Hours) Vital Signs Temp Pulse Pulse Resp BP BP Pulse Ox 09/22/23 08:31 69 09/22/23 06:17 36.5 C 85 18 151/78 H 95 09/22/23 05:13 36.5 C 72 18 142/83 H 97 09/21/23 23:42 36.5 C 70 18 118/71 99 09/21/23 22:45 75 28 H 98 09/21/23 22:23 69 O2 Del Method FiO2 09/22/23 08:31 09/22/23 06:17 Room Air 09/22/23 05:13 Room Air 09/21/23 23:42 Room Air 09/21/23 22:45 21 09/21/23 22:23 Laboratory Results Laboratory Results - last 24 hr 09/21/23 09/21/23 09/22/23 06:59 Unknown 06:35 WBC 10.21 RBC 3.06 L Hgb 10.3 L Hct 31.1 L MCV 101.6 H MCH 33.7 MCHC 33.1 RDW Std Deviation 49.9 H RDW Coeff of Santos 13.4 Plt Count 193 MPV 9.7 Sodium 138 Potassium 4.9 Chloride 103 Carbon Dioxide 24 Anion Gap 11 BUN 89 H Creatinine 5.03 H* Est Cr Clr Drug Dosing 28.8 Est GFR ( Amer) 13.5 Est GFR (Non-Af Amer) 11.6 BUN/Creatinine Ratio 17.7 Glucose 95 Uric Acid 9.4 H Calcium 8.4 L Magnesium 2.0 Total Bilirubin 0.7 AST 17 ALT 14 Alkaline Phosphatase 180 H Total Protein 5.7 L Albumin 2.6 L Globulin 3.1 Albumin/Globulin Ratio 0.8 L Urine Color Yellow Urine Appearance Cloudy A Urine pH 5.0 Ur Specific [place] 1.016 Urine Protein 2+ H Urine Glucose (UA) Negative Urine Ketones Negative Urine Blood 3+ H Urine Nitrite Negative Urine Bilirubin Negative Urine Urobilinogen Negative Ur Leukocyte Esterase 1+ H Urine WBC (Auto) 6-10 H Urine RBC (Auto) >20 H U Hyaline Cast (Auto) 0-2 U Epithel Cells (Auto) 0-2 Urine Bacteria (Auto) None Seen Talc Crystals Present H Ur Random Creatinine 79.4 U Random Total Protein 77.6 H Protein/Creatinin Ratio 1.0 H PG Care Time/CCT Total # of Minutes Spent Total Time Spent with Patient: Total time spent is greater than 50% in coordination of care (as documented) at patient's floor/unit and/or counseling patient: Coding Level of Care Code 87384 SUB INP/OBS CARE 3/50MIN Diagnoses CHRISTAL (acute kidney injury) N17.9 Chronic kidney disease N18.9 Hyperuricemia E79.0 Hematuria R31.0 Hematuria type: gross Acute UTI (urinary tract infection) N39.0 COVID-19 U07.1 (4) Hematuria Hematuria type: gross Qualified Code(s): R31.0 - Gross hematuria
[2023-09-22] MEDS: FEBUXOSTAT 40 MG TABLET PO ONE (10:10)
[2023-09-22 19:58] LABS: Appearance Urine Clear (Clear); Bacteria Urine Automated None Seen (None Seen); Bilirubin Urine Negative (Negative); Blood Urine 3+ (Negative); Cast Urine Automated 0-2 /lpf (0-2); Color Urine Yellow; Epithelial Cell Urine Auto 0-2 /hpf (0-2); Glucose Urine UA Negative (Negative); Ketones Urine Negative (Negative); Leukocyte Esterase Urine Negative (Negative); Nitrite Urine Negative (Negative); Protein Urine 1+ (Negative); RBC Urine Automated >20 /hpf (0-2); Specific Gravity Urine 1.014 (1.000-1.030); Urobilinogen Urine Negative (Negative); WBC Urine Automated 0-5 /hpf (0-5); pH Urine 5.5 (4.5-7.5)
[2023-09-22 20:17] LABS: Protein Creatinine Ratio Urine 0.8 (0-0.2); Total Protein Urine Random 47.1 mg/dl (0-11.9)
--- NOTE | 2023-09-22 21:24 | Hospitalist Progress Note ---
Date of Service September 23, 2023 Assessment & Plan (1) CHRISTAL (acute kidney injury): Plan: While patient initially presented for COVID, his continued stay is secondary to CHRISTAL/acute renal failure Recent hospitalization from 08/31 - 09/10 for CHRISTAL secondary to ATN (multifactorial: UTI, alc use, poor fluid intake, ibuprofen use for gout) DDx at this time includes urate nephropathy, IgA nephropothy post COVID Only marginal CR improvement recently: 5.08 on 09/20 --> 5.03 on 09/21 Patient's baseline Cr was 1.5-1.6 prior to this recent episode of ATN Strict I&Os; Daily UOP No critical volume overload/hypoxia or hyperkalemia to indicate dialysis FeNa 2%, recent TD, ANCA, C4, C3, anti-GBM ab all returned negative from the prior hospitalization Appreciate nephrology assistance Discussed the need for renal biopsy (which would require transfer); will continue to monitor for improvement over the next 24-48h Discussed dialysis; will hold for now as patient is still producing urine; recommended holding diuretics Continue prednisone 20 mg daily; wean per nephrology Trend BMP (2) Acute encephalopathy: Plan: Acute metabolic and toxic encephalopathy With recent COVID infection, renal failure, CHRISTAL, UTI, and pain control medications Oxycodone has been discontinued, as patient believes his acute episode of confusion was secondary to pain medicine given overnight Uric acid level with marginal improvement on 09/21; 9.8-->9.4 Peak 13.9 on 09/04/23 Febuoxstat increased to 80 mg daily on 09/21 Ammonia normal, no hypercapnia on VBG, thiamine supplemented. No meningeal signs. MRI deferred. Zyprexa 2.5 mg nightly for sleep and insomnia, +melatonin for sleep No focal deficits on exam, mentating well; Trend uric acid levels (3) COVID-19: Plan: Symptoms started on 09/10, tested positive on 09/12 Significantly improved; clinically, patient denies any respiratory symptoms Non-hypoxic; CXR clear Remdesivir/dexamethasone not indicated Continue airborne isolation for now Spoke with ID/infection control; per hospital guidelines, okay to remove airborne isolation on 09/22 if patient is asymptomatic Supportive care (4) Lower extremity edema: Plan: +3 Pitting edma in the RLE > +1 pitting edema in the LLE on 09/21 Given renal function, will defer diuretics Daily weights; significant weight gain since 08/31 Encourage ambulation and SCDs for fluid mobilization (5) Right knee pain: Plan: Multifactorial, advanced OA, multiple ligamentous tears (as seen on previous MRI), and gouty arthritis all contributing S/p tap 09/13 with WBC/+gout/cx neg Gout/pain management as otherwise noted (6) Gout: Plan: Cannot use NSAIDs Currently on prednisone. Recommend to keep on a slow taper for several weeks due to severe gout with many months of symptoms. Can hold at around 5-10 mg/day for this Febuxostat uptitrated to 40 mg Started on renally-dosed allopurinol 50mg twice weekly during recent hospitalization S/p arthrocentesis 09/13. +WBC, +gout crystals, culture negative Continue oxy 5mg prn for pain relief (lowered it due to confusion) but he really won't have significant improvement without steroids Continue steroids (being used for his CHRISTAL as well) (7) Acute UTI (urinary tract infection): Plan: Rx for ESBL e.coli during previous hospitalization had 2 urine cx's since admission - first is negative, 2nd grew coag neg staph cont IV daptomycin q48h due to renal function ; 7 days of treatment completed on 09/21/2023; treatment discontinued PSA low, prostatitis unlikely Hematuria likely secondary to UTI (8) Abdominal pain: Plan: Intermittent abdominal pain 1 to 2 minutes after drinking/eating CT A/P on admit without liver, gall bladder or pancreatic abnormalities Hx of severe gastritis on EGD in fall 2022 Continue PPI, Carafate (9) ROBERT (obstructive sleep apnea): Plan: CPAP HS (10) Morbid obesity: Plan: BMI 46.8 Plan Disposition: PCU status; continued stay for acute renal failure Full code Low potassium diet DVT PPx: Heparin 5000u SQ q12h; SCDs to help mobilize fluid Admission and Anticipated Discharge Date Admission Date: September 13, 2023 Results & Data Results & Data Vital Signs (Past 12 Hours) Vital Signs Temp Pulse Pulse Resp BP BP Pulse Ox 09/22/23 19:49 36.5 C 70 18 134/88 97 09/22/23 15:58 36.4 C L 74 16 137/81 98 09/22/23 15:17 69 09/22/23 11:58 36.5 C 75 16 133/75 97 09/22/23 11:55 O2 Del Method 09/22/23 19:49 Room Air 09/22/23 15:58 Room Air 09/22/23 15:17 09/22/23 11:58 Room Air 09/22/23 11:55 Room Air PG Care Time/CCT Total # of Minutes Spent Total Time Spent with Patient: Total time spent is greater than 50% in coordination of care (as documented) at patient's floor/unit and/or counseling patient: Coding Diagnoses CHRISTAL (acute kidney injury) N17.9 Acute encephalopathy G93.40 COVID-19 U07.1 Lower extremity edema R60.0 Right knee pain M25.561 Gout M10.361 Chronicity: acute Gout etiology: due to renal impairment Gout site: knee Laterality: right Acute UTI (urinary tract infection) N39.0 Abdominal pain R10.9 ROBERT (obstructive sleep apnea) G47.33 Morbid obesity E66.01 (6) Gout Chronicity: acute Gout etiology: due to renal impairment Gout site: knee Laterality: right Qualified Code(s): M10.361 - Gout due to renal impairment, right knee
[2023-09-23 07:20] LABS: Hematocrit (blood only) 29.7 % (42.0-52.0); Hemoglobin 9.7 g/dl (14.0-18.0); Mean Corpuscular Hemoglobin 33.2 pg (25.0-34.0); Mean Corpuscular Hgb Conc 32.7 g/dL (32.0-36.0); Mean Corpuscular Volume 101.7 fL (80.0-100.0); Mean Platelet Volume 9.7 fL (9.4-12.4); Platelet Count 179 K/uL (130-400); RDW Coefficient of Variation 13.4 % (11.5-14.5); RDW Standard Deviation 50.1 fL (36.4-46.3); Red Blood Count 2.92 M/uL (4.70-6.10)
[2023-09-23 07:48] LABS: Albumin Globulin Ratio 0.9 (0.9-2); Albumin Level 2.6 gm/dl (3.4-5.0); BUN Creatinine Ratio 17.9 (10-20); Bilirubin,Total 0.7 mg/dl (0.2-1.0); Calcium 8.3 mg/dl (8.6-10.3); Est GFR (African American) 14.7 ml/min; Est GFR (Non-African American) 12.7 ml/min; Globulin 2.8 gm/dl (2.5-4.0); Potassium 4.8 mmol/L (3.5-5.1); Total Protein 5.4 gm/dl (6.0-8.3)
[2023-09-23 07:54] LABS: Basophils # (auto) 0.03 K/uL (0.00-0.20); Basophils % (auto) 0.3 %; Eosinophils # (auto) 0.06 K/uL (0.00-0.50); Eosinophils % (auto) 0.7 %; Immature Granulocytes # (auto) 0.68 K/uL (0.01-0.20); Immature Granulocytes % (auto) 7.5 %; Lymphocytes # (auto) 1.13 K/uL (1.20-3.40); Lymphocytes % (auto) 12.4 %; Monocytes # (auto) 1.03 K/uL (0.11-0.59); Monocytes % (auto) 11.3 %; Neutrophils # (auto) 6.17 K/uL (1.40-6.50); Neutrophils % (auto) 67.8 %; RBC Morphology Unremarkable
[2023-09-23] MEDS: predniSONE 20 MG TAB PO SCH (08:19)
--- NOTE | 2023-09-23 08:46 | Nephrology Progress Note ---
Date of Service September 23, 2023 Assessment & Plan (1) CHRISTAL (acute kidney injury): Plan: * Patient is entering recovery phase. Cr 5.36-->5.0-->4.68. UO 976 last shift * Electrolyte balance is acceptable. No acute indication for HD. Hold kidney biopsy since patient is improving. Hold diuretic as patient appears to be diuresing on his own * 09/13/[address] - no hydronephrosis * 09/04/23 GN evaluation including ANCA, TD, C3/C4 and anti GBM were normal * Continue Prednisone 20 mg daily * Monitor PRP, UO, weight (2) Chronic kidney disease: Plan: * CKD stage G3a (moderate impairment). Baseline creatinine has been 1.6-1.8 w/ EGFR 45 cc/min dating back to 01/17. 09/[address] did reveal mild cortical thinning. Renal impairment is likely on the basis of microvascular disease (3) Hyperuricemia: Plan: * Knee x-ray revealed arthritic changes w/ joint effusion * Aspiration of R knee 09/14/23 demonstrated gout * Remains on prednisone therapy * Uloric increased to 80 mg daily 09/22/23 * Serum uric acid 9.4-->8.8. Will continue to monitor (4) Hematuria: Plan: * History of gross and microscopic hematuria noted over the last 2 years * History of recurrent UTI. Non-smoker * Ultimately may benefit from urologic evaluation for non-glomerular causes as an outpatient (5) Acute UTI (urinary tract infection): Plan: * Recent h/o ESBL E. coli UTI * Coag neg staph UTI this admission. Daptomycin has been stopped (6) COVID-19: Plan: * Improved with conservative management Admission and Anticipated Discharge Date Admission Date: September 13, 2023 Subjective Mr. Murphy was evaluated in his hospital room this morning. He denies fever, flank pain, dysuria or hematuria. He is breathing comfortably on RA flat in bed. He remains nonoliguric with 976 cc UO last shift. Review of Systems Constitutional: no fever Eyes: no problem reported Ear, Nose, Mouth, Throat: no problem reported Respiratory: no cough and no dyspnea Cardiovascular: no chest pain Gastrointestinal: no abdominal pain, no nausea, no vomiting and no diarrhea/loose stools Genitourinary: + hematuria Integumentary: no rash Neurologic: no problem reported Physical Exam Constitutional: + morbidly obese; not in distress Eyes: PERRL, conjunctivae normal, anicteric sclerae ENMT: external ear and nose normal, oropharynx normal Neck: trachea midline, no thyromegaly Respiratory: Auscultation: lungs clear to auscultation bilaterally Cardiovascular: Rate/Rhythm: regular rate and regular rhythm Extremities: + edema (2-3+ pretibial edema) Gastrointestinal (Abdomen): normal bowel sounds, soft, nontender, no hepatosplenomegaly Skin: no rashes, warm and dry Neurologic: Speech / Cognition: normal speech and normal cognition Results & Data Vital Signs (Past 12 Hours) Vital Signs Temp Pulse Pulse Resp BP Pulse Ox O2 Del Method 09/23/23 07:46 63 09/23/23 02:19 36.4 C L 69 20 140/87 98 Room Air 09/23/23 00:03 36.5 C 64 16 132/85 98 Room Air 09/22/23 22:17 62 09/22/23 22:17 65 24 98 Laboratory Results Laboratory Results - last 24 hr 09/22/23 09/23/23 19:44 07:00 WBC 9.10 RBC 2.92 L Hgb 9.7 L Hct 29.7 L MCV 101.7 H MCH 33.2 MCHC 32.7 RDW Std Deviation 50.1 H RDW Coeff of [place] 13.4 Plt Count 179 MPV 9.7 Immature Gran % (Auto) 7.5 Neut % (Auto) 67.8 Lymph % (Auto) 12.4 [place] % (Auto) 11.3 Eos % (Auto) 0.7 Baso % (Auto) 0.3 Neut # (Auto) 6.17 Lymph # (Auto) 1.13 L [place] # (Auto) 1.03 H Eos # (Auto) 0.06 Baso # (Auto) 0.03 Immature Gran # (Auto) 0.68 H RBC Morphology Unremarkable Sodium 137 Potassium 4.8 Chloride 104 Carbon Dioxide 25 Anion Gap 8 BUN 84 H Creatinine 4.68 H* D Est Cr Clr Drug Dosing 31.0 Est GFR ( Amer) 14.7 Est GFR (Non-Af Amer) 12.7 BUN/Creatinine Ratio 17.9 Glucose 89 Uric Acid Pending Calcium 8.3 L Total Bilirubin 0.7 AST 17 ALT 14 Alkaline Phosphatase 166 H Total Protein 5.4 L Albumin 2.6 L Globulin 2.8 Albumin/Globulin Ratio 0.9 Urine Color Yellow Urine Appearance Clear Urine pH 5.5 Ur Specific [place] 1.014 Urine Protein 1+ H Urine Glucose (UA) Negative Urine Ketones Negative Urine Blood 3+ H Urine Nitrite Negative Urine Bilirubin Negative Urine Urobilinogen Negative Ur Leukocyte Esterase Negative Urine WBC (Auto) 0-5 Urine RBC (Auto) >20 H U Hyaline Cast (Auto) 0-2 U Epithel Cells (Auto) 0-2 Urine Bacteria (Auto) None Seen Ur Random Creatinine 59.0 U Random Total Protein 47.1 H Ur Random Uric Acid Pending Protein/Creatinin Ratio 0.8 H 09/22/ Uric Acid 9.4-->8.8 PG Care Time/CCT Total # of Minutes Spent Total Time Spent with Patient: Total time spent is greater than 50% in coordination of care (as documented) at patient's floor/unit and/or counseling patient: Coding Level of Care Code 33463 SUB INP/OBS CARE 3/50MIN Diagnoses CHRISTAL (acute kidney injury) N17.9 Chronic kidney disease N18.9 Hyperuricemia E79.0 Hematuria R31.0 Hematuria type: gross Acute UTI (urinary tract infection) N39.0 COVID-19 U07.1 (4) Hematuria Hematuria type: gross Qualified Code(s): R31.0 - Gross hematuria
--- NOTE | 2023-09-23 08:54 | Hospitalist Progress Note ---
Date of Service September 23, 2023 Assessment & Plan (1) CHRISTAL (acute kidney injury): Plan: While patient initially presented for COVID, his continued stay is secondary to CHRISTAL/acute renal failure Recent hospitalization from 08/31 - 09/10 for CHRISTAL secondary to ATN (multifactorial: UTI, alc use, poor fluid intake, ibuprofen use for gout) DDx at this time includes urate nephropathy, IgA nephropothy post COVID Only marginal CR improvement recently: 5.08 on 09/20 --> 5.03 on 09/21 Patient's baseline Cr was 1.5-1.6 prior to this recent episode of ATN Strict I&Os; Daily UOP No critical volume overload/hypoxia or hyperkalemia to indicate dialysis FeNa 2%, recent TD, ANCA, C4, C3, anti-GBM ab all returned negative from the prior hospitalization Appreciate nephrology assistance Discussed the need for renal biopsy (which would require transfer); will continue to monitor for improvement over the next 24-48h Discussed dialysis; will hold for now as patient is still producing urine; recommended holding diuretics Continue prednisone 20 mg daily; wean per nephrology CHRISTAL appears to be improving and patient has been net negative. (2) Acute encephalopathy: Plan: Acute metabolic and toxic encephalopathy With recent COVID infection, renal failure, CHRISTAL, UTI, and pain control medications Oxycodone has been discontinued, as patient believes his acute episode of confusion was secondary to pain medicine given overnight Uric acid level with marginal improvement on 09/21; 9.8-->9.4 Peak 13.9 on 09/04/23 Febuoxstat increased to 80 mg daily on 09/21 Ammonia normal, no hypercapnia on VBG, thiamine supplemented. No meningeal signs. MRI deferred. Zyprexa 2.5 mg nightly for sleep and insomnia, +melatonin for sleep No focal deficits on exam, mentating well; Trend uric acid levels (3) COVID-19: Plan: Symptoms started on 09/10, tested positive on 09/12 Significantly improved; clinically, patient denies any respiratory symptoms Non-hypoxic; CXR clear Remdesivir/dexamethasone not indicated Continue airborne isolation for now Spoke with ID/infection control; per hospital guidelines, okay to remove airborne isolation on 09/22 if patient is asymptomatic Supportive care (4) Lower extremity edema: Plan: +3 Pitting edma in the RLE > +1 pitting edema in the LLE on 09/21 Given renal function, will defer diuretics Daily weights; significant weight gain since 08/31 Encourage ambulation and SCDs for fluid mobilization (5) Right knee pain: Plan: Multifactorial, advanced OA, multiple ligamentous tears (as seen on previous MRI), and gouty arthritis all contributing S/p tap 09/13 with WBC/+gout/cx neg Gout/pain management as otherwise noted (6) Gout: Plan: Cannot use NSAIDs Currently on prednisone. Recommend to keep on a slow taper for several weeks due to severe gout with many months of symptoms. Can hold at around 5-10 mg/day for this Febuxostat uptitrated to 40 mg Started on renally-dosed allopurinol 50mg twice weekly during recent hospitalization S/p arthrocentesis 09/13. +WBC, +gout crystals, culture negative Continue oxy 5mg prn for pain relief (lowered it due to confusion) but he really won't have significant improvement without steroids Continue steroids (being used for his CHRISTAL as well) (7) Acute UTI (urinary tract infection): Plan: Rx for ESBL e.coli during previous hospitalization had 2 urine cx's since admission - first is negative, 2nd grew coag neg staph cont IV daptomycin q48h due to renal function ; 7 days of treatment completed on 09/21/2023; treatment discontinued PSA low, prostatitis unlikely Hematuria likely secondary to UTI (8) Abdominal pain: Plan: Intermittent abdominal pain 1 to 2 minutes after drinking/eating CT A/P on admit without liver, gall bladder or pancreatic abnormalities Hx of severe gastritis on EGD in fall 2022 Continue PPI, Carafate (9) ROBERT (obstructive sleep apnea): Plan: CPAP HS (10) Morbid obesity: Plan: BMI 46.8 Plan Disposition: PCU status; continued stay for acute renal failure Full code Low potassium diet DVT PPx: Heparin 5000u SQ q12h; SCDs to help mobilize fluid Admission and Anticipated Discharge Date Admission Date: September 13, 2023 Subjective 58 yo male reports no new symptoms. He states he feels well. Review of Systems Review of Systems: All systems reviewed & are unremarkable except as noted in HPI & below Physical Exam Physical Exam: General: no acute distress; pleasant affect; HEENT: normocephalic, atraumatic; Neck: supple; no lymphadenopathy; trachea midline Skin: warm, dry without signs of tenting; CV: chest wall NTP; RRR; Lungs: no acute respiratory distress; ABD: Soft, NTP; BS present; MSK: no tics or fasciculations; +3 pitting edema in the RLE > +1 pitting edema in the LLE, nonerythematous Neuro: A&Ox3; normal mood and affect; Results & Data Results & Data Vital Signs (Past 12 Hours) Vital Signs Temp Pulse Pulse Resp BP Pulse Ox O2 Del Method 09/23/23 07:46 63 09/23/23 02:19 36.4 C L 69 20 140/87 98 Room Air 09/23/23 00:03 36.5 C 64 16 132/85 98 Room Air 09/22/23 22:17 62 09/22/23 22:17 65 24 98 PG Care Time/CCT Total # of Minutes Spent Total Time Spent with Patient: Total time spent is greater than 50% in coordination of care (as documented) at patient's floor/unit and/or counseling patient: Coding Level of Care Code 45142 SUB INP/OBS CARE 2/35MIN Diagnoses CHRISTAL (acute kidney injury) N17.9 Acute encephalopathy G93.40 COVID-19 U07.1 Lower extremity edema R60.0 Right knee pain M25.561 Gout M10.361 Chronicity: acute Gout etiology: due to renal impairment Gout site: knee Laterality: right Acute UTI (urinary tract infection) N39.0 Abdominal pain R10.9 ROBERT (obstructive sleep apnea) G47.33 Morbid obesity E66.01 (6) Gout Chronicity: acute Gout etiology: due to renal impairment Gout site: knee Laterality: right Qualified Code(s): M10.361 - Gout due to renal impairment, right knee
[2023-09-23 09:16] LABS: Uric Acid 8.8 mg/dl (2.6-7.2)
[2023-09-23] MEDS: FEBUXOSTAT 40 MG TABLET PO SCH (11:09)
[2023-09-24 06:30] LABS: Hematocrit (blood only) 32.6 % (42.0-52.0); Hemoglobin 10.7 g/dl (14.0-18.0); Mean Corpuscular Hemoglobin 33.3 pg (25.0-34.0); Mean Corpuscular Hgb Conc 32.8 g/dL (32.0-36.0); Mean Corpuscular Volume 101.6 fL (80.0-100.0); Mean Platelet Volume 9.5 fL (9.4-12.4); Platelet Count 197 K/uL (130-400); RDW Coefficient of Variation 13.2 % (11.5-14.5); RDW Standard Deviation 49.4 fL (36.4-46.3); Red Blood Count 3.21 M/uL (4.70-6.10); White Blood Count 8.82 K/ul (4.8-10.8)
[2023-09-24 06:32] LABS: Albumin Level 2.7 gm/dl (3.4-5.0); BUN Creatinine Ratio 18.2 (10-20); Bilirubin,Total 0.7 mg/dl (0.2-1.0); Calcium 8.3 mg/dl (8.6-10.3); Creatinine Clr Calc Pharmacy 33.2 ml/min; Est GFR (African American) 16.4 ml/min; Est GFR (Non-African American) 14.1 ml/min; Globulin 2.8 gm/dl (2.5-4.0); Potassium 5.1 mmol/L (3.5-5.1); Total Protein 5.5 gm/dl (6.0-8.3); Uric Acid 8.1 mg/dl (2.6-7.2)
[2023-09-24 06:54] LABS: Basophils # (auto) 0.04 K/uL (0.00-0.20); Basophils % (auto) 0.5 %; Eosinophils # (auto) 0.11 K/uL (0.00-0.50); Eosinophils % (auto) 1.2 %; Immature Granulocytes # (auto) 0.87 K/uL (0.01-0.20); Immature Granulocytes % (auto) 9.9 %; Lymphocytes # (auto) 1.49 K/uL (1.20-3.40); Lymphocytes % (auto) 16.9 %; Monocytes # (auto) 1.18 K/uL (0.11-0.59); Monocytes % (auto) 13.4 %; Neutrophils # (auto) 5.13 K/uL (1.40-6.50); Neutrophils % (auto) 58.1 %
--- NOTE | 2023-09-24 09:21 | Nephrology Progress Note ---
Date of Service September 24, 2023 Assessment & Plan (1) CHRISTAL (acute kidney injury): Plan: * Patient is entering recovery phase. Cr 5.36-->5.0-->4.68-->4.2. UO 2L last 24 hrs * Electrolyte balance is acceptable. No acute indication for HD. Hold kidney biopsy since patient is improving. Hold diuretic as patient appears to be diuresing on his own * 09/13/[address] - no hydronephrosis * 09/04/23 GN evaluation including ANCA, TD, C3/C4 and anti GBM were normal * Continue Prednisone 20 mg daily * Monitor PRP, UO, daily weight (2) Chronic kidney disease: Plan: * CKD stage G3a (moderate impairment). Baseline creatinine has been 1.6-1.8 w/ EGFR 45 cc/min dating back to 01/17. 09/[address] did reveal mild cortical thinning. Renal impairment is likely on the basis of microvascular disease (3) Hyperuricemia: Plan: * Knee x-ray revealed arthritic changes w/ joint effusion * Aspiration of R knee 09/14/23 demonstrated gout * Remains on prednisone therapy * Uloric increased to 80 mg daily 09/22/23. LFT - wnl * Serum uric acid 9.4-->8.8-->8.1. Will continue to monitor (4) Hematuria: Plan: * History of gross and microscopic hematuria noted over the last 2 years * History of recurrent UTI. Non-smoker * Ultimately may benefit from urologic evaluation for non-glomerular causes as an outpatient (5) Acute UTI (urinary tract infection): Plan: * Recent h/o ESBL E. coli UTI * Coag neg staph UTI this admission. Daptomycin has been stopped (6) COVID-19: Plan: * Improved with conservative management Admission and Anticipated Discharge Date Admission Date: September 13, 2023 Subjective Mr. Murphy was evaluated in his hospital room this morning. He denies fever, flank pain, dysuria or hematuria. He is breathing comfortably on RA flat in bed. He remains nonoliguric with 2L UO last 24 hrs. Review of Systems Constitutional: no fever Eyes: no problem reported Ear, Nose, Mouth, Throat: no problem reported Respiratory: no cough and no dyspnea Cardiovascular: no chest pain Gastrointestinal: no abdominal pain, no nausea, no vomiting and no diarrhea/loose stools Genitourinary: + hematuria Integumentary: no rash Neurologic: no problem reported Physical Exam Constitutional: + morbidly obese and + disheveled; not i n distress Eyes: PERRL, conjunctivae normal, anicteric sclerae ENMT: external ear and nose normal, oropharynx normal Neck: trachea midline, no thyromegaly Respiratory: Auscultation: lungs clear to auscultation bilaterally Cardiovascular: Rate/Rhythm: regular rate and regular rhythm Extremities: + edema (2-3+ pretibial edema) Gastrointestinal (Abdomen): normal bowel sounds, soft, nontender, no hepatosplenomegaly Skin: no rashes, warm and dry Neurologic: Speech / Cognition: normal speech and normal cognition Results & Data Vital Signs (Past 12 Hours) Vital Signs Temp Pulse Pulse Resp BP Pulse Ox O2 Del Method 09/24/23 08:26 Room Air 09/24/23 07:30 36.6 C 83 18 146/88 H 98 Room Air 09/24/23 07:24 65 09/24/23 02:31 36.5 C 65 18 136/84 100 Room Air 09/23/23 22:28 36.5 C 71 16 139/85 98 Room Air 09/23/23 22:20 66 Laboratory Results Laboratory Results - last 24 hr 09/24/23 09/24/23 05:54 Unknown WBC 8.82 RBC 3.21 L Hgb 10.7 L Hct 32.6 L MCV 101.6 H MCH 33.3 MCHC 32.8 RDW Std Deviation 49.4 H RDW Coeff of Santos 13.2 Plt Count 197 MPV 9.5 Immature Gran % (Auto) 9.9 Neut % (Auto) 58.1 Lymph % (Auto) 16.9 [place] % (Auto) 13.4 Eos % (Auto) 1.2 Baso % (Auto) 0.5 Neut # (Auto) 5.13 Lymph # (Auto) 1.49 [place] # (Auto) 1.18 H Eos # (Auto) 0.11 Baso # (Auto) 0.04 Immature Gran # (Auto) 0.87 H Sodium 139 Potassium 5.1 Chloride 105 Carbon Dioxide 25 Anion Gap 9 BUN 78 H Creatinine 4.28 H D Est Cr Clr Drug Dosing 33.2 Est GFR ( Amer) 16.4 Est GFR (Non-Af Amer) 14.1 BUN/Creatinine Ratio 18.2 Glucose 85 Uric Acid 8.1 H Calcium 8.3 L Total Bilirubin 0.7 AST 20 ALT 17 Alkaline Phosphatase 163 H Total Protein 5.5 L Albumin 2.7 L Globulin 2.8 Albumin/Globulin Ratio 1.0 Stl C. diff Tox B Gene Pending PG Care Time/CCT Total # of Minutes Spent Total Time Spent with Patient: Total time spent is greater than 50% in coordination of care (as documented) at patient's floor/unit and/or counseling patient: Coding Level of Care Code 75203 SUB INP/OBS CARE 3/50MIN Diagnoses CHRISTAL (acute kidney injury) N17.9 Chronic kidney disease N18.9 Hyperuricemia E79.0 Hematuria R31.0 Hematuria type: gross Acute UTI (urinary tract infection) N39.0 COVID-19 U07.1 (4) Hematuria Hematuria type: gross Qualified Code(s): R31.0 - Gross hematuria
[2023-09-24 10:42] LABS: Cdiff Toxin B Gene (2yr or >) Positive Cdiff Gene (Neg)
[2023-09-24 11:15] LABS: Cdiff Antigen Positive
[2023-09-24 11:16] LABS: Cdiff Toxin A+B Positive Cdiff Toxin (Negative)
[2023-09-24] MEDS: CHERRY SYRUP 5 ML UDP PO SCH (17:27)
[2023-09-24] MEDS: VANCOMYCIN HCL 125 MG/2.5ML SOLN PO SCH (17:27)
--- NOTE | 2023-09-24 22:13 | Hospitalist Progress Note ---
Date of Service September 24, 2023 Assessment & Plan (1) CHRISTAL (acute kidney injury): Plan: While patient initially presented for COVID, his continued stay is secondary to CHRISTAL/acute renal failure Recent hospitalization from 08/31 - 09/10 for CHRISTAL secondary to ATN (multifactorial: UTI, alc use, poor fluid intake, ibuprofen use for gout) DDx at this time includes urate nephropathy, IgA nephropothy post COVID Only marginal CR improvement recently: 5.08 on 09/20 --> 5.03 on 09/21 Patient's baseline Cr was 1.5-1.6 prior to this recent episode of ATN Strict I&Os; Daily UOP No critical volume overload/hypoxia or hyperkalemia to indicate dialysis FeNa 2%, recent TD, ANCA, C4, C3, anti-GBM ab all returned negative from the prior hospitalization Appreciate nephrology assistance Discussed the need for renal biopsy (which would require transfer); will continue to monitor for improvement over the next 24-48h Discussed dialysis; will hold for now as patient is still producing urine; recommended holding diuretics Continue prednisone 20 mg daily; wean per nephrology CHRISTAL appears to be improving and patient has been net negative. (2) Acute encephalopathy: Plan: Acute metabolic and toxic encephalopathy With recent COVID infection, renal failure, CHRISTAL, UTI, and pain control medications Oxycodone has been discontinued, as patient believes his acute episode of confusion was secondary to pain medicine given overnight Uric acid level with marginal improvement on 09/21; 9.8-->9.4 Peak 13.9 on 09/04/23 Febuoxstat increased to 80 mg daily on 09/21 Ammonia normal, no hypercapnia on VBG, thiamine supplemented. No meningeal signs. MRI deferred. Zyprexa 2.5 mg nightly for sleep and insomnia, +melatonin for sleep No focal deficits on exam, mentating well; Trend uric acid levels (3) COVID-19: Plan: Symptoms started on 09/10, tested positive on 09/12 Significantly improved; clinically, patient denies any respiratory symptoms Non-hypoxic; CXR clear Remdesivir/dexamethasone not indicated Continue airborne isolation for now Spoke with ID/infection control; per hospital guidelines, okay to remove airborne isolation on 09/22 if patient is asymptomatic Supportive care (4) Lower extremity edema: Plan: +3 Pitting edma in the RLE > +1 pitting edema in the LLE on 09/21 Given renal function, will defer diuretics Daily weights; significant weight gain since 08/31 Encourage ambulation and SCDs for fluid mobilization (5) Right knee pain: Plan: Multifactorial, advanced OA, multiple ligamentous tears (as seen on previous MRI), and gouty arthritis all contributing S/p tap 09/13 with WBC/+gout/cx neg Gout/pain management as otherwise noted (6) Gout: Plan: Cannot use NSAIDs Currently on prednisone. Recommend to keep on a slow taper for several weeks due to severe gout with many months of symptoms. Can hold at around 5-10 mg/day for this Febuxostat uptitrated to 40 mg Started on renally-dosed allopurinol 50mg twice weekly during recent hospitalization S/p arthrocentesis 09/13. +WBC, +gout crystals, culture negative Continue oxy 5mg prn for pain relief (lowered it due to confusion) but he really won't have significant improvement without steroids Continue steroids (being used for his CHRISTAL as well) (7) Acute UTI (urinary tract infection): Plan: Rx for ESBL e.coli during previous hospitalization had 2 urine cx's since admission - first is negative, 2nd grew coag neg staph cont IV daptomycin q48h due to renal function ; 7 days of treatment completed on 09/21/2023; treatment discontinued PSA low, prostatitis unlikely Hematuria likely secondary to UTI (8) Abdominal pain: Plan: Intermittent abdominal pain 1 to 2 minutes after drinking/eating CT A/P on admit without liver, gall bladder or pancreatic abnormalities Hx of severe gastritis on EGD in fall 2022 Continue PPI, Carafate (9) ROBERT (obstructive sleep apnea): Plan: CPAP HS (10) Morbid obesity: Plan: BMI 46.8 (11) C. difficile diarrhea: Plan: Patient now with c diff colitis. Placed on vanco. Plan Disposition: PCU status; continued stay for acute renal failure Full code Low potassium diet Admission and Anticipated Discharge Date Admission Date: September 13, 2023 Subjective 58 yo male reports having diarrhea. Patient denies any fever, chills. Review of Systems Review of Systems: All systems reviewed & are unremarkable except as noted in HPI & below Physical Exam Physical Exam: General: no acute distress; pleasant affect; HEENT: normocephalic, atraumatic; Neck: supple; no lymphadenopathy; trachea midline Skin: warm, dry without signs of tenting; CV: chest wall NTP; RRR; Lungs: no acute respiratory distress; ABD: Soft, NTP; BS present; MSK: no tics or fasciculations; +3 pitting edema in the RLE > +1 pitting edema in the LLE, nonerythematous Neuro: A&Ox3; normal mood and affect; Results & Data Results & Data Vital Signs (Past 12 Hours) Vital Signs Temp Pulse Pulse Resp BP Pulse Ox O2 Del Method 09/24/23 19:50 Room Air 09/24/23 19:00 36.6 C 78 18 133/72 98 Room Air 09/24/23 15:31 36.6 C 77 19 128/72 97 Room Air 09/24/23 13:59 74 09/24/23 11:21 36.4 C L 79 18 122/78 98 Room Air PG Care Time/CCT Total # of Minutes Spent Total Time Spent with Patient: Total time spent is greater than 50% in coordination of care (as documented) at patient's floor/unit and/or counseling patient: Coding Level of Care Code 91655 SUB INP/OBS CARE 2/35MIN Diagnoses CHRISTAL (acute kidney injury) N17.9 Acute encephalopathy G93.40 COVID-19 U07.1 Lower extremity edema R60.0 Right knee pain M25.561 Gout M10.361 Chronicity: acute Gout etiology: due to renal impairment Gout site: knee Laterality: right Acute UTI (urinary tract infection) N39.0 Abdominal pain R10.9 ROBERT (obstructive sleep apnea) G47.33 Morbid obesity E66.01 C. difficile diarrhea A04.72 (6) Gout Chronicity: acute Gout etiology: due to renal impairment Gout site: knee Laterality: right Qualified Code(s): M10.361 - Gout due to renal impairment, right knee
[2023-09-25 06:42] LABS: Hematocrit (blood only) 34.7 % (42.0-52.0); Mean Corpuscular Hemoglobin 32.8 pg (25.0-34.0); Mean Corpuscular Hgb Conc 31.7 g/dL (32.0-36.0); Mean Corpuscular Volume 103.6 fL (80.0-100.0); Mean Platelet Volume 9.4 fL (9.4-12.4); Platelet Count 242 K/uL (130-400); RDW Coefficient of Variation 13.6 % (11.5-14.5); Red Blood Count 3.35 M/uL (4.70-6.10); White Blood Count 11.81 K/ul (4.8-10.8)
[2023-09-25 07:14] LABS: Basophils # (auto) 0.05 K/uL (0.00-0.20); Basophils % (auto) 0.4 %; Eosinophils # (auto) 0.15 K/uL (0.00-0.50); Eosinophils % (auto) 1.3 %; Immature Granulocytes # (auto) 1.06 K/uL (0.01-0.20); Lymphocytes # (auto) 1.65 K/uL (1.20-3.40); Monocytes # (auto) 1.53 K/uL (0.11-0.59); Neutrophils # (auto) 7.37 K/uL (1.40-6.50); Neutrophils % (auto) 62.3 %
[2023-09-25 07:20] LABS: Albumin Level 2.9 gm/dl (3.4-5.0); BUN Creatinine Ratio 18.3 (10-20); Bilirubin,Total 0.7 mg/dl (0.2-1.0); C Reactive Protein 6.65 mg/dl (0-0.5); Calcium 8.4 mg/dl (8.6-10.3); Creatinine Clr Calc Pharmacy 36.5 ml/min; Est GFR (African American) 18.4 ml/min; Est GFR (Non-African American) 15.9 ml/min; Potassium 4.9 mmol/L (3.5-5.1); Total Protein 5.9 gm/dl (6.0-8.3); Uric Acid 7.5 mg/dl (2.6-7.2)
--- NOTE | 2023-09-25 09:03 | Nephrology Progress Note ---
Date of Service September 25, 2023 Assessment & Plan (1) CHRISTAL (acute kidney injury): Plan: * Patient is entering recovery phase. Cr 5.36-->3.89. UO 2L last 24 hrs * Electrolyte balance is acceptable. No acute indication for HD. Hold kidney biopsy since patient is improving. Hold diuretic as patient appears to be diuresing on his own * 09/13/[address] - no hydronephrosis * 09/04/23 GN evaluation including ANCA, TD, C3/C4 and anti GBM were normal * Continue Prednisone 20 mg daily * Monitor PRP, UO, daily weight (2) Chronic kidney disease: Plan: * CKD stage G3a (moderate impairment). Baseline creatinine has been 1.6-1.8 w/ EGFR 45 cc/min dating back to 01/17. 09/[address] did reveal mild cortical thinning. Renal impairment is likely on the basis of microvascular disease (3) Hyperuricemia: Plan: * Knee x-ray revealed arthritic changes w/ joint effusion * Aspiration of R knee 09/14/23 demonstrated gout * Remains on prednisone therapy * Uloric increased to 80 mg daily 09/22/23. LFT - wnl * Serum uric acid 13.9-->7.5. Will continue to monitor uric acid and LFT levels (4) Hematuria: Plan: * History of gross and microscopic hematuria noted over the last 2 years * History of recurrent UTI. Non-smoker * Ultimately may benefit from urologic evaluation for non-glomerular causes as an outpatient (5) Acute UTI (urinary tract infection): Plan: * Recent h/o ESBL E. coli UTI * Coag neg staph UTI this admission - resolved (6) COVID-19: Plan: * Improved with conservative management (7) Diarrhea: Plan: * New onset diarrhea this hospitalization * 09/24/23 tested C. Difficile + * Now on oral Vancomycin therapy Admission and Anticipated Discharge Date Admission Date: September 13, 2023 Subjective Mr. Murphy was evaluated in his hospital room this morning. He denies fever, flank pain, dysuria or hematuria. He is breathing comfortably on RA flat in bed. He reports new onset diarrhea and has tested + for C. Difficile Review of Systems Constitutional: no fever Eyes: no problem reported Ear, Nose, Mouth, Throat: no problem reported Respiratory: no cough and no dyspnea Cardiovascular: no chest pain Gastrointestinal: no abdominal pain, no nausea, no vomiting and no diarrhea/loose stools Genitourinary: + hematuria Integumentary: no rash Neurologic: no problem reported Physical Exam Constitutional: + obese; not in distress Eyes: PERRL, conjunctivae normal, anicteric sclerae ENMT: external ear and nose normal, oropharynx normal Neck: trachea midline, no thyromegaly Respiratory: Auscultation: lungs clear to auscultation bilaterally Cardiovascular: Rate/Rhythm: regular rate and regular rhythm Extremities: + edema (2+ pretibial edema) Gastrointestinal (Abdomen): normal bowel sounds, soft, nontender, no hepatosplenomegaly Skin: no rashes, warm and dry Neurologic: Speech / Cognition: normal speech and normal cognition Results & Data Vital Signs (Past 12 Hours) Vital Signs Temp Pulse Pulse Resp BP BP Pulse Ox 09/25/23 08:25 36.6 C 82 18 162/54 H 98 09/25/23 08:20 09/25/23 06:34 74 09/25/23 03:56 36.6 C 89 20 142/93 H 97 09/25/23 02:47 76 19 98 09/24/23 22:47 36.4 C L 68 18 114/72 97 09/24/23 21:50 75 09/24/23 21:00 72 18 97 O2 Del Method 09/25/23 08:25 Room Air 09/25/23 08:20 Room Air 09/25/23 06:34 09/25/23 03:56 Room Air 09/25/23 02:47 09/24/23 22:47 Room Air, CPAP 09/24/23 21:50 09/24/23 21:00 Laboratory Results Laboratory Results - last 24 hr 09/24/23 09/25/23 Unknown 05:49 WBC 11.81 H RBC 3.35 L Hgb 11.0 L Hct 34.7 L MCV 103.6 H MCH 32.8 MCHC 31.7 L RDW Std Deviation 52.0 H RDW Coeff of Santos 13.6 Plt Count 242 MPV 9.4 Immature Gran % (Auto) 9.0 Neut % (Auto) 62.3 Lymph % (Auto) 14.0 [place] % (Auto) 13.0 Eos % (Auto) 1.3 Baso % (Auto) 0.4 Neut # (Auto) 7.37 H Lymph # (Auto) 1.65 Kay # (Auto) 1.53 H Eos # (Auto) 0.15 Baso # (Auto) 0.05 Immature Gran # (Auto) 1.06 H Sodium 138 Potassium 4.9 Chloride 104 Carbon Dioxide 26 Anion Gap 8 BUN 71 H Creatinine 3.89 H D Est Cr Clr Drug Dosing 36.5 Est GFR ( Amer) 18.4 Est GFR (Non-Af Amer) 15.9 BUN/Creatinine Ratio 18.3 Glucose 86 Uric Acid 7.5 H Calcium 8.4 L Total Bilirubin 0.7 AST 29 ALT 27 Alkaline Phosphatase 180 H C-Reactive Protein 6.65 H Total Protein 5.9 L Albumin 2.9 L Globulin 3.0 Albumin/Globulin Ratio 1.0 Procalcitonin 1.44 H Stl C. diff Tox B Gene Positive Cdiff Gene H Stl C.difficile Tox A&B Positive Cdiff Toxin A* PG Care Time/CCT Total # of Minutes Spent Total Time Spent with Patient: Total time spent is greater than 50% in coordination of care (as documented) at patient's floor/unit and/or counseling patient: Coding Level of Care Code 33398 SUB INP/OBS CARE 3/50MIN Diagnoses CHRISTAL (acute kidney injury) N17.9 Chronic kidney disease N18.9 Hyperuricemia E79.0 Hematuria R31.0 Hematuria type: gross Acute UTI (urinary tract infection) N39.0 COVID-19 U07.1 Diarrhea R19.7 (4) Hematuria Hematuria type: gross Qualified Code(s): R31.0 - Gross hematuria
--- NOTE | 2023-09-25 16:27 | Hospitalist Progress Note ---
Date of Service September 25, 2023 Assessment & Plan (1) CHRISTAL (acute kidney injury): Plan: While patient initially presented for COVID, his continued stay is secondary to CHRISTAL/acute renal failure Recent hospitalization from 08/31 - 09/10 for CHRISTAL secondary to ATN (multifactorial: UTI, alc use, poor fluid intake, ibuprofen use for gout) DDx at this time includes urate nephropathy, IgA nephropothy post COVID Only marginal CR improvement recently: 5.08 on 09/20 --> 5.03 on 09/21 Patient's baseline Cr was 1.5-1.6 prior to this recent episode of ATN Strict I&Os; Daily UOP No critical volume overload/hypoxia or hyperkalemia to indicate dialysis FeNa 2%, recent TD, ANCA, C4, C3, anti-GBM ab all returned negative from the prior hospitalization Appreciate nephrology assistance Discussed the need for renal biopsy (which would require transfer); will continue to monitor for improvement over the next 24-48h Discussed dialysis; will hold for now as patient is still producing urine; recommended holding diuretics Continue prednisone 20 mg daily; wean per nephrology CHRISTAL appears to be improving and patient has been net negative. (2) Acute encephalopathy: Plan: Acute metabolic and toxic encephalopathy With recent COVID infection, renal failure, CHRISTAL, UTI, and pain control medications Oxycodone has been discontinued, as patient believes his acute episode of confusion was secondary to pain medicine given overnight Uric acid level with marginal improvement on 09/21; 9.8-->9.4 Peak 13.9 on 09/04/23 Febuoxstat increased to 80 mg daily on 09/21 Ammonia normal, no hypercapnia on VBG, thiamine supplemented. No meningeal signs. MRI deferred. Zyprexa 2.5 mg nightly for sleep and insomnia, +melatonin for sleep Resolved No focal deficits on exam, mentating well; (3) COVID-19: Plan: Symptoms started on 09/10, tested positive on 09/12 Significantly improved; clinically, patient denies any respiratory symptoms Non-hypoxic; CXR clear Remdesivir/dexamethasone not indicated Continue airborne isolation for now Spoke with ID/infection control; per hospital guidelines, okay to remove airborne isolation on 09/22 if patient is asymptomatic Supportive care (4) Lower extremity edema: Plan: +3 Pitting edma in the RLE > +1 pitting edema in the LLE on 09/21 Given renal function, will defer diuretics Daily weights; significant weight gain since 08/31 Encourage ambulation and SCDs for fluid mobilization (5) Right knee pain: Plan: Multifactorial, advanced OA, multiple ligamentous tears (as seen on previous MRI), and gouty arthritis all contributing S/p tap 09/13 with WBC/+gout/cx neg Gout/pain management as otherwise noted (6) Gout: Plan: Cannot use NSAIDs Currently on prednisone. Recommend to keep on a slow taper for several weeks due to severe gout with many months of symptoms. Can hold at around 5-10 mg/day for this Febuxostat uptitrated to 40 mg Started on renally-dosed allopurinol 50mg twice weekly during recent hospitalization S/p arthrocentesis 09/13. +WBC, +gout crystals, culture negative Continue oxy 5mg prn for pain relief (lowered it due to confusion) but he really won't have significant improvement without steroids Continue steroids (being used for his CHRISTAL as well) (7) Acute UTI (urinary tract infection): Plan: Rx for ESBL e.coli during previous hospitalization had 2 urine cx's since admission - first is negative, 2nd grew coag neg staph cont IV daptomycin q48h due to renal function ; 7 days of treatment completed on 09/21/2023; treatment discontinued PSA low, prostatitis unlikely Hematuria likely secondary to UTI (8) Abdominal pain: Plan: Intermittent abdominal pain 1 to 2 minutes after drinking/eating CT A/P on admit without liver, gall bladder or pancreatic abnormalities Hx of severe gastritis on EGD in fall 2022 Continue PPI, Carafate (9) ROBERT (obstructive sleep apnea): Plan: CPAP HS (10) Morbid obesity: Plan: BMI 46.8 (11) C. difficile diarrhea: Plan: Patient now with c diff colitis. First episode. Placed on vanco. Improving on 09/24 Plan Disposition: PCU status; continued stay for acute renal failure Full code Low potassium diet Admission and Anticipated Discharge Date Admission Date: September 13, 2023 Subjective Patient reports he has had less diarrhea today. He also has noticed his legs are less swollen. Review of Systems Review of Systems: All systems reviewed & are unremarkable except as noted in HPI & below Physical Exam Physical Exam: General: no acute distress; pleasant affect; HEENT: normocephalic, atraumatic; Neck: supple; no lymphadenopathy; trachea midline Skin: warm, dry without signs of tenting; CV: chest wall NTP; RRR; Lungs: no acute respiratory distress; ABD: Soft, NTP; BS present; MSK: no tics or fasciculations; +3 pitting edema in the RLE > +1 pitting edema in the LLE, nonerythematous Neuro: A&Ox3; normal mood and affect; Results & Data Results & Data Vital Signs (Past 12 Hours) Vital Signs Temp Pulse Pulse Resp BP Pulse Ox O2 Del Method 09/25/23 08:25 36.6 C 82 18 162/54 H 98 Room Air 09/25/23 08:20 Room Air 09/25/23 06:34 74 PG Care Time/CCT Total # of Minutes Spent Total Time Spent with Patient: Total time spent is greater than 50% in coordination of care (as documented) at patient's floor/unit and/or counseling patient: Coding Level of Care Code 59823 SUB INP/OBS CARE 2/35MIN Diagnoses CHRISTAL (acute kidney injury) N17.9 Acute encephalopathy G93.40 COVID-19 U07.1 Lower extremity edema R60.0 Right knee pain M25.561 Gout M10.361 Chronicity: acute Gout etiology: due to renal impairment Gout site: knee Laterality: right Acute UTI (urinary tract infection) N39.0 Abdominal pain R10.9 ROBERT (obstructive sleep apnea) G47.33 Morbid obesity E66.01 C. difficile diarrhea A04.72 (6) Gout Chronicity: acute Gout etiology: due to renal impairment Gout site: knee Laterality: right Qualified Code(s): M10.361 - Gout due to renal impairment, right knee
[2023-09-26 07:11] LABS: Hematocrit (blood only) 30.5 % (42.0-52.0); Hemoglobin 9.9 g/dl (14.0-18.0); Mean Corpuscular Hemoglobin 33.3 pg (25.0-34.0); Mean Corpuscular Hgb Conc 32.5 g/dL (32.0-36.0); Mean Corpuscular Volume 102.7 fL (80.0-100.0); Mean Platelet Volume 9.4 fL (9.4-12.4); Platelet Count 206 K/uL (130-400); RDW Coefficient of Variation 13.5 % (11.5-14.5); RDW Standard Deviation 51.2 fL (36.4-46.3); Red Blood Count 2.97 M/uL (4.70-6.10); White Blood Count 9.82 K/ul (4.8-10.8)
--- NOTE | 2023-09-26 09:42 | Nephrology Progress Note ---
Date of Service September 26, 2023 Assessment & Plan (1) CHRISTAL (acute kidney injury): Plan: 58 year gentleman with history of stage III A CKD, b/l cr 1.6-1.8 mg/dl, obesity, ROBERT, pulmonary hypertension, atrial fibrillation, gout and alcohol use disorder admitted with CHRISTAL, COVID and C. difficile colitis. On admission creatinine was 5.1. He was recently admitted from 08/31 - 09/10 with 1 week history of c/o R flank discomfort, gross hematuria, decreased p.o. intake, d ecreased urine output and bilateral knee pain, CHRISTAL secondary to ATN (multifactorial: UTI, alc use, poor fluid intake, ibuprofen use for gout. Urinalysis was + for LE/nitrates, 3+ blood, 3+ protein, negative for cellular casts or crystals. Noncontrast CT was negative for kidney or ureteral stones. Workup at the time including serologic and paraproteinemia workup was unremarkable. He was discharged with improvement in kidney function and uric acid however presented to the hospital again with above symptoms. Started on prednisone with concern for AIN or IgA nephropathy post COVID as differential however there was no significant effect from prednisone and now being tapered rapidly, down to 20 mg daily. Lab from this morning showed creatinine is down to 3.7 yesterday uric acid 6.9. Blood pressure well-controlled. Volume status acceptable. Voiding normally. Kidney biopsy was considered but on hold with workup negative and improvement in kidney function. --encouraged to increase p.o. intake, aim for net even or slightly positive --Continue on Uloric. --Continue to taper down steroid, decrease to 10 mg daily starting tomorrow, continue for 2 days and then discontinue (2) Hyperuricemia: Admission and Anticipated Discharge Date Admission Date: September 13, 2023 Gisela Farmer was seen and evaluated this morning. Overall feeling well and denied any symptoms. Decent UO. Blood pressure well-controlled. Lab from this morning pending but creatinine has been improving down to 3.8 yesterday, uric acid 7.8 on Uloric. Potassium and bicarbonate normal. Off of IV fluid. Review of Systems Review of Systems: Detailed review of system was otherwise unremarkable. Physical Exam Constitutional: WD/WN, vitals as above + obese; no acute distress Respiratory: Auscultation: lungs clear to auscultation bilaterally Cardiovascular: RRR, no murmur, no edema Skin: no rashes, warm and dry Neurologic: no focal motor deficits Psychiatric: Orientation: alert and oriented x 3 Results & Data Vital Signs (Past 12 Hours) Vital Signs Temp Pulse Pulse Resp BP Pulse Ox O2 Del Method 09/26/23 08:31 68 09/26/23 03:37 36.6 C 79 18 134/81 98 Room Air 09/25/23 22:26 36.3 C L 65 18 145/82 H 98 Room Air PG Care Time/CCT Total # of Minutes Spent Total Time Spent with Patient: Total time spent is greater than 50% in coordination of care (as documented) at patient's floor/unit and/or counseling patient: Coding Level of Care Code 01349 SUB INP/OBS CARE 235MIN Diagnoses CHRISTAL (acute kidney injury) N17.9 Hyperuricemia E79.0
[2023-09-26 10:46] LABS: Albumin Level 2.5 gm/dl (3.4-5.0); Bilirubin,Total 0.7 mg/dl (0.2-1.0); Calcium 8.2 mg/dl (8.6-10.3); Potassium 4.5 mmol/L (3.5-5.1)
[2023-09-26 10:52] LABS: BUN Creatinine Ratio 17.1 (10-20); Creatinine Clr Calc Pharmacy 38.6 ml/min; Est GFR (African American) 19.7 ml/min; Globulin 2.6 gm/dl (2.5-4.0); Total Protein 5.1 gm/dl (6.0-8.3); Uric Acid 6.9 mg/dl (2.6-7.2)
--- NOTE | 2023-09-26 16:43 | Hospitalist Progress Note ---
Date of Service September 26, 2023 Assessment & Plan (1) CHRISTAL (acute kidney injury): Plan: Recent hospitalization from 08/31 - 09/10 for CHRISTAL secondary to ATN (multifactorial: UTI, alc use, poor fluid intake, ibuprofen use for gout) TD, ANCA, complements, anti-GBM antibody all negative during prior hospitalization Appreciate nephrology consultation Uric acid level is quite high and could be related to hyperuricemia IgA nephropathy post COVID also considered but his renal failure did not improve with steroids-tapering steroids down now Creatinine 5.08 on 09/20 --> continues to improve daily now down to 3.68 and making plenty of urine Hold off on transfer for renal biopsy at this point as he is improving Continue Uloric Follow BMP (2) C. difficile diarrhea: Plan: Patient now with c diff colitis after receiving antibiotics for UTI First episode and now improving on p.o. vancomycin Finish out 10-day course of p.o. vancomycin (3) Acute encephalopathy: Plan: Acute metabolic and toxic encephalopathy With recent COVID infection, renal failure, CHRISTAL, UTI, and pain control medications all contributing Now resolved Ammonia normal, no hypercapnia on VBG, thiamine supplemented. No meningeal signs. MRI deferred. Continue Zyprexa 2.5 mg nightly for sleep and insomnia, +melatonin for sleep (4) Gout: Plan: In right knee, proven with joint aspiration with gout crystals seen with negative culture Improving on prednisone-continue slow taper Febuxostat uptitrated to 40 mg and uric acid is decreasing Follow-up with orthopedics as an outpatient for need for knee joint replacement in the future due to severe degenerative changes and ACL and PCL tear seen on MRI knee (5) Acute UTI (urinary tract infection): Plan: Rx for ESBL e.coli during previous hospitalization had 2 urine cx's since admission - first is negative, 2nd grew coag neg staph Completed 7 days of treatment of daptomycin on 09/21/2023 PSA low, prostatitis unlikely Hematuria likely secondary to UTI-now resolved (6) Abdominal pain: Plan: Intermittent abdominal pain 1 to 2 minutes after drinking/eating CT A/P on admit without liver, gall bladder or pancreatic abnormalities Hx of severe gastritis on EGD in fall 2022 Continue PPI, Carafate Now resolved (7) ROBERT (obstructive sleep apnea): Plan: CPAP HS (8) Morbid obesity: Plan: BMI 45.5 Needs weight loss (9) COVID-19: Plan: Symptoms started on 09/10, tested positive on 09/12 Significantly improved; clinically, patient denies any respiratory symptoms Non-hypoxic; CXR clear Remdesivir/dexamethasone not indicated No longer on isolation Symptoms resolved Plan DVT prophylaxis-SCDs, heparin SQ Disposition: Continued stay on med/tele Full code Admission and Anticipated Discharge Date Admission Date: September 13, 2023 Subjective Patient reports less diarrhea today. No abdominal pain or nausea. No chest pain or shortness of breath. His leg swelling is down slightly but still has quite a bit of it. Telemetry normal sinus rhythm with rates in the 70s to 80s Physical Exam Constitutional: WD/WN, vitals as above + obese Respiratory: normal respiratory effort, lungs clear to auscultation Cardiovascular: Rate/Rhythm: regular rate and regular rhythm Heart Sounds: no murmur Extremities: + edema (3+ pitting edema to the thighs bilaterally) Gastrointestinal (Abdomen): normal bowel sounds, soft, nontender, no hepatosplenomegaly Psychiatric: A+Ox3, euthymic affect Results & Data Results & Data Vital Signs (Past 12 Hours) Vital Signs Temp Pulse Pulse Resp BP Pulse Ox O2 Del Method 09/26/23 16:22 72 09/26/23 15:46 36.6 C 76 16 162/77 H 96 Room Air 09/26/23 11:10 36.5 C 78 16 144/74 H 97 Room Air 09/26/23 08:31 68 Laboratory Results CBC, BMP, uric acid, urine cultures, blood cultures reviewed PG Care Time/CCT Total # of Minutes Spent Total Time Spent with Patient: Total time spent is greater than 50% in coordination of care (as documented) at patient's floor/unit and/or counseling patient: Coding Level of Care Code 14926 SUB INP/OBS CARE 2/35MIN Diagnoses CHRISTAL (acute kidney injury) N17.9 C. difficile diarrhea A04.72 Acute encephalopathy G93.40 Gout M10.361 Chronicity: acute Gout etiology: due to renal impairment Gout site: knee Laterality: right Acute UTI (urinary tract infection) N39.0 Abdominal pain R10.9 ROBERT (obstructive sleep apnea) G47.33 Morbid obesity E66.01 COVID-19 U07.1 (4) Gout Chronicity: acute Gout etiology: due to renal impairment Gout site: knee Laterality: right Qualified Code(s): M10.361 - Gout due to renal impairment, right knee
[2023-09-27 06:51] LABS: Hematocrit (blood only) 31.2 % (42.0-52.0); Mean Corpuscular Hemoglobin 33.1 pg (25.0-34.0); Mean Corpuscular Hgb Conc 32.1 g/dL (32.0-36.0); Mean Corpuscular Volume 103.3 fL (80.0-100.0); Mean Platelet Volume 9.2 fL (9.4-12.4); Platelet Count 235 K/uL (130-400); RDW Coefficient of Variation 13.6 % (11.5-14.5); RDW Standard Deviation 52.1 fL (36.4-46.3); Red Blood Count 3.02 M/uL (4.70-6.10); White Blood Count 10.43 K/ul (4.8-10.8)
[2023-09-27 07:13] LABS: Calcium 7.8 mg/dl (8.6-10.3); Potassium 4.5 mmol/L (3.5-5.1)
[2023-09-27 07:18] LABS: Basophils # (auto) 0.04 K/uL (0.00-0.20); Basophils % (auto) 0.4 %; Immature Granulocytes # (auto) 0.77 K/uL (0.01-0.20); Immature Granulocytes % (auto) 7.4 %; Lymphocytes # (auto) 1.88 K/uL (1.20-3.40); Monocytes % (auto) 10.5 %; Neutrophils # (auto) 6.54 K/uL (1.40-6.50); Neutrophils % (auto) 62.7 %
[2023-09-27 07:19] LABS: BUN Creatinine Ratio 17.1 (10-20); Creatinine Clr Calc Pharmacy 42.7 ml/min; Est GFR (African American) 22.2 ml/min; Est GFR (Non-African American) 19.2 ml/min; Uric Acid 6.7 mg/dl (2.6-7.2)
[2023-09-27] MEDS: predniSONE 10 MG TABLET PO SCH (08:58)
[2023-09-27] MEDS: THIAMINE HCL 100 MG TAB PO SCH (08:59)
--- NOTE | 2023-09-27 10:13 | Nephrology Progress Note ---
Date of Service September 27, 2023 Assessment & Plan (1) CHRISTAL (acute kidney injury): Plan: 58 year gentleman with history of stage III A CKD, b/l cr 1.6-1.8 mg/dl, obesity, ROBERT, pulmonary hypertension, atrial fibrillation, gout and alcohol use disorder admitted with CHRISTAL, COVID and C. difficile colitis. On admission creatinine was 5.1. He was recently admitted from 08/31 - 09/10 with 1 week history of c/o R flank discomfort, gross hematuria, decreased p.o. intake, d ecreased urine output and bilateral knee pain, CHRISTAL secondary to ATN (multifactorial: UTI, alc use, poor fluid intake, ibuprofen use for gout. Urinalysis was + for LE/nitrates, 3+ blood, 3+ protein, negative for cellular casts or crystals. Noncontrast CT was negative for kidney or ureteral stones. Workup at the time including serologic and paraproteinemia workup was unremarkable. He was discharged with improvement in kidney function and uric acid however presented to the hospital again with above symptoms. Started on prednisone with concern for AIN or IgA nephropathy post COVID as differential however there was no significant effect from prednisone and now being tapered rapidly, down to 20 mg daily. Lab from this morning showed creatinine is down to 3.3, uric acid 6.7. Blood pressure well-controlled. Volume status acceptable. Voiding normally. Kidney biopsy was considered but on hold with workup negative and improvement in kidney function. --encouraged to increase p.o. intake, aim for net even or slightly positive --Continue on Uloric. --Continue prednisone 10 mg daily until tomorrow and then discontinue --Okay to be discharged as doing outpatient lab monitoring when medically stable. (2) Hyperuricemia: Admission and Anticipated Discharge Date Admission Date: September 13, 2023 Gisela Farmer was seen and evaluated this morning. Overall feeling well and denied any symptoms. Decent UO. Blood pressure well-controlled. Creatinine has been improvi ng slowly, down to 3.3 , uric acid 6.7 on Uloric. Potassium and bicarbonate normal. Off of IV fluid. Diarrhea improving. Participating in physical therapy. Review of Systems Review of Systems: Detailed review of system was otherwise unremarkable. Physical Exam Constitutional: WD/WN, vitals as above + obese; no acute distress Respiratory: Auscultation: lungs clear to auscultation bilaterally Cardiovascular: Rate/Rhythm: regular rate and + tachycardic Extremities: + edema Skin: no rashes, warm and dry Neurologic: no focal motor deficits Psychiatric: Orientation: alert and oriented x 3 Results & Data Vital Signs (Past 12 Hours) Vital Signs Temp Pulse Pulse Resp BP BP Pulse Ox 09/27/23 07:53 36.6 C 77 20 141/75 H 98 09/27/23 07:32 78 09/27/23 03:33 36.5 C 77 18 144/86 H 97 09/26/23 23:40 75 09/26/23 23:06 36.7 C 75 18 141/92 H 96 O2 Del Method 09/27/23 07:53 Room Air 09/27/23 07:32 09/27/23 03:33 Room Air 09/26/23 23:40 09/26/23 23:06 Room Air PG Care Time/CCT Total # of Minutes Spent Total Time Spent with Patient: Total time spent is greater than 50% in coordination of care (as documented) at patient's floor/unit and/or counseling patient: Coding Level of Care Code 11657 SUB INP/OBS CARE 2/35MIN Diagnoses CHRISTAL (acute kidney injury) N17.9 Hyperuricemia E79.0
--- NOTE | 2023-09-27 12:25 | Discharge Summary ---
Discharge Summary Date of Service September 27, 2023 Principal Dx & Hospital Course #1 = Principal Diagnosis (1) CHRISTAL (acute kidney injury): Recent hospitalization from 08/31 - 09/10 for CHRISTAL secondary to ATN (multifactorial: UTI, alc use, poor fluid intake, ibuprofen use for gout) TD, ANCA, complements, anti-GBM antibody all negative during prior hospitalization Appreciate nephrology consultation Uric acid level is quite high and could be related to hyperuricemia IgA nephropathy post COVID also considered but his renal failure did not improve with steroids-tapering steroids down now and will complete dose tomorrow Creatinine 5.08 on 09/20 --> continues to improve daily now down to 3.3 and making plenty of urine Hold off on transfer for renal biopsy at this point as he is improving Continue Uloric which is helping uric acid come down to 6.7 on day of discharge Follow BMP as an outpatient at rehab and with nephrology follow-up in 1 to 2 weeks (2) C. difficile diarrhea: Patient now with c diff colitis after receiving antibiotics for UTI First episode and now greatly improved on p.o. vancomycin Finish out 10-day course of p.o. vancomycin-needs 6 and half more days after discharge (3) Acute encephalopathy: Acute metabolic and toxic encephalopathy-now resolved With recent COVID infection, renal failure, CHRISTAL, UTI, and pain control medications all contributing Ammonia normal, no hypercapnia on VBG, thiamine supplemented. No meningeal signs. MRI deferred. Continue Zyprexa 2.5 mg nightly for sleep and insomnia, +melatonin for sleep (4) Gout: In right knee, proven with joint aspiration with gout crystals seen with negative culture Improving on prednisone-continue slow taper-last dose of 10 mg daily is tomorrow Febuxostat uptitrated to 40 mg and uric acid is decreasing Follow-up with orthopedics as an outpatient for need for knee joint replacement in the future due to severe degenerative changes and ACL and PCL tear seen on MRI knee (5) Acute UTI (urinary tract infection): Rx for ESBL e.coli during previous hospitalization had 2 urine cx's since admission -1 with coag neg staph in 1 negative Completed 7 days of treatment of daptomycin on 09/21/2023 PSA low, prostatitis unlikely Hematuria likely secondary to UTI-now resolved (6) Abdominal pain: Intermittent abdominal pain 1 to 2 minutes after drinking/eating-was likely due to to C. difficile infection and is now resolved CT A/P on admit without liver, gall bladder or pancreatic abnormalities Hx of severe gastritis on EGD in fall 2022 Continue PPI, but can discontinue Carafate on discharge (7) ROBERT (obstructive sleep apnea): Continue CPAP HS (8) Morbid obesity: BMI 45.5 Needs weight loss (9) COVID-19: Symptoms started on 09/10, tested positive on 09/12 Significantly improved; clinically, patient denies any respiratory symptoms Non-hypoxic; CXR clear Remdesivir/dexamethasone not indicated No longer on isolation Symptoms resolved (10) Elevated alkaline phosphatase level: Mildly elevated but improving since admission down to 163 Follow as an outpatient Could be related to fatty liver (11) Alcohol use disorder in remission: No longer drinking and encourage sensation Continue thiamine replacement, folic acid replacement (12) Anemia: Hemoglobin mildly low but stable from previous at 9-10, macrocytic likely secondary to alcohol use and anemia of chronic renal disease B12 and folate normal in 03/2023. TSH normal this admission Follow CBC as an outpatient Plan DVT prophylaxis-SCDs, heparin SQ Disposition: Discharge to [facility] Full code Notes For Next Care Provider Check CBC, CMP in 2 to 3 days Follow-up with nephrology in 1 to 2 weeks Follow-up with orthopedic surgery in 1 month Medication Changes From Visit Added Uloric 80 mg daily Added vancomycin 125 mg p.o. 4 times daily x 6 and half more days Added olanzapine 2.5 Mg p.o. at bedtime Added prednisone 10 mg p.o. daily x 1 more day Admission HPI Per Admitting Provider Darian Murphy is a 58yo male with history of PAF, HLP and Gout presenting with complaint of body pain, weakness, fatigue and right knee pain. Patient was recently admitted to [facility] from 09/01/23 - 09/11/23 after presenting with severe CHRISTAL and dark colored urine. Patient with baseline Cr of 1.5 - 1.6 and presented with CHRISTAL - peak creatinine of 7.5. Thought to have ATN secondary to infection, poor oral intake and NSAID use. He was treated with IVF as well as Ertapenem x 7d for E.coli UTI. Patient was evaluated by Nephrology - TD, ANCA, GBM Ab, C3/4, anti-proteinase 3, anti-MPO sent and are still pending. Patient's Cr and metabolic panel improved and he was ultimately discharged home - Cr=3.6 on discharge. Patient had acute right knee pain during his hospitalization. Arthrocentesis was attempted but unsuccessful - he reports that the needle was placed multiple times over the course of 25 minutes but no fluid was obtained. He was treated with PO steroids for acute flare of gout. Patient returned home and feels that he never fully improved. He reports normal urination initially upon his return home but now has increased frequency of urination - he reports urinating every 5-6 minutes. He has had bright red hematuria as well ongoing since 09/11. He denies passage of clots or urinary retention. Denies dysuria or back pain/flank pain. He has had worsening fatigue and generalized weakness and nausea. He also has had frequent diarrhea - non-bloody/non-mucoid. He also complaining of severe right sided knee pain with swelling. Otherwise he denies fever, chest pain, cough, SOB, abdominal pain, vomiting. Febrile in the ER with Tm=38.1, HD stable Discharge Exam Constitutional WD/WN, vitals as above + obese Respiratory normal respiratory effort, lungs clear to auscultation Cardiovascular Rate/Rhythm: regular rate and regular rhythm Heart Sounds: no murmur Extremities: + edema (2+ pitting edema to the thighs bilaterally, improved) Gastrointestinal (Abdomen) normal bowel sounds, soft, nontender, no hepatosplenomegaly Psychiatric A+Ox3, euthymic affect Updated Medication List Medication Instructions Recorded Confirmed Type metoprolol succinate 25 mg 12.5 mg PO DAILY 03/31/23 09/13/23 History tablet,extended release 24 hr folic acid 1 mg tablet 1 mg PO DAILY #30 tabs 05/17/23 09/13/23 Rx rosuvastatin 5 mg tablet 5 mg PO DAILY 09/01/23 09/13/23 History acetaminophen 500 mg tablet 1,000 mg (2 x 500 mg) PO QID PRN 09/11/23 09/13/23 Rx (Tylenol Extra Strength) pain #0 tabs thiamine HCl (vitamin B1) 100 mg 100 mg PO DAILY #30 tabs 09/11/23 09/13/23 Rx tablet febuxostat 80 mg tablet 80 mg PO DAILY #30 tabs 09/27/23 Rx melatonin 3 mg tablet 3 mg PO HS #30 tabs 09/27/23 Rx olanzapine 2.5 mg tablet 2.5 mg PO HS #30 tabs 09/27/23 Rx pantoprazole 40 mg tablet,delayed 40 mg PO QAM HEARTBURN/INDIGESTION 09/27/23 09/13/23 Rx release #30 tabs prednisone 10 mg tablet 10 mg PO DAILY #1 tab 09/27/23 Rx vancomycin 125 mg capsule 125 mg PO QID #26 caps 09/27/23 Rx (Vancocin) Hospital Stay Data Consultations 09/13/23 21:43 ED Decision to Admit Stat 09/13/23 22:45 Consult Orthopedic Surgery Routine 09/15/23 20:37 Consult Nephrology Routine Diagnostic Imagining Performed 09/13/23 18:49 CT abd pelvis wo con Stat Pending Results Patient Have Any Pending Studies at Discharge: No Discharge Instructions Given to Patient (Per Discharging Provider) Please finish out 6 1/2 more days of oral Vancomycin as an antibiotic for your C. diff infection. Your kidney failure is improving. Please continue on the Uloric to lower your u theron acid levels as this may have contributed to your kidney failure. You will need repeat blood work in 2-3 days to include CBC, CMP, and uric acid level. Please follow up with the Warranty Clerk within 2 weeks. For your gout attack in your knee, you had the knee fluid aspirated and there was no infection. This was treated with prednisone and you only need one more day of prednisone. Follow up with Orthopedic Surgery once your kidney issues are improved to discuss need for knee replacement in the future. For gout, it is important to avoid drinking alcohol and to avoid certain foods that are rich in purines such as seafood or red meats. Total Time Total Time Spent Total Time Spent (In Minutes): 40 minutes Total Time Includes: Examination of the Patient, Discharge Planning, Medication Reconciliation and Communication With Other Providers (Nephrology) Coding Level of Care Code 30519 INP/OBS DISCH >30 MIN Diagnoses CHRISTAL (acute kidney injury) N17.9 C. difficile diarrhea A04.72 Acute encephalopathy G93.40 Gout M10.361 Chronicity: acute Gout etiology: due to renal impairment Gout site: knee Laterality: right Acute UTI (urinary tract infection) N39.0 Abdominal pain R10.9 ROBERT (obstructive sleep apnea) G47.33 Morbid obesity E66.01 COVID-19 U07.1 Elevated alkaline phosphatase level R74.8 Alcohol use disorder in remission F10.91 Anemia D64.9
[2023-09-27 23:27] LABS: Uric Acid, Random Urine 19 mg/dL (see note)
== END 2023-09-27 13:33 | DRG 177 ==
LOC: ED 18:12 → EDINP 22:45 → SUATTDRO 22:45 → 2W 09-14 01:43 → 2N 09-20 20:04

== ENCOUNTER 2023-11-08 11:51 | Inpatient (IN) ==
--- NOTE | 2023-11-08 12:07 | Emergency Department Note ---
ED Provider Note History of Present Illness Chief Complaint: Cough Stated Complaint: COUGHING BLOOD, BACK PAIN Time Seen by Provider: 11/08/23 12:04 This is a 58-year-old male with history of CKD stage IV, atrial fibrillation/DVT on warfarin, IVC filter in place, accompanied by his fiance, who presents to the emergency department with cough and hemoptysis with wheezing. Symptoms have been present for the past 3 days. Patient states that his cough and wheezing sensation is worse at night. It is better when he sits upright. When he spits out sputum sometimes there is bright red blood mixed in with the sputum, and sometimes the sputum is mostly all bright red blood. He has some chest discomfort with coughing but otherwise denies any chest pain. He does not feel short of breath aside from the wheezing when he is lying flat. He has not had any fevers. Is drinking fluids and still producing urine. He denies any abdominal pain, nausea, or vomiting. He reports ongoing edema in his lower extremities however states that the edema is actually better than it has been recently. He denies any new leg pain. Denies any sore throat, sinus congestion, or headache. No history of heart failure. Recently had a kidney biopsy with no definitive diagnosis for his recent renal insufficiency. Home Medications Medication Instructions Recorded Confirmed Type metoprolol succinate 25 mg 12.5 mg PO DAILY 03/31/23 10/24/23 History tablet,extended release 24 hr folic acid 1 mg tablet 1 mg PO DAILY #30 tabs 05/17/23 10/24/23 Rx rosuvastatin 5 mg tablet 5 mg PO DAILY 09/01/23 10/24/23 History acetaminophen 500 mg tablet 1,000 mg (2 x 500 mg) PO QID PRN 09/11/23 10/24/23 Rx (Tylenol Extra Strength) pain #0 tabs thiamine HCl (vitamin B1) 100 mg 100 mg PO DAILY #30 tabs 09/11/23 10/24/23 Rx tablet melatonin 3 mg tablet 3 mg PO HS #30 tabs 09/27/23 10/24/23 Rx pantoprazole 40 mg tablet,delayed 40 mg PO QAM HEARTBURN/INDIGESTION 09/27/23 10/24/23 Rx release #30 tabs atovaquone 750 mg/5 mL oral 750 mg PO BID 10/19/23 10/24/23 History suspension prednisone 10 mg tablet 60 mg PO DAILY 10/19/23 10/24/23 History sevelamer carbonate 800 mg tablet 1,600 mg PO TID 10/19/23 10/24/23 History sodium bicarbonate 650 mg tablet 650 mg PO BID 10/19/23 10/24/23 History warfarin 5 mg tablet 1 mg PO DAILY PRN 10/19/23 10/24/23 History warfarin 5 mg tablet 5 mg PO DAILY PRN 10/19/23 10/24/23 History febuxostat 40 mg tablet 40 mg PO DAILY #90 tabs 10/24/23 10/24/23 Rx Allergies Allergy/AdvReac Type Severity Reaction Status Date / Time No Known Allergies Allergy Mild Verified 10/19/23 10:48 Past Med/Surg History Problem List (Updated 11/08/23 @ 14:50 by TIMOTHY Byers) Hemoptysis (Acute) Supratherapeutic INR (Acute) Acute UTI (Acute) Multifocal pneumonia (Acute) Left femoral vein DVT Vitamin D deficiency Anemia Elevated alkaline phosphatase level C. difficile diarrhea Lower extremity edema Abdominal pain reason for upcoming procedure Acute encephalopathy Right knee pain Diarrhea Hypomagnesemia (Acute) COVID-19 (Acute) Osteoarthritis of knees, bilateral Morbid obesity Hyperuricemia Chronic kidney disease CHRISTAL (acute kidney injury) Gout (Acute) Hyperlipidemia Paroxysmal atrial fibrillation Alcohol use disorder in remission ROBERT (obstructive sleep apnea) Hypokalemia Acute pain of right lower extremity (Acute) Medical History Gout of right knee due to renal impairment Anxiety No known health problems Alcohol use disorder Surgical History H/O colonoscopy Colonoscopy 12/01/22, repeat 5 years in 2027 History of lateral meniscus repair of right knee History of wisdom tooth extraction History of ankle surgery Family History Father Diabetes Myocardial infarction Mother Diabetes Myocardial infarction Ovarian cancer Denies family history of Prostate cancer Breast cancer Lung cancer Colorectal cancer Stroke Social History Smoking Status: Never smoker Second Hand Exposure: No; Do You Dip or Chew Tobacco: No; Hx Alcohol Use: Yes Alcohol type: beer and hard liquor Alcohol Intake Frequency: 4 or More x per/Week Hx Substance Use: No Preferred Language: Tajik Communication Ability: Effective Visual Impairment: Limited Hearing Ability: Normal Parakeet Raiser Required: No Beliefs That Will Affect Care: None marital status: Current Living Situation: Spouse Current Living Situation Comment: Personal Home current occupational status: employed current occupation: Commercial [employer] How many Children do You have: 3 Feels Safe at Home: Yes Childhood Exposure to Second-Hand Smoke: Yes caffeine: No Dental Care, Regularly: Yes Physical Activity Frequency: Does not Exercise Seatbelt Use: always Sunscreen Use: No Assistive Devices: Cane and Walker Physical Exam Vital Signs Vital Signs - 24 hr 11/08/23 11:53 11/08/23 12:23 11/08/23 12:30 Temperature 97.7 F Temperature Source Temporal Artery Scan Pulse Rate 110 H 105 H Pulse Rate [Finger] 106 H Pulse Rhythm Pulse Rhythm [Finger] Irregular Pulse Strength [Finger] Normal Respiratory Rate 22 18 Respiratory Effort / Characteristics Non-Labored Spontaneous Non-Labored Respiratory Depth Normal Normal Respiratory Pattern Regular Regular Blood Pressure 161/95 H Blood Pressure [Left Arm] 157/122 H Blood Pressure Mean 117 Blood Pressure Mean [Left Arm] 133 Blood Pressure Position Sitting Blood Pressure Position [Left Arm] Sitting Pulse Oximetry 96 93 Oxygen Delivery Method Room Air Room Air Sepsis Recent Fever Within 48 Hours No Sepsis New/Unexplained Change in Mental Status No Sepsis Action Taken by Nursing No Action Required 11/08/23 12:37 11/08/23 13:30 Temperature Temperature Source Pulse Rate Pulse Rate [Finger] 106 H Pulse Rhythm Irregular Pulse Rhythm [Finger] Irregular Pulse Strength [Finger] Normal Respiratory Rate 20 Respiratory Effort / Characteristics Non-Labored Respiratory Depth Normal Respiratory Pattern Regular Blood Pressure Blood Pressure [Left Arm] 145/92 H Blood Pressure Mean Blood Pressure Mean [Left Arm] 109 Blood Pressure Position Blood Pressure Position [Left Arm] Pulse Oximetry 95 97 Oxygen Delivery Method Room Air Room Air Sepsis Recent Fever Within 48 Hours Sepsis New/Unexplained Change in Mental Status Sepsis Action Taken by Nursing CONSTITUTIONAL: Well developed, well nourished, mildly uncomfortable but nontoxic. HEAD: Normocephalic, atraumatic. EYES: conjunctivae normal, extraocular muscles intact. ENMT: External ears normal. Bilateral TMs without erythema or bulging. Nose with normal external appearance, no congestion. Oral mucous membranes moist. Oropharynx normal. NECK: Full active range of motion. LYMPHATIC: No cervical adenopathy RESPIRATORY: Breathing unlabored and symmetric. Mild intermittent cough is present. No obvious rales, wheezes, or rhonchi noted. No tachypnea. Bright red blood mixed with sputum expectorated. CARDIOVASCULAR: Irregular rhythm, borderline tachycardia. No murmurs rubs or gallops. ABDOMEN: Normal bowel sounds. Soft, nontender, no peritonitis. MUSCULOSKELETAL: There is 2+ pitting edema in bilateral lower extremities extending to the thighs. SKIN: [place], warm, dry. NEUROLOGIC: Awake, alert, oriented. Gaze is conjugate. Face symmetric, speech normal. Moves head and all four extremities spontaneously. Sensation and strength grossly intact. PSYCHIATRIC: Appropriate. Normal affect Course Administered Medications Discontinued Medications Sodium Chloride (Nss) 500 mls @ 999 mls/hr IV .Q31M ONE Stop: 11/08/23 13:48 Last Admin: 11/08/23 13:27 Dose: 999 mls/hr Documented By: MARY ANNE Lidocaine (Lidocaine 5% 1 Patch) 1 patch TD NOW STA Stop: 11/08/23 13:03 Last Admin: 11/08/23 13:07 Dose: 1 patch Documented By: MARY ANNE Medical Decision Making Differential Diagnosis Pneumonia, bronchitis, CHF, upper respiratory infection, pulmonary embolism, sinusitis, pneumothorax, acute kidney injury, sepsis, UTI, dehydration, electrolyte imbalance, among other pathology Medical Records Attestation: I reviewed the patient's medical records. (Reviewed recent ER notes. Reviewed recent echocardiogram EF 60 to 65%, no other significant abnormalities identified.) Laboratory Data 11/08/23 12:21 11/08/23 12:21 Lab Results 11/08/23 11/08/23 11/08/23 Range/Units 12:21 12:40 13:08 WBC 6.25 (4.8-10.8) K/ul RBC 2.71 L (4.70-6.10) M/uL Hgb 8.6 L (14.0-18.0) g/dl Hct 26.1 L (42.0-52.0) % MCV 96.3 (80.0-100.0) fL MCH 31.7 (25.0-34.0) pg MCHC 33.0 (32.0-36.0) g/dL RDW Std Deviation 53.9 H (36.4-46.3) fL RDW Coeff of Santos 15.4 H (11.5-14.5) % Plt Count 141 (130-400) K/uL MPV 9.4 (9.4-12.4) fL Immature Gran % (Auto) 0.8 % Neut % (Auto) 78.4 % Lymph % (Auto) 15.8 % Bent % (Auto) 4.6 % Eos % (Auto) 0.2 % Baso % (Auto) 0.2 % Neut # (Auto) 4.90 (1.40-6.50) K/uL Lymph # (Auto) 0.99 L (1.20-3.40) K/uL Bent # (Auto) 0.29 (0.11-0.59) K/uL Eos # (Auto) 0.01 (0.00-0.50) K/uL Baso # (Auto) 0.01 (0.00-0.20) K/uL Immature Gran # (Auto) 0.05 (0.01-0.20) K/uL PT 70.4 H (9.0-12.0) Seconds INR 7.8 H* (0.9-1.1) APTT 46 H (21-31) Seconds PTT Ratio 1.7 Sodium 140 (136-145) mmol/L Potassium 4.1 (3.5-5.1) mmol/L Chloride 106 (98-107) mmol/L Carbon Dioxide 24 (21-32) mmol/L Anion Gap 10 (3-11) BUN 54 H (6-23) mg/dl Creatinine 3.03 H (0.6-1.4) mg/dl Est Cr Clr Drug Dosing 43.9 ml/min Est GFR ( Amer) 24.9 ml/min Est GFR (Non-Af Amer) 21.5 ml/min BUN/Creatinine Ratio 17.8 (10-20) Glucose 122 H (70-99(Fasting)) mg/dl Calcium 9.2 (8.6-10.3) mg/dl Magnesium 1.8 (1.7-2.4) mg/dl Total Bilirubin 1.6 H (0.2-1.0) mg/dl AST 19 (13-39) U/L ALT 41 (7-52) U/L Alkaline Phosphatase 150 H (34-104) U/L Troponin I High Sens 22.1 H (0-20) pg/ml B-Natriuretic Peptide 266 H (0-100) pg/ml Total Protein 6.0 (6.0-8.3) gm/dl Albumin 3.7 (3.4-5.0) gm/dl Globulin 2.3 L (2.5-4.0) gm/dl Albumin/Globulin Ratio 1.6 (0.9-2) Lipase 24 (11-82) U/L Urine Color [place] Urine Appearance Cloudy A (Clear) Urine pH 5.5 (4.5-7.5) Ur Specific [place] 1.014 (1.000-1.030) Urine Protein 2+ H (Negative) Urine Glucose (UA) Negative (Negative) Urine Ketones Trace H (Negative) Urine Blood 3+ H (Negative) Urine Nitrite Positive A (Negative) Urine Bilirubin Negative (Negative) Urine Urobilinogen Negative (Negative) Ur Leukocyte Esterase 3+ H (Negative) Urine WBC (Auto) >50 H (0-5) /hpf Urine RBC (Auto) >20 H (0-2) /hpf U Hyaline Cast (Auto) 6-10 H (0-2) /lpf U Epithel Cells (Auto) 0-2 (0-2) /hpf Urine Bacteria (Auto) 4+ H (None Seen) Adenovirus (PCR) Not Detected (NotDetected) B. pertussis DNA (PCR) Not Detected (NotDetected) B.parapertussis DNA PCR Not Detected (NotDetected) C. pneumoniae DNA (PCR) Not Detected (NotDetected) Coronavirus OC43 (PCR) Not Detected (NotDetected) Coronavirus HKU1 (PCR) Not Detected (NotDetected) Coronavirus 229E (PCR) Not Detected (NotDetected) SARS-CoV-2 (PCR) Not Detected (NotDetected) Coronavirus NL63 (PCR) Not Detected (NotDetected) Human Metapneumovir PCR Not Detected (NotDetected) Influenza Type A (PCR) Not Detected (NotDetected) Influenza Type B (PCR) Not Detected (NotDetected) M. pneumoniae (PCR) Not Detected (NotDetected) Parainfluenza 1 (PCR) Not Detected (NotDetected) Parainfluenza 2 (PCR) Not Detected (NotDetected) Parainfluenza 3 (PCR) Not Detected (NotDetected) Parainfluenza 4 (PCR) Not Detected (NotDetected) RSV (PCR) Not Detected (NotDetected) Entero/Rhino (PCR) Not Detected (NotDetected) Imaging Data Radiologist's Impression: Chest X-Ray 11/08/23 12:11 XR chest 1V portable CLINICAL HISTORY: cough bloody sputum TECHNIQUE: Single frontal radiograph of the chest was obtained. Comparison: Comparison is made to chest radiograph 10/04/2023 FINDINGS: Exam is limited by underpenetration. The cardiomediastinal silhouette is normal. Faint airspace opacities in the right lower lung. No evidence of pleural effusion or pneumothorax. IMPRESSION: Faint airspace opacities in the right lower lung may represent atelectasis, pneumonia, and/or aspiration. ACT 112: Negative or not required by law. Electronically signed by: Nilesh Herrmann M.D. 11/08/2023 12:[address] 11/08/23 13:37 CT chest diagnostic wo con CT DOSE: 1040.36 mGy.cm CLINICAL HISTORY: 58 years-old Male with hemoptysis, wheezing, possible pneumonia, INR 8. Acute shortness of breath with wheezing TECHNIQUE: Multiaxial CT images of the chest were performed without contrast. A dose lowering technique was utilized adhering to the principles of ALARA. COMPARISON: Chest radiograph 11/08/2023, CT chest 01/10/2023 FINDINGS: Unremarkable thyroid. No lymphadenopathy. Heart is upper limits of normal in size with extensive coronary artery calcifications. No thoracic aortic aneurysm. Decreased attenuation of the cardiac blood pool suggestive of anemia. Bilateral gynecomastia. No pneumothorax, or pleural effusion. Mid lung zone prominent centrilobular groundglass opacities intermixed with subcentimeter nodular consolidative foci noted within a multilobar bilateral distribution. Mild subpleural sparing. No significant intralobular septal thickening. The central airways are patent. Calcifications of the adrenal glands. No acute upper abdominal abnormality. Unremarkable soft tissues. No acute fracture. IMPRESSION: 1. Findings suggestive of multilobar bronchopneumonia. 2. No lymphadenopathy or pleural effusion. 3. Extensive coronary artery calcifications. ACT 112: Negative or not required by law. Electronically signed by: Adair Frey M.D. 11/08/2023 2:22 PM MDM Narrative This is a 58-year-old male with a significant history above who presents to the emergency department with cough, hemoptysis, and wheezing over the past 3 days worse when he lays flat better when he is upright. See above for further details. Patient mildly uncomfortable but certainly nontoxic. Not in respiratory distress oxygen saturation 97% on room air. Borderline tachycardia noted with an irregular rhythm, known history of atrial fibrillation. He has 2+ pitting edema bilateral lower extremities which sounds consistent with his recent baseline, possibly improved. He did have an episode of coughing and expectorated sputum that had bright red blood mixed in with the sputum which I visualized. He is moving air well with no obvious rales, wheezes, or rhonchi. An order was placed for continuous cardiac monitoring at time of evaluation demonstrates atrial fibrillation with a heart rate of 106. EKG was obtained and interpreted by myself demonstrating atrial fibrillation with RVR, rate of 117. No acute ST elevation. Nonspecific T wave abnormality in lateral leads. Compared to prior ECG from 10/04/2023, atrial fibrillation now present instead of junctional rhythm. Labs: INR 7.8 Anemia with a hemoglobin of 8.6. Slightly lower than baseline. Creatinine 3.03 which is recent baseline. Nonspecific elevation of bilirubin at 1.6, similar to baseline. Alkaline phosphatase baseline elevation at 150. Troponin elevated at 22.1, slightly higher than baseline but likely secondary to renal disease. Repeat troponin pending. Patient appears to have an acute UTI with 3+ blood, positive nitrates, 3+ leukocyte esterase, greater than 50 white blood cells, and 4+ bacteria CT of the chest demonstrates multi lobar bronchopneumonia which I suspect is the source of the hemoptysis. Patient was given gentle IV fluids for the tachycardia however did not receive fluids at sepsis volume due to his baseline volume status. Case reviewed with ED clinical pharmacist. Prior urine cultures have been positive for ESBL. Will cover with ertapenem and doxycycline for atypicals. Given his INR of 7.8 and the fact that he is bleeding, 5 mg vitamin K was administered. Case discussed with Dr. Javier (hospitalist, [facility]) who agrees to admit the patient. Case reviewed with ED attending Dr. Calvert who is agreeable with this plan. Impression Multifocal pneumonia, Acute UTI, Supratherapeutic INR, Hemoptysis Discharge Plan Visit Data Chief Complaint: Cough Stated Complaint: COUGHING BLOOD, BACK PAIN ED Provider: Magan Cal[facility] ED Midlevel Provider: Serjio Wagner Discharge Problem: Multifocal pneumonia, Acute UTI, Supratherapeutic INR, Hemoptysis Patient Disposition: Admitted As Inpatient Condition: Fair Forms Stand Alone Forms: My [facility] [employer] Prescriptions Prescriptions: No Action folic acid 1 mg tablet 1 mg PO DAILY Qty: 30 2RF Rx Instructions: PER PT'S SPOUSE "REFUSES TO TAKE THIS MEDICATION". metoprolol succinate 25 mg tablet extended release 24 hr 12.5 mg PO DAILY Rx Instructions: PER PT'S SPOUSE "REFUSES TO TAKE THIS MEDICATION". febuxostat 40 mg tablet 40 mg PO DAILY Qty: 90 3RF prednisone 10 mg tablet 60 mg PO DAILY warfarin 5 mg tablet 1 mg PO DAILY PRN warfarin 5 mg tablet 5 mg PO DAILY PRN atovaquone 750 mg/5 mL suspension 750 mg PO BID Rx Instructions: must administer with food, preferably a high-fat meal sevelamer carbonate 800 mg tablet 1,600 mg PO TID Rx Instructions: must administer with a meal/food sodium bicarbonate 650 mg tablet 650 mg PO BID rosuvastatin 5 mg tablet 5 mg PO DAILY Rx Instructions: PER PT'S SPOUSE "REFUSES TO TAKE THIS MEDICATION". thiamine HCl (vitamin B1) 100 mg tablet 100 mg PO DAILY Qty: 30 0RF Rx Instructions: PER PT'S SPOUSE "REFUSES TO TAKE THIS MEDICATION".buy over the counter acetaminophen [Tylenol Extra Strength] 500 mg tablet 1,000 mg PO QID MDD 3 GRAMS APAP/24 HOURS PRN (Reason: pain) Qty: 0 0RF melatonin 3 mg Tablet 3 mg PO HS Qty: 30 0RF pantoprazole 40 mg tablet,delayed release (DR/EC) 40 mg PO QAM Qty: 30 0RF Rx Instructions: PER PT'S SPOUSE "ONLY USES, MAYBE ONCE A MONTH". Referrals Referrals: Morro Alvarado DO [Primary Care Provider] -
--- NOTE | 2023-11-08 12:57 | XRay Report ---
XR chest 1V portable CLINICAL HISTORY: cough bloody sputum TECHNIQUE: Single frontal radiograph of the chest was obtained. Comparison: Comparison is made to chest radiograph 10/04/2023 FINDINGS: Exam is limited by underpenetration. The cardiomediastinal silhouette is normal. Faint airspace opaci ties in the right lower lung. No evidence of pleural effusion or pneumothorax. IMPRESSION: Faint airspace opacities in the right lower lung may represent atelectasis, pneumonia, and/or aspirat ion. ACT 112: Negative or not required by law. Electronically signed by: Nilesh Herrmann M.D. 11/08/2023 12:55 PM
--- NOTE | 2023-11-08 12:58 | Electrocardiogram Report ---
Test Reason : Blood Pressure : */* mmHG Vent. Rate : 117 BPM Atrial Rate : * BPM P-R Int : * ms QRS Dur : 74 ms QT Int : 320 ms P-R-T Axes : * 6 7 degrees QTcB Int : 446 ms Atrial fibrillation with rapid ventricular response Nonspecific T wave abnormality Abnormal ECG When compared with ECG of 04-Oct-2023 12:17, Atrial fibrillation has replaced Junctional rhythm Nonspecific T wave abnormality now evident in Lateral leads Confirmed by Manyn Alarcon ([id number]) on 11/08/2023 12:58:05 PM Referred By: Confirmed By: Manny Alarcon
[2023-11-08 13:00] LABS: Basophils # (auto) 0.01 K/uL (0.00-0.20); Basophils % (auto) 0.2 %; Eosinophils # (auto) 0.01 K/uL (0.00-0.50); Eosinophils % (auto) 0.2 %; Hematocrit (blood only) 26.1 % (42.0-52.0); Hemoglobin 8.6 g/dl (14.0-18.0); Immature Granulocytes # (auto) 0.05 K/uL (0.01-0.20); Immature Granulocytes % (auto) 0.8 %; Lymphocytes # (auto) 0.99 K/uL (1.20-3.40); Lymphocytes % (auto) 15.8 %; Mean Corpuscular Hemoglobin 31.7 pg (25.0-34.0); Mean Corpuscular Volume 96.3 fL (80.0-100.0); Mean Platelet Volume 9.4 fL (9.4-12.4); Monocytes # (auto) 0.29 K/uL (0.11-0.59); Monocytes % (auto) 4.6 %; Neutrophils % (auto) 78.4 %; Platelet Count 141 K/uL (130-400); RDW Coefficient of Variation 15.4 % (11.5-14.5); RDW Standard Deviation 53.9 fL (36.4-46.3); Red Blood Count 2.71 M/uL (4.70-6.10); White Blood Count 6.25 K/ul (4.8-10.8)
[2023-11-08] MEDS: LIDOCAINE 5% 1 PATCH TD STA (13:07)
[2023-11-08 13:26] LABS: Appearance Urine Cloudy (Clear); Bacteria Urine Automated 4+ (None Seen); Bilirubin Urine Negative (Negative); Blood Urine 3+ (Negative); Color Urine Orange; Epithelial Cell Urine Auto 0-2 /hpf (0-2); Glucose Urine UA Negative (Negative); Ketones Urine Trace (Negative); Leukocyte Esterase Urine 3+ (Negative); Nitrite Urine Positive (Negative); Protein Urine 2+ (Negative); RBC Urine Automated >20 /hpf (0-2); Specific Gravity Urine 1.014 (1.000-1.030); Urobilinogen Urine Negative (Negative); WBC Urine Automated >50 /hpf (0-5); pH Urine 5.5 (4.5-7.5)
[2023-11-08] MEDS: SODIUM CHLORIDE 0.9% 500 ML IV ONE (13:27)
[2023-11-08 13:28] LABS: Albumin Globulin Ratio 1.6 (0.9-2); Albumin Level 3.7 gm/dl (3.4-5.0); BUN Creatinine Ratio 17.8 (10-20); Bilirubin,Total 1.6 mg/dl (0.2-1.0); Calcium 9.2 mg/dl (8.6-10.3); Creatinine Clr Calc Pharmacy 43.9 ml/min; Est GFR (African American) 24.9 ml/min; Est GFR (Non-African American) 21.5 ml/min; Globulin 2.3 gm/dl (2.5-4.0); Magnesium 1.8 mg/dl (1.7-2.4); Partial Thromboplastin Ratio 1.7; Partial Thromboplastin Time 46 Seconds (21-31); Potassium 4.1 mmol/L (3.5-5.1); Prothrombin Time 70.4 Seconds (9.0-12.0)
[2023-11-08 13:31] LABS: INR 7.8 (0.9-1.1)
[2023-11-08 13:33] LABS: Troponin I High Sensitivity 22.1 pg/ml (0-20)
[2023-11-08 14:20] LABS: Adenovirus PCR Not Detected (NotDetected); Bordetella parapertussis PCR Not Detected (NotDetected); Bordetella pertussis PCR Not Detected (NotDetected); Chlamydia pneumoniae PCR Not Detected (NotDetected); Coronavirus 229E PCR Not Detected (NotDetected); Coronavirus CoV-2 (COVID19)PCR Not Detected (NotDetected); Coronavirus HKU1 PCR Not Detected (NotDetected); Coronavirus NL63 PCR Not Detected (NotDetected); Coronavirus OC43PCR Not Detected (NotDetected); Human Metapneumovirus PCR Not Detected (NotDetected); Influenza A PCR Not Detected (NotDetected); Influenza B PCR Not Detected (NotDetected); Mycoplasma pneumoniae PCR Not Detected (NotDetected); Parainfluenza Virus 1 PCR Not Detected (NotDetected); Parainfluenza Virus 2 PCR Not Detected (NotDetected); Parainfluenza Virus 3 PCR Not Detected (NotDetected); Parainfluenza Virus 4 PCR Not Detected (NotDetected); Respiratory Syncytial VirusPCR Not Detected (NotDetected); Rhinovirus/Enterovirus PCR Not Detected (NotDetected)
--- NOTE | 2023-11-08 14:23 | CT Scan Report ---
CT chest diagnostic wo con CT DOSE: 1040.36 mGy.cm CLINICAL HISTORY: 58 years-old Male with hemoptysis, wheezing, possible pneumonia, INR 8. Acute shor tness of breath with wheezing TECHNIQUE: Multiaxial CT images of the chest were performed without contrast. A dose lowering techni que was utilized adhering to the principles of ALARA. COMPARISON: Chest radiograph 11/08/2023, CT chest 01/10/2023 FINDINGS: Unremarkable thyroid. No lymphadenopathy. Heart is upper limits of normal in size with exte nsive coronary artery calcifications. No thoracic aortic aneurysm. Decreased attenuation of the cardi ac blood pool suggestive of anemia. Bilateral gynecomastia. No pneumothorax, or pleural effusion. Mid lung zone prominent centrilobular groundglass opacities int ermixed with subcentimeter nodular consolidative foci noted within a multilobar bilateral distributio n. Mild subpleural sparing. No significant intralobular septal thickening. The central airways are pa tent. Calcifications of the adrenal glands. No acute upper abdominal abnormality. Unremarkable soft tissues . No acute fracture. IMPRESSION: 1. Findings suggestive of multilobar bronchopneumonia. 2. No lymphadenopathy or pleural effusion. 3. Extensive coronary artery calcifications. ACT 112: Negative or not required by law. Electronically signed by: Adair Frey M.D. 11/08/2023 2:22 PM
[2023-11-08] MEDS: PHYTONADIONE 5 MG in DEXTROSE 5% 50 ML IV ONE (14:55)
--- NOTE | 2023-11-08 14:59 | Emergency Department Note ---
ED Visit Note I was consulted by the Advanced Practice Provider Serjio Wagner PA-C. I performed a substantive portion of the visit including all aspects of medical decision making. Patient presented due to concern for hemoptysis. Patient is on Coumadin known history of A-fib noted to have supratherapeutic INR. Patient was ordered ertapenem due to concern for ESBL and complicated UTI. Patient was also ordered IV vitamin K due to concern for the hemoptysis. .
[2023-11-08] MEDS ORDERED: ONDANSETRON INJ 2 MG/ML 2 ML VIAL IV PRN (15:29)
[2023-11-08] MEDS ORDERED: ACETAMINOPHEN 325 MG TAB PO PRN (15:29)
[2023-11-08] MEDS: DOXYCYCLINE HYCLATE 100 MG in DEXTROSE 5% MINI-B 100 ML IV STA (15:39)
--- NOTE | 2023-11-08 15:40 | History & Physical Report ---
Date of Service November 08, 2023 Assessment & Plan (1) Hemoptysis: Plan: Assessment: 1. Hemoptysis secondary to the below. 2. Multifocal bronchogenic pneumonia by CAT scan. Consultation obtained with clinical pharmacy by the ER provider they are recommending IV doxycycline and IV air ertapenem. The IV air pattern is dosed by myself per the patient's GFR less than 30. 500 mg daily. Hereceived 1000 mg x 1 in the ER. Sputum cultures ordered. 3. Urinary tract infection with a history of ESBL organisms. IV ertapenem for now. Await culture data. 4. Anemia of chronic disease. Monitor carefully hemoglobin 8.6. Has been as low as 8.2. 5. Supratherapeutic INR at 7.8. Hold Coumadin. Had vitamin K IV in the ER 5 mg. Daily INR's. Restart Coumadin when INR trends down below 3. 6. History of chronic atrial fibrillation. Mildly tachycardic at this time. Will continue to hydrate. 7. DVT left leg. Status post IVC filter placement approximately 3 to 4 weeks ago per patient. On chronic Coumadin therapy. Holding due to the supratherapeutic INR currently. 8. Recent diagnosis of IgA nephropathy. Following with nephrology in [place]. Creatinine is at baseline. Monitor creatinine carefully. Renally dose all drugs. 9. Obstructive sleep apnea with nontolerant of CPAP. 10. History of recurrent UTIs. Will do bladder scans. 11. Bilateral peripheral edema. Chronic for patient. Supposed to wear compression hose but has a hard time tolerating. 12. Morbid obesity. Plan: As discussed above. Please refer to orders for further planning. History of Present Illness Chief Complaint: Blood-tinged sputum, cough. Primary Care Provider: Morro Alvarado DO This is a pleasant 58-year-old male recently diagnosed with an IgA nephropathy. On chronic prednisone therapy. Over the last couple days has had increased cough. Today had blood-tinged sputum and came to the ER for further evaluation and treatment. Imaging demonstrated pulmonary consolidations. In addition urinalysis demonstrated UTI. Laboratory studies demonstrated a hemoglobin of 8.6 g/dL which is approximately the patient's baseline-has been as low as 8.2.. Creatinine 3.0 again approximate the patient's baseline. The patient's INR was 7.8. The patient has a recent diagnosis of DVT in the left leg. Also has a history of chronic atrial fibrillation. He is on Coumadin therapy and had an IVC filter placed within the last several weeks at [place]. Patient's course in the ER he received 5 of IV vitamin K, IV ertapenem and IV doxycycline after consultation with clinical pharmacist from the ER provider with the recommendations -due to the fact the patient has a history of ESBL UTIs. Allergies Allergy/AdvReac Type Severity Reaction Status Date / Time No Known Allergies Allergy Mild Verified 11/08/23 14:57 Home Medications Medication Instructions Recorded Confirmed Type folic acid 1 mg tablet 1 mg PO DAILY #30 tabs 05/17/23 11/08/23 Rx acetaminophen 500 mg tablet 1,000 mg (2 x 500 mg) PO QID PRN 09/11/23 11/08/23 Rx (Tylenol Extra Strength) pain #0 tabs thiamine HCl (vitamin B1) 100 mg 100 mg PO DAILY #30 tabs 09/11/23 11/08/23 Rx tablet pantoprazole 40 mg tablet,delayed 40 mg PO QAM HEARTBURN/INDIGESTION 09/27/23 11/08/23 Rx release #30 tabs atovaquone 750 mg/5 mL oral 750 mg PO BID 10/19/23 11/08/23 History suspension prednisone 10 mg tablet 60 mg PO DAILY 10/19/23 11/08/23 History sevelamer carbonate 800 mg tablet 1,600 mg PO TID 10/19/23 11/08/23 History sodium bicarbonate 650 mg tablet 650 mg PO BID 10/19/23 11/08/23 History warfarin 5 mg tablet See Rx Instructions .Route .COMPLEX 10/19/23 11/08/23 History febuxostat 40 mg tablet 40 mg PO DAILY #90 tabs 10/24/23 11/08/23 Rx warfarin 1 mg tablet See Rx Instructions .Route .COMPLEX 11/08/23 11/08/23 History Past Med/Surg History Problem List (Updated 11/08/23 @ 14:50 by TIMOTHY Byers) Hemoptysis (Acute) Supratherapeutic INR (Acute) Acute UTI (Acute) Multifocal pneumonia (Acute) Left femoral vein DVT Vitamin D deficiency Anemia Elevated alkaline phosphatase level C. difficile diarrhea Lower extremity edema Abdominal pain reason for upcoming procedure Acute encephalopathy Right knee pain Diarrhea Hypomagnesemia (Acute) COVID-19 (Acute) Osteoarthritis of knees, bilateral Morbid obesity Hyperuricemia Chronic kidney disease CHRISTAL (acute kidney injury) Gout (Acute) Hyperlipidemia Paroxysmal atrial fibrillation Alcohol use disorder in remission ROBERT (obstructive sleep apnea) Hypokalemia Acute pain of right lower extremity (Acute) Medical History Gout of right knee due to renal impairment Anxiety No known health problems Alcohol use disorder Surgical History H/O colonoscopy Colonoscopy 12/01/22, repeat 5 years in 2027 History of lateral meniscus repair of right knee History of wisdom tooth extraction History of ankle surgery Family History Father Diabetes Myocardial infarction Mother Diabetes Myocardial infarction Ovarian cancer Denies family history of Prostate cancer Breast cancer Lung cancer Colorectal cancer Stroke Social History Smoking Status: Never smoker Second Hand Exposure: No; Do You Dip or Chew Tobacco: No; Hx Alcohol Use: Yes Alcohol type: beer and hard liquor Alcohol Intake Frequency: 4 or More x per/Week Hx Substance Use: No Preferred Language: Maldivian Communication Ability: Effective Visual Impairment: Limited Hearing Ability: Normal Business Services Manager Required: No Beliefs That Will Affect Care: None marital status: Current Living Situation: Spouse Current Living Situation Comment: Personal Home current occupational 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 do You have: 3 Feels Safe at Home: Yes Childhood Exposure to Second-Hand Smoke: Yes caffeine: No Dental Care, Regularly: Yes Physical Activity Frequency: Does not Exercise Seatbelt Use: always Sunscreen Use: No Assistive Devices: Cane and Walker Review of Systems Review of Systems: A 10 point review of system was obtained and unless otherwise stated here or in history of present illness are negative and noncontributory to chief complaint. Physical Exam Physical Exam: In General: In general this is a 58-year-old male who is alert and oriented x 3 at the time my exam accompanied by his girlfriend and his daughter at the time of my examination. He is in no acute distress. HEENT: Normocephalic atraumatic pupils are equal round and reactive to light bilaterally. No scleral icterus no conjunctival injection external auditory canals are patent septum is in the midline nose is without discharge oral mucosa is pink and moist without lesion. NECK: Supple no rigidity no lymphadenopathy no thyromegaly no carotid bruits no JVD no masses. HEART: Irregular rate and rhythm consistent with atrial fibrillation. Rate in the low 100s. I do not appreciate any ectopy or rub. No murmur. LUNGS: Coarse bilaterally with lower lobe rhonchi. No wheezes. ABDOMEN: Soft nontender, no rebound, no peritoneal signs, positive bowel sounds, no appreciable organomegaly. EXTREMITIES: Intact, no peripheral cyanosis, clubbing or edema. Strength is 5 out of 5 in extremities x4. NEUROLOGICAL: Cranial nerves II through XII are grossly intact with no focal deficit elicited upon examination. Results & Data Results & Data Vital Signs (Past 12 Hours) Vital Signs Temp Pulse Pulse Resp BP BP Pulse Ox 11/08/23 13:30 106 H 20 145/92 H 97 11/08/23 12:37 95 11/08/23 12:30 106 H 18 157/122 H 93 11/08/23 12:23 105 H 11/08/23 11:53 36.5 C 110 H 22 161/95 H 96 O2 Del Method 11/08/23 13:30 Room Air 11/08/23 12:37 Room Air 11/08/23 12:30 Room Air 11/08/23 12:23 11/08/23 11:53 Room Air Code Status & VTE Plan Code Status Full code-I personally discussed with patient today. VTE Prophylaxis Plan VTE Prophylaxis will be ordered: Yes PG Care Time/CCT Total # of Minutes Spent Total Time Spent with Patient: Total time spent is greater than 50% in coordination of care (as documented) at patient's floor/unit and/or counseling patient: Coding Level of Care Code 80871 INT INP/OBS CARE 3/75MIN Diagnoses Hemoptysis R04.2
[2023-11-08] MEDS: ERTAPENEM SODIUM 10 ML IV STA (16:13)
[2023-11-08] MEDS: SODIUM CHLORIDE 0.9% 1,000 ML IV SCH (18:50)
[2023-11-08] MEDS: SEVELAMER CARBONATE 800 MG TAB PO SCH (19:58)
[2023-11-08] MEDS: ATOVAQUONE 750 MG/5 ML UDC PO SCH (19:59)
[2023-11-08] MEDS: SODIUM BICARBONATE 650 MG TAB PO SCH (19:59)
[2023-11-08 23:11] LABS: Hematocrit (blood only) 24.3 % (42.0-52.0); Hemoglobin 7.9 g/dl (14.0-18.0)
[2023-11-09] MEDS: DOXYCYCLINE HYCLATE 100 MG in DEXTROSE 5% MINI-B 100 ML IV SCH (03:02)
[2023-11-09 06:13] LABS: Eosinophils # (auto) 0.01 K/uL (0.00-0.50); Eosinophils % (auto) 0.2 %; Hemoglobin 7.5 g/dl (14.0-18.0); Immature Granulocytes # (auto) 0.05 K/uL (0.01-0.20); Immature Granulocytes % (auto) 0.8 %; Lymphocytes % (auto) 33.4 %; Mean Corpuscular Hemoglobin 31.4 pg (25.0-34.0); Mean Corpuscular Hgb Conc 32.6 g/dL (32.0-36.0); Mean Corpuscular Volume 96.2 fL (80.0-100.0); Mean Platelet Volume 9.3 fL (9.4-12.4); Monocytes # (auto) 0.54 K/uL (0.11-0.59); Neutrophils # (auto) 3.39 K/uL (1.40-6.50); Neutrophils % (auto) 56.6 %; Platelet Count 132 K/uL (130-400); RDW Coefficient of Variation 15.2 % (11.5-14.5); RDW Standard Deviation 53.2 fL (36.4-46.3); Red Blood Count 2.39 M/uL (4.70-6.10); White Blood Count 5.99 K/ul (4.8-10.8)
[2023-11-09 06:24] LABS: Albumin Globulin Ratio 1.6 (0.9-2); Albumin Level 3.1 gm/dl (3.4-5.0); BUN Creatinine Ratio 16.8 (10-20); Bilirubin,Total 1.6 mg/dl (0.2-1.0); Calcium 8.5 mg/dl (8.6-10.3); Chol HDL Ratio 2.4 (0-5); Creatinine Clr Calc Pharmacy 46.4 ml/min; Est GFR (African American) 26.8 ml/min; Est GFR (Non-African American) 23.1 ml/min; Magnesium 1.7 mg/dl (1.7-2.4); Potassium 3.9 mmol/L (3.5-5.1); Total Protein 5.1 gm/dl (6.0-8.3)
[2023-11-09 06:39] LABS: Thyroid Stimulating Hormone 1.097 uIu/ml (0.300-4.500)
[2023-11-09 06:40] LABS: RBC Morphology Unremarkable
[2023-11-09 07:13] LABS: Estimated Average Glucose 114 mg/dl; Hemoglobin A1C 5.6 % (4.5-5.6)
[2023-11-09] MEDS: FOLIC ACID 1 MG TAB PO SCH (07:30)
[2023-11-09] MEDS: predniSONE 20 MG TAB PO SCH (07:30)
[2023-11-09] MEDS: PANTOprazole 40 MG TAB PO SCH (07:30)
[2023-11-09] MEDS: THIAMINE HCL 100 MG TAB PO SCH (07:31)
[2023-11-09 08:53] LABS: INR 1.4 (0.9-1.1); Prothrombin Time 15.2 Seconds (9.0-12.0)
[2023-11-09] MEDS: METOPROLOL SUCC 25MG EXT REL TAB PO SCH (12:52)
--- NOTE | 2023-11-09 13:35 | Hospitalist Progress Note ---
Date of Service November 09, 2023 Assessment & Plan (1) Hemoptysis: Plan: Presented with hemoptysis x3 days. INR on admission was 7.8 CT chest: multilobar bronchopneumonia, no effusions. extensive coronary artery calcification Continue IV doxycycline and ertapenem - hx of ESBL, UC also pending Sputum Culture pending PT/OT (2) Supratherapeutic INR: Plan: Recently started on Warfarin 7mg daily at [facility] after left leg DVT. IVC filter also in place. Also with Afib. INR goal 2-3 - Arrived with INR 7.8 --> received vitamin K --> INR 1.4 - Restart warfarin at 5mg daily Recommend outpatient Anticoagulation clinic f/u AM INR (3) IgA nephropathy: Plan: Recently diagnosed on bx at [facility] - Steroid taper, 5mg per week - decreased to 55mg 11/08 -Continue Atovaquone 750mg BID for the duration of his prednisone use for PJP prophylaxis -Continue sevelamer, sodium bicarb Also with anemia of chronic disease, baseline 8-9 - 7.9 on admission, 7.5 this morning AM CBC and BMP (4) Acute UTI: Plan: Hx of ESBL Continue on ertapenem for now, follow cultures (5) Atrial fibrillation: Plan: EKG with AFIB RVR on admission, rate 117 Metoprolol succ 12.5mg daily has fallen off med list, restarted 11/08 Anticoagulation: Warfarin (6) Ambulatory dysfunction: Plan: Recent rehab stay but exacerbated by multiple hospitalizations and back pain limiting movement - MRI lumbar spine for radiculopathy symptoms - aware that may not be changes in management given he's already on steroids and poor surgical candidate at this time PT/OT Plan Chronic stable medical problems: * ROBERT - does not use CPAP * Morbid obesity - BMI 40.0 * Gout continue febuxostat 20mg daily (home medication - pt needs to bring in) Dispo: continued inpatient stay DVT proh: Warfarin Family updated at besides 11/08 Admission and Anticipated Discharge Date Admission Date: November 08, 2023 Supervising Physician Co-Signing Physician Notes Attending Attestation - Chart reviewed, care plan d/w TIMOTHY Belcher. I agree w/ the [place]eg[place] components of her documentation. Aden Goddard MD Subjective Patient seen lying in bed, prior to lunch. States overall he is feeling better. Hemoptysis still occurring but improving PCP managing coumadin/INR has only had it checked once poor appetite over the last few days unsure why metoprolol would have been stopped complains of right sided low back pain, that has started in the last few weeks since being discharge from the hospital. radiates down the leg, not taking pain medication at home (kidney bx was done on the left side) Tele - afib 100-110s Review of Systems Review of Systems: All systems reviewed & are unremarkable except as noted in Subjective Physical Exam Physical Exam: General: NAD, VS as above Resp: normal respiratory effort, diminished on the right, no wheezing CV: afib and rapid, no murmur, Abd: normal bowel sounds, non tender, no hepatosplenomegaly Extremities: Moves all extremities, b/l 2+ edema. able to lift bilateral legs off bed. right straight leg raise does not illict pain. Back: low back right sided tenderness, lower than kidney area Neuro: A&O x3, Skin: intact, no lesions noted Results & Data Results & Data Vital Signs (Past 12 Hours) Vital Signs Temp Pulse Pulse Resp BP Pulse Ox O2 Del Method 11/09/23 11:10 36.6 C 93 H 16 142/84 H 96 Room Air 11/09/23 07:47 106 H 11/09/23 07:44 Room Air 11/09/23 07:37 36.3 C L 94 H 16 127/85 96 Room Air 11/09/23 03:15 146/76 H 11/09/23 02:47 36.7 C 92 H 18 145/123 H 98 Room Air Laboratory Results CBC, chemistry, INR, SC and urine cultres reviewed Diagnostic Findings EKG reviewed CXR and chest CT reviewed PG Care Time/CCT Total # of Minutes Spent Total Time Spent with Patient: Total time spent is greater than 50% in coordination of care (as documented) at patient's floor/unit and/or counseling patient: Coding Level of Care Code 75831 SUB INP/OBS CARE 3/50MIN Diagnoses Hemoptysis R04.2 Supratherapeutic INR R79.1 IgA nephropathy N02.B9 Acute UTI N39.0 Atrial fibrillation I48.91 Ambulatory dysfunction R26.2
[2023-11-09] MEDS: ERTAPENEM SODIUM 500 MG in SYRINGE 0 ML IV SCH (15:26)
[2023-11-09] MEDS: WARFARIN SOD 5 MG TAB PO SCH (15:27)
[2023-11-09] MEDS: FEBUXOSTAT 40 MG TABLET PO SCH (21:31)
[2023-11-10 06:30] LABS: Basophils # (auto) 0.01 K/uL (0.00-0.20); Basophils % (auto) 0.2 %; Eosinophils # (auto) 0.02 K/uL (0.00-0.50); Eosinophils % (auto) 0.3 %; Hematocrit (blood only) 24.2 % (42.0-52.0); Hemoglobin 7.7 g/dl (14.0-18.0); Immature Granulocytes # (auto) 0.09 K/uL (0.01-0.20); Immature Granulocytes % (auto) 1.6 %; Lymphocytes # (auto) 2.09 K/uL (1.20-3.40); Lymphocytes % (auto) 36.1 %; Mean Corpuscular Hgb Conc 31.8 g/dL (32.0-36.0); Mean Corpuscular Volume 97.6 fL (80.0-100.0); Mean Platelet Volume 9.1 fL (9.4-12.4); Monocytes # (auto) 0.52 K/uL (0.11-0.59); Neutrophils # (auto) 3.06 K/uL (1.40-6.50); Neutrophils % (auto) 52.8 %; Platelet Count 127 K/uL (130-400); RDW Standard Deviation 54.4 fL (36.4-46.3); Red Blood Count 2.48 M/uL (4.70-6.10); White Blood Count 5.79 K/ul (4.8-10.8)
[2023-11-10 06:55] LABS: RBC Morphology Unremarkable
[2023-11-10 06:58] LABS: INR 1.3 (0.9-1.1)
[2023-11-10 06:59] LABS: BUN Creatinine Ratio 16.8 (10-20); Calcium 8.7 mg/dl (8.6-10.3); Creatinine Clr Calc Pharmacy 48.5 ml/min; Est GFR (African American) 28.2 ml/min; Est GFR (Non-African American) 24.4 ml/min
--- NOTE | 2023-11-10 07:23 | Magnetic Resonance Report ---
MR lumbar spine wo con CLINICAL HISTORY: 58 years-old Male with low back pain, right radiating symptoms. Chronic low back p ain with right lower extremity radicular symptoms. COMPARISON: CT abdomen and pelvis 09/13/2023. TECHNIQUE: Multiplanar, multi sequence MRI of the lumbar spine was performed without intravenous cont rast. FINDINGS: There is mild lumbar levoscoliosis of a few degrees. The studies are limited by patient body habitus. There is asymmetric atrophy involving the left erector spinae musculature on image 4 series 5. Nonsp ecific edema noted throughout the paraspinal muscles. No fracture, subluxation, endplate erosion or m arrow replacing process. Chronic mid vertebral body compression deformities/Schmorl's nodes at L1 and L2. Conus medullaris terminates at the L1 level. T12-L1: Mild intervertebral disc space narrowing with moderate anterior endplate spondylotic spurrin g and facet arthrosis. No central canal or neural foraminal stenosis. L1-L2: Mild intervertebral disc space narrowing with mild to moderate spondylotic spurring and small circumferential annular disc bulging. Ligamentum flavum thickening with moderate facet arthrosis. Ep idural lipomatosis also present. Mild central canal stenosis with AP dimension of the thecal sac gary uring 9 mm. Mild bilateral foraminal stenosis. L2-L3: Spondylotic spurring is most pronounced anteriorly. Small circumferential annular disc bulgin g with disc osteophyte complex. Ligamentum flavum thickening with moderate epidural lipomatosis also noted. AP dimension of the thecal sac measures 6 mm. There is moderate to severe central canal stenos is with mild to moderate right and moderate left foraminal narrowing. L3-L4: Moderate to severe intervertebral disc space narrowing with prominent spondylotic spurring an d circumferential annular disc bulging. Ligamentum flavum thickening with trace facet effusions and m oderate to severe facet arthrosis. Severe central canal stenosis with AP dimension of the thecal sac measuring 5 mm. Epidural lipomatosis. Mild to moderate left with moderate right foraminal narrowing. L4-L5: Moderate intervertebral disc space narrowing and spondylotic spurring with circumferential an nular disc bulging/disc osteophyte complex eccentric to the left neural foramen. Ligamentum flavum th ickening with moderate facet arthrosis and trace facet effusions. Central canal is patent. There is a t least mild narrowing of the lateral recesses. Mild to moderate right and severe left foraminal sten osis. L5-S1: 5 mm anterolisthesis with chronic bilateral pars defects. Severe intervertebral disc space na rrowing. Prominent anterior bridging osteophytosis with circumferential annular disc bulging/posterio r disc space uncovering. Ligamentum flavum thickening with moderate facet arthrosis. Epidural lipomat osis. Mild central canal stenosis with AP dimension of the thecal sac measuring 9 mm. Mild to moderat e bilateral foraminal narrowing. IMPRESSION: 1. Discogenic degeneration with spondylotic spurring and facet arthrosis as above in conjunction with epidural lipomatosis results in multilevel central canal and neural foraminal stenosis. 2. Severe L3-L4 and moderate to severe L2-L3 central canal stenosis. 3. No acute fracture. 4. Chronic L5 pars defects with grade 1 anterolisthesis. ACT 112: Negative or not required by law. The above report was generated using voice recognition software. It may contain grammatical, syntax o r spelling errors. Dictated: 11/09/2023 7:19 PM Transcribed: 11/09/2023 7:44 PM Vic [id number] [email or web address] [id number] Electronically signed by: Adair Frey M.D. 11/10/2023 7:21 AM
[2023-11-10] MEDS: predniSONE 10 MG TABLET PO SCH (08:27)
[2023-11-10] MEDS: FEBUXOSTAT 40 MG TABLET PO SCH (08:33)
[2023-11-10] MEDS: HEPARIN SODIUM/DEXTROSE 25,000 UNITS/500 ML BAG IV SCH (09:42)
[2023-11-10] MEDS: Heparin IV Adult Wt-Based Low-Dose *NO* INITIAL Bolus Protocol IV STA (09:53)
[2023-11-10] MEDS: cefTRIAXone SODIUM 2,000 MG/50 ML BAG IV SCH (09:53)
--- NOTE | 2023-11-10 10:51 | Hospitalist Progress Note ---
Date of Service November 10, 2023 Assessment & Plan (1) Hemoptysis: Plan: Presented with hemoptysis x3 days. INR on admission was 7.8 CT chest: multilobar bronchopneumonia, no effusions. extensive coronary artery calcification Continue IV doxycycline - ertapenem changed to ceftriaxone 11/09 based on urine culture Sputum Culture: normal roberto x 2 PT/OT - PT recommending rehab, but pt not wanting to do this, plan for PT to reeval and hopefully attempt stairs (2) Supratherapeutic INR: Plan: Recently started on Warfarin 7mg daily at [facility] [place] after left leg DVT. IVC filter also in place. Also with Afib. INR goal 2-3 - Arrived with INR 7.8 --> received vitamin K --> INR 1.4 - Restarted warfarin at 5mg daily - INR now 1.3, will start low dose heparin bridge since known active clot Recommend outpatient Anticoagulation clinic f/u AM INR (3) IgA nephropathy: Plan: Recently diagnosed on bx at [facility] [place] - Steroid taper, 5mg per week - decreased to 55mg 11/08 -Continue Atovaquone 750mg BID for the duration of his prednisone use for PJP prophylaxis -Continue sevelamer, sodium bicarb Also with anemia of chronic disease, baseline 8-9 - hgb stable AM CBC and BMP (4) Acute UTI: Plan: Hx of ESBL UC: klebisella Abx switched to Ceftriaxone (5) Atrial fibrillation: Plan: EKG with AFIB RVR on admission, rate 117 Metoprolol succ increased to 25 mg as rates have been 90-100s Anticoagulation: Warfarin (6) Ambulatory dysfunction: Plan: Recent rehab stay but exacerbated by multiple hospitalizations and back pain limiting movement - MRI lumbar spine for radiculopathy symptoms - discogenic degeneration, severe to moderate to severe central canal stentosis - ortho spine consulted to see if patient would be candidate for injections in the future - start gabapentin 100mg BID - lidocaine patch PT/OT Plan Chronic stable medical problems: * ROBERT - does not use CPAP * Morbid obesity - BMI 40.0 * Gout continue febuxostat 20mg daily Dispo: continued inpatient stay DVT proh: Warfarin Family updated at besides 11/08 and by phone 11/09 Admission and Anticipated Discharge Date Admission Date: November 08, 2023 Supervising Physician Co-Signing Physician Notes Attending Attestation - Chart reviewed, care plan d/w TIMOTHY Belcher. I agree w/ the [place]eg[place] components of her documentation. Aden Goddard MD Subjective patient lying in bed, reports feeling better today, no longer coughing up blood good appetite. was able to walk around the room with therapy did not try stairs yesterday asking for lidocaine patch for back tele - afib 90-100s Review of Systems Review of Systems: All systems reviewed & are unremarkable except as noted in Subjective Physical Exam Physical Exam: General: NAD, VS as above Resp: normal respiratory effort, diminished on the right, no wheezing CV: afib, no murmur, Abd: normal bowel sounds, non tender, no hepatosplenomegaly Extremities: Moves all extremities, b/l 2+ edema. able to lift bilateral legs off bed. Neuro: A&O x3, Skin: intact, no lesions noted Results & Data Results & Data Vital Signs (Past 12 Hours) Vital Signs Temp Pulse Pulse Resp BP BP Pulse Ox 11/10/23 09:57 11/10/23 07:30 36.5 C 97 H 20 134/87 99 11/10/23 07:19 110 H 11/10/23 02:35 36.4 C L 99 H 16 126/78 98 11/09/23 23:23 11/09/23 22:57 36.5 C 98 H 18 116/79 95 O2 Del Method 11/10/23 09:57 Room Air 11/10/23 07:30 Room Air 11/10/23 07:19 11/10/23 02:35 Room Air 11/09/23 23:23 Room Air 11/09/23 22:57 Room Air Laboratory Results cbc, chemistry and INR reviewed Diagnostic Findings lumbar spine MRI reviewed PG Care Time/CCT Total # of Minutes Spent Total Time Spent with Patient: Total time spent is greater than 50% in coordination of care (as documented) at patient's floor/unit and/or counseling patient: Coding Level of Care Code 90377 SUB INP/OBS CARE 3/50MIN Diagnoses Hemoptysis R04.2 Supratherapeutic INR R79.1 IgA nephropathy N02.B9 Acute UTI N39.0 Atrial fibrillation I48.91 Ambulatory dysfunction R26.2
[2023-11-10] MEDS: GABAPENTIN 100 MG CAP PO SCH (11:24)
[2023-11-10] MEDS: METOPROLOL SUCC 50MG EXT REL TAB PO STA (11:24)
[2023-11-10] MEDS: LIDOCAINE 5% 1 PATCH TD SCH (11:24)
[2023-11-10 15:43] LABS: ANTI-Xa, UFH(UnfractionatedHep 0.26 IU/ml (0.3-0.7)
[2023-11-10 23:27] LABS: ANTI-Xa, UFH(UnfractionatedHep 0.32 IU/ml (0.3-0.7)
[2023-11-11 02:58] VITALS: TEMP 97.5
[2023-11-11 06:36] LABS: Basophils # (auto) 0.02 K/uL (0.00-0.20); Basophils % (auto) 0.2 %; Eosinophils # (auto) 0.02 K/uL (0.00-0.50); Eosinophils % (auto) 0.2 %; Hematocrit (blood only) 28.6 % (42.0-52.0); Hemoglobin 9.1 g/dl (14.0-18.0); Immature Granulocytes # (auto) 0.22 K/uL (0.01-0.20); Immature Granulocytes % (auto) 2.3 %; Lymphocytes # (auto) 2.93 K/uL (1.20-3.40); Lymphocytes % (auto) 30.8 %; Mean Corpuscular Hemoglobin 31.3 pg (25.0-34.0); Mean Corpuscular Hgb Conc 31.8 g/dL (32.0-36.0); Mean Corpuscular Volume 98.3 fL (80.0-100.0); Mean Platelet Volume 9.5 fL (9.4-12.4); Monocytes # (auto) 0.85 K/uL (0.11-0.59); Monocytes % (auto) 8.9 %; Neutrophils # (auto) 5.47 K/uL (1.40-6.50); Neutrophils % (auto) 57.6 %; Platelet Count 209 K/uL (130-400); RDW Coefficient of Variation 14.7 % (11.5-14.5); RDW Standard Deviation 53.1 fL (36.4-46.3); Red Blood Count 2.91 M/uL (4.70-6.10); White Blood Count 9.51 K/ul (4.8-10.8)
[2023-11-11 06:40] LABS: INR 1.7 (0.9-1.1); Prothrombin Time 17.3 Seconds (9.0-12.0)
[2023-11-11 07:01] LABS: ANTI-Xa, UFH(UnfractionatedHep 0.41 IU/ml (0.3-0.7)
[2023-11-11 07:02] LABS: BUN Creatinine Ratio 15.8 (10-20); Calcium 9.1 mg/dl (8.6-10.3); Creatinine Clr Calc Pharmacy 45.6 ml/min; Est GFR (African American) 26.1 ml/min; Est GFR (Non-African American) 22.5 ml/min; Potassium 4.1 mmol/L (3.5-5.1)
[2023-11-11] MEDS: METOPROLOL SUCC 25MG EXT REL TAB PO SCH (07:47)
--- NOTE | 2023-11-11 09:48 | Orthopedic Consultation ---
Date of Consultation November 11, 2023 Assessment & Plan (1) Ambulatory dysfunction: Patient has multilevel multifactorial spinal stenosis. His medical comorbidities make him a poor surgical candidate. Surgery would be quite extensive and given his body habitus may be done in a tertiary care facility. Fermin clark is anticoagulated at this point secondary to his DVT and atrial fibrillation it would not be a candidate for injections until or less he can come off his anticoagulation but should be up to his medical doctors. Otherwise he can continue with physical therapy pain control and his chiropractic treatments as an outpatient. Dr. Longoria and I have reviewed the films and he agrees with this treatment plan. History of Present Illness Attending Physician: Aden Goddard MD History of Present Illness Patient 58-year-old male who presented to the emergency room with hemoptysis and an INR of 7.8. He was diagnosed with a DVT approximately 2 months ago. We are consulted to review his back history. He has chronic low back pain some present since college. He has use of a walker for ambulation secondary to his pain. The pain is treatment walsh he is sought chiropractic treatments in the past. He has not had any consultations with pain management or any surgical consultations. His pain is mainly in the lower portion of the back with a sharp pinching pain. He does feel that his legs get tired and fatigued quite easily. He denies any darvin weakness in the legs. He denies any other numbness, tingling, or paresthesias. Allergies Allergy/AdvReac Type Severity Reaction Status Date / Time No Known Allergies Allergy Mild Verified 11/08/23 14:57 Home Medications Medication Instructions Recorded Confirmed Type folic acid 1 mg tablet 1 mg PO DAILY #30 tabs 05/17/23 11/08/23 Rx acetaminophen 500 mg tablet 1,000 mg (2 x 500 mg) PO QID PRN 09/11/23 11/08/23 Rx (Tylenol Extra Strength) pain #0 tabs thiamine HCl (vitamin B1) 100 mg 100 mg PO DAILY #30 tabs 09/11/23 11/08/23 Rx tablet pantoprazole 40 mg tablet,delayed 40 mg PO QAM HEARTBURN/INDIGESTION 09/27/23 11/08/23 Rx release #30 tabs atovaquone 750 mg/5 mL oral 750 mg PO BID 10/19/23 11/08/23 History suspension prednisone 10 mg tablet 60 mg PO DAILY 10/19/23 11/08/23 History sevelamer carbonate 800 mg tablet 1,600 mg PO TID 10/19/23 11/08/23 History sodium bicarbonate 650 mg tablet 650 mg PO BID 10/19/23 11/08/23 History warfarin 5 mg tablet See Rx Instructions .Route .COMPLEX 10/19/23 11/08/23 History febuxostat 40 mg tablet 40 mg PO DAILY #90 tabs 10/24/23 11/08/23 Rx warfarin 1 mg tablet See Rx Instructions .Route .COMPLEX 11/08/23 11/08/23 History metoprolol succinate 25 mg 12.5 mg PO 11/09/23 History tablet,extended release 24 hr Patient History Medical History Gout of right knee due to renal impairment Anxiety No known health problems Alcohol use disorder Surgical History H/O colonoscopy History of lateral meniscus repair of right knee History of wisdom tooth extraction History of ankle surgery Family History Father Diabetes Myocardial infarction Mother Diabetes Myocardial infarction Ovarian cancer Denies family history of Prostate cancer Breast cancer Lung cancer Colorectal cancer Stroke Social History Smoking Status: Never smoker Second Hand Exposure: No; Do You Dip or Chew Tobacco: No; Hx Alcohol Use: No Hx Substance Use: No Preferred Language: Khmer Communication Ability: Effective Visual Impairment: Limited Hearing Ability: Normal Fire Hydrant Mechanic Required: No Beliefs That Will Affect Care: None marital status: Current Living Situation: Spouse Current Living Situation Comment: Personal Home current occupational 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 do You have: 3 Feels Safe at Home: Yes Childhood Exposure to Second-Hand Smoke: Yes caffeine: No Dental Care, Regularly: Yes Physical Activity Frequency: Does not Exercise Seatbelt Use: always Sunscreen Use: No Assistive Devices: Cane and Walker Physical Exam Physical Exam: On exam the patient is lying in bed. He is alert and oriented. He answers questions appropriately. His visual linton grossly intact. He is able to roll from [id number] without difficulties. He is full range of motion of the hips and knees. His lower extremity motor exam reveals no focal atrophy or strength 5 out of 5 to detailed muscle testing without exception. Sensations intact to light touch proprioception is also intact. No clonus is noted. Cardiovascular exam there is no gross abnormalities abdomen soft nontender. Results & Data Vital Signs (Past 12 Hours) Vital Signs Temp Pulse Pulse Resp BP Pulse Ox O2 Del Method 11/11/23 07:28 36.4 C L 89 20 132/83 97 Room Air 11/11/23 07:26 Room Air 11/11/23 07:12 108 H 11/11/23 02:56 36.4 C L 95 H 16 98/69 L 98 Room Air 11/10/23 23:02 36.5 C 97 H 18 107/75 97 Room Air 11/10/23 21:55 Room Air Diagnostic Findings MRI of the lumbar spine performed recently reveals multilevel degenerative disc disease. There are Modic changes in the endplates at L3-4, L4-5, L5-S1. There is grade 1 spondylolisthesis at L5-S1. There is moderate stenosis at L2-3, L3- 4, moderate to severe at L4-5, and severe bilateral foraminal stenosis at L5-S1.
[2023-11-11 11:16] VITALS: PULSE 96; RESP 18; O2SAT 96
--- NOTE | 2023-11-11 11:47 | Discharge Summary ---
Discharge Summary Date of Service November 11, 2023 Principal Dx & Hospital Course #1 = Principal Diagnosis (1) Hemoptysis: Presented with hemoptysis x3 days. INR on admission was 7.8 CT chest: multilobar bronchopneumonia, no effusions. extensive coronary artery calcification Received ceftriaxone and doxycycline inpatient - discharged on doxycycline and Augmentin Sputum Culture: normal roberto x 2 Is already on atovaquone twice daily for PJP prophylaxis. Discussed with ALEXI Bradley pulmonology, no additional management needed at this time, recommend outpatient pulmonology follow-up for reimaging Incentive spirometer PT/OT - able to complete stairs 11/10, recommend home with home health discharge to home with home health today (2) Supratherapeutic INR: Recently started on Warfarin 7mg daily at [facility] [place] after left leg DVT. IVC filter also in place. Also with Afib. INR goal 2-3 - Arrived with INR 7.8 --> received vitamin K --> INR 1.4 - Restarted warfarin at 5mg daily - INR now 1.7 plan to continue warfarin at 5 mg daily, INR recheck ordered for Monday 11/13 referral placed for Anticoagulation clinic f/u (3) IgA nephropathy: Recently diagnosed on bx at [facility] [place] - Steroid taper, 5mg per week - decreased to 55mg 11/08 -Continue Atovaquone 750mg BID for the duration of his prednisone use for PJP prophylaxis -Continue sevelamer, sodium bicarb Also with anemia of chronic disease, baseline 8-9 - hgb stable kidney function stable for duration of stay. (4) Acute UTI: Hx of ESBL UC: klebisella Will be covered by Augmentin/doxycycline (5) Atrial fibrillation: EKG with AFIB RVR on admission, rate 117 Metoprolol succ increased to 25 mg as rates have been 90-100s Anticoagulation: Warfarin (6) Ambulatory dysfunction: Recent rehab stay but exacerbated by multiple hospitalizations and back pain limiting movement - MRI lumbar spine for radiculopathy symptoms - discogenic degeneration, severe to moderate to severe central canal stenosis - ortho spine consulted - candidate for injections when he is able to come off anticoagulation - start gabapentin 100mg BID - lidocaine patch (7) Left femoral vein DVT: IVC filter placed at [facility] 2022 Coumadin - see above Plan Chronic stable medical problems: * ROBERT - does not use CPAP * Morbid obesity - BMI 40.0 * Gout continue febuxostat 20mg daily Dispo: discharged to home today with home health Family updated at besides 11/08 and by phone 11/09 & 11/10 Notes For Next Care Provider admitted with hemoptysis found to be related to pneumonia. Also with the UTI. INR 7.8 on arrival warfarin dose reduced to 5 mg daily, INR check for Tuesday. Referral to the anticoagulation clinic. Metoprolol dose increased gabapentin started for radicular pain pulmonology referral placed Medication Changes From Visit Augmentin and doxycycline twice daily x 5 days metoprolol increased to 25 mg warfarin decreased to 5 mg daily gabapentin 100 mg twice daily Admission HPI Per Admitting Provider This is a pleasant 58-year-old male recently diagnosed with an IgA nephropathy. On chronic prednisone therapy. Over the last couple days has had increased cough. Today had blood-tinged sputum and came to the ER for further evaluation and treatment. Imaging demonstrated pulmonary consolidations. In addition urinalysis demonstrated UTI. Laboratory studies demonstrated a hemoglobin of 8.6 g/dL which is approximately the patient's baseline-has been as low as 8.2.. Creatinine 3.0 again approximate the patient's baseline. The patient's INR was 7.8. The patient has a recent diagnosis of DVT in the left leg. Also has a history of chronic atrial fibrillation. He is on Coumadin therapy and had an IVC filter placed within the last several weeks at [place]. Patient's course in the ER he received 5 of IV vitamin K, IV ertapenem and IV doxycycline after consultation with clinical pharmacist from the ER provider with the recommendations -due to the fact the patient has a history of ESBL UTIs. Discharge Exam General: NAD, VS as above Resp: normal respiratory effort, no wheezing , no cough CV: afib, no murmur, Abd: normal bowel sounds, non tender, no hepatosplenomegaly Extremities: Moves all extremities, b/l 1+ edema. able to lift bilateral legs off bed. Neuro: A&O x3, Skin: intact, no lesions noted Discharge Plan Discharge Items Patient Disposition: Home - Home Health Services Reason For Visit: PNA Discharge Diagnosis: Pneumonia Condition on Discharge: Fair Activity: Resume your previous activity Activity Comment: work with therapy to get stronger Weightbearing: Full weightbearing Non-emergency contact: Primary Care Provider Call non-emergency contact if: you have any medication questions, your pain is not controlled, your pain is worsening, you have a fever and your temperature is above 101 Follow-up/Referrals: Sukh Barragan MD [Physician] - 11/14/23 11:15 am Karina Ramirez MD, PhD [Pathologist] - (Anticoagulation clinic ) Lyla Magallanes MD, [facility] [Physician] - 11/24/23 8:45 am (pulmonary follow up) Kelvin Longoria DO [Surgeon] - (follow up if you would like injections ) Morro Alvarado DO [Primary Care Provider] - 11/16/23 2:00 pm (With Alissa Hercules PA-C) Diet: Low Potassium (2gm) Ambulatory Orders: Prothrombin Time INR (Routine) Timeframe: [id number] Location: Determined by Patient Ordered By: Juli Fajardo Attending Provider Instructions: Mr. Murphy, You were hospitalized after coughing up blood, you were found to have an elevated INR and diffuse pneumonia. You received the Coumadin reversal agent in the ER and your INR is 1.7 on the day of discharge. You have been treated with I V antibiotics and will continue oral antibiotics at discharge. Coumadin/Warfarin Recommendations: - 5mg every day - recheck lab ordered for Tuesday, results will go to your PCP - if you see the lab result is not between 2-3 please call your PCP - a referral has been placed to the anticoagulation clinic (their contact information is above) once you have an appointment there, they will help manage going forward - I have attached information about being on Warfarin below Pneumonia - You will be on two antibiotics - Augmentin and doxycycline for 5 more days, first dose of medication is tonight 11/10 - I discussed your case with the mask layout designer while you were here and given how your CT looked at the high dose steroids for your kidneys, they are recommending followup in their office for likely repeat imaging. That referral has been placed. - continue incentive spirometer use while on antibiotics Atrial fibrillation - metoprolol has been increased to 25mg Back pain - lidocaine patches can be purchased over the counter - continue to work with PT - Gabapentin 100mg twice daily prescribed - Dr. Longoria contact information is above if you desire injection once anticoagulation can be stopped. Kidney - your UTI will be treated with the antibiotics you are on for the pneumonia - continue steroid taper as prescribed, you are currently on the 55mg dose - Per nephrology - the dose of Febuxostat (uloric) is only 20mg daily All of the refills that you requested have been sent to the pharmacy. The famotidine (pepcid) and Vitamin D3 can be purchased over the counter. Medications: Your medication list has been reviewed and reconciled upon discharge to ensure accuracy and continuity of care. An updated list of all your medications is included with your hospital discharge paperwork. Please review this list closely, and make note of any changes. Take your medications as instructed; do not skip a dose of your medicines. Make sure all of your doctors know every medicine you are taking (including kwub-[id number] medicines, vitamins, and supplements). Call your primary care provider before taking any new medicines (including over- the-counter medicines, vitamins, and supplements), because some of these may interact with your current medications, or may make your symptoms worse. Tell your primary care provider if you cannot afford your medications. Activity: You can do normal everyday activities as your body allows. Take rest breaks if you feel tired. Do not overexert. Stop activity if you have pain, shortness of breath or feel dizzy. Follow-up appointments: Make an appointment with your primary care physician within one week of discharge. A copy of this summary will be sent to them. Every time you see your primary care physician, or any other doctor, bring your medication list, and a list of questions. CONTACT YOUR PRIMARY CARE PROVIDER if you experience any of the following: Shortness of breath or difficulty breathing Fevers or chills Feeling tired with normal activity or experiencing dizziness or fainting Difficulty following your treatment plan, or difficulty taking medications CALL 911 OR GO TO THE EMERGENCY DEPARTMENT if you experience any of the following: Severe abdominal pain or nausea/vomiting Severe chest pain, or chest pain that radiates (moves) to your jaw or arm Sudden, severe shortness of breath or difficulty breathing Thank you for allowing us to participate in your care. Pending Studies at Discharge: No Stand-Alone Forms: My [facility] [place] [employer], Smoking Cessation Medications and DC Order Prescriptions: New warfarin 5 mg Tablet 5 mg PO DAILY@1600 Qty: 30 1RF gabapentin 100 mg Capsule 100 mg PO BID 30 Days Qty: 60 1RF febuxostat [Uloric] 40 mg Tablet 20 mg PO DAILY Qty: 10 0RF amoxicillin-pot clavulanate 875-125 mg tablet 1 tab PO BID Qty: 11 0RF Rx Instructions: first dose PM 11/10 doxycycline hyclate 100 mg capsule 100 mg PO BID Qty: 11 0RF Rx Instructions: first dose PM 11/10 Continued prednisone 10 mg tablet 60 mg PO DAILY sevelamer carbonate 800 mg tablet 1,600 mg PO TID Rx Instructions: must administer with a meal/food acetaminophen [Tylenol Extra Strength] 500 mg tablet 1,000 mg PO QID MDD 3 GRAMS APAP/24 HOURS PRN (Reason: pain) Qty: 0 0RF thiamine HCl (vitamin B1) 100 mg tablet 100 mg PO DAILY Qty: 30 0RF folic acid 1 mg tablet 1 mg PO DAILY Qty: 30 0RF Rx Instructions: PER PT'S SPOUSE "REFUSES TO TAKE THIS MEDICATION". atovaquone 750 mg/5 mL suspension 750 mg PO BID 30 Days Qty: 300 0RF Rx Instructions: must administer with food, preferably a high-fat meal sodium bicarbonate 650 mg tablet 650 mg PO BID 30 Days Qty: 60 0RF pantoprazole 40 mg tablet,delayed release (DR/EC) 40 mg PO QAM Qty: 30 0RF Rx Instructions: PER PT'S SPOUSE "ONLY USES, MAYBE ONCE A MONTH". Changed metoprolol succinate 25 mg tablet extended release 24 hr 25 mg PO DAILY Qty: 30 1RF Discontinued febuxostat 40 mg tablet 40 mg PO DAILY Qty: 90 3RF warfarin 5 mg tablet See Rx Instructions .ROUTE .COMPLEX Rx Instructions: Take 5mg w/ 2mg (2 of 1mg tablets) to equal 7mg by mouth every morning. warfarin 1 mg Tablet See Rx Instructions .ROUTE .COMPLEX Rx Instructions: Take 2mg (2 of 1mg tablets) w/ 5mg to equal 7mg by mouth every morning. Discharge Orders: Discharge Order (Routine); Ordered 11/11/23 Ordered By: Juli Belcher Admission Data Admit Date/Time: 11/08/23 15:29 Attending Provider: Aden Goddard Admit Provider: Doug Javier Primary Care Provider: Morro Alvarado Other Providers: Doug Javier; [facility],Home Healthcare; Kelvin Longoria Other Interventions: Discharge Summary Assessment (RN) Last Done: 11/11/23 13:03 Hospital Stay Data Consultations 11/08/23 14:50 ED Decision to Admit Stat 11/10/23 08:49 Consult Orthopedic Spine Surgery Routine Diagnostic Imagining Performed Chest X-Ray 11/08/23 12:11 XR chest 1V portable CLINICAL HISTORY: cough bloody sputum TECHNIQUE: Single frontal radiograph of the chest was obtained. Comparison: Comparison is made to chest radiograph 10/04/2023 FINDINGS: Exam is limited by underpenetration. The cardiomediastinal silhouette is normal. Faint airspace opacities in the right lower lung. No evidence of pleural effusion or pneumothorax. IMPRESSION: Faint airspace opacities in the right lower lung may represent atelectasis, pneumonia, and/or aspiration. ACT 112: Negative or not required by law. Electronically signed by: Nilesh Herrmann M.D. 11/08/2023 12:[address] 11/08/23 13:37 CT chest diagnostic wo con CT DOSE: 1040.36 mGy.cm CLINICAL HISTORY: 58 years-old Male with hemoptysis, wheezing, possible pneumonia, INR 8. Acute shortness of breath with wheezing TECHNIQUE: Multiaxial CT images of the chest were performed without contrast. A dose lowering technique was utilized adhering to the principles of ALARA. COMPARISON: Chest radiograph 11/08/2023, CT chest 01/10/2023 FINDINGS: Unremarkable thyroid. No lymphadenopathy. Heart is upper limits of normal in size with extensive coronary artery calcifications. No thoracic aortic aneurysm. Decreased attenuation of the cardiac blood pool suggestive of anemia. Bilateral gynecomastia. No pneumothorax, or pleural effusion. Mid lung zone prominent centrilobular groundglass opacities intermixed with subcentimeter nodular consolidative foci noted within a multilobar bilateral distribution. Mild subpleural sparing. No significant intralobular septal thickening. The central airways are patent. Calcifications of the adrenal glands. No acute upper abdominal abnormality. Unremarkable soft tissues. No acute fracture. IMPRESSION: 1. Findings suggestive of multilobar bronchopneumonia. 2. No lymphadenopathy or pleural effusion. 3. Extensive coronary artery calcifications. ACT 112: Negative or not required by law. Electronically signed by: Adair Frey M.D. 11/08/2023 2:22 PM Lumbar Spine MRI 11/09/23 14:52 MR lumbar spine wo con CLINICAL HISTORY: 58 years-old Male with low back pain, right radiating symptoms. Chronic low back pain with right lower extremity radicular symptoms. COMPARISON: CT abdomen and pelvis 09/13/2023. TECHNIQUE: Multiplanar, multi sequence MRI of the lumbar spine was performed without intravenous contrast. FINDINGS: There is mild lumbar levoscoliosis of a few degrees. The studies are limited by patient body habitus. There is asymmetric atrophy involving the left erector spinae musculature on image 4 series 5. Nonspecific edema noted throughout the paraspinal muscles. No fracture, subluxation, endplate erosion or marrow replacing process. Chronic mid vertebral body compression deformities/Schmorl's nodes at L1 and L2. Conus medullaris terminates at the L1 level. T12-L1: Mild intervertebral disc space narrowing with moderate anterior endplate spondylotic spurring and facet arthrosis. No central canal or neural foraminal stenosis. L1-L2: Mild intervertebral disc space narrowing with mild to moderate spondylotic spurring and small circumferential annular disc bulging. Ligamentum flavum thickening with moderate facet arthrosis. Epidural lipomatosis also present. Mild central canal stenosis with AP dimension of the thecal sac measuring 9 mm. Mild bilateral foraminal stenosis. L2-L3: Spondylotic spurring is most pronounced anteriorly. Small circumferential annular disc bulging with disc osteophyte complex. Ligamentum flavum thickening with moderate epidural lipomatosis also noted. AP dimension of the thecal sac measures 6 mm. There is moderate to severe central canal stenosis with mild to moderate right and moderate left foraminal narrowing. L3-L4: Moderate to severe intervertebral disc space narrowing with prominent spondylotic spurring and circumferential annular disc bulging. Ligamentum flavum thickening with trace facet effusions and moderate to severe facet arthrosis. Severe central canal stenosis with AP dimension of the thecal sac measuring 5 mm. Epidural lipomatosis. Mild to moderate left with moderate right foraminal narrowing. L4-L5: Moderate intervertebral disc space narrowing and spondylotic spurring with circumferential annular disc bulging/disc osteophyte complex eccentric to the left neural foramen. Ligamentum flavum thickening with moderate facet arthrosis and trace facet effusions. Central canal is patent. There is at least mild narrowing of the lateral recesses. Mild to moderate right and severe left foraminal stenosis. L5-S1: 5 mm anterolisthesis with chronic bilateral pars defects. Severe intervertebral disc space narrowing. Prominent anterior bridging osteophytosis with circumferential annular disc bulging/posterior disc space uncovering. L igamentum flavum thickening with moderate facet arthrosis. Epidural lipomatosis. Mild central canal stenosis with AP dimension of the thecal sac measuring 9 mm. Mild to moderate bilateral foraminal narrowing. IMPRESSION: 1. Discogenic degeneration with spondylotic spurring and facet arthrosis as above in conjunction with epidural lipomatosis results in multilevel central canal and neural foraminal stenosis. 2. Severe L3-L4 and moderate to severe L2-L3 central canal stenosis. 3. No acute fracture. 4. Chronic L5 pars defects with grade 1 anterolisthesis. ACT 112: Negative or not required by law. The above report was generated using voice recognition software. It may contain grammatical, syntax or spelling errors. Dictated: 11/09/2023 7:19 PM Transcribed: 11/09/2023 7:44 PM Vic [id number] [email or web address] [id number] Electronically signed by: Adair Frey M.D. 11/10/2023 7:21 AM Pending Results Patient Have Any Pending Studies at Discharge: No Discharge Instructions Given to Patient (Per Discharging Provider) Mr. Murphy, You were hospitalized after coughing up blood, you were found to have an elevated INR and diffuse pneumonia. You received the Coumadin reversal agent in the ER and your INR is 1.7 on the day of discharge. You have been treated with IV antibiotics and will continue oral antibiotics at discharge. Coumadin/Warfarin Recommendations: - 5mg every day - recheck lab ordered for Tuesday, results will go to your PCP - if you see the lab result is not between 2-3 please call your PCP - a referral has been placed to the anticoagulation clinic (their contact information is above) once you have an appointment there, they will help manage going forward - I have attached information about being on Warfarin below Pneumonia - You will be on two antibiotics - Augmentin and doxycycline for 5 more days, first dose of medication is tonight 11/10 - I discussed your case with the mask layout designer while you were here and given how your CT looked at the high dose steroids for your kidneys, they are recommending followup in their office for likely repeat imaging. That referral has been placed. - continue incentive spirometer use while on antibiotics Atrial fibrillation - metoprolol has been increased to 25mg Back pain - lidocaine patches can be purchased over the counter - continue to work with PT - Gabapentin 100mg twice daily prescribed - Dr. Longoria contact information is above if you desire injection once anticoagulation can be stopped. Kidney - your UTI will be treated with the antibiotics you are on for the pneumonia - continue steroid taper as prescribed, you are currently on the 55mg dose - Per nephrology - the dose of Febuxostat (uloric) is only 20mg daily All of the refills that you requested have been sent to the pharmacy. The famotidine (pepcid) and Vitamin D3 can be purchased over the counter. Medications: Your medication list has been reviewed and reconciled upon discharge to ensure accuracy and continuity of care. An updated list of all your medications is included with your hospital discharge paperwork. Please review this list closely, and make note of any changes. Take your medications as instructed; do not skip a dose of your medicines. Make sure all of your doctors know every medicine you are taking (including ttdr-mvk-qomuasm medicines, vitamins, and supplements). Call your primary care provider before taking any new medicines (including over- the-counter medicines, vitamins, and supplements), because some of these may interact with your current medications, or may make your symptoms worse. Tell your primary care provider if you cannot afford your medications. Activity: You can do normal everyday activities as your body allows. Take rest breaks if you feel tired. Do not overexert. Stop activity if you have pain, shortness of breath or feel dizzy. Follow-up appointments: Make an appointment with your primary care physician within one week of discharge. A copy of this summary will be sent to them. Every time you see your primary care physician, or any other doctor, bring your medication list, and a list of questions. CONTACT YOUR PRIMARY CARE PROVIDER if you experience any of the following: Shortness of breath or difficulty breathing Fevers or chills Feeling tired with normal activity or experiencing dizziness or fainting Difficulty following your treatment plan, or difficulty taking medications CALL 911 OR GO TO THE EMERGENCY DEPARTMENT if you experience any of the following: Severe abdominal pain or nausea/vomiting Severe chest pain, or chest pain that radiates (moves) to your jaw or arm Sudden, severe shortness of breath or difficulty breathing Thank you for allowing us to participate in your care. Supervising Physician Co-Signing Physician Notes Attending Attestation and Discharge Note: Pt seen/examined, chart reviewed, care plan d/w TIMOTHY Belcher. I agree w/ the banegas components of her discharge documentation. 58yo male - well known to me from prior hospitalizations - with recently biopsy- proven IgA nephropathy, severe polyarticular gout, severe OA of b/l knees, COVID infection 2023, and recent dx of LLE DVT s/p IVC filter -- presented with hemoptysis in the setting of supratherapeutic INR. INR was 7.8 upon ED arrival. s/p vitamin K. Discharge INR was 1.7, with goal range of 2-3. During the stay he was treated for b/l pneumonia. Despite the pneumonia he was never hypoxic and never required supplemental O2. He clinically improved with CAP coverage while here. Creatinine remained stable during the stay, with creatinine range of 2.7 to 3 while here. Daily prednisone was continued for his IgA nephropathy, and atovaquone was continued for PJP prophylaxis given his high-dose prednisone usage. Of note - respiratory [employer] panel was fully negative, and sputum cx X 2 were negative for a specific pathogen. He will complete a course of augmentin/doxy for his pneumonia, and have [facility]monary f/u as CT Chest showed extensive pneumonia. Coumadin - 5mg/day without bridge; [facility] Anticoagulation clinic referral made. Finally, MRI L-spine showed extensive DJD. Started on gabapentin low-dose for presumed radicular pains in his legs from the l-spine. Outpatient f/u with ortho-spine. Discharge exam: gen - looks well today, NAD, obese neck - no JVD heart - RRR, s1 s2, no murmur lungs - no rales, no wheeze, no increased work of breathing, CTA b/l abd - soft NT ND BS+ ext - <1+ edema b/l, pulses 2+ b/l musculo - b/l knees without synovitis Aden Goddard MD Total Time Total Time Spent Total Time Spent (In Minutes): Time spent day of discharge 50 minutes including direct patient care, medication reconciliation, documentation, review of labs and images, and coordination of care. Coding Level of Care Code 82308 INP/OBS DISCH >30 MIN Diagnoses Hemoptysis R04.2 Supratherapeutic INR R79.1 IgA nephropathy N02.B9 Acute UTI N39.0 Atrial fibrillation I48.91 Ambulatory dysfunction R26.2 Left femoral vein DVT I82.412
[2023-11-11 13:05] VITALS: BP 126/78
== END 2023-11-11 16:29 | disposition home health service (06) | DRG 194 ==
LOC: ED 11:51 → 2N 15:29 → SUATTDRO 15:29 → 2N 18:00
DX: R04.2 Hemoptysis; B96.1 Klebsiella pneumoniae [K. pneumoniae] as the cause of diseases classified elsewhere; N39.0 Urinary tract infection, site not specified; N18.4 Chronic kidney disease, stage 4 (severe); J18.9 Pneumonia, unspecified organism; Z86.718 Personal history of other venous thrombosis and embolism; Z79.01 Long term (current) use of anticoagulants; E66.01 Morbid (severe) obesity due to excess calories; Z83.3 Family history of diabetes mellitus; N02.B9 Other recurrent and persistent immunoglobulin A nephropathy; M48.061 Spinal stenosis, lumbar region without neurogenic claudication; D63.8 Anemia in other chronic diseases classified elsewhere; I48.20 Chronic atrial fibrillation, unspecified; R79.1 Abnormal coagulation profile; M43.17 Spondylolisthesis, lumbosacral region; Z68.41 Body mass index [BMI] 40.0-44.9, adult

== ENCOUNTER 2024-11-20 06:27 | Observation (INO) ==
--- NOTE | 2024-10-26 09:34 | PAT Medication Instructions ---
Medication Instructions Date of Service October 26, 2024 Home Medications Medication Instructions Recorded folic acid 1 mg tablet See Rx Instructions .Route 12/12/23 .COMPLEX #90 tabs thiamine mononitrate (vit B1) 100 100 mg PO DAILY 90 days #90 tabs 03/13/24 mg tablet metoprolol succinate 25 mg 12.5 mg (1/2 x 25 mg) PO DAILY #30 05/25/24 tablet,extended release 24 hr tabs solifenacin 5 mg tablet (Vesicare) 5 mg PO QAM #90 tabs 07/25/24 gabapentin 300 mg capsule 300 mg PO BID 90 days #180 caps 07/30/24 sodium bicarbonate 650 mg tablet See Rx Instructions .Route 10/11/24 .COMPLEX #90 tabs pantoprazole 40 mg tablet,delayed 40 mg PO QAM HEARTBURN/INDIGESTION 10/19/24 release #30 tabs folic acid 1 mg tablet See Rx Instructions .Route .COMPLEX acetaminophen 500 mg tablet (Tylenol Extra Strength) 1,000 mg PO BID PRN thiamine mononitrate (vit B1) 100 mg tablet 100 mg PO DAILY metoprolol succinate 25 mg tablet,extended release 24 hr 12.5 mg (1/2 x 25 mg) PO DAILY febuxostat 40 mg tablet 40 mg PO QAM solifenacin 5 mg tablet (Vesicare) 5 mg PO QAM gabapentin 300 mg capsule 300 mg PO BID sodium bicarbonate 650 mg tablet See Rx Instructions .Route .COMPLEX pantoprazole 40 mg tablet,delayed release 40 mg PO QAM warfarin 5 mg tablet See Rx Instructions PO UD Continue as directed metoprolol succinate 25 mg tablet,extended release 24 hr 12.5 mg (1/2 x 25 mg) PO DAILY ASK your prescriber and surgeon warfarin 5 mg tablet See Rx Instructions PO UD DO NOT take the morning of surgery folic acid 1 mg tablet See Rx Instructions .Route .COMPLEX febuxostat 40 mg tablet 40 mg PO QAM solifenacin 5 mg tablet (Vesicare) 5 mg PO QAM thiamine mononitrate (vit B1) 100 mg tablet 100 mg PO DAILY sodium bicarbonate 650 mg tablet See Rx Instructions .Route .COMPLEX Take morning of surgery With a small sip of water, OTHERWISE NOTHING TO EAT OR DRINK AFTER MIDNIGHT: acetaminophen 500 mg tablet (Tylenol Extra Strength) 1,000 mg PO BID PRN(if needed) gabapentin 300 mg capsule 300 mg PO BID pantoprazole 40 mg tablet,delayed release 40 mg PO QAM Take evening before surgery acetaminophen 500 mg tablet (Tylenol Extra Strength) 1,000 mg PO BID PRN(if needed) gabapentin 300 mg capsule 300 mg PO BID Other Notes If you have any questions please call us at [phone] or [phone] or [phone] or [phone]
--- NOTE | 2024-10-30 08:40 | Anesthesiology Consultation ---
Date of Service October 30, 2024 Assessment & Plan (1) Encounter for pre-operative examination: Plan - check coags STAT am DOS. - Outpatient joint assessment: Patient is currently scheduled for inpatient pathway. If re-evaluated and patient/surgeon requests outpatient pathway, tomas leon is not a recommended candidate for outpatient joint program. Chart Review Chart Review: Acceptable Risk for Surgery and Patient seen in Pre Admission Testing Teaching & Discussion Pre-Anesthesia Teaching/Discussion Notes: Instructed NPO after midnight before surgery, except medications with 15 cc of water. Medication instructions provided according to the PAT guidelines. History Surgery Operation Date: 11/20/24 10:40 Proposed Procedures p Right Total Knee Arthroplasty - Dillon Milton MD Height/Weight Height: 6 ft 6 in Weight: 152.2 kg Allergies Allergy/AdvReac Type Severity Reaction Status Date / Time No Known Allergies Allergy Mild Verified 10/25/24 12:36 Medications Home Medications Medication Instructions Recorded Confirmed Last Taken folic acid 1 mg tablet See Rx Instructions .Route 12/12/23 10/25/24 Unknown .COMPLEX #90 tabs acetaminophen 500 mg tablet 1,000 mg PO BID PRN pain 03/06/24 10/25/24 Unknown (Tylenol Extra Strength) thiamine mononitrate (vit B1) 100 100 mg PO DAILY 90 days #90 tabs 03/13/24 10/25/24 Unknown mg tablet metoprolol succinate 25 mg 12.5 mg (1/2 x 25 mg) PO DAILY #30 05/25/24 10/25/24 Unknown tablet,extended release 24 hr tabs febuxostat 40 mg tablet 40 mg PO QAM 06/12/24 10/25/24 Unknown solifenacin 5 mg tablet (Vesicare) 5 mg PO QAM #90 tabs 07/25/24 10/25/24 Unknown gabapentin 300 mg capsule 300 mg PO BID 90 days #180 caps 07/30/24 10/25/24 Unknown sodium bicarbonate 650 mg tablet See Rx Instructions .Route 10/11/24 10/25/24 Unknown .COMPLEX #90 tabs pantoprazole 40 mg tablet,delayed 40 mg PO QAM HEARTBURN/INDIGESTION 10/19/24 10/25/24 Unknown release #30 tabs warfarin 5 mg tablet See Rx Instructions PO UD 10/19/24 10/25/24 Unknown Past Medical History Medical History (Updated 10/30/24 @ 09:37 by Eveline Sanchez PA-C) Alcohol use disorder in remission Ambulatory dysfunction knee pain Angiomyolipoma of right kidney Anxiety Atrial fibrillation reason for metoprolol, no cardio Chronic anticoagulation Chronic kidney disease (CKD), stage 4 follows w/ Dr Barragan Gout of right knee due to renal impairment Rex filter in place (~2023) placed [address] [facility] History of anemia History of blood transfusion (~2023) History of COVID-19 (~2023) 2023 hospitalized at [place], transferred to [facility]-residual infrequent dizziness if stands up too quickly-denies near syncope History of UTI last 07/2024 Hx of Clostridium difficile infection (~08/2023) 08/2023- resolved Hx of deep venous thrombosis (~08/2023) 08/2023 >> left femoral vein, after having covid Hyperlipidemia IgA nephropathy Multifocal pneumonia (~08/2023) with covid 08/2023 ROBERT (obstructive sleep apnea) no device Osteoarthritis Spinal stenosis of lumbar region Patient denies h/o stroke, seizures, heart attack, heart failure, DM, or HTN. Exercise / Class Metabolic Activity II 4-5 Yardwork/Stairs/Walk up hill (ambulates with cane, denies chest discomfort or shortness of breath with one flight of stairs) Past Family History Family History Father Diabetes Myocardial infarction Mother Diabetes Myocardial infarction Ovarian cancer Denies family history of Prostate cancer Breast cancer Lung cancer Colorectal cancer Stroke Past Surgical History Surgical History (Updated 10/30/24 @ 09:36 by Eveline Sanchez PA-C) H/O colonoscopy Colonoscopy 12/01/22, repeat 5 years in 2027 History of ankle surgery left History of lateral meniscus repair of right knee History of wisdom tooth extraction Past Anesthesia History No Hx of Anesthesia Complications and No Family Hx of Anesthesia Complications History of PONV No Hx of PONV and No Hx of Motion Sickness Social History Smoking Status: Never smoker Do You Dip or Chew Tobacco: No Hx Alcohol Use: No Alcohol type: beer and hard liquor alcohol intake frequency: other Hx Substance Use: No substance use type: does not use Review of Systems Patient denies chest pain, shortness of breath, dyspnea on exertion, reflux, fever, chills, cough, wheezing, or palpitations. Physical Exam Vital Signs Vitals BP 105/71 P 71 TEMP 97.9 SP02 95% on RA RESP 18 Physical Patient resting comfortably in chair in no acute distress, alert and oriented, responding appropriately throughout visit Full cervical extension range of motion without pain TMD 3.5 finger breadths Mallampati Score 3 Dentition: intact, denies chipped or loose teeth, caps/crowns, implants or bridges Lungs: normal respiratory effort. Good air movement, clear throughout to auscultation, no adventitious breath sounds Cardiac: regular rate and rhythm, no murmurs noted Carotid arteries: negative bruit bilat Lab Results Anesthesia Preop Results Results Anesthesia Widget: WBC 6.10 K/ul (4.8-10.8) 10/30/24 Hgb 12.9 g/dl (14.0-18.0) L 10/30/24 Hct 40.1 % (42.0-52.0) L 10/30/24 Plt 197 K/uL (130-400) 10/30/24 Na 137 mmol/L (136-145) 10/30/24 K 4.8 mmol/L (3.5-5.1) 10/30/24 Cl 105 mmol/L (98-107) 10/30/24 CO2 26 mmol/L (21-32) 10/30/24 BUN 32 mg/dl (6-23) H 10/30/24 Creat 2.09 mg/dl (0.6-1.4) H 10/30/24 Glucose Level 89 mg/dl (70-99(Fasting)) 10/30/24 PT 21.9 Seconds (9.0-12.0) H 10/30/24 PTT 44 Seconds (21-31) H 10/30/24 INR 2.2 (0.9-1.1) H 10/30/24 Urine Color Yellow 10/05/24 Urine Appearance Clear (Clear) 10/05/24 Urine pH 6.5 (4.5-7.5) 10/05/24 Urine Specific [place] 1.014 (1.000-1.030) 10/05/24 Urine Protein Negative (Negative) 10/05/24 Urine Glucose (UA) Negative (Negative) 10/05/24 Urine Ketones Negative (Negative) 10/05/24 Urine Blood Negative (Negative) 10/05/24 Urine Nitrite Negative (Negative) 10/05/24 Urine Bilirubin Negative (Negative) 10/05/24 Urine Urobilinogen Negative (Negative) 10/05/24 Urine Leukocyte Esterase 1+ (Negative) H 10/05/24 Urine WBC (Auto) 11-20 /hpf (0-5) H 10/05/24 Urine RBC (Auto) 3-5 /hpf (0-2) H 10/05/24 Urine Hyaline Casts (Auto) 0-2 /lpf (0-2) 10/05/24 Urine Epithelial Cells (Auto) 0-2 /hpf (0-2) 10/05/24 Urine Bacteria (Auto) None Seen (None Seen) 10/05/24 Blood Type O Positive 10/30/24 Antibody Screen NEGATIVE 10/30/24 Testing Electrocardiogram Date: 10/30/24 NSR, rate 65 bpm Low voltage QRS Chest X-Ray Date: 02/14/24 No acute cardiopulmonary findings. Resolution of the bilateral airspace opacities on prior chest radiograph and chest CT. Echocardiogram Date: 10/08/23 EF 60-65% No regional wall motion abnormalities Mild LVH No significant valvular abnormalities Other Testing Carotid doppler 10/01/24 1. Mild intimal thickening with small atherosclerotic plaques along bilateral CCA, carotid bulbs and proximal ICA with less than 50% luminal stenosis. 2. Normal flow characteristics with no evidence of significant stenosis or occlusion by NASCET criteria.
[~2024-11-20 06:27] MED LIST changes: -ATORVASTATIN PO; +BUPIVACAINE 0.25% PF 30 ML VIAL ONE; +BUPIVACAINE 0.5 % 5 MG/1 ML PF 10ML VIAL ONE; -PRLSR20 PO; -SODIUM CHLORIDE 0.9% 500ML 500 ML IV ONE; -ZNTT/150 PO
[2024-11-20] MEDS: ACETAMINOPHEN 500 MG TAB PO SCH ×2 (06:52→15:07)
[2024-11-20] MEDS: CeleBREX 200 MG CAP PO SCH (06:52)
[2024-11-20] MEDS: FAMOTIDINE 20 MG TAB PO SCH (06:52)
[2024-11-20] MEDS: METOCLOPRAMIDE HCL 10 MG TABLET PO SCH (06:52)
[2024-11-20] MEDS: LR 60ML/HR IV SCH (07:01)
[2024-11-20] MEDS: dexAMETHasone**PF** 10 MG/ML VIAL IV SCH (07:12)
[2024-11-20 07:19] LABS: INR 1.1 (0.9-1.1); Partial Thromboplastin Time 31 Seconds (21-31); Prothrombin Time 11.4 Seconds (9.0-12.0)
--- NOTE | 2024-11-20 08:00 | History & Physical Bridge Note ---
Date of Service November 20, 2024 History & Physical Bridge Note I have examined the patient, reviewed the History & Physical and in the interval since the performance of the History & Physical I have noted the following changes of clinical significance: no changes noted
[2024-11-20] MEDS ORDERED: MIDAZOLAM HCL 1 MG/ML 2ML VIAL ONE (08:14)
[2024-11-20] MEDS ORDERED: PROMETHAZINE HCL 6.25 MG in SODIUM CHLORIDE 0.9% 50 ML IV PRN (09:10)
[2024-11-20] MEDS ORDERED: ATROPINE SULFATE 0.1 MG/ML 10ML SYR IV PRN (09:10)
[2024-11-20] MEDS ORDERED: ONDANSETRON INJ 2 MG/ML 2 ML VIAL IV PRN ×2 (09:10→14:27)
[2024-11-20] MEDS ORDERED: HYDROmorphone INJ 2 MG/ML SYR/VIAL IV PRN (09:10)
[2024-11-20] MEDS ORDERED: PROPOFOL IV EMULSION 10 MG/ML 100 ML VIAL IV ONE ×2 (09:14→12:02)
[2024-11-20] MEDS: ceFAZolin 3000MG 3,000 MG/72.5 ML BAG IV SCH (10:35)
[2024-11-20] MEDS ORDERED: PHENYLEPHRINE 100MCG/ML 5ML SYR ONE (11:04)
[2024-11-20] MEDS: ORTHO JOINT ANESTHETIC ONE (11:10)
[2024-11-20] MEDS: ROPIV 0.5% 246mg, Ketorolac 30mg, EPINEPHrine 0.5mg in NSS INFIL SCH (11:10)
[2024-11-20] MEDS ORDERED: ALBUMIN HUMAN 5% 12.5 GM/250 ML VIAL IV ONE (11:44)
[2024-11-20] MEDS: VANCOMYCIN HCL 1000MG/20ML VIAL ONE (11:48)
--- NOTE | 2024-11-20 13:30 | Operative Report ---
PG Post Operative Report Pre & Post Diagnosis Operation Date: 11/20/24 08:50 Pre-Op Diagnosis: Right Knee Osteoarthritis Post-Op Diagnosis: Right Knee Osteoarthritis I identified the patient and participated in the time-out.: Yes Procedure Operation Date: 11/20/24 08:50 Actual Procedures p Right Total Knee Arthroplasty(Right) - Dillon Milton MD Surgeon Dillon Milton MD [employer] Architect Ruy Hercules PA-C Estimated Blood Loss 500 Findings Consistent with Post-Op Diagnosis Operative findings revealed advanced right knee tricompartment DJD. He had extensive grade 4 dyqo-le-ydsd disease in all 3 compartments most severe in the posterior medial side. He had a chronic ACL deficiency. Specimens Right knee sent for pathology. Anesthesia Type Spinal MAC Complications none Disposition Accompanied Patient To Recovery: No Indications Patient is a 59-year-old gentleman has had a long history of right knee problems over the years. He has undergone 2 knee arthroscopies in the past. Over the past the 5 to 10 years he has developed increased pain discomfort and disability in his right leg. X-rays show advanced and progressive right knee arthritis. He elected proceed with total knee arthroplasty. Of note, this gentleman is extremely large with a severely arthritic and deformed knee. As a result we use a stemmed tibial component to maximize his stability and decrease the likelihood of long-term loosening. Description of Procedure Operative implants consists of: 1. Vanguard size 80 right Po stabilized femoral component. 2. Biomet size 87 tibial tray with a 5 mm offset, small wing and 17 x 80 mm stem. 3. 16 mm pro stabilized polyethylene insert. 4. 34 x 8 and half all poly patella. The patient was taken to the op room, identified, placed on the operating table in the supine position. All conductors were appropriately padded. IV antibiotics were by anesthesia team. A spinal anesthetic and adductor canal block had been [place] in the holding area. A right thigh tourniquet was then placed. The right lower extremity was then prepped and draped in usual sterile fashion. The right leg was elevated exsanguinated with use of an Esmarch and a tourniquet was placed at 300 millimeters of mercury. An anterior approach of the right knee was then performed to longitudinal incision centered over the patella. Sharp dissection was carried through subcutaneous tissue down the extensor mechanism. He still was bleeding quite a bit so we increased the tourniquet pressure to 350. Even after this there was still bleeding so we did increase it to 400 for the remainder of the case. A medial parapatellar throbbing incision was made. Some subperiosteal dissection was carried out medially. The fat pad was dissected from his patella tendon. The lateral patellofemoral ligament was released. Patella subluxated laterally knee was flexed. The osteophytes taken off distal femur. The ACL and PCL were then released in the distal femur and th e tibia subluxated anteriorly. Attention was first drawn to the tibia. The tibial eminence was excised. The intramedullary canal was opened and reamed up to a size 17. The 17 reamer was left in place. The proximal tibial cutting guide was attached to the IM jovani. The proximal tibial cut was made remove about a millimeter bone from the most deficient aspect medial tibial plateau. The tibia was sized to a size 87. We elected to prepare this later in the case. The distal femur was entered with a sharp drill. Intramedullary canal was suction. A right 6 degree valgus cutting guide was placed. The distal femoral cutting block was pinned in place. This femoral cut was made to take an additional 3 mm of bone distal femur. The femur was then sized to a size 80. The AP cutting block was pinned parallel to the epicondylar axis which was 4 degrees of external rotation. The anterior cut, anterior chamfer, posterior cut, posterior chamfer cuts were made. The box cutting guide was placed in the just slight lateral box cut was made. The knee was flexed. The remnants of the medial lateral menisci were excised. The osteophytes taken off the posterior aspect of the femur. A trial femoral component was placed. The tibia was then subluxated anteriorly. We then prepared the tibia. An 87 tibial tray was pinned in place. We used a 5 mm offset and prepared this for a 17 mm. The tibia was assembled in place and fit nicely. We then trialed the knee and the 16 mm insert fit most appropriately. Attention drawn the patella. The patella was cleaned of all soft tissues. Patella thickness measured 25 mm in thickness was cut down to 16. Was sized to a size 34 patella. The lug holes were drilled for the 34 patella. The lateral osteophytes removed. Patella button was placed. Knee was taken through range of motion patella tracked nicely with no thumbs test. Attention then drawn to placement permanent components. All trial components removed. Bone plug was placed into the distal femur to limit blood loss. A double patch of [place] G cement was mixed with an additional gram of vancomycin. A Biomet Vanguard size 80 right posterior stabilized femoral component, size 87 tibial tray with a 80 x 17 mm offset stem and a small cruciate wing, a 60 mm Po stabilized polyethylene insert, and a 34 x 8 all poly patella then cemented in place. Knee was brought out into full extension till cement hardened. Final cement check was then performed. The pericapsular tissues were injected with total 100 cc of Ortho mix. The tourniquet was then let down for tourniquet time 85 minutes. There was not any additional bleeding and actually probably less than when the tourniquet was. The patient did receive 1 g tranexamic acid. PictureThe wound was irrigated extensively. Extensor mechanism was history of then closed with combination 1 PDS suture and #1 Vicryl sutures in a [id number] fashion. Extensor [place] checked and found to be intact. Subcutaneous tissue then closed with 2-0 Dexon suture in a buried interrupted fashion skin was closed skin ying. Leg was then cleaned and dried and a sterile dressing with Xeroform, 4 fours, sterile cast padding, Nadir bandage were applied. The patient then transferred to the recovery room in stable condition. Patient tolerated the procedure well and there were no complications. Ruy Hercules, my physician lead recreation assistant, was present for the entire procedure. His assistance was required for proper patient positioning, prepping and draping, surgical exposure, retraction, form the technical details of the operation, placement of the implants, closure of the incision site, placement of the postoperative sterile bandage. I attest to the content of the Intraoperative Record and any orders documented therein. Any exceptions are noted below.
--- NOTE | 2024-11-20 13:31 | XRay Report ---
TWO VIEWS RIGHT KNEE CLINICAL HISTORY: Postoperative examination. FINDINGS: AP and crosstable lateral portable views of the right knee are compared to study dated 10/25. A right knee arthroplasty is in near anatomic alignment. There is a long tibial stem. There barger s been undersurface remodeling of the patella. No acute fracture is seen. There are expected postoper ative changes around the knee including skin clips, soft tissue edema, and subcutaneous gas. Atherosc lerotic calcification is seen in the regional arteries. IMPRESSION: Expected postoperative changes status post right knee arthroplasty. No acute fracture is seen. ACT 112: Negative or not required by law. Electronically signed by: Asher Nowak M.D. 11/20/2024 1:29 PM
[2024-11-20] MEDS ORDERED: METOCLOPRAMIDE HCL INJ 5 MG/ML 2 ML VIAL IV PRN (14:27)
[2024-11-20] MEDS ORDERED: TAMSULOSIN HCL 0.4 MG CAP PO PRN (14:27)
[2024-11-20] MEDS ORDERED: ALUMINUM/MAGNESIUM SUSP 30 ML UDC PO PRN (14:27)
[2024-11-20] MEDS ORDERED: HYDROmorphone INJ 0.5 MG/0.5 ML SYR IV PRN (14:27)
[2024-11-20] MEDS ORDERED: diphenhydrAMINE Capsule 25 MG CAP PO PRN (14:27)
[2024-11-20] MEDS ORDERED: MAGNESIUM HYDROXIDE SUSP 30 ML UDC PO PRN (14:27)
[2024-11-20] MEDS ORDERED: NALOXONE HCL 0.4 MG/1 ML VIAL/CARP IV PRN (14:27)
[2024-11-20] MEDS: SODIUM CHLORIDE 0.9% 1,000 ML IV SCH (14:39)
[2024-11-20] MEDS: GABAPENTIN 300 MG CAP PO SCH (15:08)
--- NOTE | 2024-11-20 15:16 | Anesthesiology Progress Note ---
Date of Service November 20, 2024 Anesthesia Post Procedure Vital Signs Vital Signs: Temp Pulse Resp BP Pulse Ox O2 Del Method O2 Flow Rate 11/20/24 14:50 65 16 133/84 94 Room Air 11/20/24 14:20 55 L 16 115/72 100 Room Air 11/20/24 14:05 53 L 14 140/66 100 Room Air 11/20/24 13:50 52 L 15 109/69 97 Room Air 11/20/24 13:35 54 L 17 117/82 99 Room Air 11/20/24 13:20 36.4 C L 63 21 127/69 100 Room Air 11/20/24 13:10 60 19 124/68 99 Room Air 11/20/24 13:00 60 19 104/72 98 Room Air 11/20/24 12:52 36.0 C L 70 14 126/88 99 Oxymask 6 11/20/24 06:40 36.8 C 65 20 122/75 95 Room Air Pain Intensity Right Knee: Pain Intensity: 5 Transfer of Care Handoff Completed per policy Notes Mental Status: alert / awake / arousable Patient Amnestic to Procedure: Yes Nausea / Vomiting: adequately controlled Pain: adequately controlled Airway Patency, RR, SpO2: stable & adequate BP & HR: stable & adequate Hydration State: stable & adequate Neuraxial Anesthesia: was administered and sensory block is resolving Anesthetic Complications: no major complications apparent and Pt Satisfied with anesthetic care
[2024-11-20] MEDS: WARFARIN SOD 10 MG TAB PO ONE (15:39)
[2024-11-20] MEDS: ASCORBIC ACID 500 MG TAB PO SCH (17:07)
[2024-11-20] MEDS: TRANEXAMIC ACID / 0.7% NACL 1,000 MG/100 ML BAG IV SCH (18:41)
[2024-11-20] MEDS: SENNA 8.6 MG TAB PO SCH (20:53)
[2024-11-20] MEDS: DOCUSATE SODIUM 100 MG CAP PO SCH (20:53)
[2024-11-20] MEDS ORDERED: SENNA 8.6 MG TAB PO SCH (21:00)
[2024-11-21 06:33] LABS: Hematocrit (blood only) 27.7 % (42.0-52.0); Hemoglobin 9.3 g/dl (14.0-18.0); Mean Corpuscular Hemoglobin 30.7 pg (25.0-34.0); Mean Corpuscular Volume 91.4 fL (80.0-100.0); Platelet Count 198 K/uL (130-400); RDW Standard Deviation 48.5 fL (36.4-46.3); Red Blood Count 3.03 M/uL (4.70-6.10); White Blood Count 11.49 K/ul (4.8-10.8)
[2024-11-21 06:58] LABS: Anion Gap 6.0 (3-11); Blood Urea Nitrogen 43.0 mg/dl (6-23); Calcium 8.6 mg/dl (8.6-10.3); Carbon Dioxide 25.0 mmol/L (21-32); Chloride 107.0 mmol/L (98-107); Creatinine Clr Calc Pharmacy 51.9 ml/min; Glucose 118.0 mg/dl (70-99(Fasting)); Potassium 5.0 mmol/L (3.5-5.1); Sodium 138.0 mmol/L (136-145)
[2024-11-21 07:01] LABS: INR 1.1 (0.9-1.1); Prothrombin Time 11.9 Seconds (9.0-12.0)
[2024-11-21 07:28] VITALS: RESP 16; TEMP 98.2; O2SAT 98
[2024-11-21] MEDS: FEBUXOSTAT 40 MG TABLET PO SCH (07:58)
[2024-11-21] MEDS: METOPROLOL SUCC 25MG EXT REL TAB PO SCH (07:59)
[2024-11-21] MEDS: FOLIC ACID 1 MG TAB PO SCH (07:59)
[2024-11-21] MEDS: MULTIVITAMIN TAB PO SCH (08:00)
[2024-11-21] MEDS: OXYBUTYNIN CHLORIDE XL 5 MG TABCR PO SCH (08:00)
[2024-11-21] MEDS: THIAMINE HCL 100 MG TAB PO SCH (08:00)
[2024-11-21] MEDS: dexAMETHasone 10 MG in SYRINGE 0 ML IV SCH (08:01)
[2024-11-21 08:14] VITALS: BP 114/78; PULSE 73
--- NOTE | 2024-11-21 08:22 | Orthopedic Progress Note ---
Date of Service November 21, 2024 Assessment & Plan (1) Status post total right knee replacement: * Continue Current Treatment * Disposition: home * Daily treatment: Physical Therapy/ Occupational Therapy per protocol * Weight bearing status: WBAT * Continue to monitor for ABLA * Pain control * DVT prophylaxis, resume home dose Coumadin * Office/hospital f/u 2 weeks for progress check and staple/suture removal * Plan for discharge today pending PT/OT clearance Subjective . Active Problems: S/p right TKA POD 1 59 y/o male s/p right TKA. Doing well overall, pain managed and improved function. Denies fever/chills, chest pain/SOB, nausea/vomiting. Otherwise no complaints. Review of Systems All systems reviewed & are unremarkable except as noted in HPI & below. Physical Exam . * General: Alert and oriented, no acute distress * Constitutional: well-developed, well-nourished. * Respiratory: Normal respiratory effort, no distress * Gastrointestinal: No tenderness to palpation, no rigidity or guarding. * Skin: No rash or lesion. * Neurologic: Grossly normal * Musculoskeletal: right knee surgical dressing CDI, not removed for exam. Otherwise no obvious deformity or overlying skin changes RLE. Diffuse TTP distal thigh and knee region. Otherwise no specific tenderness of proximal thigh, lower leg, foot/ankle. AROM knee flexion 80 degrees. AROM foot/ankle intact. Sensation intact plantar/dorsal foot. Brisk capillary refill. Results & Data Results & Data Laboratory Results . Diagnostic Findings . Knee X-Ray 11/20/24 12:58 TWO VIEWS RIGHT KNEE CLINICAL HISTORY: Postoperative examination. FINDINGS: AP and crosstable lateral portable views of the right knee are compared to study dated 10/25/2024. A right knee arthroplasty is in near anatomic alignment. There is a long tibial stem. There has been undersurface remodeling of the patella. No acute fracture is seen. There are expected postoperative changes around the knee including skin clips, soft tissue edema, and subcutaneous gas. Atherosclerotic calcification is seen in the regional arteries. IMPRESSION: Expected postoperative changes status post right knee arthroplasty. No acute fracture is seen. ACT 112: Negative or not required by law. Electronically signed by: Asher Nowak M.D. 11/20/2024 1:29 PM PG Care Time/CCT Total # of Minutes Spent Total Time Spent with Patient: Total time spent is greater than 50% in coordination of care (as documented) at patient's floor/unit and/or counseling patient: Coding Level of Care Code 55863 Post Operative Follow-Up Diagnoses Status post total right knee replacement Z96.651
[2024-11-21] MEDS: WARFARIN SOD 10 MG TAB PO ONE (11:24)
== END 2024-11-21 12:05 | disposition home health service (06) ==
LOC: PACUINP 06:27 → ASU 06:27 → 3E 16:06